=== PATIENT | male | born 1950 | race Caucasian/White ===

== ENCOUNTER 2016-12-17 06:35 | Day surgery (SDC) | payer MEDICARE, BC ==
[2016-12-12 14:17] VITALS: BMI 23.2
[~2016-12-17 06:35] MED LIST: LACTATED RINGERS 1,000 ML IV SCH
[2016-12-17 07:18] VITALS: RESP 16; TEMP 98
[2016-12-17] MEDS ORDERED: LIDOCAINE 1% 20 ML VIAL (10MG/ML) FOR IV START INTRADERMA ONE (07:24)
[2016-12-17] MEDS ORDERED: fentaNYL (PF) 50 MCG/ML 2 ML AMP ONE (07:48)
[2016-12-17] MEDS ORDERED: BUPIVACAINE (PF) 0.5% 30 ML VIAL ONE (07:48)
[2016-12-17] MEDS ORDERED: MIDAZOLAM 2 MG/2 ML VIAL ONE (07:48)
[2016-12-17] MEDS ORDERED: TRIAMCINOLONE ACETONIDE 40 MG/ML 1 ML VIAL ONE (07:48)
[2016-12-17] MEDS ORDERED: IV FLUID CONTINUATION 1,000 ML IV ONE (08:15)
--- NOTE | 2016-12-17 08:21 | P.PCN ---
Date of Procedure: 12/17/16 Anesthesia: MAC Surgeon: Bradly Mcguire Pathology: none sent Condition: stable Disposition: PACU Description of Procedure: PREOPERATIVE DIAGNOSIS: 1) Lumbar spondylosis without myelopathy and facet arthropathy; 2) lumbar postlaminectomy syndrome POSTOPERATIVE DIAGNOSIS: 1) Lumbar spondylosis without myelopathy and facet arthropathy; 2) lumbar postlaminectomy syndrome PROCEDURE DESCRIPTION: Patient presents for left lumbar diagnostic medial branch blocks under fluoroscopic guidance. The procedure is performed using fluoroscopic guidance during needle placement to assure proper position and maximize safety. ANESTHESIA: Local with 1% lidocaine. Conscious sedation with Versed/fentanyl. EBL: Minimal PROCEDURE INDICATION: Patient with lumbar facet arthropathy signs and symptoms and previous excellent relief from RFA > 6 years ago, here for diagnostic medial branch block. Pt does not take any blood thinning medications. PROCEDURE DESCRIPTION: The patient was seen and identified in the preoperative area. Risks, benefits, complications, and alternatives were discussed with the patient (including but not limited to incomplete pain relief, bleeding, infection, nerve damage, and allergies to medications), the patient agreed to proceed with the procedure and signed the consent after all questions were answered. Patient was taken to the OR and time out was completed to verify proper patient, position, laterality of pain, and allergies. Pt was placed in the prone position and a pillow was placed under the abdomen to reduce lumbar lordosis. The lumbosacral area was prepped and draped in the usual sterile fashion. Using oblique fluoroscopy, the eye of the "Raymond dog" was identified at all levels in the lumbar spine. The patient has interpedicular fusion hardware from the L2-L3 levels, obscuring the view of the pedicles at certain levels. For this reason, I decided to perform MBB at left L1-L2, L3-L4, and L4-L5 levels. First, the left L2 vertebral body, which corresponds to the path of the medial branch originating from the level above, which is L1 in this case, was identified. Subsequently, a 22-gauge 3.5-inch spinal needle was inserted under fluoroscopic guidance toward the eye of the "Raymond dog" of the left L2 vertebral body, corresponding to the junction of the superior articular process and the transverse process of the pedicle of the same level. After needle tip confirmation on lateral view and after negative aspiration for CSF and blood and without paresthesias, 1 mL of a 3 ml solution of 0.5% preservative-free bupivacaine 2 ml and 40 mg Kenalog was injected. Subsequently the needle was withdrawn intact and the same procedure was repeated for the left L3 and left L4 medial branches. Needle was withdrawn intact after each injection. At the end of the procedure, the skin was cleansed and bandages were applied. COMPLICATIONS: None. DISPOSITION/PLAN: The patient taken to the recovery area after the procedure in a stable condition for observation. Patient was reexamined prior to discharge and there were no issues. Patient was discharged home, accompanied by an adult, after meeting discharged criteria. Discharge instructions were give to the patient by the staff. Patient was specifically instructed not to drive today and to rest for the rest of the day. Patient noted excellent relief upon rolling from OR table to cart while in procedure room itself. Upon return, can consider repeating same procedure or attempting LMBB at L5-S1 level, although this does appear as though it may be technically challenging due to distortion of the lumbar spine.
--- NOTE | 2016-12-17 08:22 | FL ---
EXAMINATION TYPE: FL guided pain mgmt statistic DATE OF EXAM: 12/17/2016 8:19 AM HISTORY: Flouroscopy time 10 seconds of fluoroscopy provided. IMPRESSION: 1. Fluoroscopy time.
[2016-12-17 08:38] VITALS: BP 121/76; PULSE 56
--- NOTE | 2016-12-19 13:56 | CDI ---
Dr. Mcguire Mr. Somers was seen on 12/17/16 for a medial branch block. Per your procedure note, Conscious sedation with Versed/fentanyl is documented. The Pain Procedure Record, however, has MAC checked off under Anesthesia plan. This is conflicting documentation that needs clarification for proper reporting purposes. Please clarify if the anesthesia provided for Ms Shelton was MAC (Monitored Anesthesia Care) or Conscious/Moderate Sedation? Please document this clarification on an addendum to the procedure note. THERON
== END 2016-12-17 09:01 | disposition home or self-care (01) ==
LOC: ORPAIN 06:35
PROVIDERS: ATTEND Anesthesiology
DX: M46.86 Other specified inflammatory spondylopathies, lumbar region (principal); M96.1 Postlaminectomy syndrome, not elsewhere classified; M47.816 Spondylosis without myelopathy or radiculopathy, lumbar region; K21.9 Gastro-esophageal reflux disease without esophagitis; M06.9 Rheumatoid arthritis, unspecified; I10 Essential (primary) hypertension; Z79.899 Other long term (current) drug therapy; Z79.891 Long term (current) use of opiate analgesic; Z79.52 Long term (current) use of systemic steroids; Z88.8 Allergy status to other drugs, medicaments and biological substances
CPT/HCPCS: 62323; 99152; J2250; J3301; J3010; 27096

== ENCOUNTER 2017-01-28 07:01 | Day surgery (SDC) | payer MEDICARE, BC ==
[2017-01-24 11:52] VITALS: BMI 22.8
[2017-01-28 07:56] VITALS: RESP 16; TEMP 97.5
[2017-01-28] MEDS ORDERED: LIDOCAINE 1% 20 ML VIAL (10MG/ML) FOR IV START INTRADERMA ONE (07:56)
[2017-01-28 08:02] LABS: Glucose,Whole Blood 80 mg/dL (75-99)
[2017-01-28] MEDS ORDERED: MIDAZOLAM 2 MG/2 ML VIAL ONE (08:21)
[2017-01-28] MEDS ORDERED: fentaNYL (PF) 50 MCG/ML 2 ML AMP ONE (08:21)
[2017-01-28] MEDS ORDERED: TRIAMCINOLONE ACETONIDE 40 MG/ML 1 ML VIAL ONE (08:21)
[2017-01-28] MEDS ORDERED: BUPIVACAINE (PF) 0.5% 30 ML VIAL ONE (08:21)
[2017-01-28] MEDS ORDERED: IV FLUID CONTINUATION 1,000 ML IV ONE ×2 (08:49)
[2017-01-28 09:14] VITALS: BP 124/74; PULSE 63
--- NOTE | 2017-01-28 09:37 | P.PCN ---
Date of Procedure: 01/28/17 Surgeon: Bradly Mcguire Pathology: none sent Condition: stable Disposition: PACU Description of Procedure: PREOPERATIVE DIAGNOSIS: 1) Lumbar spondylosis without myelopathy and facet arthropathy; 2) lumbar postlaminectomy syndrome POSTOPERATIVE DIAGNOSIS: 1) Lumbar spondylosis without myelopathy and facet arthropathy; 2) lumbar postlaminectomy syndrome PROCEDURE DESCRIPTION: Patient presents for left lumbar diagnostic medial branch blocks under fluoroscopic guidance. The procedure is performed using fluoroscopic guidance during needle placement to assure proper position and maximize safety. ANESTHESIA: Local with 1% lidocaine. Conscious sedation with Versed/fentanyl. EBL: Minimal PROCEDURE INDICATION: Patient with lumbar facet arthropathy signs and symptoms and previous excellent relief from RFA > 6 years ago, here for diagnostic medial branch block. Pt does not take any blood thinning medications. PROCEDURE DESCRIPTION: The patient was seen and identified in the preoperative area. Risks, benefits, complications, and alternatives were discussed with the patient (including but not limited to incomplete pain relief, bleeding, infection, nerve damage, and allergies to medications), the patient agreed to proceed with the procedure and signed the consent after all questions were answered. Patient was taken to the OR and time out was completed to verify proper patient, position, laterality of pain, and allergies. Pt was placed in the prone position and a pillow was placed under the abdomen to reduce lumbar lordosis. The lumbosacral area was prepped and draped in the usual sterile fashion. Using oblique fluoroscopy, the eye of the "Raymond dog" was identified at all levels in the lumbar spine. The patient has interpedicular fusion hardware at multiple levels in the lumbar spine, obscuring the view of the pedicles at certain levels. For this reason, I decided to perform MBB at left L1-L2, L2-L3 , and L3-L4 levels. First, the left L2 vertebral body, which corresponds to the path of the medial branch originating from the level above, which is L1 in this case, was identified. Subsequently, a 22-gauge 3.5-inch spinal needle was inserted under fluoroscopic guidance toward the eye of the "Raymond dog" of the left L2 vertebral body, corresponding to the junction of the superior articular process and the transverse process of the pedicle of the same level. After needle tip confirmation on lateral view and after negative aspiration for CSF and blood and without paresthesias, 1 mL of a 3 ml solution of 0.5% preservative -free bupivacaine 2 ml and 40 mg Kenalog was injected. Subsequently the needle was withdrawn intact and the same procedure was repeated for the left L2 and left L3 medial branches. Needle was withdrawn intact after each injection. At the end of the procedure, the skin was cleansed and bandages were applied. COMPLICATIONS: None. DISPOSITION/PLAN: The patient taken to the recovery area after the procedure in a stable condition for observation. Patient was reexamined prior to discharge and there were no issues. Patient was discharged home, accompanied by an adult, after meeting discharged criteria. Discharge instructions were give to the patient by the staff. Patient was specifically instructed not to drive today and to rest for the rest of the day. I asked patient to tell us which procedure worked better for him as there was a slight change in levels done for this MBB today ( L1-L3 today and L1, L3, and L4 done last time).
--- NOTE | 2017-01-28 10:37 | FL ---
EXAMINATION TYPE: FL guided pain mgmt statistic DATE OF EXAM: 01/28/2017 8:43 AM CLINICAL HISTORY: Low back pain. TECHNIQUE: Fluoroscopy. COMPARISON: None. FINDINGS: Fluoroscopic guidance was provided during pain relief procedure performed by Dr. Mcguire . A total of 9 seconds of fluoroscopic time was utilized during the procedure and 3 spot images are acq uired. Images acquired shows needle localization at several levels in the lumbar spine. There is 3 l evel surgical posterior fusion hardware noted. IMPRESSION: As Above.
== END 2017-01-28 09:26 | disposition home or self-care (01) ==
LOC: ORPAIN 07:01
PROVIDERS: ATTEND Anesthesiology
DX: G89.29 Other chronic pain (principal); M47.816 Spondylosis without myelopathy or radiculopathy, lumbar region; M46.96 Unspecified inflammatory spondylopathy, lumbar region; M96.1 Postlaminectomy syndrome, not elsewhere classified; I10 Essential (primary) hypertension; M06.9 Rheumatoid arthritis, unspecified; Z91.048 Other nonmedicinal substance allergy status; Z79.52 Long term (current) use of systemic steroids; Z98.1 Arthrodesis status
CPT/HCPCS: 99152; 64493; 64494; 64495; J2250; J3301; J3010

== ENCOUNTER 2017-03-04 07:51 | Day surgery (SDC) | payer MEDICARE, BC ==
[2017-02-28 14:15] VITALS: BMI 22.9
[2017-03-04] MEDS ORDERED: LACTATED RINGERS 1,000 ML IV SCH (08:00)
[2017-03-04] MEDS ORDERED: LIDOCAINE 1% 20 ML VIAL (10MG/ML) FOR IV START INTRADERMA ONE (08:14)
[2017-03-04 08:22] VITALS: TEMP 98.1
[2017-03-04] MEDS ORDERED: BUPIVACAINE (PF) 0.5% 30 ML VIAL ONE (08:56)
[2017-03-04] MEDS ORDERED: fentaNYL (PF) 50 MCG/ML 2 ML AMP ONE (08:56)
[2017-03-04] MEDS ORDERED: MIDAZOLAM 2 MG/2 ML VIAL ONE (08:56)
[2017-03-04] MEDS ORDERED: TRIAMCINOLONE ACETONIDE 40 MG/ML 1 ML VIAL ONE (08:56)
--- NOTE | 2017-03-04 09:37 | FL ---
EXAMINATION TYPE: FL guided pain mgmt statistic DATE OF EXAM: 03/04/2017 9:31 AM HISTORY: Flouroscopy time 38 seconds of fluoroscopy provided. IMPRESSION: 1. Fluoroscopy time.
--- NOTE | 2017-03-04 09:57 | P.PCN ---
Date of Procedure: 03/04/17 Preoperative Diagnosis: Failed back surgery syndrome Lumbar spondylosis without myelopathy Postoperative Diagnosis: Same as above Procedure(s) Performed: Left lumbar medial branch radio frequency ablation under fluoroscopic guidance Anesthesia: MAC Surgeon: Zelda Hernandez Pathology: none sent Condition: stable Disposition: PACU Description of Procedure: The patient was seen in preop holding area consent was obtained then was brought into the procedure 1 placed in prone position. Skin was prepped with ChloraPrep and draped in a sterile manner. Lidocaine 1% was used to numb the skin up at the target points that were chosen as follows: The patient had 5 surgeries on his back including fusion between L1 and L3 and lumbar laminectomy between L4 to S1, I had difficulty identifying the target points with the surgeries. The diffusion level there is no need to do any medial branch block so far as the fusion is stable and it has been stable, I then turned my attention into doing the levels beneath has hardware which were between L4 to S1. For the L5-S1 level which corresponds to the dorsal ramus of L5 the target point was the superior medial aspect of the sacral alar on the left side of the spine on the AP view of fluoroscopy and for the L3 and L4 medial branches the target points were the connection between the transverse process and the superior to go process of L4 and L5 vertebra respectively on the oblique view of fluoroscopy. I used 18-gauge 100 mm in length with 10 mm curved active tip radiofrequency ablation Venom needles. AP oblique and lateral view of fluoroscopy were obtained to verify needle tip position. Because of the bone. I had difficulty reaching that typical site of the medial branches on the lateral view of fluoroscopy. Motor stimulation did not show any twitching in the lower extremities. I then prepared a solution of 2 MLS Marcaine 0.5% +40 mg of Kenalog and 1 mL of the solution was injected in each needle after that I started radiofrequency ablation for 90 seconds at 80C. I think the patient may benefit from a spinal cord stimulator, and it looks like he did have a trial before his last surgery which didn't help with the pain but he ended up having surgery. I think using Motrin the new techniques of stimulation like burst or high-frequency may help control his lower back pain which radiates to the left hip area only.
[2017-03-04 09:59] VITALS: BP 150/84; PULSE 55; RESP 16
[2017-03-04] MEDS ORDERED: IV FLUID CONTINUATION 1,000 ML IV ONE (10:05)
== END 2017-03-04 10:29 | disposition home or self-care (01) ==
LOC: ORPAIN 07:51
PROVIDERS: ATTEND Anesthesiology
DX: M96.1 Postlaminectomy syndrome, not elsewhere classified (principal); M47.816 Spondylosis without myelopathy or radiculopathy, lumbar region
CPT/HCPCS: 64635; 64636; 99152; 99153; J2250; J3301; J3010

== ENCOUNTER → 2017-04-09 | Outpatient (CLI) | payer MEDICARE, BC ==
[2017-04-09 14:41] VITALS: BP 120/76; PULSE 62; RESP 16; TEMP 98.3
--- NOTE | 2017-04-09 15:27 | P.PN ---
Subjective This is follow-up visit for this patient with a history of severe and chronic low back pain secondary to failed back surgery syndrome lumbar area , lumbar spondylosis with facet arthropathy, we have done interventional pain management injection,, diagnostic medial branch block , RFA of the medial branches , he continued to have severe low back pain, numbness and tingling sensation in the lower extremity, he denies any motor or sensory deficit, denies any fever or night sweats, and his currently on 1-Lawtey 10/325 every 6 hours (prescription from primary care ) 2-Neurontin 800 mg twice a day ( prescription from primary care ) Patient denies any side effects of the medication, denies excessive drowsiness or sleepiness, denies suicidal ideation, and reports that the current pain medication is NOT helping To control the pain and improve activity of daily living Patient denies any motor or sensory deficit , patient denies any fever or night sweats, denies any change in the bowel movements or urination Physical Examinations : 1-Constitutiona : Cooperative , not in acute distress . 2-HEENT : nech ; supple , no Lymphadenopathy , no Thyromegaly , normal thyroid size . eyes : no ptosis , no icterus, no photophobia . ENT : normal of hearing , normal oropharynx , no Thrush . 3- Respiratory : Chest clear to auscultations Bilaterally , no wheezing , no Rhonchi . 4- Cardiovascular : regular rate and rhythem , S1 , S2 , no S3 , no S4. 5- Gastrointestinal : abdomen soft no tenderness , bowel sounds positive all four quadrents , no organomegally . 6- Genitourinary : Defferred . 7- neurologic : Cranial nerve II to XII intact , no focal neurological deffecit . 8-psychatric : alert , oriented X 3 , appropriate affect , intact judgment and insight . 9-Lymphatic : no Lymphadenopathy . 10- musculoskeltal : exams of the Lumber spine = motor strength lower extremities ,thigh and legs .5/5 deep tendon reflexes : normal Knee Jerk , normal ankle Jerk . lumber facet Loading Test positive strait leg raising test positive at 30 degree , RT ,LT , Fabere test positive RT and positive LT . Range of motion: Range of motion in flexion of the lumbar spine 30 degrees Range of motion range of motion of extension of the lumbar spine 10 Assessment and plan = - Chronic low back pain secondary to lumbar failed back surgeries syndrome , lumbar spondylosis with facet arthropathy without myelopathy , Patient continued to have severe low back pain after the radiofrequency ablation of the medial branch lumbar area - diagnoses, prognosis, and treatment options including but not limited to physical therapy, surgical interventions, interventional therapies , and medication management including narcotics and adjuvant medication were discussed with the patient . Patient could benefit from caudal epidural steroid injections with lysis of epidural adhesions and this will be done under fluoroscopy guidance at the earliest convenient for the patient, patient should continue his current pain medication Lawtey 10/325, and Neurontin 800 mg twice a day (description from PCP ) Objective - Vital Signs Vital signs: Vital Signs Temp 98.3 F 04/09/17 14:31 Pulse 62 04/09/17 14:31 Resp 16 04/09/17 14:31 BP 120/76 04/09/17 14:31 Pulse Ox 97 04/09/17 14:31 Intake & Output 04/08/17 04/09/17 04/09/17 18:59 06:59 18:59 Weight 68.039 kg
== END | disposition home or self-care (01) ==
LOC: PNWHC3 14:16
PROVIDERS: ATTEND Specialist
DX: M47.816 Spondylosis without myelopathy or radiculopathy, lumbar region (principal); M46.96 Unspecified inflammatory spondylopathy, lumbar region; M96.1 Postlaminectomy syndrome, not elsewhere classified; G89.29 Other chronic pain; Z79.899 Other long term (current) drug therapy
CPT/HCPCS: 99211

== ENCOUNTER → 2017-09-28 | Outpatient (CLI) | payer MEDICARE, BC ==
[2017-09-28 09:11] LABS: Calcium 9.9 mg/dL (8.4-10.2)
[2017-10-01 05:41] LABS: Vitamin E (Alpha Tocopherol) 1012 ug/dL (500-1800)
[2017-10-07 19:36] LABS: Vitamin K 170 pg/mL (80-1160)
[2017-10-08 15:12] LABS: Nicotinamide 20 ng/mL; Nicotinic Acid None Detected; Nicotinuric Acid None Detected
== END | disposition home or self-care (01) ==
LOC: LABWHC1 08:20
PROVIDERS: ATTEND Psychiatry & Neurology Pain Medicine
DX: G89.4 Chronic pain syndrome (principal); Z79.899 Other long term (current) drug therapy
CPT/HCPCS: 36415; 82306; 82310; 82550; 83036; 83519; 83735; 84207; 84425; 84446; 84590; 84591; 84597

== ENCOUNTER → 2018-10-03 | Outpatient (CLI) | payer MEDICARE, BC ==
--- NOTE | 2018-10-03 08:18 | CT ---
EXAMINATION TYPE: CT lumbar spine wo con DATE OF EXAM: 10/03/2018 7:36 AM COMPARISON: Radiograph's of the lumbar spine dated 09/05/2015 HISTORY: Low back pain CT DLP: 593.1 mGycm Automated exposure control for dose reduction was used. TECHNIQUE: Unenhanced CT of the lumbar spine was performed. Bone and soft tissue window settings are submitted as well as coronal and sagittal reconstructions. FINDINGS: There is straightening and somewhat reversal of the usual cervical lordosis throughout the lumbar spine. There is grade 1 anterolisthesis of L2 on L3. Surgical fusion of the L1-L3 vertebral cong dies is seen with pedicular screws and fixation rods with prior surgical change at L4 and L5. Interve rtebral disc cages seen at L4-L5. Heterotopic ossification of the facets is seen throughout the lumba r spine. There is osseous fusion of the L4 and L5 vertebral bodies. Schmorl's node is seen of the T11 superior endplate. Anterior osteophytes are noted throughout the lumbar spine. There is multilevel d isc desiccation. There is moderate calcific atheromatous change of the abdominal aorta. At the level of L3 there is to rtuosity and some ectasia as the aorta measures 2.5 cm in anterior posterior dimension on sagittal im ages. L1-L2: Although there is surgical absence of the posterior elements osseous bridging of the facets an d a transverse dimension has occurred and therefore in combination with a broad-based disc bulges the re remains mild spinal canal stenosis and mild bilateral neural foraminal narrowing. L2-L3: Disc uncovering is seen from the grade 1 anterolisthesis. There is surgical absence of the pos terior elements. No spinal canal stenosis. Mild bilateral neural foraminal narrowing remains. L3-L4: There is bridging of the facets from postsurgical heterotopic ossification with prior surgical removal of the posterior elements. Ligamentum flavum buckling and a broad-based disc bulge contribut e to moderate spinal canal stenosis and mild to moderate bilateral neural foraminal narrowing. L4-L5: Intervertebral disc cages seen. Heterotopic ossification of the facets creates mild to moderat e bilateral neural foraminal narrowing. No spinal canal stenosis. L5-S1: There is right lateral soft tissue density along some remnant lamina images on series 3 image 82 just inferior to this on image 84 there is a left-sided postsurgical defect of the sacrum. Some he terotopic ossification is seen in combination with a broad-based disc bulge resulting in mild spinal canal stenosis and minimal bilateral neural foraminal narrowing. IMPRESSION: 1. Postsurgical changes throughout the lumbar spine with surgically fixated grade 1 anterolisthesis o f L2 on L3 and slight reversal of the usual lumbar lordosis. Heterotopic ossification and multilevel broad-based disc bulges results in variable degrees of neural foraminal narrowing and mild spinal can al stenosis at L1-L2 and L5-S1 with moderate spinal canal stenosis at L3-L4. 2. Right eccentric soft tissue density at L5-S1 could represent ligamentum flavum buckling or epidura l fibrosis. This could be correlated with prior surgical history to evaluate for prior removal of the ligamentum flavum or MRI with contrast could evaluate for abnormal enhancement of epidural fibrosis.
== END | disposition home or self-care (01) ==
LOC: RADCTMAIN 07:21
PROVIDERS: ATTEND Internal Medicine
DX: M99.73 Connective tissue and disc stenosis of intervertebral foramina of lumbar region (principal); M48.061 Spinal stenosis, lumbar region without neurogenic claudication; M43.16 Spondylolisthesis, lumbar region; Z98.890 Other specified postprocedural states
CPT/HCPCS: 72131

== ENCOUNTER → 2018-11-19 | Outpatient (CLI) | payer MEDICARE, BC | END | disposition home or self-care (01) | LOC: LABWHC1 13:46 | PROVIDERS: ATTEND Psychiatry & Neurology Pain Medicine | DX: Z51.81 Encounter for therapeutic drug level monitoring (principal) | CPT/HCPCS: 36415; 82565; 84520 ==

== ENCOUNTER → 2020-07-22 | Outpatient (CLI) | payer MEDICARE, BC ==
--- NOTE | 2020-07-22 15:56 | US ---
EXAMINATION TYPE: US carotid duplex BILAT DATE OF EXAM: 07/22/2020 COMPARISON: NONE CLINICAL HISTORY: R09.89 Caroit Bruit. bruit EXAM MEASUREMENTS: RIGHT: Peak Systolic Velocity (PSV) cm/sec ----- Right CCA: 55.9 ----- Right ICA: 95.2 ----- Right ECA: 90.8 ICA/CCA ratio: 1.7 RIGHT: End Diastole cm/sec ----- Right CCA: 11.8 ----- Right ICA: 29.2 ----- Right ECA: 13.8 LEFT: Peak Systolic Velocity (PSV) cm/sec ----- Left CCA: 72.1 ----- Left ICA: 79.9 ----- Left ECA: 75.6 ICA/CCA ratio: 1.1 LEFT: End Diastole cm/sec ----- Left CCA: 20.4 ----- Left ICA: 25.8 ----- Left ECA: 11.0 VERTEBRALS (direction of flow): Right Vertebral: Antegrade Left Vertebral: Antegrade Rhythm: Normal Grayscale, color Doppler, spectral Doppler imaging performed of the carotid arteries. Waveform analys is does not show significant stenosis of the internal carotid arteries. Moderate plaque right bifurca tion. Mild plaque left bifurcation. No evidence of increased velocities. No evidence of significant s tenosis IMPRESSION: No hemodynamic significant stenosis of the proximal internal carotid arteries, indirect measurement of carotid stenosis Criteria for Assigning % of Stenosis / Diameter reduction (Estimation based on the indirect measurements of the internal carotid artery velocities (ICA PSV). 1. Normal (no stenosis)=ICA PSV < 125 cm/s: ratio < 2.0: ICA EDV<40 cm/s. 2. Less than 50% stenosis=ICA PSV < 125 cm/s: ratio < 2.0: ICA EDV<40 cm/s. 3. 50 to 69% stenosis=ICA PSV of 125 to 230 cm/s: ration 2.0 ? 4.0: ICA EDV 40-100 cm/s. 4. Greater than 70% stenosis to near occlusion= ICA PSV > 230 cm/s: ratio > 4.0: ICA EDV > 100 cm/s. 5. Near occlusion= ICA PSV velocities may be low or undetectable: variable ratio and ICA EDV. 6. Total occlusion=unable to detect flow.
== END | disposition home or self-care (01) ==
LOC: RADUSWWP 15:24
PROVIDERS: ATTEND Internal Medicine
DX: R09.89 Other specified symptoms and signs involving the circulatory and respiratory systems (principal)
CPT/HCPCS: 93880

== ENCOUNTER → 2021-06-30 | Outpatient (CLI) | payer MEDICARE, BC ==
--- NOTE | 2021-06-30 13:23 | XR ---
EXAMINATION TYPE: XR thoracic spine 2V DATE OF EXAM: 06/30/2021 COMPARISON: 09/24/2014 HISTORY: Pain TECHNIQUE: 3 views submitted FINDINGS: Alignment is anatomic. There is no compression deformities. There is multilevel hypertrophic and mod erate to severe degenerative disc disease. Postsurgical change is incidentally noted involving the ce rvical spine and suggested within the lumbar spine. IMPRESSION: 1. Moderate to severe degenerative disc disease
== END | disposition home or self-care (01) ==
LOC: LABWHC1 10:57
PROVIDERS: ATTEND Psychiatry & Neurology Pain Medicine
DX: M51.34 Other intervertebral disc degeneration, thoracic region (principal)
CPT/HCPCS: 72070

== ENCOUNTER → 2021-11-01 | Outpatient (CLI) | payer MEDICARE, BC | END | disposition home or self-care (01) | LOC: LABWHC1 11:28 | PROVIDERS: ATTEND Internal Medicine | DX: Z20.822 Contact with and (suspected) exposure to COVID-19 (principal); R05.9 Cough, unspecified | CPT/HCPCS: U0003; C9803 ==

== ENCOUNTER → 2022-10-17 | Outpatient (CLI) | payer MEDICARE ==
[2022-10-17 12:32] LABS: African American GFR (CKD) >90 (>60 ml/min/1.73 sqM); Blood Urea Nitrogen 17 mg/dL (9-20); Non-African American GFR(CKD) >90 (>60 ml/min/1.73 sqM)
--- NOTE | 2022-10-17 13:26 | CT ---
EXAMINATION TYPE: CT angio abdomen pelvis DATE OF EXAM: 10/17/2022 COMPARISON: Prior CT abdomen and pelvis March 20, 2013 HISTORY: iliac aneurysm CT DLP: 742.4 mGycm, Automated Exposure Control for Dose Reduction was Utilized. CONTRAST: CTA scan of the abdomen and pelvis is performed without oral and without and with IV Contrast, patien t injected with 100 mL of Isovue 370. Three-D reconstructed images are created on an independent work station and reviewed. FINDINGS: VASCULAR: There is a patent celiac artery and SMA without significant stenosis. Moderate mixed plaque along the abdominal aorta is identified. No significant stenosis in the bilateral single renal arter ies appear patent CHARU is seen. No greater than 3.0 cm AAA. Moderate to severe mixed plaque in the common iliac arteries bilaterally without significant stenosis . There is significant stenosis in the left internal iliac artery as site a focal 1.6 cm aneurysm axi al image 142. There is moderate to severe mixed plaque in the external iliac arteries bilaterally. Si gnificant stenosis is thought present on the left near image 151. Prominent calcified plaque right co mmon femoral artery level shows stenosis likely approaching 50%. Less prominent plaque left common fe moral artery level. No significant stenosis into the superficial femoral arteries bilaterally LUNG BASES: Coronary artery calcification in the RCA distribution is present. LIVER/GB: Gallbladder is distended margins without surrounding inflammatory change. No biliary dilata tion is evident. PANCREAS: No significant abnormality is seen. SPLEEN: No significant abnormality is seen. ADRENALS: No significant abnormality is seen. KIDNEYS: No significant abnormality is seen. BOWEL: Moderate fecal prominence in the right and transverse colon along with the left colon. No susp icious small or large bowel dilatation. PROSTATE/SEMINAL VESICLES: Mildly enlarged prostate consistent with BPH. LYMPH NODES: No greater than 1cm abdominal or pelvic lymph nodes are appreciated. OSSEOUS STRUCTURES: Extensive surgical change to the lumbar spine is redemonstrated. Artificial disc L4-L5 level. Grade 1 anterolisthesis L2 on L3. Posterior decompression changes noted. Alignment is st raightened. OTHER: No significant additional abnormality is seen. IMPRESSION: 1. No greater than 3.0 cm AAA. 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 Moderate to severe plaque of the aorta extends into branch vessels with si gnificant focal stenosis in the left external iliac artery noted. Correlate for left lower extremity hypoperfusion type symptoms. 2. Moderate colonic fecal stasis. No bowel obstruction.
== END | disposition home or self-care (01) ==
LOC: RADCTMAIN 11:32
PROVIDERS: ATTEND Surgery
DX: I72.3 Aneurysm of iliac artery (principal); I70.0 Atherosclerosis of aorta; R19.5 Other fecal abnormalities
CPT/HCPCS: 82565; 84520; 36415; 74174; Q9967

== ENCOUNTER → 2023-06-21 | Outpatient (CLI) | payer MEDICARE ==
[2023-06-21 13:06] LABS: Basophils # (A) 0.07 X 10*3/uL (0.00-0.10); Eosinophils # (A) 0.12 X 10*3/uL (0.04-0.35); Eosinophils % (A) 1.6 %; HCT 40.2 % (39.6-50.0); HGB 13.2 d/dL (13.0-17.0); Lymphocytes # (A) 1.61 X 10*3/uL (0.90-5.00); Lymphocytes % (A) 22.1 %; MCH 29.7 pg (27.0-32.0); MCHC 32.8 d/dL (32.0-37.0); MCV 90.3 FL (80.0-97.0); Mean Platelet Volume 9.3 FL (9.5-12.2); Monocytes # (A) 0.86 X 10*3/uL (0.20-1.00); Monocytes % (A) 11.8 %; NRBC Per 100 WBC 0 X 10*3/uL (0.00-0.01); Neutrophils # (A) 4.58 X 10*3/uL (1.80-7.70); Neutrophils % (A) 62.8 %; Platelet Count 230 X 10*3/uL (140-440); RBC 4.45 X 10*6/uL (4.40-5.60); RDW 13.6 % (11.5-14.5); WBC 7.29 X 10*3/uL (4.50-10.00)
[2023-06-21 13:38] LABS: ALT 20 U/L (10-49); AST 19 U/L (14-35); Albumin 4.5 d/dL (3.8-4.9); Albumin/Globulin Ratio 2.05 Ratio (1.60-3.17); Alkaline Phosphatase 104 U/L (41-126); BUN/Creat Ratio 14.78 Ratio (12.00-20.00); Blood Urea Nitrogen 13.3 mg/dL (9.0-27.0); Calcium 9.5 mg/dL (8.7-10.3); Carbon Dioxide 28.2 mmol/L (21.6-31.8); Chloride 102 mmol/L (96-109); Chol/HDL Ratio 3.06 Ratio; Globulin 2.2 d/dL (1.6-3.3); Glucose 90 mg/dL (70-110); LDL Cholesterol,Calculated 87.9 mg/dL (0.0-131.0); Potassium 4.6 mmol/L (3.5-5.5); Sodium 140 mmol/L (135-145); Total Bilirubin 0.3 mg/dL (0.3-1.2); Total Protein 6.7 d/dL (6.2-8.2)
== END | disposition home or self-care (01) ==
LOC: LABWHC1 07:16
PROVIDERS: ATTEND Family Medicine
DX: Z00.00 Encounter for general adult medical examination without abnormal findings (principal); Z12.5 Encounter for screening for malignant neoplasm of prostate
CPT/HCPCS: 80061; 80053; 85025; 36415; G0103

== ENCOUNTER → 2023-06-27 | Outpatient (CLI) | payer MEDICARE ==
--- NOTE | 2023-06-28 10:15 | BD ---
EXAMINATION TYPE: Axial Bone Density DATE OF EXAM: 06/27/2023 CLINICAL HISTORY: 73 years old Male. ICD-10 CODE: Z79.52 HALF-WAY (CURRENT) USE OF SYSTEMIC STEROID Height: 64.75 Weight: 151 FRAX RISK QUESTIONS: Family History (Parent hip fracture): no Glucocorticoids (More than 3mos): yes (Ex: prednisone, prednisolone, methylprednisolone, dexamethasone, and hydrocortisone). History of Fracture in Adulthood: no Secondary Osteoporosis: no Rheumatoid Arthritis: yes RISK FACTORS HISTORY OF: Surgery to Spine: yes When: 1970s has had 5 back surgeries Family History of Osteoporosis: no Active: yes Diet low in dairy products/other sources of calcium: no Lost more than 2 inches in height since high school: yes Frequent falls: no Poor Health: no MEDICATIONS: Prednisone or other steroids: yes How Lon+ years Additional Medications: yes RH meds, calcium with d, cholesterol, hbp, reflux, heart meds EXAM MEASUREMENTS: Bone mineral density about the R hip (g/cm2): 0.769 Bone mineral density about the L hip (g/cm2): 0.744 T Score values are as follows: -----R Neck: -2.0 -----L Neck: -1.9 -----R Total: -1.9 -----L Total: -2.1 Z Score values are as follows: -----R Neck: -0.9 -----L Neck: -0.7 -----R Total: -1.4 -----L Total: -1.5 Bone mineral density has: Decreased -13.6% since study of: 02/23/2010 FRAX%s: The graph provided illustrates a 18% chance for a major osteoporotic fx and a 6.8% chance for the hips probability for fx in 10 years time. IMPRESSION: Osteopenia (T Score between -2.5 and -1). There is slightly increased risk of fracture and the patient may be considered for treatment. Re-Screen 2-5 years. NOTE: T-SCORE=SD OF THE YOUNG ADULT MEAN.
== END | disposition home or self-care (01) ==
LOC: RADBDWWP 15:23
PROVIDERS: ATTEND Family Medicine
DX: M85.88 Other specified disorders of bone density and structure, other site (principal); D84.821 Immunodeficiency due to drugs; M06.9 Rheumatoid arthritis, unspecified; Z79.52 Long term (current) use of systemic steroids
CPT/HCPCS: 77080

== ENCOUNTER 2023-08-14 06:03 | Day surgery (SDC) | payer MEDICARE ==
[2023-08-08 13:55] VITALS: BMI 25.4
[2023-08-14 06:54] VITALS: RESP 16; TEMP 98
[2023-08-14] MEDS ORDERED: fentaNYL (PF) 50 MCG/1 ML VIAL IVP ONE (07:00)
[2023-08-14] MEDS ORDERED: PROPOFOL 10 MG/ML 20 ML VIAL IV ONE (07:15)
--- NOTE | 2023-08-14 07:48 | P.PCN ---
Date of Procedure: 08/14/23 Procedure(s) Performed: BRIEF HISTORY: Patient is a 73-year-old pleasant white male scheduled for an elective colonoscopy as a part of screening for colon cancer. PROCEDURE PERFORMED: Colonoscopy with snare polypectomy. PREOPERATIVE DIAGNOSIS: Screening for colon cancer. IV sedation per Anesthesia. PROCEDURE: After informed consent was obtained, the patient, was brought into the endoscopy unit. IV sedation was administered by Anesthesia under continuous monitoring. Digital rectal examination was normal. Initially the Olympus CF-160 flexible video colonoscope was then inserted in the rectum, gradually advanced into the cecum without any difficulty. Careful examination was performed as the scope was gradually being withdrawn. Ileocecal valve and the appendiceal orifice were visualized and appeared normal. Prep was poor and several areas of the colon. Mucosa of the cecum, adequately centimeter broad based polyp removed by snare polypectomy. In the transverse colon there were 3 polyps measuring between 5 mm and 1 cm in size removed by snare polypectomy. Rest of the ascending colon, transverse colon, descending colon, sigmoid colon, and rectum appeared normal. Sigmoid diverticulosis. Retroflexion was performed in the rectum and no lesions were seen. The patient tolerated the procedure well. IMPRESSION: 2 cm broad-based cecal polyp status post polypectomy 5 mm 2 and 1 cm transverse colon polyp status post polypectomy Scattered sigmoid diverticulosis Poor prep in several areas of the colon RECOMMENDATIONS: Findings of this examination were discussed with the patient as well as his family. He was advised to follow with the biopsy results. If the biopsy results and we will repeat colonoscopy in 3 years.
[2023-08-14 08:12] VITALS: BP 143/80; PULSE 54
== END 2023-08-14 08:21 | disposition home or self-care (01) ==
LOC: ORWHC2ENDO 06:03
PROVIDERS: ATTEND Internal Medicine Gastroenterology
DX: Z12.11 Encounter for screening for malignant neoplasm of colon (principal); D12.0 Benign neoplasm of cecum; D12.3 Benign neoplasm of transverse colon; K57.30 Diverticulosis of large intestine without perforation or abscess without bleeding; I10 Essential (primary) hypertension; E78.5 Hyperlipidemia, unspecified; M06.9 Rheumatoid arthritis, unspecified; M19.90 Unspecified osteoarthritis, unspecified site; F32.A Depression, unspecified; K21.9 Gastro-esophageal reflux disease without esophagitis; Z79.891 Long term (current) use of opiate analgesic; Z79.83 Long term (current) use of bisphosphonates; Z79.82 Long term (current) use of aspirin; Z79.631 Long term (current) use of antimetabolite agent; Z79.899 Other long term (current) drug therapy; Z98.890 Other specified postprocedural states; Z79.811 Long term (current) use of aromatase inhibitors; Z91.048 Other nonmedicinal substance allergy status
CPT/HCPCS: 88305; 45385; J2704; J3010

== ENCOUNTER → 2023-09-04 | Outpatient (CLI) | payer MEDICARE ==
[2023-09-04 19:19] LABS: ALT 15 U/L (10-49); AST 19 U/L (14-35)
[2023-09-04 20:02] LABS: Erythrocyte Sedimentation Rate 37 mm/Hr (0-20)
[2023-09-04 20:43] LABS: Basophils # (A) 0.04 X 10*3/uL (0.00-0.10); Basophils % (A) 0.6 %; Eosinophils # (A) 0.08 X 10*3/uL (0.04-0.35); Eosinophils % (A) 1.2 %; HCT 40.7 % (39.6-50.0); Lymphocytes # (A) 1.58 X 10*3/uL (0.90-5.00); Lymphocytes % (A) 23.4 %; MCH 29.1 pg (27.0-32.0); MCHC 31.9 d/dL (32.0-37.0); MCV 91.1 FL (80.0-97.0); Mean Platelet Volume 9.9 FL (9.5-12.2); Monocytes # (A) 0.91 X 10*3/uL (0.20-1.00); Monocytes % (A) 13.5 %; NRBC Per 100 WBC 0 X 10*3/uL (0.00-0.01); Neutrophils # (A) 4.08 X 10*3/uL (1.80-7.70); Neutrophils % (A) 60.6 %; Platelet Count 274 X 10*3/uL (140-440); RBC 4.47 X 10*6/uL (4.40-5.60); RDW 13.8 % (11.5-14.5); WBC 6.74 X 10*3/uL (4.50-10.00)
== END | disposition home or self-care (01) ==
LOC: LABWHC1 11:59
PROVIDERS: ATTEND Internal Medicine Rheumatology
DX: M06.9 Rheumatoid arthritis, unspecified (principal)
CPT/HCPCS: 36415; 82565; 84450; 84460; 85025; 85652; 86140

== ENCOUNTER 2024-02-18 01:36 | Inpatient (IN) | payer MEDICARE ==
[2024-02-18] MEDS: MORPHINE SULFATE 4 MG/ML SYRINGE IVP STA (02:12)
[2024-02-18 02:23] LABS: Basophils % (A) 1 %; Eosinophils % (A) 1 %; HCT 34.5 % (39.0-53.0); HGB 11.3 gm/dL (13.0-17.5); Lymphocytes # (A) 1.1 k/uL (1.0-4.8); Lymphocytes % (A) 13 %; MCH 28.5 pg (25.0-35.0); MCHC 32.7 g/dL (31.0-37.0); MCV 87.3 fL (80.0-100.0); Monocytes # (A) 0.9 k/uL (0-1.0); Monocytes % (A) 10 %; Neutrophils # (A) 6.4 k/uL (1.3-7.7); Neutrophils % (A) 74 %; Platelet Count 361 k/uL (150-450); RBC 3.95 m/uL (4.30-5.90); WBC 8.6 k/uL (3.8-10.6)
[2024-02-18 02:35] LABS: ALT 25 U/L (4-49); AST 48 U/L (17-59); African American GFR (CKD) >90 (>60 ml/min/1.73 sqM); Albumin 3.6 g/dL (3.5-5.0); Alkaline Phosphatase 220 U/L (38-126); Anion Gap 8 mmol/L; Blood Urea Nitrogen 17 mg/dL (9-20); Calcium 8.8 mg/dL (8.4-10.2); Carbon Dioxide 25 mmol/L (22-30); Chloride 102 mmol/L (98-107); Glucose 125 mg/dL (74-99); Non-African American GFR(CKD) >90 (>60 ml/min/1.73 sqM); Potassium 4.1 mmol/L (3.5-5.1); Sodium 135 mmol/L (137-145); Total Bilirubin 0.4 mg/dL (0.2-1.3); Total Protein 6.2 g/dL (6.3-8.2)
[2024-02-18] MEDS: KETOROLAC 15 MG/ML 1 ML VIAL IVP STA (03:06)
--- NOTE | 2024-02-18 03:08 | ED ---
General Adult HPI - General Source: patient Mode of arrival: wheelchair Limitations: no limitations <Jonathan Ochoa - Last Filed: 02/20/24 19:37> <Lev Garcia - Last Filed: 03/26/24 14:36> - General Chief complaint: Back Pain/Injury Stated complaint: BUBBA, rib pain Time Seen by Provider: 02/18/24 01:51 - History of Present Illness Initial comments: 73-year-old male presenting with chief complaint of right flank pain. This has been ongoing for 2 weeks. Patient states that his pain is on his right side, and radiates to the front. This pain wraps around and he feels like "someone is stabbing me". He denies any injury or trauma. It is worse with deep breaths and coughing. No dysuria or hematuria. No fevers or chills. No cough, congestion, sore throat, fever, chills. At times the pain makes him nauseous, no vomiting. No dizziness. He did recently travel to [place], however his pain started prior to traveling. No recent surgeries. No history of blood clot. No lower extremity edema. (Jonathan Ochoa) - Related Data Home Medications Medication Instructions Recorded Confirmed Ascorbic Acid [Vitamin C] 500 mg PO DAILY@1900 08/30/14 02/18/24 Folic Acid 1 mg PO DAILY@0700 08/30/14 02/18/24 Gabapentin [Neurontin] 800 mg PO TID@0700,1500,2300 08/30/14 02/18/24 Metoprolol Succinate 25 mg PO DAILY@0700 08/30/14 02/18/24 Omeprazole [PriLOSEC] 20 mg PO AC-BID 08/30/14 02/18/24 Pravastatin Sodium [Pravachol] 40 mg PO DAILY@1900 08/30/14 02/18/24 buPROPion HCL [Wellbutrin XL] 150 mg PO BID@0700,1900 08/30/14 02/18/24 calcitrioL 0.25 mcg PO FONTENOT 08/30/14 02/18/24 Wzkwqocidc-OAA-Cupjfes-Codeine 1 cap PO BID PRN 06/18/16 02/18/24 [Fiorinal w/Cod 42-660-97-30MG] Calcium Carbonate/Vitamin D3 2 tab PO DAILY@1900 06/18/16 02/18/24 [Calcium 600-Vit D3 5 Mcg (200 Iu)] Doxazosin [Cardura] 4 mg PO BID@0700,1900 06/18/16 02/18/24 metHOTREXate sodium [Methotrexate] 10 mg PO FONTENOT 06/18/16 02/18/24 predniSONE 4 mg PO DAILY@0700 06/18/16 02/18/24 HYDROcodone/APAP 10-325MG [[place] 1 tab PO Q6H 01/24/17 02/18/24 10-325] Losartan [Cozaar] 50 mg PO DAILY@189908/08/23 02/18/24 Magnesium 500 mg PO DAILY@189908/08/23 02/18/24 Potassium Chloride [Klor-Con 10 ER] 10 meq PO DAILY@189908/08/23 02/18/24 Previous Rx's Medication Instructions Recorded Metoclopramide HCl [Reglan] 10 mg PO AC-TID #30 tablet 02/22/24 Allergies Allergy/AdvReac Type Severity Reaction Status Date / Time adhesive Allergy Rash/Hives Verified 02/18/24 09:06 - paper tape ok Review of Systems ROS Other: All systems not noted in ROS Statement are negative. <Jonathan Ochoa - Last Filed: 02/20/24 19:37> ROS Other: All systems not noted in ROS Statement are negative. <Lev Garcia - Last Filed: 03/26/24 14:36> ROS Statement: Those systems with pertinent positive or pertinent negative responses have been documented in the HPI. Past Medical History Past Medical History: GERD/Reflux, Hyperlipidemia, Hypertension, Musculoskeletal Disorder, Prostate Disorder, Rheumatoid Arthritis (RA) Additional Past Medical History / Comment(s): Degenerative Disc Disease. Enlarged prostate. History of Any Multi-Drug Resistant Organisms: None Reported Past Surgical History: Back Surgery, Orthopedic Surgery Additional Past Surgical History / Comment(s): Spinal fusion X2, laminectomy, BILATERAL TENNIS ELBOW SURGERY, LEFT HAND CARPAL TUNNEL SURGERY, TRIAL PAIN STIMULATORPLACED AND LATER REMOVED, Pain Procedures, bilateral cataracts removed. Past Anesthesia/Blood Transfusion Reactions: No Reported Reaction Past Psychological History: No Psychological Hx Reported Smoking Status: Former smoker Past Alcohol Use History: None Reported Past Drug Use History: Marijuana - Past Family History Sister(s) Family Medical History: Cancer Additional Family Medical History / Comment(s): LUNG CANCER. <Jonathan Ochoa - Last Filed: 02/20/24 19:37> General Exam Limitations: no limitations General appearance: alert, in no apparent distress Head exam: Present: atraumatic, normocephalic Eye exam: Present: normal appearance, EOMI Neck exam: Present: normal inspection. Absent: meningismus Respiratory exam: Present: normal lung sounds bilaterally. Absent: respiratory distress, wheezes, rales, rhonchi, stridor Cardiovascular Exam: Present: regular rate, normal rhythm, normal heart sounds. Absent: systolic murmur, diastolic murmur, rubs, gallop, clicks Extremities exam: Absent: pedal edema Neurological exam: Present: alert, oriented X3 Psychiatric exam: Present: normal affect, normal mood Skin exam: Present: warm, dry <Jonathan Ochoa - Last Filed: 02/20/24 19:37> Course Vital Signs 02/18/24 02/18/24 02/18/24 01:43 03:45 05:21 Temperature 98.8 F 98.3 F 98.5 F Pulse Rate 87 70 72 Respiratory 18 22 22 Rate Blood Pressure 162/71 164/74 137/69 O2 Sat by Pulse 98 96 95 Oximetry 02/18/24 02/18/24 06:57 08:18 Temperature 98.3 F 98.2 F Pulse Rate 72 73 Respiratory 20 18 Rate Blood Pressure 136/63 150/78 O2 Sat by Pulse 97 98 Oximetry EKG Findings - EKG Comments: EKG Findings:: Sinus rhythm ventricular rate 69. OH interval 180. QRS 90. QT 387. QTc 407. <Jonathan Ochoa - Last Filed: 02/20/24 19:37> Medical Decision Making - Lab Data Result diagrams: 02/18/24 02:06 02/18/24 15:42 <Jonathan Ochoa - Last Filed: 02/20/24 19:37> - Lab Data Result diagrams: 02/18/24 02:06 02/18/24 15:42 <Lev Garcia - Last Filed: 03/26/24 14:36> - Medical Decision Making Was pt. sent in by a medical professional or institution (, PA, REHABILITATION SERVICES DIRECTOR, urgent care, hospital, or intermediate...) When possible be specific @ -[No] Did you speak to anyone other than the patient for history (EMS, parent, family, police, friend...)? What history was obtained from this source @ -[No] Did you review nursing and triage notes (agree or disagree)? Why? @ -[I reviewed and agree with nursing and triage notes] Were old charts reviewed (outside hosp., previous admission, EMS record, old EKG, old radiological studies, urgent care reports/EKG's, intermediate records)? Report findings @ -[No old charts were reviewed] Differential Diagnosis (chest pain, altered mental status, abdominal pain women, abdominal pain men, vaginal bleeding, weakness, fever, dyspnea, syncope, head ache, dizziness, GI bleed, back pain, seizure, CVA, palpatations, mental health, musculoskeletal)? @Differential includes GERD, pleurisy, pneumothorax, pneumonia, pulmonary embolism, muscle strain, this is not an all-inclusive list EKG interpreted by me (3pts min.). @ -[As above] X-rays interpreted by me (1pt min.). @ -right Sided rib x-rays with chest x-ray shows normal right ribs CT interpreted by me (1pt min.). @ -[None done] U/S interpreted by me (1pt. min.). @ -[None done] What testing was considered but not performed or refused? (CT, X-rays, U/S, labs)? Why? @ -[None] What meds were considered but not given or refused? Why? @ -[None] Did you discuss the management of the patient with other professionals (professionals i.e. , PA, REHABILITATION SERVICES DIRECTOR, lab, RT, psych nurse, social welfare clerk, treasury management sales consultant, teacher, special technical operations officer, case loader operator)? Give summary @ -[No] Was smoking cessation discussed for >3mins.? @ -[No] Was critical care preformed (if so, how long)? @ -[No] Were there social determinants of health that impacted care today? How? (Homelessness, low income, unemployed, alcoholism, drug addiction, transportation, low edu. Level, literacy, decrease access to med. care, usp, rehab)? @ -[No] Was there de-escalation of care discussed even if they declined (Discuss DNR or withdrawal of care, Hospice)? DNR status @ -[No] What co-morbidities impacted this encounter? (DM, HTN, Smoking, COPD, CAD, Cancer, CVA, ARF, Chemo, Hep., AIDS, mental health diagnosis, sleep apnea, morbid obesity)? @ -[None] Was patient admitted / discharged? Hospital course, mention meds given and route, prescriptions, significant lab abnormalities, going to OR and other pertinent info. @ -73-year-old male presenting with chief complaint of pleuritic right-sided rib pain. Has been ongoing for 2 weeks. History and physical exam are conducted. Strays show no acute process. Urine shows no hematuria suggestive of kidney stone. No leukocytosis. On reassessment after pain meds patient states his pain has not improved. D-dimer was added on which came back at 4.36. CTA is ordered, report is pending. Patient is signed out [facility] [place] The patient had CT scan of the chest which I interpreted as showing right upper lung mass. No pulmonary embolism. Was patient admitted / discharged? Hospital course, mention meds given and route, prescriptions, significant lab abnormalities, going to OR and other pertinent info. @ -[Patient is 73-year-old man with pleuritic right chest pain suspected due to right upper lung mass. The patient is admitted to have further symptom control as well as pulmonology evaluation. Undiagnosed new problem with uncertain prognosis? @ -[No] Drug Therapy requiring intensive monitoring for toxicity (Heparin, Nitro, Insulin, Cardizem)? @ -[No] Were any procedures done? @ -[No] Diagnosis/symptom? @ -[Acute pleuritic chest pain Right upper lung mass. Acute, or Chronic, or Acute on Chronic? @ -[Acute Uncomplicated (without systemic symptoms) or Complicated (systemic symptoms)? @ -[Uncomplicated Side effects of treatment? @ -[No] Exacerbation, Progression, or Severe Exacerbation? @ -[No] Poses a threat to life or bodily function? How? (Chest pain, [place], [place], pneumonia, PE, COPD, DKA, ARF, appy, cholecystitis, CVA, Diverticulitis, Homicidal, Suicidal, threat to staff... and all critical care pts) @ -[Yes, cancer requires further evaluation and treatment (Trachy,Lev) - Lab Data Lab Results 02/18/24 02/18/24 02/18/24 Range/Units 02:06 02:06 03:01 WBC 8.6 (3.8-10.6) k/uL RBC 3.95 L (4.30-5.90) m/uL Hgb 11.3 L (13.0-17.5) gm/dL Hct 34.5 L (39.0-53.0) % MCV 87.3 (80.0-100.0) fL MCH 28.5 (25.0-35.0) pg MCHC 32.7 (31.0-37.0) g/dL RDW 14.0 (11.5-15.5) % Plt Count 361 (150-450) k/uL MPV 7.0 Neutrophils % 74 % Lymphocytes % 13 % Monocytes % 10 % Eosinophils % 1 % Basophils % 1 % Neutrophils # 6.4 (1.3-7.7) k/uL Lymphocytes # 1.1 (1.0-4.8) k/uL Monocytes # 0.9 (0-1.0) k/uL Eosinophils # 0.0 (0-0.7) k/uL Basophils # 0.0 (0-0.2) k/uL D-Dimer (<0.60) mg/L FEU Sodium 135 L (137-145) mmol/L Potassium 4.1 (3.5-5.1) mmol/L Chloride 102 (98-107) mmol/L Carbon Dioxide 25 (22-30) mmol/L Anion Gap 8 mmol/L BUN 17 (9-20) mg/dL Creatinine 0.76 (0.66-1.25) mg/dL Est GFR (CKD-EPI)AfAm >90 (>60 ml/min/1.73 sqM) Est GFR (CKD-EPI)NonAf >90 (>60 ml/min/1.73 sqM) Glucose 125 H (74-99) mg/dL Calcium 8.8 (8.4-10.2) mg/dL Total Bilirubin 0.4 (0.2-1.3) mg/dL AST 48 (17-59) U/L ALT 25 (4-49) U/L Alkaline Phosphatase 220 H (38-126) U/L Total Protein 6.2 L (6.3-8.2) g/dL Albumin 3.6 (3.5-5.0) g/dL Urine Color Yellow Urine Appearance Clear (Clear) Urine pH 6.5 (5.0-8.0) Ur Specific [place] 1.022 (1.001-1.035) Urine Protein Trace H (Negative) Urine Glucose (UA) Negative (Negative) Urine Ketones Negative (Negative) Urine Blood Negative (Negative) Urine Nitrite Negative (Negative) Urine Bilirubin Negative (Negative) Urine Urobilinogen 2.0 (<2.0) mg/dL Ur Leukocyte Esterase Negative (Negative) 02/18/24 Range/Units 03:30 WBC (3.8-10.6) k/uL RBC (4.30-5.90) m/uL Hgb (13.0-17.5) gm/dL Hct (39.0-53.0) % MCV (80.0-100.0) fL MCH (25.0-35.0) pg MCHC (31.0-37.0) g/dL RDW (11.5-15.5) % Plt Count (150-450) k/uL MPV Neutrophils % % Lymphocytes % % Monocytes % % Eosinophils % % Basophils % % Neutrophils # (1.3-7.7) k/uL Lymphocytes # (1.0-4.8) k/uL Monocytes # (0-1.0) k/uL Eosinophils # (0-0.7) k/uL Basophils # (0-0.2) k/uL D-Dimer 4.36 H (<0.60) mg/L FEU Sodium (137-145) mmol/L Potassium (3.5-5.1) mmol/L Chloride (98-107) mmol/L Carbon Dioxide (22-30) mmol/L Anion Gap mmol/L BUN (9-20) mg/dL Creatinine (0.66-1.25) mg/dL Est GFR (CKD-EPI)AfAm (>60 ml/min/1.73 sqM) Est GFR (CKD-EPI)NonAf (>60 ml/min/1.73 sqM) Glucose (74-99) mg/dL Calcium (8.4-10.2) mg/dL Total Bilirubin (0.2-1.3) mg/dL AST (17-59) U/L ALT (4-49) U/L Alkaline Phosphatase (38-126) U/L Total Protein (6.3-8.2) g/dL Albumin (3.5-5.0) g/dL Urine Color Urine Appearance (Clear) Urine pH (5.0-8.0) Ur Specific [place] (1.001-1.035) Urine Protein (Negative) Urine Glucose (UA) (Negative) Urine Ketones (Negative) Urine Blood (Negative) Urine Nitrite (Negative) Urine Bilirubin (Negative) Urine Urobilinogen (<2.0) mg/dL Ur Leukocyte Esterase (Negative) Disposition <Jonathan Ochoa - Last Filed: 02/20/24 19:37> Is patient prescribed a controlled substance at d/c from ED?: No <Lev Garcia - Last Filed: 03/26/24 14:36> Clinical Impression: Lung mass, Intractable pain Disposition: ADMITTED IP TO THIS HOSP Condition: Stable
[2024-02-18 03:20] LABS: Appearance,Urine Clear (Clear); Bilirubin,Urine Negative (Negative); Blood,Urine Negative (Negative); Color,Urine Yellow; Glucose,Urine (UA) Negative (Negative); Ketones,Urine Negative (Negative); Leukocyte Esterase,Urine Negative (Negative); Nitrite,Urine Negative (Negative); PH, Urine 6.5 (5.0-8.0); Protein,Urine Trace (Negative); Specific Gravity,Urine 1.022 (1.001-1.035)
--- NOTE | 2024-02-18 03:26 | XR ---
EXAM: XR Right Ribs, 2 Views CLINICAL HISTORY: ITS.REASON XR Reason: rib pain TECHNIQUE: Frontal and oblique views of the right ribs. COMPARISON: No relevant prior studies available. FINDINGS: Lungs: Unremarkable as visualized. No consolidation. Pleural space: Unremarkable. No pneumothorax. Bones/joints: Unremarkable. No acute fracture. IMPRESSION: Normal right rib x-rays.
[2024-02-18] MEDS: LIDOCAINE 4% PATCH TOPICAL ONE (03:56)
--- NOTE | 2024-02-18 07:28 | CT ---
EXAM: CT Angiography Chest With Intravenous Contrast CLINICAL HISTORY: ITS.REASON CT Reason: pleuritic chest pain TECHNIQUE: Axial computed tomographic angiography images of the chest with intravenous contrast. CTDI is 21.67 mGy and DLP is 464.8 mGy-cm. This CT exam was performed using one or more of the following dose reduction techniques: automated exposure control, adjustment of the mA and/or kV according to patient size, and/or use of iterative reconstruction technique. MIP reconstructed images were created and reviewed. COMPARISON: 10/17/2022 FINDINGS: Pulmonary arteries: Unremarkable. No CT evidence of pulmonary embolism. Aorta: No acute findings. No thoracic aortic aneurysm. Lungs: There is a mass within the medial right upper lobe measuring up to 4.2 cm concerning for a primary pulmonary malignancy. Evidence of metastatic disease to bilateral lungs with pulmonary nodules as follows: Superior segment of the right lower lobe-0.9 cm, left upper lobe-0.9 cm, and right lower lobe-1.3 cm. Collapse of the lateral right middle lobe with soft tissue encasing the proximal bronchus. No consolidation. Pleural space: Unremarkable. No significant effusion. No pneumothorax. Heart: Unremarkable. No cardiomegaly. No significant pericardial effusion. No evidence of RV dysfunction. Mediastinum: Mediastinal lymphadenopathy is present as follows: Subcarinal-1.5 cm, right hilar-1.6 cm, left intralobar-1.2 cm, and left lower lobe-1.2 cm. Bones/joints: No acute fracture. No dislocation. Soft tissues: Unremarkable. Lymph nodes: Bilateral axillary lymphadenopathy measuring up to 1.3 cm. Liver: Numerous masses throughout the liver consistent with metastatic disease measuring up to 3 cm in the left lobe and 6 cm in the inferior right lobe. Spleen: At least 3 low densities in the spleen measuring up to 3 cm new from prior study of 2021 concerning for metastatic disease. IMPRESSION: 1. No CT evidence of pulmonary embolism. 2. 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 3. Mediastinal and bilateral axillary lymphadenopathy. 4. Collapse of the lateral right middle lobe with soft tissue encasing the proximal bronchus.
[2024-02-18] MEDS ORDERED: NALOXONE 0.4 MG/ML 1 ML VIAL IV PRN (07:50)
[2024-02-18] MEDS ORDERED: HYDROmorphone 1 MG/ML 1 ML SYRINGE IVP PRN (07:54)
[2024-02-18] MEDS: HYDROmorphone 1 MG/ML 1 ML SYRINGE IVP STA ×2 (08:32→11:06)
--- NOTE | 2024-02-18 10:57 | P.HPIM ---
History of Present Illness H&P Date: 02/18/24 Hospital Course: Patient is a pleasant 73-year-old male with a past medical history of hypertension, hyperlipidemia, GERD, rheumatoid arthritis, BPH, degenerative disc disease status post laminectomy and spinal fusion x 2 and neuropathy. He presented to the emergency department with a chief complaint of right flank pain. Patient reports persistently worsening right flank pain beginning approximately 2 weeks ago and progressively worsened. Patient states pain is persistent, sharp and intense and is worse with any movement and that he is unable to take a deep breath or cough. He denies having any fevers, chills, dizziness, lightheadedness, changes in vision or hearing, chest pain, palpitations, nausea, vomiting, difficulties with urination or blood in urine, difficulties with or changes in his bowel movements, or experiencing any numbness/tingling/weakness/swelling in his extremities. He underwent evaluation in the emergency department. Vital signs upon arrival show blood pressure 162/71, heart rate 87, respiratory rate 18, temp 98.8 F, and SpO2 of 98% on room air. EKG completed showing normal sinus rhythm at 69 bpm with no noted T wave or ST abnormalities showing no signs of acute ischemia. Labs completed and reviewed. X-ray right ribs negative. CBC showing normocytic anemia with hemoglobin of 11.3. BMP showing sodium 135, potassium 4.1 and renal function unremarkable with BUN of 17, creatinine of 0.76, GFR greater than 90. Liver profile showing elevated alkaline phosphatase of 220. Urinalysis showing trace protein and negative for blood or infection. D-dimer elevated at 4.36. CTA was completed negative for pulmonary emboli showing a lung mass within the medial right upper lobe measuring 4.2 cm concerning for primary pulmonary malignancy with metastatic disease to bilateral lungs, liver, and spleen along with mediastinal and bilateral axillary lymphadenopathy and collapse of the lateral right middle lobe with soft tissue encasing the proximal bronchus. Patient admitted under our services with consultation to oncology and pulmonology. Review of systems: Pertinent positives and negatives as discussed in HPI, a complete review of systems was performed and all other systems are negative. Physical exam: Vital signs reviewed and stable. General: Nontoxic, no distress and appears stated age. Derm: Skin warm and dry, normal coloration for ethnicity. Head: Atraumatic, normocephalic and symmetric. Eyes: EOMs intact, no lid lag, and anicteric sclera Mouth: no lip lesions, mucus membranes moist Cardiovascular: regular rate and rhythm with normal S1S2, no murmur, positive posterior tibial pulses bilaterally, and cap refill < 2 seconds. Lungs: Respirations even, regular, and unlabored on room air. Lungs significantly diminished through right mid and lower lung. Abdominal: soft, nontender to palpation, no guarding, no appreciable organomegaly Ext: ROM intact. No gross muscle atrophy, no edema, no contractures Neuro: Speech clear, face symmetrical and CN II-XII grossly intact with no noted focal neuro deficits Psych: Alert and oriented to person, place, time, and situation. Appropriate and pleasant affect. Assessment and Plan of Care: Intractable right flank pain Newly diagnosed right lung mass with concerns of metastatic lesions to bilateral lungs, liver, and spleen Collapsed right lateral middle lobe of lung with soft tissue encasing the proximal bronchus -CTA was completed negative for pulmonary emboli showing a lung mass within the medial right upper lobe measuring 4.2 cm concerning for primary pulmonary malignancy with metastatic disease to bilateral lungs, liver, and spleen along with mediastinal and bilateral axillary lymphadenopathy and collapse of the late ral right middle lobe with soft tissue encasing the proximal bronchus. -Consult placed to final canoe inspector to evaluate for possible bronchoscopy and biopsy, appreciate recommendations -Consult placed to oncologist -Patient admitted for symptomatic care and pain management. -Patient placed on telemetry monitoring. Hypertension. Continue daily medication regimen with losartan 50 mg daily and metoprolol 25 mg daily. Hyperlipidemia. Continue daily medication regimen with pravastatin 40 mg daily. GERD. Continue daily medication regimen with Protonix 40 mg twice daily. BPH. Continue daily medication regimen with doxazosin 4 mg p.o. twice daily. Rheumatoid arthritis. Hold methotrexate and prednisone at this time pending further workup. Anxiety. Continue daily medication regimen with Wellbutrin 150 mg twice daily. Data and imaging reviewed: As stated above in HPI CODE STATUS: Full code DVT prophylaxis: Heparin Anticipated discharge date: Clinical course to determine Anticipated discharge place: Home Patient was seen independently by Nurse Practitioner. This document was prepared using [employer] dictation software. Please allow for errors in adjunct psychology instructor while rare they do occur. iRgoberto Singh NP rendered care for this patient independently, reviewed the findings and plan as documented in the note above. I did not physically speak with or examine the patient on this date. Past Medical History Past Medical History: GERD/Reflux, Hyperlipidemia, Hypertension, Musculoskeletal Disorder, Prostate Disorder, Rheumatoid Arthritis (RA) Additional Past Medical History / Comment(s): Degenerative Disc Disease. Enlarged prostate. History of Any Multi-Drug Resistant Organisms: None Reported Past Surgical History: Back Surgery, Orthopedic Surgery Additional Past Surgical History / Comment(s): Spinal fusion X2, laminectomy, BILATERAL TENNIS ELBOW SURGERY, LEFT HAND CARPAL TUNNEL SURGERY, TRIAL PAIN STIMULATORPLACED AND LATER REMOVED, Pain Procedures, bilateral cataracts removed. Past Anesthesia/Blood Transfusion Reactions: No Reported Reaction Past Psychological History: No Psychological Hx Reported Smoking Status: Former smoker Past Alcohol Use History: None Reported Past Drug Use History: Marijuana - Past Family History Sister(s) Family Medical History: Cancer Additional Family Medical History / Comment(s): LUNG CANCER. Medications and Allergies Home Medications Medication Instructions Recorded Confirmed Type Ascorbic Acid [Vitamin C] 500 mg PO DAILY@1900 08/30/14 02/18/24 History Folic Acid 1 mg PO DAILY@0700 08/30/14 02/18/24 History Gabapentin [Neurontin] 800 mg PO TID@0700,1500,2300 08/30/14 02/18/24 History Metoprolol Succinate 25 mg PO DAILY@0700 08/30/14 02/18/24 History Omeprazole [PriLOSEC] 20 mg PO AC-BID 08/30/14 02/18/24 History Pravastatin Sodium [Pravachol] 40 mg PO DAILY@1900 08/30/14 02/18/24 History buPROPion HCL [Wellbutrin XL] 150 mg PO BID@0700,1900 08/30/14 02/18/24 History calcitrioL 0.25 mcg PO FONTENOT 08/30/14 02/18/24 History Dkijgtluqz-JZN-Cjoqplc-Codeine 1 cap PO BID PRN 06/18/16 02/18/24 History [Fiorinal w/Cod 05-928-43-30MG] Calcium Carbonate/Vitamin D3 2 tab PO DAILY@0 06/18/16 02/18/24 History [Calcium 600-Vit D3 200 Tablet] Doxazosin [Cardura] 4 mg PO BID@0700,1900 06/18/16 02/18/24 History metHOTREXate sodium [Methotrexate] 10 mg PO FONTENOT 06/18/16 02/18/24 History predniSONE 4 mg PO DAILY@0700 08/08/16 04/09/24 History HYDROcodone/APAP 10-325MG [[place] 1 tab PO Q6H 01/24/17 02/18/24 History 10-325] Losartan [Cozaar] 50 mg PO DAILY@189908/08/23 02/18/24 History Magnesium 500 mg PO DAILY@189908/08/23 02/18/24 History Potassium Chloride [Klor-Con 10 ER] 10 meq PO DAILY@189908/08/23 02/18/24 History Allergies Allergy/AdvReac Type Severity Reaction Status Date / Time adhesive Allergy Rash/Hives Verified 02/18/24 09:06 - paper tape ok Physical Exam Vitals: Vital Signs Temp Pulse Resp BP Pulse Ox 02/18/24 06:57 98.3 F 72 20 136/63 97 02/18/24 05:21 98.5 F 72 22 137/69 95 02/18/24 03:45 98.3 F 70 22 164/74 96 02/18/24 01:43 98.8 F 87 18 162/71 98 Intake and Output 02/17/24 02/18/24 02/18/24 22:59 06:59 14:59 Other: Weight 68.946 kg Results CBC & Chem 7: 02/18/24 02:06 02/18/24 15:42 Labs: Abnormal Lab Results - Last 24 Hours (Table) 02/18/24 02/18/24 02/18/24 Range/Units 02:06 02:06 03:01 RBC 3.95 L (4.30-5.90) m/uL Hgb 11.3 L (13.0-17.5) gm/dL Hct 34.5 L (39.0-53.0) % D-Dimer (<0.60) mg/L FEU Sodium 135 L (137-145) mmol/L Glucose 125 H (74-99) mg/dL Alkaline Phosphatase 220 H (38-126) U/L Total Protein 6.2 L (6.3-8.2) g/dL Urine Protein Trace H (Negative) 02/18/24 Range/Units 03:30 RBC (4.30-5.90) m/uL Hgb (13.0-17.5) gm/dL Hct (39.0-53.0) % D-Dimer 4.36 H (<0.60) mg/L FEU Sodium (137-145) mmol/L Glucose (74-99) mg/dL Alkaline Phosphatase (38-126) U/L Total Protein (6.3-8.2) g/dL Urine Protein (Negative)
[2024-02-18] MEDS ORDERED: IOPAMIDOL CONTRAST (ORAL USE) VIAL PO PRN (11:38)
--- NOTE | 2024-02-18 12:03 | P.CONS ---
History of Present Illness - Reason for Consult Consult date: 02/18/24 RUL lung mass, pulm nodules, liver and spleen lesions, LAD Requesting physician: Lev Garcia - Chief Complaint SOB, pain with inspiration in RUQ - History of Present Illness Mr. Somers is a 73-year-old male who we have been asked to see because of abnormal findings on CTA. Patient presented to the hospital with complaints of shortness of breath, inability to take a deep breath due to upper abdominal pain, R>L, radiating around to back, it was also beginning to radiate inferiorly from the epigastric area. Patient has a longstanding history, 30+ years, of severe rheumatoid arthritis. He has been on multiple treatments. Initially, worsening of pain was attributed to rheumatoid. He had imaging done about a year ago-not sure what type of imaging-in [place], but report that they were not told of any abnormal findings at that time. Patient has been home from [place] for about a week, he could not take the pain anymore. When seen and examined patient continues to be very uncomfortable, hurts worse with deep inspiration. He has a 60 to 90-year pack history of smoking, quitting in 1991. He denies any personal history of malignancy. No significant unintentional weight loss, fevers, sweats. Patient and his just recently recovered from COVID, cammie ent has had multiple vaccinations. Denied any lingering COVID symptoms. Review of Systems 10 point review of systems is negative except as stated in HPI Past Medical History Past Medical History: GERD/Reflux, Hyperlipidemia, Hypertension, Musculoskeletal Disorder, Prostate Disorder, Rheumatoid Arthritis (RA) Additional Past Medical History / Comment(s): Degenerative Disc Disease. Enlarged prostate. History of Any Multi-Drug Resistant Organisms: None Reported Past Surgical History: Back Surgery, Orthopedic Surgery Additional Past Surgical History / Comment(s): Spinal fusion X2, laminectomy, BILATERAL TENNIS ELBOW SURGERY, LEFT HAND CARPAL TUNNEL SURGERY, TRIAL PAIN STIMULATORPLACED AND LATER REMOVED, Pain Procedures, bilateral cataracts removed. Past Anesthesia/Blood Transfusion Reactions: No Reported Reaction Past Psychological History: No Psychological Hx Reported Smoking Status: Former smoker (2 to 3 packs/day x 30 years) Past Alcohol Use History: None Reported Past Drug Use History: Marijuana - Past Family History Sister(s) Family Medical History: Cancer Additional Family Medical History / Comment(s): LUNG CANCER. Medications and Allergies Home Medications Medication Instructions Recorded Confirmed Type Ascorbic Acid [Vitamin C] 500 mg PO DAILY@1900 08/30/14 02/18/24 History Folic Acid 1 mg PO DAILY@0700 08/30/14 02/18/24 History Gabapentin [Neurontin] 800 mg PO TID@0700,1500,2300 08/30/14 02/18/24 History Metoprolol Succinate 25 mg PO DAILY@0700 08/30/14 02/18/24 History Omeprazole [PriLOSEC] 20 mg PO AC-BID 08/30/14 02/18/24 History Pravastatin Sodium [Pravachol] 40 mg PO DAILY@189908/30/14 02/18/24 History buPROPion HCL [Wellbutrin XL] 150 mg PO BID@0700,19008/30/14 02/18/24 History calcitrioL 0.25 mcg PO FONTENOT 08/30/14 02/18/24 History Dertettxgr-VSP-Bljkhlc-Codeine 1 cap PO BID PRN 06/18/16 02/18/24 History [Fiorinal w/Cod 17-943-67-30MG] Calcium Carbonate/Vitamin D3 2 tab PO DAILY@189906/18/16 02/18/24 History [Calcium 600-Vit D3 200 Tablet] Doxazosin [Cardura] 4 mg PO BID@0700,1900 06/18/16 02/18/24 History metHOTREXate sodium [Methotrexate] 10 mg PO FONTENOT 06/18/16 02/18/24 History predniSONE 4 mg PO DAILY@0700 06/18/16 02/18/24 History HYDROcodone/APAP 10-325MG [[place] 1 tab PO Q6H 01/24/17 02/18/24 History 10-325] Losartan [Cozaar] 50 mg PO DAILY@189908/08/23 02/18/24 History Magnesium 500 mg PO DAILY@189908/08/23 02/18/24 History Potassium Chloride [Klor-Con 10 ER] 10 meq PO DAILY@189908/08/23 02/18/24 History Allergies Allergy/AdvReac Type Severity Reaction Status Date / Time adhesive Allergy Rash/Hives Verified 02/18/24 09:06 - paper tape ok Physical Exam Vitals: Vital Signs Temp Pulse Pulse Resp BP BP Pulse Ox 02/18/24 10:07 97.8 F 62 18 164/76 96 02/18/24 08:18 98.2 F 73 18 150/78 98 02/18/24 06:57 98.3 F 72 20 136/63 97 02/18/24 05:21 98.5 F 72 22 137/69 95 02/18/24 03:45 98.3 F 70 22 164/74 96 02/18/24 01:43 98.8 F 87 18 162/71 98 Intake and Output 02/17/24 02/18/24 02/18/24 22:59 06:59 14:59 Other: Weight 68.946 kg 68.946 kg - Constitutional General appearance: average body habitus, cooperative, mild distress - EENT Eyes: anicteric sclerae, EOMI ENT: hearing grossly normal, normal oropharynx - Neck Neck: lymphadenopathy (Subcentimeter hard fixed lymph nodes in the right supraclavicular/base of the neck area. Some shotty bilateral supraclavicular lymphadenopathy) - Respiratory Respiratory: bilateral: diminished, prolonged expiration - Cardiovascular Rhythm: regular Heart sounds: normal: S1, S2 Abnormal Heart Sounds: no systolic murmur, no diastolic murmur, no rub, no S3 Gallop, no S4 Gallop, no click, no other leg Peripheral Edema: bilateral: None - Gastrointestinal General gastrointestinal: no absent bowel sounds, no decreased bowel sounds, distended, no hepatomegaly, no hyperactive bowel sounds, normal bowel sounds, no organomegaly, no rigid, no scaphoid, soft, no splenomegaly, tenderness, no umbilical hernia, no ventral hernia - Integumentary Integumentary: normal - Neurologic Neurologic: CNII-XII intact (Grossly) - Musculoskeletal Musculoskeletal: strength equal bilaterally - Psychiatric Psychiatric: A&O x's 3, appropriate affect, intact judgment & insight Results CBC & Chem 7: 02/18/24 02:06 02/18/24 02:06 Labs: Abnormal Lab Results - Last 24 Hours (Table) 02/18/24 02/18/24 02/18/24 Range/Units 02:06 02:06 03:01 RBC 3.95 L (4.30-5.90) m/uL Hgb 11.3 L (13.0-17.5) gm/dL Hct 34.5 L (39.0-53.0) % D-Dimer (<0.60) mg/L FEU Sodium 135 L (137-145) mmol/L Glucose 125 H (74-99) mg/dL Alkaline Phosphatase 220 H (38-126) U/L Total Protein 6.2 L (6.3-8.2) g/dL Urine Protein Trace H (Negative) 02/18/24 Range/Units 03:30 RBC (4.30-5.90) m/uL Hgb (13.0-17.5) gm/dL Hct (39.0-53.0) % D-Dimer 4.36 H (<0.60) mg/L FEU Sodium (137-145) mmol/L Glucose (74-99) mg/dL Alkaline Phosphatase (38-126) U/L Total Protein (6.3-8.2) g/dL Urine Protein (Negative) CT scan - chest: report reviewed Assessment and Plan (1) Mediastinal lymphadenopathy Current Visit: Yes Status: Acute Priority: High Code(s): R59.0 - LOCALIZED ENLARGED LYMPH NODES SNOMED Code(s): 85990034 (2) Lung mass Current Visit: Yes Status: Acute Priority: High Code(s): R91.8 - OTHER NONSPECIFIC ABNORMAL FINDING OF LUNG FIELD SNOMED Code(s): 223645568 (3) Liver lesion Current Visit: Yes Status: Acute Priority: High Code(s): K76.9 - LIVER DISEASE, UNSPECIFIED SNOMED Code(s): 172761194 Plan: Shortness of breath, pleuritic type chest pain. CTA abnormal findings-pulmonary nodules, liver and spleen lesions, mediastinal lymphadenopathy -CTA of the chest reports no PE, RUL 4.2 cm mass, bilateral lung nodules 0.9 cm RLL, 0.9 cm KALYANI, LLL 1.3 cm. Collapse of the lateral RML with soft tissue encasing the proximal bronchus, pleural space reported as unremarkable, no effusion or pneumothorax. Mediastinal lymphadenopathy subcarinal 1.5 cm, right hilar 1.6 cm, left intralobar 1.2 cm, LLL 1.2 cm, no reported lesions in the b ones, soft tissue. Numerous masses throughout the liver measuring up to 3 cm in the left lobe and 6 cm in the inferior right lobe. 3 low densities are seen in the spleen, up to 3 cm. -Reviewed with patient and family all of the concerning findings on the CTA. -Recommendation is for CT of the abdomen pelvis and MRI of the brain to complete staging. Pulmonary evaluation for biopsy. Patient and family agree with the plan. Pulmonary has already been consulted. Did also recommend consultation with radiation oncology to assess if patient would be a candidate for palliative treatment to the right middle lobe soft tissue mass encasing the bronchus and causing some collapse of the right middle lobe and may be contributing to patient's symptoms. All patient and family concerns were answered to their satisfaction. They are agreeable with the recommendations. -Pending Pulmonary assessment and recommendations regarding biopsy. -There are palpable lymph nodes in the supraclavicular area bilaterally, more prominent on the right. With patient's history of significant RA though, lymph node as a site for biopsy may not be the best choice.
--- NOTE | 2024-02-18 12:12 | P.CNPUL ---
History of Present Illness Consult date: 02/18/24 Reason for consult: dyspnea, lung mass History of present illness: 73-year-old male patient being seen for a lung mass. The patient presented to the hospital because of a right flank pain and the pain is rather diffuse affecting his right lateral rib cage extending posteriorly and anteriorly. He was very uncomfortable and he was unable to take a deep breath. He is an ex- smoker and he smokes marijuana daily basis for staging purposes. He has rheumatoid arthritis and is maintained on a combination of methotrexate and prednisone. Patient presented to the hospital and the chest x-ray was abnormal, rib views were essentially negative and CAT scan of the chest was done and the patient was found to have a right upper lobe mass measuring up to 4.2 cm in size in addition to mediastinal lymphadenopathy and some limited collapse of the rig ht upper lobe with obstruction of the right upper lobe bronchus. There was also metastatic involvement involving the bilateral lungs with pulmonary nodules in the right lower lobe measuring 9 mm in the left upper lobe measuring 9 mm right lower lobe measuring 13 mm in addition to multiple liver and spleen lesions. No hemoptysis. No weight loss. He has becoming progressively more weak according to the family. He has around [id number] smoking history and quit smoking back in 1991. Review of Systems Constitutional: Reports fatigue, Reports weakness Eyes: denies as per HPI, denies blurred vision, denies bulging eye, denies decreased vision, denies diplopia, denies discharge, denies dry eye, denies irritation, denies itching, denies pain, denies photophobia, denies loss of peripheral vision, denies loss of vision, denies tunnel vision/blind spots Ears: deny: decreased hearing, ear discharge, earache, tinnitus Ears, nose, mouth and throat: Reports as per HPI Breasts: absent: as per HPI, gynecomastia Cardiovascular: Reports as per HPI Respiratory: Reports cough Gastrointestinal: Reports abdominal pain (In addition to flank pain on the right) Genitourinary: Reports as per HPI Musculoskeletal: Reports as per HPI Musculoskeletal: absent: ankle pain, ankle stiffness, ankle swelling Integumentary: Reports as per HPI Neurological: Reports as per HPI Psychiatric: Reports as per HPI Endocrine: Reports as per HPI Hematologic/Lymphatic: Reports as per HPI Allergic/Immunologic: Reports as per HPI Past Medical History Past Medical History: GERD/Reflux, Hyperlipidemia, Hypertension, Musculoskeletal Disorder, Prostate Disorder, Rheumatoid Arthritis (RA) Additional Past Medical History / Comment(s): Degenerative Disc Disease. Enlarged prostate. History of Any Multi-Drug Resistant Organisms: None Reported Past Surgical History: Back Surgery, Orthopedic Surgery Additional Past Surgical History / Comment(s): Spinal fusion X2, laminectomy, BILATERAL TENNIS ELBOW SURGERY, LEFT HAND CARPAL TUNNEL SURGERY, TRIAL PAIN STIMULATORPLACED AND LATER REMOVED, Pain Procedures, bilateral cataracts removed. Past Anesthesia/Blood Transfusion Reactions: No Reported Reaction Past Psychological History: No Psychological Hx Reported Smoking Status: Former smoker (2 to 3 packs/day x 30 years) Past Alcohol Use History: None Reported Past Drug Use History: Marijuana - Past Family History Sister(s) Family Medical History: Cancer Additional Family Medical History / Comment(s): LUNG CANCER. Medications and Allergies Home Medications Medication Instructions Recorded Confirmed Type Ascorbic Acid [Vitamin C] 500 mg PO DAILY@1900 08/30/14 02/18/24 History Folic Acid 1 mg PO DAILY@0700 08/30/14 02/18/24 History Gabapentin [Neurontin] 800 mg PO TID@0700,1500,2300 08/30/14 02/18/24 History Metoprolol Succinate 25 mg PO DAILY@0700 08/30/14 02/18/24 History Omeprazole [PriLOSEC] 20 mg PO AC-BID 08/30/14 02/18/24 History Pravastatin Sodium [Pravachol] 40 mg PO DAILY@1900 08/30/14 02/18/24 History buPROPion HCL [Wellbutrin XL] 150 mg PO BID@0700,1900 08/30/14 02/18/24 History calcitrioL 0.25 mcg PO FONTENOT 08/30/14 02/18/24 History Itakzmzqvd-GSJ-Caopczf-Codeine 1 cap PO BID PRN 06/18/16 02/18/24 History [Fiorinal w/Cod 38-805-36-30MG] Calcium Carbonate/Vitamin D3 2 tab PO DAILY@1900 06/18/16 02/18/24 History [Calcium 600-Vit D3 200 Tablet] Doxazosin [Cardura] 4 mg PO BID@0700,1900 06/18/16 02/18/24 History metHOTREXate sodium [Methotrexate] 10 mg PO FONTENOT 06/18/16 02/18/24 History predniSONE 4 mg PO DAILY@0700 06/18/16 02/18/24 History HYDROcodone/APAP 10-325MG [[place] 1 tab PO Q6H 01/24/17 02/18/24 History 10-325] Losartan [Cozaar] 50 mg PO DAILY@189908/08/23 02/18/24 History Magnesium 500 mg PO DAILY@189908/08/23 02/18/24 History Potassium Chloride [Klor-Con 10 ER] 10 meq PO DAILY@189908/08/23 02/18/24 History Allergies Allergy/AdvReac Type Severity Reaction Status Date / Time adhesive Allergy Rash/Hives Verified 02/18/24 09:06 - paper tape ok Physical Exam Vitals: Vital Signs Temp Pulse Pulse Resp BP BP Pulse Ox 02/18/24 10:07 97.8 F 62 18 164/76 96 02/18/24 08:18 98.2 F 73 18 150/78 98 02/18/24 06:57 98.3 F 72 20 136/63 97 02/18/24 05:21 98.5 F 72 22 137/69 95 02/18/24 03:45 98.3 F 70 22 164/74 96 02/18/24 01:43 98.8 F 87 18 162/71 98 Intake and Output 02/17/24 02/18/24 02/18/24 22:59 06:59 14:59 Other: Weight 68.946 kg 68.946 kg - Constitutional General appearance: average body habitus, cooperative, mild distress, the patient is currently on room air oxygen. No signs of noted significant respiratory distress. - EENT Eyes: anicteric sclerae, EOMI ENT: hearing grossly normal, normal oropharynx - Neck Neck: lymphadenopathy (Subcentimeter hard fixed lymph nodes in the right supraclavicular/base of the neck area. Some shotty bilateral supraclavicular lymphadenopathy) - Respiratory Respiratory: bilateral: diminished, prolonged expiration - Cardiovascular Rhythm: regular Heart sounds: normal: S1, S2 Abnormal Heart Sounds: no systolic murmur, no diastolic murmur, no rub, no S3 Gallop, no S4 Gallop, no click, no other leg Peripheral Edema: bilateral: None - Gastrointestinal General gastrointestinal: no absent bowel sounds, no decreased bowel sounds, distended, no hepatomegaly, no hyperactive bowel sounds, normal bowel sounds, no organomegaly, no rigid, no scaphoid, soft, no splenomegaly, tenderness, no umbilical hernia, no ventral hernia. The patient has some tenderness upon palpation of the right flank area. No palpable masses. - Integumentary Integumentary: normal - Neurologic Neurologic: CNII-XII intact (Grossly) - Musculoskeletal Musculoskeletal: strength equal bilaterally - Psychiatric Psychiatric: A&O x's 3, appropriate affect, intact judgment & insight Results - Laboratory Findings CBC and BMP: 02/18/24 02:06 02/18/24 02:06 PT/INR, D-dimer D-Dimer 4.36 mg/L FEU (<0.60) H 02/18/24 03:30 Abnormal lab findings: Abnormal Labs 02/18/24 02/18/24 02/18/24 02:06 02:06 03:01 RBC 3.95 L Hgb 11.3 L Hct 34.5 L D-Dimer Sodium 135 L Glucose 125 H Alkaline Phosphatase 220 H Total Protein 6.2 L Urine Protein Trace H 02/18/24 03:30 RBC Hgb Hct D-Dimer 4.36 H Sodium Glucose Alkaline Phosphatase Total Protein Urine Protein Assessment and Plan Plan: Right upper lobe mass measuring 4.2 cm in size obstructing right upper lobe bronchus in addition to some limited atelectatic changes in the right upper lobe and presence of multiple bilateral pulmonary nodules largest in the right lower lobe measuring 15 mm in size and left upper lobe measuring 9 mm in size. Patient has extensive mediastinal lymphadenopathy and metastatic disease involving the liver and spleen. Consider metastatic lung cancer Flank pain, currently under investigation. Patient has extensive hepatic metastases. LFTs are essentially within normal limits Rheumatoid arthritis maintained on a combination methotrexate and prednisone Hypertension Hyperlipidemia Ex-smoker the patient smokes marijuana on a daily basis BPH Chronic lumbar spine disease and the patient has undergone multiple surgeries on his lumbar spine including laminectomies and fusions History of carpal tunnel History of insertion and removal of a pain stimulator and the patient suffers from chronic back pain Plan Obtain CAT scan of the abdomen and pelvis MRI of the brain Keep n.p.o. after midnight Will perform bronchoscopy and biopsy of the right upper lobe mass and endobronchial ultrasound and mediastinal of note sampling Resume home medications Dilaudid for pain control in combination with [place] Will follow
[2024-02-18] MEDS: HYDROcodone/APAP 10-325MG 1 EACH TAB PO SCH (12:51)
[2024-02-18] MEDS: ONDANSETRON 4 MG/2 ML VIAL IVP PRN (12:51)
[2024-02-18] MEDS: FOLIC ACID 1 MG TAB PO SCH (12:52)
[2024-02-18] MEDS: DOXAZOSIN 4 MG TAB PO SCH (12:52)
[2024-02-18] MEDS: buPROPion XL 150 MG TAB.ER.24H PO SCH (12:52)
[2024-02-18] MEDS: GABAPENTIN 400 MG CAP PO SCH (15:01)
[2024-02-18] MEDS: HYDROmorphone 1 MG/ML 1 ML SYRINGE IVP PRN (15:02)
[2024-02-18] MEDS: HEPARIN SODIUM,PORCINE 5,000 UNIT/ML 1 ML VIAL SQ SCH (16:41)
[2024-02-18 17:01] LABS: African American GFR (CKD) >90 (>60 ml/min/1.73 sqM); Blood Urea Nitrogen 17 mg/dL (9-20); Non-African American GFR(CKD) >90 (>60 ml/min/1.73 sqM)
[2024-02-18] MEDS: BUTA/APAP/CAF/COD 50-325-40-30 CAP PO PRN (18:02)
[2024-02-18] MEDS: PANTOPRAZOLE 40 MG TABLET PO SCH (18:02)
[2024-02-18] MEDS: CALCIUM CARB-VIT D 500 MG-5 MCG TAB PO SCH (19:03)
[2024-02-18] MEDS: PRAVASTATIN SODIUM 40 MG TAB PO SCH (19:03)
[2024-02-18] MEDS: MAGNESIUM OXIDE 400 MG TAB PO SCH (19:04)
[2024-02-18] MEDS: LOSARTAN 50 MG TAB PO SCH (19:04)
[2024-02-18] MEDS: ASCORBIC ACID 500 MG TAB PO SCH (19:04)
[2024-02-18] MEDS: METOCLOPRAMIDE 5 MG/ML 2 ML VIAL IVP PRN (22:12)
--- NOTE | 2024-02-19 08:17 | MR ---
EXAMINATION TYPE: MR brain wo/w con DATE OF EXAM: 02/19/2024 COMPARISON: HISTORY: Metastatic lung cancer. CONTRAST: Performed utilizing 6.5 mL intravenous Gadavist gadolinium contrast. TECHNIQUE: Multiplanar, multiecho imaging on a 3.0 Anitha magnet is performed through the brain. Stud y is performed within 24 hours of arrival to the hospital. The craniovertebral junction is normal. The pituitary is normal. Diffusion-weighted imaging is performed. No abnormal hyperintensity is present to suggest an acute i ntracranial infarct or acute ischemic change. There are multiple scattered punctate areas of hyperintensity on T2 and Inversion Recovery weighted s equences which are non-specific but can be related to microvascular ischemic changes. Largest of thes e is in the left centrum semiovale measuring 0.9 cm. A 0.8 x 1.5 cm areas in the left basal ganglion. Ventricles and sulci are appropriate for the patient age. IMPRESSION: 1. No suspicious changes suggest metastatic disease. 2. Multiple small hyperintensities within the deep white matter can be compatible with chronic white matter ischemic type changes.
[2024-02-19] MEDS: METOPROLOL SUCCINATE (ER) 25 MG TAB.ER.24H PO SCH (08:56)
--- NOTE | 2024-02-19 12:12 | P.PN ---
Subjective Progress Note Date: 02/19/24 73-year-old male patient being seen for a lung mass. The patient presented to the hospital because of a right flank pain and the pain is rather diffuse affecting his right lateral rib cage extending posteriorly and anteriorly. He was very uncomfortable and he was unable to take a deep breath. He is an ex- smoker and he smokes marijuana daily basis for staging purposes. He has rheumatoid arthritis and is maintained on a combination of methotrexate and prednisone. Patient presented to the hospital and the chest x-ray was abnormal, rib views were essentially negative and CAT scan of the chest was done and the patient was found to have a right upper lobe mass measuring up to 4.2 cm in size in addition to mediastinal lymphadenopathy and some limited collapse of the right upper lobe with obstruction of the right upper lobe bronchus. There was also metastatic involvement involving the bilateral lungs with pulmonary nodules in the right lower lobe measuring 9 mm in the left upper lobe measuring 9 mm right lower lobe measuring 13 mm in addition to multiple liver and spleen lesions. No hemoptysis. No weight loss. He has becoming progressively more weak according to the family. He has around [id number] smoking history and quit smoking back in 1991. On today's evaluation of 02/19/2024, the patient is being seen for a follow-up. The patient is doing well and the plan is to proceed with a bronchoscopy for tissue diagnosis as the patient suspected to have metastatic lung cancer. MRI of the brain was done and showed multiple small hyperintensities within the deep white matter compatible with chronic white matter ischemic changes. No suspicious lesions. CAT scan of the abdomen and pelvis still pending. The patient is currently n.p.o. awaiting his bronchoscopy. Objective - Vital Signs Vital signs: Vital Signs Temp 98.6 F 02/19/24 08:28 Pulse 81 02/19/24 08:28 Resp 18 02/19/24 08:28 BP 144/70 02/19/24 08:28 Pulse Ox 95 02/19/24 08:28 FiO2 Intake & Output 02/18/24 02/19/24 02/19/24 18:59 06:59 18:59 Weight 68.946 kg - Exam - Constitutional General appearance: average body habitus, cooperative, mild distress, the patient is currently on room air oxygen. No signs of noted significant respiratory distress. - EENT Eyes: anicteric sclerae, EOMI ENT: hearing grossly normal, normal oropharynx - Neck Neck: lymphadenopathy (Subcentimeter hard fixed lymph nodes in the right supraclavicular/base of the neck area. Some shotty bilateral supraclavicular lymphadenopathy) - Respiratory Respiratory: bilateral: diminished, prolonged expiration - Cardiovascular Rhythm: regular Heart sounds: normal: S1, S2 Abnormal Heart Sounds: no systolic murmur, no diastolic murmur, no rub, no S3 Gallop, no S4 Gallop, no click, no other leg Peripheral Edema: bilateral: None - Gastrointestinal General gastrointestinal: no absent bowel sounds, no decreased bowel sounds, distended, no hepatomegaly, no hyperactive bowel sounds, normal bowel sounds, no organomegaly, no rigid, no scaphoid, soft, no splenomegaly, tenderness, no umbilical hernia, no ventral hernia. The patient has some tenderness upon pa lpation of the right flank area. No palpable masses. - Integumentary Integumentary: normal - Neurologic Neurologic: CNII-XII intact (Grossly) - Musculoskeletal Musculoskeletal: strength equal bilaterally - Psychiatric Psychiatric: A&O x's 3, appropriate affect, intact judgment & insight - Labs CBC & Chem 7: 02/18/24 02:06 02/18/24 15:42 Assessment and Plan Plan: Right upper lobe mass measuring 4.2 cm in size obstructing right upper lobe bronchus in addition to some limited atelectatic changes in the right upper lobe and presence of multiple bilateral pulmonary nodules largest in the right lower lobe measuring 15 mm in size and left upper lobe measuring 9 mm in size. Patient has extensive mediastinal lymphadenopathy and metastatic disease involving the liver and spleen. Consider metastatic lung cancer Flank pain, currently under investigation. Patient has extensive hepatic metastases. LFTs are essentially within normal limits Rheumatoid arthritis maintained on a combination methotrexate and prednisone Hypertension Hyperlipidemia Ex-smoker the patient smokes marijuana on a daily basis BPH Chronic lumbar spine disease and the patient has undergone multiple surgeries on his lumbar spine including laminectomies and fusions History of carpal tunnel History of insertion and removal of a pain stimulator and the patient suffers from chronic back pain Plan Obtain CAT scan of the abdomen and pelvis and this is pending for now MRI of the brain was negative Keep n.p.o. after midnight Will perform bronchoscopy and biopsy of the right upper lobe mass and endobronchial ultrasound and mediastinal lymph node sampling and the patient will be having his procedure today Resume home medications Dilaudid for pain control in combination with [place] Will follow
--- NOTE | 2024-02-19 13:18 | P.PN ---
Subjective Progress Note Date: 02/19/24 73-year-old male with a past medical history of hypertension, hyperlipidemia, GERD, rheumatoid arthritis, BPH, degenerative disc disease status post laminectomy and spinal fusion x 2 and neuropathy. He presented to the emergency department with a chief complaint of right flank pain. Patient reports pers istently worsening right flank pain beginning approximately 2 weeks ago and progressively worsened. Patient states pain is persistent, sharp and intense and is worse with any movement and that he is unable to take a deep breath or cough. He denies having any fevers, chills, dizziness, lightheadedness, changes in vision or hearing, chest pain, palpitations, nausea, vomiting, difficulties with urination or blood in urine, difficulties with or changes in his bowel movements, or experiencing any numbness/tingling/weakness/swelling in his extremities. He underwent evaluation in the emergency department. Vital signs upon arrival show blood pressure 162/71, heart rate 87, respiratory rate 18, te mp 98.8 F, and SpO2 of 98% on room air. EKG completed showing normal sinus rhythm at 69 bpm with no noted T wave or ST abnormalities showing no signs of acute ischemia. Labs completed and reviewed. X-ray right ribs negative. CBC showing normocytic anemia with hemoglobin of 11.3. BMP showing sodium 135, potassium 4.1 and renal function unremarkable with BUN of 17, creatinine of 0.76, GFR greater than 90. Liver profile showing elevated alkaline phosphatase of 220. Urinalysis showing trace protein and negative for blood or infection. D-dimer elevated at 4.36. CTA was completed negative for pulmonary emboli showing a lung mass within the medial right upper lobe measuring 4.2 cm concern ing for primary pulmonary malignancy with metastatic disease to bilateral lungs, liver, and spleen along with mediastinal and bilateral axillary lymphadenopathy and collapse of the lateral right middle lobe with soft tissue encasing the proximal bronchus. Patient admitted under our services with consultation to oncology and pulmonology. Pulmonary consulted, CT AP and MRI brain ordered. Plans for bronchoscopy today. 02/18 Patient was seen and examined. He continues to report right flank pain well controlled with current pain regimen. Plans for bronchoscopy today. MRI brain shows chronic white matter ischemic changes. General: non toxic, no distress, appears at stated age Derm: warm, dry Head: atraumatic, normocephalic, symmetric Eyes: EOMI, no lid lag, anicteric sclera Mouth: no lip lesion, mucus membranes moist Cardiovascular: good distal perfusion in all 4 extremities. Lungs: breathing comfortably , no accessory muscle use Ext: no gross muscle atrophy, no edema, no contractures Neuro: no focal neuro deficits Psych: Alert, oriented, appropriate affect Based on my assessment of this patient, this patient meets a high complexity level of care. Patient has an acute diagnosis of right pulmonary mass with sigs of metastatic disease that poses a threat to life or bodily function. Intractable right flank pain: Pain management with Dilaudid 1 mg IV Q2H PRN. Newly diagnosed right lung mass with concerns of metastatic lesions to bilateral lungs, liver, and spleen: Plans for bronchoscopy today. Oncology and Pulmonary on board. Collapsed right lateral middle lobe of lung with soft tissue encasing the proximal bronchus Hypertension: Continue daily medication regimen with losartan 50 mg daily and metoprolol 25 mg daily. Hyperlipidemia: Continue daily medication regimen with pravastatin 40 mg daily. GERD: Continue daily medication regimen with Protonix 40 mg twice daily. BPH: Continue daily medication regimen with doxazosin 4 mg p.o. twice daily. Rheumatoid arthritis: Hold methotrexate and prednisone at this time pending further workup. Anxiety: Continue daily medication regimen with Wellbutrin 150 mg twice daily. CODE STATUS: FULL CODE DVT Prophylaxis: Heparin SQ GI Prophylaxis: Protonix Designated medical POA if patient is not able to make medical decisions for emselves: I have reviewed the following consultant teacher notes: Pulmonary I have reviewed the results of the following tests: MRI brain I have ordered the following tests: CTAP is pending I have discussed the care of this patient with the following independent historian: I have independently interpreted the following test below: I have discussed the management of this patient with the following physician: This patient has a high risk of morbidity due to the following reasons: Patient requires IV narcotics which requires intensive monitoring for respiratory depression. Objective - Vital Signs Vital signs: Vital Signs Temp 98.6 F 02/19/24 08:28 Pulse 81 02/19/24 08:28 Resp 18 02/19/24 08:28 BP 144/70 02/19/24 08:28 Pulse Ox 95 02/19/24 08:28 FiO2 Intake & Output 02/18/24 02/19/24 02/19/24 18:59 06:59 18:59 Weight 68.946 kg - Labs CBC & Chem 7: 02/18/24 02:06 02/18/24 15:42
[2024-02-19] MEDS ORDERED: PROPOFOL 10 MG/ML 20 ML VIAL IV ONE (14:29)
[2024-02-19] MEDS ORDERED: ePHEDrine 50 MG/ML 1 ML VIAL ONE (14:29)
[2024-02-19] MEDS ORDERED: fentaNYL (PF) 50 MCG/ML 2 ML AMP ONE (14:29)
[2024-02-19] MEDS ORDERED: PHENYLEPHRINE-0.9% NACL SYG 1,000 MCG/10 ML SYRINGE ONE (14:29)
[2024-02-19] MEDS ORDERED: LIDOCAINE 1% INJ 10MG/ML (20 ML MDV) ONE (14:29)
[2024-02-19] MEDS ORDERED: SUCCINYLCHOLINE CHLORIDE 200 MG/10 ML VIAL IV ONE (14:29)
[2024-02-19] MEDS ORDERED: WATER FOR INJECTION, STERILE 10 ML VIAL IV ONE (14:29)
[2024-02-19] MEDS ORDERED: ROCURONIUM 10 MG/ML (5 ML VIAL) IV ONE (14:29)
[2024-02-19] MEDS ORDERED: GLYCOPYRROLATE 0.2 MG/ML 2 ML VIAL ONE (14:29)
[2024-02-19] MEDS ORDERED: NEOSTIGMINE 1 MG/ML 10 ML VIAL ONE (14:29)
[2024-02-19] MEDS: LACTATED RINGERS 1,000 ML IV ONE (14:30)
--- NOTE | 2024-02-19 16:22 | P.PCN ---
Date of Procedure: 02/19/24 Preoperative Diagnosis: Right upper lobe mass/mediastinal endocrinopathy Postoperative Diagnosis: Same Procedure(s) Performed: Endobronchial ultrasound and biopsy of the right upper lobe mass and biopsy of the subcarinal lymph node. Anesthesia: STEVEA Surgeon: Alee Farnsworth Estimated Blood Loss (ml): 0 Pathology: other Condition: stable Disposition: floor Operative Findings: Flexible bronchoscopy and endobronchial ultrasound was performed in the endoscopy suite. The patient was intubated and placed on the mechanical ventilator in the usual fashion. The patient was intubated by the anesthesia group. Subsequently, the ET tube was positioned in the mid trachea. Using a flexible bronchoscope, a complete airway examination was done. Distal trachea was within normal limits. Bilateral mainstem bronchi was within normal limits. The lateral wall of the bronchus intermedius was slightly compressed. The right upper lobe bronchus was bifurcated. Unable to identify the apical segment of the right upper lobe. Anterior and the posterior segments of the right upper lobe were quite narrowed and there was no endobronchial lesions or abnormalities identified. Examination of the right middle lobe and right lower lobe segments and subsegments were all within normal limits. Examination of the left side was within normal and the visualized airways included the left mainstem bronchus, left upper lobe bronchus and left lower lobe bronchus and the various 8 segments on the left Following that, the flexor bronchoscope was removed and endobronchial ultrasound was inserted. Careful examination of the mediastinal stations revealed a 17 x 18 mm subcarinal lymph node. Examination of the paratracheal area was done and along the right paratracheal wall, the right upper lobe mass was clearly visualized and based on the measurements, this was at least around 3 x 2.5 cm in size. Rest of the mediastinal stations revealed a smaller side type hilar lymph node, station 10 R. At this point, using a 22-gauge vizishot needle, transbronchial needle aspirate of subcarinal lymph node was done and a total of 6 passes were taken. Subsequently, biopsy of the right upper lobe mass was done through the right paratracheal wall. A total of 6 passes were taken. The procedure was essentially uncomplicated. No bleeding was encountered. The endobronchial ultrasound was removed and the flexor bronchoscope was inserted and the patient underwent therapeutic airway suctioning. Subsequently, the flexible bronchoscope was removed and the patient was extubated and transferred to recovery in stable condition. Further recommendations are to follow based on the findings.
[2024-02-19] MEDS: IOPAMIDOL CONTRAST (ORAL USE) VIAL PO PRN (17:21)
--- NOTE | 2024-02-19 19:12 | CT ---
EXAMINATION TYPE: CT abdomen pelvis w con CT DLP: 1079 mGycm, Automated exposure control for dose reduction was used. DATE OF EXAM: 02/19/2024 7:01 PM COMPARISON: CT abdomen pelvis most recent from 10/17/2022 CLINICAL INDICATION:Male, 73 years old with history of Lung mass, liver, spleen lesions, mediastinal LAD; LUNG MASS TECHNIQUE: Axial CT of the abdomen and pelvis. Sagittal and coronal reformats were created on a [employer] workstation. Contrast used:100 mL of Isovue 300 with IV Contrast, (none if empty) Oral contrast used: without Oral Contrast (none if empty) FINDINGS: LOWER CHEST: Please see dedicated CT chest from one day prior. ABDOMEN LIVER: Multiple round low density lesions are seen scattered throughout the left and right hepatic lo bes, the largest is noted in the inferior right hepatic lobe (segment 7) and measures 5.3 cm. These l esions are new from the prior exam of 2021. GALLBLADDER AND BILE DUCTS: Unremarkable. PANCREAS: Unremarkable. SPLEEN: At least 4 hypoattenuating splenic lesions are identified the largest measures 2.7 cm. ADRENAL GLANDS: Unremarkable. KIDNEYS AND URETERS: No evidence of hydronephrosis or renal calculus. The ureters are unremarkable. PELVIS BLADDER: Mildly hyperattenuating material within the bladder, likely contrast from prior exam. REPRODUCTIVE: Prostate is enlarged in size measuring 5.2 cm in transverse dimension. ABDOMEN & PELVIS STOMACH AND BOWEL: Stomach and duodenum are unremarkable. Few scattered colonic diverticula are ident ified in the sigmoid colon No evidence of bowel obstruction. PERITONEUM/RETROPERITONEUM: No evidence of pneumoperitoneum or free fluid. VASCULATURE: Moderate atherosclerotic calcifications are present throughout the abdominal aorta and i ts branches. No evidence of aortic aneurysm. MUSCULOSKELETAL: Posterior fusion changes are identified of the lumbar spine. LYMPH NODES: Enlarged periaortic lymph nodes are identified, the largest measures 2.1 cm in short axi s. SOFT TISSUE/ABDOMINAL WALL: Unremarkable IMPRESSION: 1. Multiple hepatic and splenic lesions, most concerning for metastatic disease. 2. Enlarged para-aortic lymphadenopathy, also likely related to underlying metastatic disease. 3. Colonic diverticulosis.
[2024-02-20] MEDS ORDERED: BENZONATATE 100 MG CAP PO PRN (10:44)
[2024-02-20] MEDS ORDERED: MORPHINE SULFATE 4 MG/ML SYRINGE IVP PRN (10:46)
--- NOTE | 2024-02-20 10:48 | P.PN ---
Subjective Progress Note Date: 02/20/24 73-year-old male with a past medical history of hypertension, hyperlipidemia, GERD, rheumatoid arthritis, BPH, degenerative disc disease status post laminectomy and spinal fusion x 2 and neuropathy. He presented to the emergency department with a chief complaint of right flank pain. Patient reports pers istently worsening right flank pain beginning approximately 2 weeks ago and progressively worsened. Patient states pain is persistent, sharp and intense and is worse with any movement and that he is unable to take a deep breath or cough. He denies having any fevers, chills, dizziness, lightheadedness, changes in vision or hearing, chest pain, palpitations, nausea, vomiting, difficulties with urination or blood in urine, difficulties with or changes in his bowel movements, or experiencing any numbness/tingling/weakness/swelling in his extremities. He underwent evaluation in the emergency department. Vital signs upon arrival show blood pressure 162/71, heart rate 87, respiratory rate 18, te mp 98.8 F, and SpO2 of 98% on room air. EKG completed showing normal sinus rhythm at 69 bpm with no noted T wave or ST abnormalities showing no signs of acute ischemia. Labs completed and reviewed. X-ray right ribs negative. CBC showing normocytic anemia with hemoglobin of 11.3. BMP showing sodium 135, potassium 4.1 and renal function unremarkable with BUN of 17, creatinine of 0.76, GFR greater than 90. Liver profile showing elevated alkaline phosphatase of 220. Urinalysis showing trace protein and negative for blood or infection. D-dimer elevated at 4.36. CTA was completed negative for pulmonary emboli showing a lung mass within the medial right upper lobe measuring 4.2 cm concern ing for primary pulmonary malignancy with metastatic disease to bilateral lungs, liver, and spleen along with mediastinal and bilateral axillary lymphadenopathy and collapse of the lateral right middle lobe with soft tissue encasing the proximal bronchus. Patient admitted under our services with consultation to oncology and pulmonology. Pulmonary consulted, CT AP and MRI brain ordered. Plans for bronchoscopy today. 02/18 Patient was seen and examined. He continues to report right flank pain well controlled with current pain regimen. Plans for bronchoscopy today. MRI brain shows chronic white matter ischemic changes. 02/19 Patient was seen and examined. Underwent bronchoscopy yesterday, biopsy taken. Today, he reports uncontrolled cough and right sided rib pain. Pain is 10/10 severity. CTAP shows lesions in the liver and spleen. General: non toxic, no distress, appears at stated age Derm: warm, dry Head: atraumatic, normocephalic, symmetric Eyes: EOMI, no lid lag, anicteric sclera Mouth: no lip lesion, mucus membranes moist Cardiovascular: good distal perfusion in all 4 extremities. Normal S1 S2. Lungs: breathing comfortably , no accessory muscle use, expiratory wheezing bilaterally Ext: no gross muscle atrophy, no edema, no contractures Neuro: no focal neuro deficits Psych: Alert, oriented, appropriate affect Based on my assessment of this patient, this patient meets a high complexity level of care. Patient has an acute diagnosis of right pulmonary mass with signs of metastatic disease that poses a threat to life or bodily function. Intractable right flank pain: Pain management with Dilaudid 1 mg IV Q2H PRN. Add Toradol 15 mg IV Q6H. [place] 10 Q6H. Pain management consult. Newly diagnosed right lung mass with concerns of metastatic lesions to bilateral lungs, liver, and spleen: Await pathology results. Oncology and Pulmonary on board. Collapsed right lateral middle lobe of lung with soft tissue encasing the proximal bronchus Hypertension: Continue daily medication regimen with losartan 50 mg daily and metoprolol 25 mg daily. Hyperlipidemia: Continue daily medication regimen with pravastatin 40 mg daily. GERD: Continue daily medication regimen with Protonix 40 mg twice daily. BPH: Continue daily medication regimen with doxazosin 4 mg p.o. twice daily. Rheumatoid arthritis: Hold methotrexate and prednisone at this time pending further workup. Anxiety: Continue daily medication regimen with Wellbutrin 150 mg twice daily. CODE STATUS: FULL CODE DVT Prophylaxis: Heparin SQ GI Prophylaxis: Protonix Designated medical POA if patient is not able to make medical decisions for themselves: I have reviewed the following sap payroll consultant notes: Pulmonary procedure note I have reviewed the results of the following tests: CT AP I have ordered the following tests: I have discussed the care of this patient with the following independent historian: I have independently interpreted the following test below: I have discussed the management of this patient with the following physician: This patient has a high risk of morbidity due to the following reasons: Patient requires IV narcotics which requires intensive monitoring for respiratory depression. Objective - Vital Signs Vital signs: Vital Signs Temp 98.1 F 02/20/24 07:34 Pulse 79 02/20/24 07:34 Resp 17 02/20/24 07:34 BP 126/55 02/20/24 07:34 Pulse Ox 94 L 02/20/24 07:34 FiO2 Intake & Output 02/19/24 02/20/24 02/20/24 18:59 06:59 18:59 Intake Total 400 120 Balance 400 120 Intake: IV 400 Oral 120 Other: # Voids 1 - Labs CBC & Chem 7: 02/18/24 02:06 02/18/24 15:42
[2024-02-20] MEDS: MORPHINE SULFATE ER 15 MG TABLET PO SCH (11:25)
[2024-02-20] MEDS: KETOROLAC 15 MG/ML 1 ML VIAL IVP SCH (12:42)
--- NOTE | 2024-02-20 14:20 | NM ---
EXAMINATION TYPE: NM bone scan whole body DATE OF EXAM: 02/20/2024 COMPARISON: NONE CLINICAL INDICATION: Male, 73 years old with history of initial staging, lung mass, liver/spleen lesi o; Delayed whole-body scanning was performed following the injection of 23.3 mCi Tc 99m MDP. Images acq uired 4 hours post injection. FINDINGS: There is a moderate intensity uptake involving the cervical, thoracic and lumbar spine. Abnormal upta ke involving the sternoclavicular joints, shoulders, knees, left ankle and feet likely post arthritic . Reduced uptake involving the lumbar spine appears compatible with postsurgical changes. There is a 2 focal areas of abnormal intense uptake involving the lateral margin of the sternum. No C T abnormality is seen in the region. However, early metastasis would still be within the differential diagnosis. IMPRESSION: 1. Abnormal uptake along the left lateral margin of the sternum is nonspecific. Recent CT scan demons trated no destructive or sclerotic changes. Would recommend continued monitoring of this area. Early metastases not excluded. 2. Abnormal uptake involving the cervical and thoracic spine is nonspecific but most likely degenerat valentin.
--- NOTE | 2024-02-20 15:15 | P.PN ---
Subjective Progress Note Date: 02/20/24 Principal diagnosis: Lung, liver and spleen lesions In f/u today pt is pending NM bone scan, he has had bronch and biopsy, no fevers or hemoptysis. He is having increased RUQ pain, radiating to epigastric area, he feels it is 2/2 coughing. No other acute c/o, family at bedside. Objective - Vital Signs Vital signs: Vital Signs Temp 98.1 F 02/20/24 07:34 Pulse 79 02/20/24 07:34 Resp 17 02/20/24 07:34 BP 126/55 02/20/24 07:34 Pulse Ox 94 L 02/20/24 07:34 FiO2 Intake & Output 02/19/24 02/20/24 02/20/24 18:59 06:59 18:59 Intake Total 400 120 Balance 400 120 Intake: IV 400 Oral 120 Other: # Voids 1 - Constitutional General appearance: Present: average body habitus, cooperative, mild distress - EENT Eyes: Present: anicteric sclerae, EOMI ENT: Present: hearing grossly normal - Respiratory Details: resp even and unlabored at rest, dry cough - Cardiovascular Details: Skin warm and dry to the touch well-perfused - Peripheral edema leg Peripheral Edema: bilateral: None - Gastrointestinal Localized gastrointestinal: tender: RUQ - Integumentary Integumentary: Present: normal - Neurologic Neurologic: Present: CNII-XII intact (grossly) - Musculoskeletal Musculoskeletal: Present: generalized weakness - Psychiatric Psychiatric: Present: A&O x's 3, appropriate affect, intact judgment & insight - Labs CBC & Chem 7: 02/18/24 02:06 02/18/24 15:42 - Imaging and Cardiology CT scan - abdomen: report reviewed CT scan - pelvis: report reviewed Assessment and Plan (1) Mediastinal lymphadenopathy Current Visit: Yes Status: Acute Priority: High Code(s): R59.0 - LOCALIZED ENLARGED LYMPH NODES SNOMED Code(s): 92021749 (2) Lung mass Current Visit: Yes Status: Acute Priority: High Code(s): R91.8 - OTHER N ONSPECIFIC ABNORMAL FINDING OF LUNG FIELD SNOMED Code(s): 375873880 (3) Liver lesion Current Visit: Yes Status: Acute Priority: High Code(s): K76.9 - LIVER DISEASE, UNSPECIFIED SNOMED Code(s): 271697086 Plan: Shortness of breath, pleuritic type chest pain. CTA abnormal findings-pulmonary nodules, liver and spleen lesions, mediastinal lymphadenopathy -CTA of the chest reports no PE, RUL 4.2 cm mass, bilateral lung nodules 0.9 cm RLL, 0.9 cm KALYANI, LLL 1.3 cm. Collapse of the lateral RML with soft tissue encasing the proximal bronchus, pleural space reported as unremarkable, no effusion or pneumothorax. Mediastinal lymphadenopathy subcarinal 1.5 cm, right hilar 1.6 cm, left intralobar 1.2 cm, LLL 1.2 cm, no reported lesions in the bones, soft tissue. Numerous masses throughout the liver measuring up to 3 cm in the left lobe and 6 cm in the inferior right lobe. 3 low densities are seen in the spleen, up to 3 cm. -Pulmonary has performed bronchoscopy and biopsy, pending pathology -MRI of the brain was negative for metastatic disease. -Nuclear medicine bone scan to complete staging has been performed, pending results when patient and family seen -Summarized the case for the patient and the family today. Pain-chronic from rheumatoid arthritis also, possibly secondary to malignancy -Pain medications have been adjusted. Discussed with Pharm.D. Patient is not narcotic gladis. Long-acting morphine ordered, patient's previously prescribed [place] will be used for breakthrough at this time. Will reassess patient tomorrow to see if pain management adequate -Medications for prevention of narcotic induced constipation ordered -Tessalon Perles ordered for cough which patient thinks is contributing to some of his rib pain
--- NOTE | 2024-02-20 15:47 | P.PN ---
Subjective Progress Note Date: 02/20/24 73-year-old male patient being seen for a lung mass. The patient presented to the hospital because of a right flank pain and the pain is rather diffuse affecting his right lateral rib cage extending posteriorly and anteriorly. He was very uncomfortable and he was unable to take a deep breath. He is an ex- smoker and he smokes marijuana daily basis for staging purposes. He has rheumatoid arthritis and is maintained on a combination of methotrexate and prednisone. Patient presented to the hospital and the chest x-ray was abnormal, rib views were essentially negative and CAT scan of the chest was done and the patient was found to have a right upper lobe mass measuring up to 4.2 cm in size in addition to mediastinal lymphadenopathy and some limited collapse of the right upper lobe with obstruction of the right upper lobe bronchus. There was also metastatic involvement involving the bilateral lungs with pulmonary nodules in the right lower lobe measuring 9 mm in the left upper lobe measuring 9 mm right lower lobe measuring 13 mm in addition to multiple liver and spleen lesions. No hemoptysis. No weight loss. He has becoming progressively more weak according to the family. He has around [id number] smoking history and quit smoking back in 1991. On today's evaluation of 02/19/2024, the patient is being seen for a follow-up. The patient is doing well and the plan is to proceed with a bronchoscopy for tissue diagnosis as the patient suspected to have metastatic lung cancer. MRI of the brain was done and showed multiple small hyperintensities within the deep white matter compatible with chronic white matter ischemic changes. No suspicious lesions. CAT scan of the abdomen and pelvis still pending. The patient is currently n.p.o. awaiting his bronchoscopy. On today's evaluation of 02/20/2024, the patient is being seen for a follow-up. The patient is post bronchoscopy and endobronchial ultrasound. Final pathology still pending. Meanwhile, MRI of the brain was negative for any metastases. CAT scan of the abdomen and pelvis was also completed and the patient did not have any significant intra-abdominal abnormalities other than the multiple hepatic lesions described earlier. There was also some enlarged Aortic lymphadenopathy consistent with metastatic disease and colonic diverticulosis. Bone scan was also completed and the patient has abnormal uptake in the left lateral margin of the sternum which is nonspecific. Early metastasis cannot be completely excluded. Also there was some abnormal uptake within the cervical and thoracic spine that was again thought to be nonspecific. The patient is requiring pain control and currently is on morphine 50 mg twice a day. Rest of the medication remain unchanged. Oncology is on the case. Patient is currently hemodynamically stable on room air oxygen with a pulse ox of 94%. No other significant events over the past 24 hours. Objective - Vital Signs Vital signs: Vital Signs Temp 98.1 F 02/20/24 07:34 Pulse 79 02/20/24 07:34 Resp 17 02/20/24 07:34 BP 126/55 02/20/24 07:34 Pulse Ox 94 L 02/20/24 07:34 FiO2 Intake & Output 02/19/24 02/20/24 02/20/24 18:59 06:59 18:59 Intake Total 400 240 Balance 400 240 Intake: IV 400 Oral 240 Other: # Voids 1 - Exam - Constitutional General appearance: average body habitus, cooperative, mild distress, the patient is currently on room air oxygen. No signs of noted significant respiratory distress. - EENT Eyes: anicteric sclerae, EOMI ENT: hearing grossly normal, normal oropharynx - Neck Neck: lymphadenopathy (Subcentimeter hard fixed lymph nodes in the right supraclavicular/base of the neck area. Some shotty bilateral supraclavicular lymphadenopathy) - Respiratory Respiratory: bilateral: diminished, prolonged expiration - Cardiovascular Rhythm: regular Heart sounds: normal: S1, S2 Abnormal Heart Sounds: no systolic murmur, no diastolic murmur, no rub, no S3 Gallop, no S4 Gallop, no click, no other leg Peripheral Edema: bilateral: None - Gastrointestinal General gastrointestinal: no absent bowel sounds, no decreased bowel sounds, dis tended, no hepatomegaly, no hyperactive bowel sounds, normal bowel sounds, no organomegaly, no rigid, no scaphoid, soft, no splenomegaly, tenderness, no umbilical hernia, no ventral hernia. The patient has some tenderness upon palpation of the right flank area. No palpable masses. - Integumentary Integumentary: normal - Neurologic Neurologic: CNII-XII intact (Grossly) - Musculoskeletal Musculoskeletal: strength equal bilaterally - Psychiatric Psychiatric: A&O x's 3, appropriate affect, intact judgment & insight - Labs CBC & Chem 7: 02/18/24 02:06 02/18/24 15:42 Assessment and Plan Plan: Right upper lobe mass measuring 4.2 cm in size obstructing right upper lobe bronchus in addition to some limited atelectatic changes in the right upper lobe and presence of multiple bilateral pulmonary nodules largest in the right lower lobe measuring 15 mm in size and left upper lobe measuring 9 mm in size. Patient has extensive mediastinal lymphadenopathy and metastatic disease involving the liver and spleen. Consider metastatic lung cancer. Bronchoscopy endobronchial ultrasound and biopsy of the right upper lobe mass in the subcarinal lymph node was completed. Pending histology pathology. Flank pain, currently under investigation. Patient has extensive hepatic metastases. LFTs are essentially within normal limits Rheumatoid arthritis maintained on a combination methotrexate and prednisone Hypertension Hyperlipidemia Ex-smoker the patient smokes marijuana on a daily basis BPH Chronic lumbar spine disease and the patient has undergone multiple surgeries on his lumbar spine including laminectomies and fusions History of carpal tunnel History of insertion and removal of a pain stimulator and the patient suffers from chronic back pain Plan CAT scan of the abdomen and pelvis was consistent with hepatic metastases and diverticulosis MRI of the brain was negative Morphine for pain control Oncology is on the case Will follow
--- NOTE | 2024-02-21 15:05 | P.PN ---
Subjective Progress Note Date: 02/21/24 Patient up in chair shaving, appears well. Patient states this morning he was experiencing nausea vomiting. He was given a dose of Zofran with improvement in symptoms. Patient has not ate breakfast or lunch today. Reporting improvement in pain control, stating pain is at a 5 or 6 but exacerbated with coughing and vomiting. Patient has antiemetics and cough suppressants ordered as needed. Spoke with nursing and to be proactive with medications to improve symptoms of cough and nausea and help keep pain controlled. Objective - Vital Signs Vital signs: Vital Signs Temp 98.1 F 02/21/24 13:19 Pulse 65 02/21/24 13:19 Resp 17 02/21/24 13:19 BP 148/65 02/21/24 13:19 Pulse Ox 95 02/21/24 13:19 FiO2 Intake & Output 02/20/24 02/21/24 02/21/24 18:59 06:59 18:59 Intake Total 720 560 Balance 720 560 Intake: Oral 720 560 Other: Voiding Method Toilet Toilet # Voids 3 - Constitutional General appearance: Present: average body habitus, no acute distress - EENT Eyes: Present: anicteric sclerae, EOMI ENT: Present: hearing grossly normal - Respiratory Details: breathing is even and unlabored - Cardiovascular Details: well perfused - Integumentary Integumentary: Absent: cyanotic - Neurologic Neurologic: Present: CNII-XII intact - Musculoskeletal Musculoskeletal: Present: strength equal bilaterally - Psychiatric Psychiatric: Present: A&O x's 3 - Labs CBC & Chem 7: 02/18/24 02:06 02/18/24 15:42 Assessment and Plan (1) Intractable pain Current Visit: Yes Status: Acute Priority: High Code(s): R52 - PAIN, UNSPECIFIED SNOMED Code(s): 77007593 (2) Liver lesion Current Visit: Yes Status: Acute Priority: High Code(s): K76.9 - LIVER DISEASE, UNSPECIFIED SNOMED Code(s): 188427947 (3) Lung mass Current Visit: Yes Status: Acute Priority: High Code(s): R91.8 - OTHER NONSPECIFIC ABNORMAL FINDING OF LUNG FIELD SNOMED Code(s): 096744831 (4) Mediastinal lymphadenopathy Current Visit: Yes Status: Acute Priority: High Code(s): R59.0 - LOCALIZED ENLARGED LYMPH NODES SNOMED Code(s): 74067210 Plan: Lung mass, pulmonary nodules: -CTA of the chest reports no PE, RUL 4.2 cm mass, bilateral lung nodules 0.9 cm RLL, 0.9 cm KALYANI, LLL 1.3 cm. Collapse of the lateral RML with soft tissue encasing the proximal bronchus, pleural space reported as unremarkable, no effusion or pneumothorax. Mediastinal lymphadenopathy subcarinal 1.5 cm, right hilar 1.6 cm, left intralobar 1.2 cm, LLL 1.2 cm, no reported lesions in the bones, soft tissue. Numerous masses throughout the liver measuring up to 3 cm in the left lobe and 6 cm in the inferior right lobe. 3 low densities are seen in the spleen, up to 3 cm. -Pulmonary has performed bronchoscopy and biopsy, pending pathology -MRI of the brain was negative for metastatic disease. CT abdomen and pelvis reports reviewed. Liver and spleen lesions again demonstrated, some periaortic lymphadenopathy, otherwise no other metastatic disease seen. -Nuclear medicine bone scan to complete staging has been performed, showing Showing nonspecific ab normal uptake along the left lateral margin of the sternum and nonspecific uptake involving the cervical and thoracic spine, most likely degenerative -Summarized the case for the patient and the family today. Pain-chronic from rheumatoid arthritis also, possibly secondary to malignancy -Pain medications have been adjusted. Discussed with Pharm.D. Patient is not narcotic naive. Long-acting morphine ordered, patient's previously prescribed [place] will be used for breakthrough at this time. Reporting improved pain control today, rating pain 5-6. But is exacerbated by cough and vomiting, will use supportive medications proactively to better control symptoms to alleviate exacerbating symptoms. Spoke with primary RN about encouraging supportive medications as needed -MS Contin has already been sent from clinic, to pharmacy on file -Medications for prevention of narcotic induced constipation ordered
[2024-02-21] MEDS ORDERED: CALCIUM CARBONATE 500 MG CHEWABLE PO PRN (15:08)
--- NOTE | 2024-02-21 15:14 | P.PN ---
Subjective Progress Note Date: 02/21/24 73-year-old male with a past medical history of hypertension, hyperlipidemia, GERD, rheumatoid arthritis, BPH, degenerative disc disease status post laminectomy and spinal fusion x 2 and neuropathy. He presented to the emergency department with a chief complaint of right flank pain. Patient reports pers istently worsening right flank pain beginning approximately 2 weeks ago and progressively worsened. Patient states pain is persistent, sharp and intense and is worse with any movement and that he is unable to take a deep breath or cough. He denies having any fevers, chills, dizziness, lightheadedness, changes in vision or hearing, chest pain, palpitations, nausea, vomiting, difficulties with urination or blood in urine, difficulties with or changes in his bowel movements, or experiencing any numbness/tingling/weakness/swelling in his extremities. He underwent evaluation in the emergency department. Vital signs upon arrival show blood pressure 162/71, heart rate 87, respiratory rate 18, te mp 98.8 F, and SpO2 of 98% on room air. EKG completed showing normal sinus rhythm at 69 bpm with no noted T wave or ST abnormalities showing no signs of acute ischemia. Labs completed and reviewed. X-ray right ribs negative. CBC showing normocytic anemia with hemoglobin of 11.3. BMP showing sodium 135, potassium 4.1 and renal function unremarkable with BUN of 17, creatinine of 0.76, GFR greater than 90. Liver profile showing elevated alkaline phosphatase of 220. Urinalysis showing trace protein and negative for blood or infection. D-dimer elevated at 4.36. CTA was completed negative for pulmonary emboli showing a lung mass within the medial right upper lobe measuring 4.2 cm concern ing for primary pulmonary malignancy with metastatic disease to bilateral lungs, liver, and spleen along with mediastinal and bilateral axillary lymphadenopathy and collapse of the lateral right middle lobe with soft tissue encasing the proximal bronchus. Patient admitted under our services with consultation to oncology and pulmonology. Pulmonary consulted, CT AP and MRI brain ordered. Plans for bronchoscopy today. 02/18 Patient was seen and examined. He continues to report right flank pain well controlled with current pain regimen. Plans for bronchoscopy today. MRI brain shows chronic white matter ischemic changes. 02/19 Patient was seen and examined. Underwent bronchoscopy yesterday, biopsy taken. Today, he reports uncontrolled cough and right sided rib pain. Pain is 10/10 severity. CTAP shows lesions in the liver and spleen. 02/20 Patient was seen and examined. Pain better controlled after starting MS Contin yesterday. Pain is 5-6/10 in severity. He has been feeling nauseated this morning and vomiting after a few bites of his lunch. Currently on Zofran and Reglan PRN. I will change his protonix to 40 mg IV BID and add Tums while discontinuing Toradol. Discussed with Sadia Gates, Oncology will prescribe the MS Contin and take over his pain management in the outpatient setting. Hopeful plans for discharge home tomorrow if N/V and pain better controlled. General: non toxic, no distress, appears at stated age Derm: warm, dry Head: atraumatic, normocephalic, symmetric Eyes: EOMI, no lid lag, anicteric sclera Mouth: no lip lesion, mucus membranes moist Cardiovascular: good distal perfusion in all 4 extremities. Normal S1 S2. Lungs: breathing comfortably , no accessory muscle use, clear to auscultation bilaterally Ext: no gross muscle atrophy, no edema, no contractures Neuro: no focal neuro deficits Psych: Alert, oriented, appropriate affect Based on my assessment of this patient, this patient meets a high complexity level of care. Patient has an acute diagnosis of right pulmonary mass with signs of metastatic disease that poses a threat to life or bodily function. Intractable N/V: Worsened with stress and anxiety from hospital admission. Zofran 4 mg IV and Reglan 10 mg IV PRN for N/V. Add Tums 1000 mg and Protonix 40 mg IV BID. Stop Toradol. Intractable right flank pain: MS Contin 15 mg PO BID. Jackson 10 Q6H. Pain management consult. Newly diagnosed right lung mass with concerns of metastatic lesions to bilateral lungs, liver, and spleen: Await pathology results. Oncology and Pulmonary on board. Collapsed right lateral middle lobe of lung with soft tissue encasing the proximal bronchus Hypertension: Continue daily medication regimen with losartan 50 mg daily and metoprolol 25 mg daily. Hyperlipidemia: Continue daily medication regimen with pravastatin 40 mg daily. BPH: Continue daily medication regimen with doxazosin 4 mg p.o. twice daily. Rheumatoid arthritis: Hold methotrexate and prednisone at this time pending further workup. Anxiety: Continue daily medication regimen with Wellbutrin 150 mg twice daily. CODE STATUS: FULL CODE DVT Prophylaxis: Heparin SQ GI Prophylaxis: Protonix Designated medical POA if patient is not able to make medical decisions for themselves: I have reviewed the following business sales consultant notes: Pulmonary Oncology note I have reviewed the results of the following tests: I have ordered the following tests: I have discussed the care of this patient with the following independent historian: COSTA I have independently interpreted the following test below: I have discussed the management of this patient with the following physician: Yajaira Miles EDGERMAN Objective - Vital Signs Vital signs: Vital Signs Temp 98.1 F 02/21/24 13:19 Pulse 65 02/21/24 13:19 Resp 17 02/21/24 13:19 BP 148/65 02/21/24 13:19 Pulse Ox 95 02/21/24 13:19 FiO2 Intake & Output 02/20/24 02/21/24 02/21/24 18:59 06:59 18:59 Intake Total 720 560 Balance 720 560 Intake: Oral 720 560 Other: Voiding Method Toilet Toilet # Voids 3 - Labs CBC & Chem 7: 02/18/24 02:06 02/18/24 15:42
--- NOTE | 2024-02-21 15:49 | P.PN ---
Subjective Progress Note Date: 02/21/24 73-year-old male patient being seen for a lung mass. The patient presented to the hospital because of a right flank pain and the pain is rather diffuse affecting his right lateral rib cage extending posteriorly and anteriorly. He was very uncomfortable and he was unable to take a deep breath. He is an ex- smoker and he smokes marijuana daily basis for staging purposes. He has rheumatoid arthritis and is maintained on a combination of methotrexate and prednisone. Patient presented to the hospital and the chest x-ray was abnormal, rib views were essentially negative and CAT scan of the chest was done and the patient was found to have a right upper lobe mass measuring up to 4.2 cm in size in addition to mediastinal lymphadenopathy and some limited collapse of the right upper lobe with obstruction of the right upper lobe bronchus. There was also metastatic involvement involving the bilateral lungs with pulmonary nodules in the right lower lobe measuring 9 mm in the left upper lobe measuring 9 mm right lower lobe measuring 13 mm in addition to multiple liver and spleen lesions. No hemoptysis. No weight loss. He has becoming progressively more weak according to the family. He has around [id number] smoking history and quit smoking back in 1991. On today's evaluation of 02/19/2024, the patient is being seen for a follow-up. The patient is doing well and the plan is to proceed with a bronchoscopy for tissue diagnosis as the patient suspected to have metastatic lung cancer. MRI of the brain was done and showed multiple small hyperintensities within the deep white matter compatible with chronic white matter ischemic changes. No suspicious lesions. CAT scan of the abdomen and pelvis still pending. The patient is currently n.p.o. awaiting his bronchoscopy. On today's evaluation of 02/20/2024, the patient is being seen for a follow-up. The patient is post bronchoscopy and endobronchial ultrasound. Final pathology still pending. Meanwhile, MRI of the brain was negative for any metastases. CAT scan of the abdomen and pelvis was also completed and the patient did not have any significant intra-abdominal abnormalities other than the multiple hepatic lesions described earlier. There was also some enlarged Aortic lymphadenopathy consistent with metastatic disease and colonic diverticulosis. Bone scan was also completed and the patient has abnormal uptake in the left lateral margin of the sternum which is nonspecific. Early metastasis cannot be completely excluded. Also there was some abnormal uptake within the cervical and thoracic spine that was again thought to be nonspecific. The patient is requiring pain control and currently is on morphine 50 mg twice a day. Rest of the medication remain unchanged. Oncology is on the case. Patient is currently hemodynamically stable on room air oxygen with a pulse ox of 94%. No other significant events over the past 24 hours. On today's evaluation of 02/21/2024, the patient is experiencing nausea and emesis and the patient was provided Zofran. Has diminished oral intake and the patient has not had breakfast or lunch. Pain is still active and the patient is having pain in the order of 5-6 out of 10 in severity. Still awaiting the bronchoscopy results. The patient remains on room air oxygen with a pulse ox of 95%. No altered mentation. He is currently on MS Contin. He is also on IV Protonix. Zofran was also added in combination with Reglan. Objective - Vital Signs Vital signs: Vital Signs Temp 98.7 F 02/21/24 07:43 Pulse 75 02/21/24 07:43 Resp 16 02/21/24 07:43 BP 155/79 02/21/24 07:43 Pulse Ox 96 02/21/24 07:43 FiO2 Intake & Output 02/20/24 02/21/24 02/21/24 18:59 06:59 18:59 Intake Total 720 560 Balance 720 560 Intake: Oral 720 560 Other: Voiding Method Toilet Toilet # Voids 3 - Exam - Constitutional General appearance: average body habitus, cooperative, mild distress, the patient is currently on room air oxygen. No signs of noted significant respiratory distress. - EENT Eyes: anicteric sclerae, EOMI ENT: hearing grossly normal, normal oropharynx - Neck Neck: lymphadenopathy (Subcentimeter hard fixed lymph nodes in the right supraclavicular/base of the neck area. Some shotty bilateral supraclavicular lymphadenopathy) - Respiratory Respiratory: bilateral: diminished, prolonged expiration - Cardiovascular Rhythm: regular Heart sounds: normal: S1, S2 Abnormal Heart Sounds: no systolic murmur, no diastolic murmur, no rub, no S3 Gallop, no S4 Gallop, no click, no other leg Peripheral Edema: bilateral: None - Gastrointestinal General gastrointestinal: no absent bowel sounds, no decreased bowel sounds, distended, no hepatomegaly, no hyperactive bowel sounds, normal bowel sounds, no organomegaly, no rigid, no scaphoid, soft, no splenomegaly, tenderness, no umbilical hernia, no ventral hernia. The patient has some tenderness upon palpation of the right flank area. No palpable masses. - Integumentary Integumentary: normal - Neurologic Neurologic: CNII-XII intact (Grossly) - Musculoskeletal Musculoskeletal: strength equal bilaterally - Psychiatric Psychiatric: A&O x's 3, appropriate affect, intact judgment & insight - Labs CBC & Chem 7: 02/18/24 02:06 02/18/24 15:42 Assessment and Plan Plan: Right upper lobe mass measuring 4.2 cm in size obstructing right upper lobe bronchus in addition to some limited atelectatic changes in the right upper lobe and presence of multiple bilateral pulmonary nodules largest in the right lower lobe measuring 15 mm in size and left upper lobe measuring 9 mm in size. Patient has extensive mediastinal lymphadenopathy and metastatic disease involving the liver and spleen. Consider metastatic lung cancer. Bronchoscopy endobronchial ultrasound and biopsy of the right upper lobe mass in the subcarinal lymph node was completed. Pending histology pathology. Flank pain, currently under investigation. Patient has extensive hepatic metastases. LFTs are essentially within normal limits, pain is still active and the patient is experiencing pain in the order of 6 out of 10 in severity. Rheumatoid arthritis maintained on a combination methotrexate and prednisone Hypertension Hyperlipidemia Ex-smoker the patient smokes marijuana on a daily basis BPH Chronic lumbar spine disease and the patient has undergone multiple surgeries on his lumbar spine including laminectomies and fusions History of carpal tunnel History of insertion and removal of a pain stimulator and the patient suffers from chronic back pain Nausea and emesis Plan MS Contin was added for pain Continue Zofran Continue Protonix CAT scan of the abdomen and pelvis was consistent with hepatic metastases and diverticulosis MRI of the brain was negative Morphine for pain control Oncology is on the case Awaiting pathology results from the recent biopsies Will follow
[2024-02-21] MEDS: CALCIUM CARBONATE 500 MG CHEWABLE PO STA (16:20)
[2024-02-21] MEDS: ONDANSETRON 4 MG/2 ML VIAL IVP PRN (16:24)
[2024-02-21] MEDS: PANTOPRAZOLE 40 MG/10 ML VIAL IVP SCH (21:37)
[2024-02-22 08:05] VITALS: BP 108/60; PULSE 81; RESP 18; TEMP 98.2
--- NOTE | 2024-02-22 09:38 | P.DS ---
Providers Date of admission: 02/18/24 07:54 Expected date of discharge: 02/22/24 Attending physician: Frederic Reid MD Consults: 02/18/24 07:50 Consult Physician Routine Consulting Provider: King Stephenson Consult Reason/Comments: New lung mass with probable liver metastasis Do you want consulting provider notified?: Yes 02/18/24 08:34 Consult Physician Routine Consulting Provider: Alee Farnsworth Consult Reason/Comments: newly found lung mass with collapse of right lateral middle lobe Do you want consulting provider notified?: Yes Primary care physician: Reji Nina MD Hospital Course: 73-year-old male with a past medical history of hypertension, hyperlipidemia, GERD, rheumatoid arthritis, BPH, degenerative disc disease status post laminectomy and spinal fusion x 2 and neuropathy. He presented to the emergency department with a chief complaint of right flank pain. Patient reports persistently worsening right flank pain beginning approximately 2 weeks ago and progressively worsened. Patient states pain is persistent, sharp and intense and is worse with any movement and that he is unable to take a deep breath or cough. He denies having any fevers, chills, dizziness, lightheadedness, changes in vision or hearing, chest pain, palpitations, nausea, vomiting, difficulties with urination or blood in urine, difficulties with or changes in his bowel movements, or experiencing any numbness/tingling/weakness/swelling in his extremities. He underwent evaluation in the emergency department. Vital signs upon arrival show blood pressure 162/71, heart rate 87, respiratory rate 18, temp 98.8 F, and SpO2 of 98% on room air. EKG completed showing normal sinus rhythm at 69 bpm with no noted T wave or ST abnormalities showing no signs of acute ischemia. Labs completed and reviewed. X-ray right ribs negative. CBC showing normocytic anemia with hemoglobin of 11.3. BMP showing sodium 135, potassium 4.1 and renal function unremarkable with BUN of 17, creatinine of 0.76, GFR greater than 90. Liver profile showing elevated alkaline phosphatase of 220. Urinalysis showing trace protein and negative for blood or infection. D-dimer elevated at 4.36. CTA was completed negative for pulmonary emboli showing a lung mass within the medial right upper lobe measuring 4.2 cm concerning for primary pulmonary malignancy with metastatic disease to bilateral lungs, liver, and spleen along with mediastinal and bilateral axillary lymphadenopathy and collapse of the lateral right middle lobe with soft tissue encasing the proximal bronchus. Underwent bronchoscopy where biopsies were taken. He had a difficult time with pain management, started on MS Contin by Oncology. MRI brain showed chronic white matter ischemic changes. CTAP shows lesions in the liver and spleen. Bone scan showed abnormal update along the left lateral margin of the sternum, cervical and thoracic spine. 02/21 Patient was seen and examined. at bedside. Pain better controlled aft er starting MS Contin. N/V also improved, able to tolerate breakfast this morning. Plans for discharge home after Oncology evaluation. Oncology has prescribed MS Contin to his pharmacy and they will take over his pain management. Follow up with Dr. Stephenson within 1 week for results of biopsy and to initiate oncological care. General: non toxic, no distress, appears at stated age Derm: warm, dry Head: atraumatic, normocephalic, symmetric Eyes: EOMI, no lid lag, anicteric sclera Mouth: no lip lesion, mucus membranes moist Cardiovascular: good distal perfusion in all 4 extremities. Normal S1 S2. Lungs: breathing comfortably , no accessory muscle use, clear to auscultation bilaterally Ext: no gross muscle atrophy, no edema, no contractures Neuro: no focal neuro deficits Psych: Alert, oriented, appropriate affect Discharge Diagnosis: Intractable N/V Intractable right flank pain Newly diagnosed right lung mass with concerns of metastatic lesions to bilateral lungs, liver, and spleen Collapsed right lateral middle lobe of lung with soft tissue encasing the proximal bronchus Hypertension Hyperlipidemia BPH Rheumatoid arthritis Anxiety This complex discharge took 35 minutes to complete. Patient Condition at Discharge: Stable Plan - Discharge Summary Discharge Rx Participant: No New Discharge Prescriptions: Continue buPROPion HCL [Wellbutrin XL] 150 mg PO BID@0700,1900 Ascorbic Acid [Vitamin C] 500 mg PO DAILY@1900 Pravastatin Sodium [Pravachol] 40 mg PO DAILY@1900 Omeprazole [PriLOSEC] 20 mg PO AC-BID Metoprolol Succinate 25 mg PO DAILY@0700 Folic Acid 1 mg PO DAILY@0700 calcitrioL 0.25 mcg PO FONTENOT Gabapentin [Neurontin] 800 mg PO TID@0700,1500,2300 Doxazosin [Cardura] 4 mg PO BID@0700,1900 predniSONE 4 mg PO DAILY@0700 Calcium Carbonate/Vitamin D3 [Calcium 600-Vit D3 5 Mcg (200 Iu)] 2 tab PO DAILY@190 [address]-Codeine [Fiorinal w/Cod 50-436-88-30MG] 1 cap PO BID PRN PRN Reason: Migraine Headache metHOTREXate sodium 10 mg PO FONTENOT HYDROcodone/APAP 10-325MG [[place] 10-325] 1 tab PO Q6H Magnesium 500 mg PO DAILY@1899 Losartan [Cozaar] 50 mg PO DAILY@1899 Potassium Chloride [Klor-Con 10 ER] 10 meq PO DAILY@190 Discharge Medication List Ascorbic Acid [Vitamin C] 500 mg PO DAILY@189908/30/14 [History] Folic Acid 1 mg PO DAILY@0708/30/14 [History] Gabapentin [Neurontin] 800 mg PO TID@0700,1500,2300 08/30/14 [History] Metoprolol Succinate 25 mg PO DAILY@0708/30/14 [History] Omeprazole [PriLOSEC] 20 mg PO AC-BID 08/30/14 [History] Pravastatin Sodium [Pravachol] 40 mg PO DAILY@189908/30/14 [History] buPROPion HCL [Wellbutrin XL] 150 mg PO BID@0700,189908/30/14 [History] calcitrioL 0.25 mcg PO FONTENOT 08/30/14 [History] Cukeyggxtf-UMR-Dzrsoda-Codeine [Fiorinal w/Cod 97-251-87-30MG] 1 cap PO BID PRN 06/18/16 [History] Calcium Carbonate/Vitamin D3 [Calcium 600-Vit D3 5 Mcg (200 Iu)] 2 tab PO DAILY@189906/18/16 [History] Doxazosin [Cardura] 4 mg PO BID@0700,1900 06/18/16 [History] metHOTREXate sodium 10 mg PO FONTENOT 06/18/16 [History] predniSONE 4 mg PO DAILY@0700 06/18/16 [History] HYDROcodone/APAP 10-325MG [[place] 10-325] 1 tab PO Q6H 01/24/17 [History] Losartan [Cozaar] 50 mg PO DAILY@189908/08/23 [History] Magnesium 500 mg PO DAILY@189908/08/23 [History] Potassium Chloride [Klor-Con 10 ER] 10 meq PO DAILY@189923 [History] Follow up Appointment(s)/Referral(s): King Stephenson [STAFF PHYSICIAN] - 1 Week Reji Nina MD [Primary Care Provider] - 1-2 days Discharge Disposition: HOME SELF-CARE
--- NOTE | 2024-02-22 16:31 | P.PN ---
Subjective Progress Note Date: 02/22/24 73-year-old male patient being seen for a lung mass. The patient presented to the hospital because of a right flank pain and the pain is rather diffuse affecting his right lateral rib cage extending posteriorly and anteriorly. He was very uncomfortable and he was unable to take a deep breath. He is an ex- smoker and he smokes marijuana daily basis for staging purposes. He has rheumatoid arthritis and is maintained on a combination of methotrexate and prednisone. Patient presented to the hospital and the chest x-ray was abnormal, rib views were essentially negative and CAT scan of the chest was done and the patient was found to have a right upper lobe mass measuring up to 4.2 cm in size in addition to mediastinal lymphadenopathy and some limited collapse of the right upper lobe with obstruction of the right upper lobe bronchus. There was also metastatic involvement involving the bilateral lungs with pulmonary nodules in the right lower lobe measuring 9 mm in the left upper lobe measuring 9 mm right lower lobe measuring 13 mm in addition to multiple liver and spleen lesions. No hemoptysis. No weight loss. He has becoming progressively more weak according to the family. He has around [id number] smoking history and quit smoking back in 1991. On today's evaluation of 02/19/2024, the patient is being seen for a follow-up. The patient is doing well and the plan is to proceed with a bronchoscopy for tissue diagnosis as the patient suspected to have metastatic lung cancer. MRI of the brain was done and showed multiple small hyperintensities within the deep white matter compatible with chronic white matter ischemic changes. No suspicious lesions. CAT scan of the abdomen and pelvis still pending. The patient is currently n.p.o. awaiting his bronchoscopy. On today's evaluation of 02/20/2024, the patient is being seen for a follow-up. The patient is post bronchoscopy and endobronchial ultrasound. Final pathology still pending. Meanwhile, MRI of the brain was negative for any metastases. CAT scan of the abdomen and pelvis was also completed and the patient did not have any significant intra-abdominal abnormalities other than the multiple hepatic lesions described earlier. There was also some enlarged Aortic lymphadenopathy consistent with metastatic disease and colonic diverticulosis. Bone scan was also completed and the patient has abnormal uptake in the left lateral margin of the sternum which is nonspecific. Early metastasis cannot be completely excluded. Also there was some abnormal uptake within the cervical and thoracic spine that was again thought to be nonspecific. The patient is requiring pain control and currently is on morphine 50 mg twice a day. Rest of the medication remain unchanged. Oncology is on the case. Patient is currently hemodynamically stable on room air oxygen with a pulse ox of 94%. No other significant events over the past 24 hours. On today's evaluation of 02/21/2024, the patient is experiencing nausea and emesis and the patient was provided Zofran. Has diminished oral intake and the patient has not had breakfast or lunch. Pain is still active and the patient is having pain in the order of 5-6 out of 10 in severity. Still awaiting the bronchoscopy results. The patient remains on room air oxygen with a pulse ox of 95%. No altered mentation. He is currently on MS Contin. He is also on IV Protonix. Zofran was also added in combination with Reglan. On today's evaluation of 02/22/2024, patient has no new complaints. His overall pain is under better control and the patient is to be discharged to be followed up on outpatient basis. Note that the biopsy results from his lung are not resulted yet. The patient is going home on Bantam 10 for pain control. Objective - Vital Signs Vital signs: Vital Signs Temp 98.2 F 02/22/24 07:01 Pulse 81 02/22/24 07:01 Resp 18 02/22/24 07:01 BP 108/60 02/22/24 07:01 Pulse Ox 95 02/22/24 07:01 FiO2 Intake & Output 02/21/24 02/22/24 02/22/24 18:59 06:59 18:59 Intake Total 540 Balance 540 Intake: Oral 540 Other: Voiding Method Toilet Toilet Toilet # Voids 2 3 - Exam - Constitutional General appearance: average body habitus, cooperative, mild distress, the patient is currently on room air oxygen. No signs of noted significant respiratory distress. - EENT Eyes: anicteric sclerae, EOMI ENT: hearing grossly normal, normal oropharynx - Neck Neck: lymphadenopathy (Subcentimeter hard fixed lymph nodes in the right supraclavicular/base of the neck area. Some shotty bilateral supraclavicular lymphadenopathy) - Respiratory Respiratory: bilateral: diminished, prolonged expiration - Cardiovascular Rhythm: regular Heart sounds: normal: S1, S2 Abnormal Heart Sounds: no systolic murmur, no diastolic murmur, no rub, no S3 Gallop, no S4 Gallop, no click, no other leg Peripheral Edema: bilateral: None - Gastrointestinal General gastrointestinal: no absent bowel sounds, no decreased bowel sounds, distended, no hepatomegaly, no hyperactive bowel sounds, normal bowel sounds, no organomegaly, no rigid, no scaphoid, soft, no splenomegaly, tenderness, no umbilical hernia, no ventral hernia. The patient has some tenderness upon palpation of the right flank area. No palpable masses. - Integumentary Integumentary: normal - Neurologic Neurologic: CNII-XII intact (Grossly) - Musculoskeletal Musculoskeletal: strength equal bilaterally - Psychiatric Psychiatric: A&O x's 3, appropriate affect, intact judgment & insight - Labs CBC & Chem 7: 02/18/24 02:06 02/18/24 15:42 Assessment and Plan Plan: Right upper lobe mass measuring 4.2 cm in size obstructing right upper lobe bronchus in addition to some limited atelectatic changes in the right upper lobe and presence of multiple bilateral pulmonary nodules largest in the right lower lobe measuring 15 mm in size and left upper lobe measuring 9 mm in size. Patient has extensive mediastinal lymphadenopathy and metastatic disease involving the liver and spleen. Consider metastatic lung cancer. Bronchoscopy endobronchial ultrasound and biopsy of the right upper lobe mass in the subcarinal lymph node was completed. Pending histology pathology. Flank pain, currently under investigation. Patient has extensive hepatic metastases. LFTs are essentially within normal limits, pain is still active and the patient is experiencing pain although it is under better control for now with the narcotic medications. Rheumatoid arthritis maintained on a combination methotrexate and prednisone Hypertension Hyperlipidemia Ex-smoker the patient smokes marijuana on a daily basis BPH Chronic lumbar spine disease and the patient has undergone multiple surgeries on his lumbar spine including laminectomies and fusions History of carpal tunnel History of insertion and removal of a pain stimulator and the patient suffers from chronic back pain Nausea and emesis Plan MS Contin was added for pain, the patient is going to be discharged on Bantam 10 for pain control Continue Zofran Continue Protonix CAT scan of the abdomen and pelvis was consistent with hepatic metastases and diverticulosis MRI of the brain was negative Morphine for pain control Oncology is on the case Awaiting pathology results from the recent biopsies Outpatient follow-up regarding the biopsy results and discuss further treatment options.
== END 2024-02-22 12:08 | disposition home or self-care (01) | DRG 181 ==
LOC: EC 01:36 → 5NMEDONC 07:54
PROVIDERS: ADMIT Internal Medicine; ATTEND Internal Medicine
PROC: 0BDC8ZX Extraction of Right Upper Lung Lobe, Via Natural or Artificial Opening Endoscopic, Diagnostic (ICD-10-PCS; principal; 2024-02-19 07:30)
PROC: 07D78ZX Extraction of Thorax Lymphatic, Via Natural or Artificial Opening Endoscopic, Diagnostic (ICD-10-PCS; 2024-02-19 07:30)
DX: C34.11 Malignant neoplasm of upper lobe, right bronchus or lung (principal); C78.02 Secondary malignant neoplasm of left lung; C78.89 Secondary malignant neoplasm of other digestive organs; C78.7 Secondary malignant neoplasm of liver and intrahepatic bile duct; J98.19 Other pulmonary collapse; M06.9 Rheumatoid arthritis, unspecified; I10 Essential (primary) hypertension; D63.0 Anemia in neoplastic disease; E78.5 Hyperlipidemia, unspecified; N40.0 Benign prostatic hyperplasia without lower urinary tract symptoms; G62.9 Polyneuropathy, unspecified; K57.30 Diverticulosis of large intestine without perforation or abscess without bleeding; M51.27 Other intervertebral disc displacement, lumbosacral region; G89.29 Other chronic pain; F06.4 Anxiety disorder due to known physiological condition; R11.2 Nausea with vomiting, unspecified; K21.9 Gastro-esophageal reflux disease without esophagitis; Z86.16 Personal history of COVID-19; Z79.891 Long term (current) use of opiate analgesic; Z79.52 Long term (current) use of systemic steroids; Z98.1 Arthrodesis status; Z87.891 Personal history of nicotine dependence; Z80.1 Family history of malignant neoplasm of trachea, bronchus and lung; Z79.899 Other long term (current) drug therapy; Z91.048 Other nonmedicinal substance allergy status
CPT/HCPCS: 31629; 31652; 36415; 70553; 71275; 74177; 78306; 80053; 81003; 82565; 84520; 85025; 85379; 88305; 88341; 88342; 93005; 96374; 96375; 99285

== ENCOUNTER 2024-04-23 16:41 | Emergency (ER) | payer MEDICARE ==
--- NOTE | 2024-04-23 16:57 | ED ---
Chest Pain HPI - General Source: patient Mode of arrival: wheelchair Limitations: no limitations <Jonathan Ochoa - Last Filed: 04/23/24 20:44> - General Source: RN notes reviewed, old records reviewed Mode of arrival: wheelchair Limitations: no limitations - History of Present Illness MD Complaint: chest pain -: days(s) Onset: during rest, during exertion Pain Location: left chest Severity: moderate Severity scale (1-10): 6 Quality: sharp Consistency: constant Improves With: nothing <Cristi Archibald - Last Filed: 05/05/24 00:14> - General Chief Complaint: Chest Pain Stated Complaint: poss clot in chest Time Seen by Provider: 04/23/24 16:57 - History of Present Illness Initial Comments: 73-year-old male currently being treated for lung cancer presenting with chief complaint of chest pain. Pain has been ongoing for about 3 days. Admits to shortness of breath. He was at his routine appointment today for recheck after his chemo and was told to come to the ER to rule out pulmonary embolism (Jonathan Ochoa) This is a 73-year-old male for chest pain concern for PE (Cristi Archibald) - Related Data Home Medications Medication Instructions Recorded Confirmed Ascorbic Acid [Vitamin C] 500 mg PO DAILY@1900 08/30/14 02/18/24 Folic Acid 1 mg PO DAILY@0700 08/30/14 02/18/24 Gabapentin [Neurontin] 800 mg PO TID@0700,1500,2300 08/30/14 02/18/24 Metoprolol Succinate 25 mg PO DAILY@0700 08/30/14 02/18/24 Omeprazole [PriLOSEC] 20 mg PO AC-BID 08/30/14 02/18/24 Pravastatin Sodium [Pravachol] 40 mg PO DAILY@1900 08/30/14 02/18/24 buPROPion HCL [Wellbutrin XL] 150 mg PO BID@0700,1900 08/30/14 02/18/24 calcitrioL 0.25 mcg PO FONTENOT 08/30/14 02/18/24 Qrbbwvmawx-PPY-Fescjbq-Codeine 1 cap PO BID PRN 06/18/16 02/18/24 [Fiorinal w/Cod 41-227-66-30MG] Calcium Carbonate/Vitamin D3 2 tab PO DAILY@1900 06/18/16 02/18/24 [Calcium 600-Vit D3 5 Mcg (200 Iu)] Doxazosin [Cardura] 4 mg PO BID@0700,1900 06/18/16 02/18/24 metHOTREXate sodium [Methotrexate] 10 mg PO FONTENOT 06/18/16 02/18/24 predniSONE 4 mg PO DAILY@0700 06/18/16 02/18/24 HYDROcodone/APAP 10-325MG [[place] 1 tab PO Q6H 01/24/17 02/18/24 10-325] Losartan [Cozaar] 50 mg PO DAILY@189908/08/23 02/18/24 Magnesium 500 mg PO DAILY@189908/08/23 02/18/24 Potassium Chloride [Klor-Con 10 ER] 10 meq PO DAILY@189908/08/23 02/18/24 Previous Rx's Medication Instructions Recorded Metoclopramide HCl [Reglan] 10 mg PO AC-TID #30 tablet 02/22/24 Allergies Allergy/AdvReac Type Severity Reaction Status Date / Time adhesive Allergy Rash/Hives Verified 04/23/24 16:49 - paper tape ok Review of Systems ROS Other: All systems not noted in ROS Statement are negative. <Jonathan Ochoa - Last Filed: 04/23/24 20:44> ROS Other: All systems not noted in ROS Statement are negative. <Cristi Archibald - Last Filed: 05/05/24 00:14> ROS Statement: Those systems with pertinent positive or pertinent negative responses have been documented in the HPI. Past Medical History Past Medical History: GERD/Reflux, Hyperlipidemia, Hypertension, Musculoskeletal Disorder, Prostate Disorder, Rheumatoid Arthritis (RA) Additional Past Medical History / Comment(s): Degenerative Disc Disease. Enlarged prostate. History of Any Multi-Drug Resistant Organisms: None Reported Past Surgical History: Back Surgery, Orthopedic Surgery Additional Past Surgical History / Comment(s): Spinal fusion X2, laminectomy, BILATERAL TENNIS ELBOW SURGERY, LEFT HAND CARPAL TUNNEL SURGERY, TRIAL PAIN STIMULATORPLACED AND LATER REMOVED, Pain Procedures, bilateral cataracts removed. Past Anesthesia/Blood Transfusion Reactions: No Reported Reaction Past Psychological History: No Psychological Hx Reported Smoking Status: Former smoker Past Alcohol Use History: None Reported Past Drug Use History: Marijuana - Past Family History Sister(s) Family Medical History: Cancer Additional Family Medical History / Comment(s): LUNG CANCER. <Jonathan Ochoa - Last Filed: 04/23/24 20:44> General Exam Limitations: no limitations <Jonathan Ochoa - Last Filed: 04/23/24 20:44> Limitations: no limitations General appearance: alert, in no apparent distress, anxious Head exam: Present: atraumatic, normocephalic, normal inspection Eye exam: Present: normal appearance, PERRL, EOMI. Absent: scleral icterus, conjunctival injection, periorbital swelling ENT exam: Present: normal exam, mucous membranes moist Neck exam: Present: normal inspection. Absent: tenderness, meningismus, lymphadenopathy Respiratory exam: Present: normal lung sounds bilaterally. Absent: respiratory distress, wheezes, rales, rhonchi, stridor Cardiovascular Exam: Present: regular rate, normal rhythm, normal heart sounds. Absent: systolic murmur, diastolic murmur, rubs, gallop, clicks GI/Abdominal exam: Present: soft, normal bowel sounds. Absent: distended, tenderness, guarding, rebound, rigid Extremities exam: Present: normal inspection, full ROM, normal capillary refill. Absent: tenderness, pedal edema, joint swelling, calf tenderness Back exam: Present: normal inspection Neurological exam: Present: alert, oriented X3, CN II-XII intact Psychiatric exam: Present: normal affect, normal mood Skin exam: Present: warm, dry, intact, normal color. Absent: rash <Cristi Archibald - Last Filed: 05/05/24 00:14> - General Exam Comments Initial Comments: Visual Physical Exam Vital signs reviewed General: Well-appearing, nontoxic, no acute distress. Head: Normocephalic, atraumatic Eyes: PERRLA, EOMI ENT: Airway patent Chest: Nonlabored breathing Skin: No visual rash, normal skin tone Neuro: Alert and oriented 3 Musculoskeletal: No gross abnormalities (Jonathan Ochoa) Course <Cristi Archibald - Last Filed: 05/05/24 00:14> Vital Signs 04/23/24 04/23/24 04/23/24 16:45 19:32 20:55 Temperature 98.7 F 98.6 F 98.8 F Pulse Rate 88 67 65 Respiratory 16 17 17 Rate Blood Pressure 115/62 144/67 143/78 O2 Sat by Pulse 98 98 98 Oximetry 04/23/24 22:13 Temperature Pulse Rate 64 Respiratory 18 Rate Blood Pressure 144/69 O2 Sat by Pulse 98 Oximetry - Reevaluation(s) Reevaluation #1: 04/23/24 21:59 Medical records reviewed (Cristi Archibald) Reevaluation #2: 04/23/24 21:59 Patient symptoms remain (Cristi Archibald) Reevaluation #3: 04/23/24 21:59 Informed of results and questions answered Studies CTA chest negative for PE (Cristi Archibald) Reevaluation #4: Was pt. sent in by a medical professional or institution (JIMBO Kahn, UTILITY CLERK, urgent care, hospital, or assisted...) When possible be specific @ -no Did you speak to anyone other than the patient for history (EMS, parent, family, police, friend...)? What history was obtained from this source @ -no Did you review nursing and triage notes (agree or disagree)? Why? @ -agree Are old charts reviewed (outside hosp., previous admission, EMS record, old EKG, old radiological studies, urgent care reports/EKG's, assisted records)? Report findings @ -yes Differential Diagnosis (chest pain, altered mental status, abdominal pain women, abdominal pain men, vaginal bleeding, weakness, fever, dyspnea, syncope, headache, dizziness, GI bleed, back pain, seizure, CVA, palpatations, mental health, musculoskeletal)? @ -prior EKG interpreted by me (3pts min.). @ -yes X-rays interpreted by me (1pt min.). @ -no CT interpreted by me (1pt min.). @ -yes negative for acute disease U/S interpreted by me (1pt. min.). @ -no What testing was considered but not performed or refused? (CT, X-rays, U/S, labs)? Why? @ -none What meds were considered but not given or refused? Why? @ -none Did you discuss the management of the patient with other professionals (professionals i.e. JIMBO Kahn, UTILITY CLERK, lab, RT, psych nurse, social media marketing analyst, dispute coordinator, teacher, chief investment officer, caser in)? Give summary @ -no Was smoking cessation discussed for >3mins.? @ -no Was critical care preformed (if so, how long)? @ -no Were there social determinants of health that impacted care today? How? (Homelessness, low income, unemployed, alcoholism, drug addiction, transportation, low edu. Level, literacy, decrease access to med. care, shelter, rehab)? @ -none Was there de-escalation of care discussed even if they declined (Discuss DNR or withdrawal of care, Hospice)? DNR status @ -no What co-morbidities impacted this encounter? (DM, HTN, Smoking, COPD, CAD, Cancer, CVA, ARF, Chemo, Hep., AIDS, mental health diagnosis, sleep apnea, mo rbid obesity)? @ -none Was patient admitted / discharged? Hospital course, mention meds given and route, prescriptions, significant lab abnormalities, going to OR and other pertinent info. @ - 73 Male for chest pain. No acute PE found on CT scan. Patient has persistent chest pain here in the ER but will take pain medication at home and can be discharged home Discharge Undiagnosed new problem with uncertain prognosis? @ -no Drug Therapy requiring intensive monitoring for toxicity (Heparin, Nitro, Insulin, Cardizem)? @ -no Were any procedures done? @ -no Diagnosis/symptom? @ -Chest pain Acute, or Chronic, or Acute on Chronic? @ -Acute Uncomplicated (without systemic symptoms) or Complicated (systemic symptoms)? @ -Complicated Side effects of treatment? @ -no Exacerbation, Progression, or Severe Exacerbation? @ -exacerbation Poses a threat to life or bodily function? How? (Chest pain, [place], [place], pneumonia, PE, COPD, DKA, ARF, appy, cholecystitis, CVA, Diverticulitis, Homicidal, Suicidal, threat to staff... and all critical care pts) @ -yes chest pain (Cristi Archibald) Reevaluation #5: Differential Chest Pain: Stable Angina, Unstable Angina, STEMI, NSTEMI Aortic Dissection, Pneumothorax, Musculoskeletal, Esophageal Spasm GERD, Cholecystitis, Pancreatitis, Zoster, this is not meant to be an all-inclusive list. (Cristi Archibald) - Consultations Consultation #1: Speak with Dr. Barahona prior to patient arrival (Cristi Archibald) Chest Pain MDM <Jonathan Ochoa - Last Filed: 04/23/24 20:44> <Cristi Archibald - Last Filed: 05/05/24 00:14> - MDM I performed the quick note portion of this visit, electronically signed Jonathan Ochoa PA-C (Jonathan Ochoa) 73 Male for chest pain. No acute PE found on CT scan. Patient has persistent chest pain here in the ER but will take pain medication at home and can be discharged home (Cristi Archibald) Disposition <Jonathan Ochoa - Last Filed: 04/23/24 20:44> Is patient prescribed a controlled substance at d/c from ED?: No Time of Disposition: 22:00 <Cristi Archibald - Last Filed: 05/05/24 00:14> Clinical Impression: Atypical chest pain, Chest pain, Lung mass Disposition: HOME SELF-CARE Condition: Fair Instructions (If sedation given, give patient instructions): Chest Pain (ED) Referrals: Reji Nina MD [Primary Care Provider] - 1-2 days
[2024-04-23 18:17] LABS: ALT 26 U/L (4-49); African American GFR (CKD) >90 (>60 ml/min/1.73 sqM); Albumin 3.4 g/dL (3.5-5.0); Anion Gap 5 mmol/L; Blood Urea Nitrogen 24 mg/dL (9-20); Calcium 8.4 mg/dL (8.4-10.2); Carbon Dioxide 24 mmol/L (22-30); Chloride 101 mmol/L (98-107); Glucose 127 mg/dL (74-99); Non-African American GFR(CKD) >90 (>60 ml/min/1.73 sqM); Sodium 130 mmol/L (137-145); Total Bilirubin 0.7 mg/dL (0.2-1.3); Total Protein 6.2 g/dL (6.3-8.2)
[2024-04-23 18:22] LABS: Potassium 5.4 mmol/L (3.5-5.1)
[2024-04-23 18:23] LABS: AST 48 U/L (17-59); Alkaline Phosphatase 216 U/L (38-126)
[2024-04-23 18:31] LABS: Basophils % (A) 0 %; Eosinophils % (A) 0 %; HCT 29.4 % (39.0-53.0); Lymphocytes # (A) 0.8 k/uL (1.0-4.8); Lymphocytes % (A) 17 %; MCH 28.1 pg (25.0-35.0); MCHC 32.6 g/dL (31.0-37.0); MCV 86.3 fL (80.0-100.0); Mean Platelet Volume 7.7; Monocytes # (A) 0.3 k/uL (0-1.0); Monocytes % (A) 6 %; Neutrophils # (A) 3.5 k/uL (1.3-7.7); Neutrophils % (A) 74 %; Platelet Count 262 k/uL (150-450); RDW 15.2 % (11.5-15.5); WBC 4.8 k/uL (3.8-10.6)
[2024-04-23 18:33] LABS: HGB 9.6 gm/dL (13.0-17.5)
[2024-04-23 18:41] LABS: INR 0.9 (<1.2); Partial Thromboplastin Time 25.4 sec (22.0-30.0); Prothrombin Time 10.1 sec (10.0-12.5)
[2024-04-23 20:58] VITALS: TEMP 98.8
--- NOTE | 2024-04-23 21:30 | CT ---
EXAMINATION TYPE: CT chest angio for PE DATE OF EXAM: 04/23/2024 HISTORY: sob, cp, lung cx CT DLP: 365.8 mGycm. Automated Exposure Control for Dose Reduction was Utilized. CONTRAST: CTA scan of the thorax is performed with IV Contrast, patient injected with 75ml mL of Isov ue 370. MIP Images are created on CT scanner and reviewed. 3D reconstructed images are created on an independent workstation and reviewed. COMPARISON: CT PE 02/18/2024 FINDINGS: LUNGS / PLEURAL SPACES: There is no new acute pulmonary process. There is redemonstration of the know n right hilar mass with volume loss, the right upper lobe mass anteromedially, and the nodes scattere d pulmonary nodules compatible with metastatic disease. The pleural spaces are negative. MEDIASTINUM: There is satisfactory enhancement of the pulmonary artery and its branches with no CT ev idence for pulmonary embolism. There is unchanged occlusion of the distal truncus anterior and unchan ged short segment narrowing of the proximal right lower lobe pulmonary artery; these pulmonary arteri al findings are secondary to the known bronchogenic mass. The superior vena cava is widely patent. There is no acute aortic process. Aortic valve calcifications are seen but the aorta is not dilated. Prominent coronary calcifications are noted. No cardiomegaly or pericardial effusion. Redemonstrated subcarinal adenopathy. OTHER: Innumerable liver metastases redemonstrated. No biliary, bowel, or urinary tract obstruction. IMPRESSION: 1. Negative for pulmonary embolism. 2. No new acute process when compared with the CT PE 02/18/2024.
[2024-04-23 22:14] VITALS: BP 144/69; PULSE 64; RESP 18
== END 2024-04-23 22:14 | disposition home or self-care (01) ==
LOC: EC 16:41
DX: R07.89 Other chest pain (principal); R91.8 Other nonspecific abnormal finding of lung field; Z87.891 Personal history of nicotine dependence; Z91.048 Other nonmedicinal substance allergy status
CPT/HCPCS: 36415; 93005; 80053; 83735; 84484; 85025; 85610; 85730; 71275; 99285; Q9967

== ENCOUNTER → 2024-06-02 | Outpatient (CLI) | payer MEDICARE ==
[2024-06-02 14:46] LABS: African American GFR (CKD) >90 (>60 ml/min/1.73 sqM); Blood Urea Nitrogen 18 mg/dL (9-20); Non-African American GFR(CKD) >90 (>60 ml/min/1.73 sqM)
--- NOTE | 2024-06-02 16:43 | CT ---
EXAMINATION TYPE: CT ChestAbdPelvis w con CT DLP: 1208 mGycm, Automated exposure control for dose reduction was used. DATE OF EXAM: 06/02/2024 3:50 PM COMPARISON: 02/19/2024 CLINICAL INDICATION:Male, 74 years old with history of C34.11 MALIGNANT NEOPLASM OF UPPER LOBE, RIGHT BRONCHUS LUNG; Technique: CT ChestAbdPelvis w con; Multiple axial images were obtained. Two-dimensional coronal and sagittal reconstructions were obtained. Contrast used:100ml mL of Isovue 300 with IV Contrast, Oral contrast used: with Oral Contrast Findings: CHEST: LUNGS/ PLEURA: Soft tissue extends along the right upper medial heart border down around the pulmonar y hilum. This is somewhat decreased from 04/23/2024. There are scattered pulmonary nodules which have a decrease in size. Examples include left lower lobe 9 mm, previously 12 left upper lobe medial measu ring 4 mm, previously 5 mm. Right lower lobe superior segment nodule measuring 8 mm, previously 9 mm, right lower lobe more inferior pulmonary nodule measuring 6 mm, previously 9 mm. AIRWAY: Patent and unremarkable. HEART: Size within normal limits. MEDIASTINUM: Subcarinal lymph node measuring 9 mm short axis previously 13 mm. VASCULATURE: No aortic aneurysm. SOFT TISSUES/LYMPH NODES: Prominent lymph nodes in the axilla bilaterally have decreased from prior e xam on 04/23/2024. There remains left 12 mm in short axis, previously 13 mm and right axilla 6 mm in s hort axis previously 9 mm. LOWER NECK: No significant findings. ABDOMEN: ABDOMEN LIVER: Diffuse hepatic lesions there are greater than 30 lesions throughout the liver the largest in the right hepatic lobe inferiorly measuring 48 mm x 49, previously 51 x 57 mm. Lesion in the left hep atic lobe is also smaller measuring 34 mm, previously 37 mm. GALLBLADDER AND BILE DUCTS: Unremarkable. PANCREAS: Unremarkable. SPLEEN: Lesions within the spleen are present the largest anteriorly appears smaller now measuring up to 20 mm, previously 21 mm again evaluation difficult given phase of contrast on exams. ADRENAL GLANDS: Unremarkable. KIDNEYS AND URETERS: No evidence of hydronephrosis or renal calculus. The ureters are unremarkable. PELVIS BLADDER: Unremarkable REPRODUCTIVE: Prostate is enlarged in size measuring 4.5 cm in transverse dimension. ABDOMEN & PELVIS STOMACH AND BOWEL: No evidence of bowel obstruction. There is a large stool burden throughout the col on. PERITONEUM: No evidence of pneumoperitoneum or free fluid. VASCULATURE: Moderate atherosclerotic calcifications are present throughout the abdominal aorta and i ts branches. MUSCULOSKELETAL scattered osseous lesions are more sclerotic on today's exam compared to prior thromb osis. Postsurgical changes of the spine. LYMPH NODES: Retroperitoneal lymph node near the level of left kidney now measuring 13 mm, previously 17 mm in short axis. SOFT TISSUE/ABDOMINAL WALL: Bilateral fat-containing inguinal hernias. IMPRESSION: 1. Positive response to therapy with decrease in size of soft tissue in the lung, decreasing bilater al axillary lymph node size, decreasing pulmonary nodule size. There is also evidence of decrease in size of splenic and liver lesions which are suboptimally compare due to phase of contrast. 2. Scattered osseous lesions which were more lucent on the prior exam are now sclerotic suggesting h ealing posttreatment change. Continued attention on follow-up imaging.
== END | disposition home or self-care (01) ==
LOC: RADCTMAIN 13:46
PROVIDERS: ATTEND Internal Medicine Hematology & Oncology
DX: C34.11 Malignant neoplasm of upper lobe, right bronchus or lung (principal); G89.3 Neoplasm related pain (acute) (chronic); K76.9 Liver disease, unspecified; R51.9 Headache, unspecified; M12.9 Arthropathy, unspecified; R91.8 Other nonspecific abnormal finding of lung field
CPT/HCPCS: 82565; 84520; 71260; 74177; 36415; Q9967

== ENCOUNTER 2024-06-05 11:31 | Observation (INO) | payer MEDICARE ==
[2024-06-05 12:16] LABS: Glucose,Whole Blood 82 mg/dL (70-110)
[2024-06-05] MEDS: SODIUM CHLORIDE 0.9% 1,000 ML IV STA (13:07)
[2024-06-05] MEDS: PANTOPRAZOLE 40 MG/10 ML VIAL IVP STA (13:08)
--- NOTE | 2024-06-05 13:08 | ED ---
General Adult HPI - General Chief complaint: Nausea/Vomiting/Diarrhea Stated complaint: Vomiting Time Seen by Provider: 06/05/24 12:42 Source: patient, RN notes reviewed, old records reviewed Mode of arrival: wheelchair Limitations: no limitations - History of Present Illness Initial comments: Is a 74-year-old male who presents emergency department for nausea, vomiting, decreased appetite. Patient has a history of lung cancer, last round of chemo was last Saturday, 7 days ago. Since that time has had less appetite with nausea and vomiting bloody emesis. No diarrhea. No change in bowel movements. No urinary complaints. Patient does have a history of history of high blood pressure, hyperlipidemia. Patient's became concerned because he has not been eating or drinking much throughout the week and wanted him to be reevaluated. Follows up with Dr. Fisher of oncology. Recently had CT imaging of the chest abdomen pelvis on Saturday which did show a positive response to therapy in the lung as well as sclerotic lesions in the bones. Currently has no acute acute complaints other than having no appetite. Presents for further juan manuel luation at this time.Only signs of illness have been a mild cough. Nonproductive in addition to the nausea and vomiting. - Related Data Home Medications Medication Instructions Recorded Confirmed Ascorbic Acid [Vitamin C] 500 mg PO DAILY@1900 08/30/14 06/05/24 Folic Acid 1 mg PO DAILY@0700 08/30/14 06/05/24 Gabapentin [Neurontin] 800 mg PO TID@0700,1500,2300 08/30/14 06/05/24 Metoprolol Succinate 25 mg PO DAILY@0700 08/30/14 06/05/24 Omeprazole [PriLOSEC] 20 mg PO AC-BID 08/30/14 06/05/24 Pravastatin Sodium [Pravachol] 40 mg PO DAILY@1900 08/30/14 06/05/24 calcitrioL 0.25 mcg PO FONTENOT 08/30/14 06/05/24 Ucwfzfhxfe-MVJ-Lmfqieu-Codeine 1 cap PO BID PRN 06/18/16 06/05/24 [Fiorinal w/Cod 84-344-20-30MG] Calcium Carbonate/Vitamin D3 2 tab PO DAILY@1900 06/18/16 06/05/24 [Calcium 600-Vit D3 5 Mcg (200 Iu)] Doxazosin [Cardura] 4 mg PO BID@0700,1900 06/18/16 06/05/24 predniSONE 4 mg PO DAILY@0700 06/18/16 06/05/24 HYDROcodone/APAP 10-325MG [[place] 1 tab PO QID PRN 01/24/17 06/05/24 10-325] Losartan [Cozaar] 50 mg PO DAILY@189908/08/23 06/05/24 Magnesium 500 mg PO DAILY@189908/08/23 06/05/24 Latanoprost [Latanoprost 0.005%] 1 drop BOTH EYES HS 06/05/24 06/05/24 Morphine Sulfate [Ms Contin] 30 mg PO Q12HR 06/05/24 06/05/24 Ondansetron [Zofran] 4 - 8 mg PO Q4H PRN MDD 32mg 06/05/24 06/05/24 buPROPion SR [Wellbutrin SR] 150 mg PO BID@0700,19006/05/24 06/05/24 Previous Rx's Medication Instructions Recorded Metoclopramide HCl [Reglan] 10 mg PO AC-TID #30 tablet 02/22/24 Allergies Allergy/AdvReac Type Severity Reaction Status Date / Time adhesive Allergy Rash/Hives Verified 06/05/24 13:58 - paper tape ok Review of Systems ROS Statement: Those systems with pertinent positive or pertinent negative responses have been documented in the HPI. Review of Systems: CONST: Denies fever EYES: Denies blurry vision ENT: Denies nasal congestion C/V: Denies Chest pain RESP: Denies shortness of breath GI: Denies abdominal pain : Denies dysuria SKIN: Denies rash. MSK: Denies joint pain. NEURO: Denies headache ROS Other: All systems not noted in ROS Statement are negative. Past Medical History Past Medical History: GERD/Reflux, Hyperlipidemia, Hypertension, Musculoskeletal Disorder, Prostate Disorder, Rheumatoid Arthritis (RA) Additional Past Medical History / Comment(s): Degenerative Disc Disease. Enlarged prostate. History of Any Multi-Drug Resistant Organisms: None Reported Past Surgical History: Back Surgery, Orthopedic Surgery Additional Past Surgical History / Comment(s): Spinal fusion X2, laminectomy, BILATERAL TENNIS ELBOW SURGERY, LEFT HAND CARPAL TUNNEL SURGERY, TRIAL PAIN STIMULATORPLACED AND LATER REMOVED, Pain Procedures, bilateral cataracts removed. Past Anesthesia/Blood Transfusion Reactions: No Reported Reaction Past Psychological History: No Psychological Hx Reported Smoking Status: Former smoker Past Alcohol Use History: None Reported Past Drug Use History: Marijuana - Past Family History Sister(s) Family Medical History: Cancer Additional Family Medical History / Comment(s): LUNG CANCER. General Exam - General Exam Comments Initial Comments: General: Appears in no acute distress. Afebrile HEAD: Normal with no signs of head trauma. EYES: PERRLA, EOMI, conjunctiva normal, no discharge. ENT: Hearing grossly intact, normal oropharynx. Dry mucous membranes. RESPIRATORY: Clear breath sounds bilaterally. No wheezes, rales, or rhonchi. C/V: Regular rate and rhythm. S1 and S2 auscultated, no edema, peripheral pulses 2+ and intact throughout ABD: Abd is soft, nontender, nondistended EXT: Normal range of motion, no obvious deformity SKIN: No rashes or lesions observed on exposed skin. NEURO: Alert and oriented x 4. No focal deficits. Limitations: no limitations Course Vital Signs 06/05/24 06/05/24 06/05/24 11:41 14:58 16:53 Temperature 97.4 F L 97.9 F Pulse Rate 74 78 68 Respiratory 18 16 16 Rate Blood Pressure 135/76 136/79 171/86 O2 Sat by Pulse 99 98 98 Oximetry Medical Decision Making - Medical Decision Making Was pt. sent in by a medical professional or institution (JIMBO Kahn, AIRPORT DRIVER, urgent care, hospital, or senior living...) When possible be specific @ -No Did you speak to anyone other than the patient for history (EMS, parent, family, police, friend...)? What history was obtained from this source @ -Spoke with patient's who assist with patient's past medical history as well as chemo dates. Did you review nursing and triage notes (agree or disagree)? Why? @ -I reviewed and agree with nursing and triage notes Were old charts reviewed (outside hosp., previous admission, EMS record, old EKG, old radiological studies, urgent care reports/EKG's, senior living records)? Report findings @ -No old charts were reviewed Differential Diagnosis (chest pain, altered mental status, abdominal pain women, abdominal pain men, vaginal bleeding, weakness, fever, dyspnea, syncope, headache, dizziness, GI bleed, back pain, seizure, CVA, palpatations, mental health, musculoskeletal)? @ -Differential Weakness: Hypoglycemia, shock, sepsis, hyponatremia, anemia, infection, MS, ETOH, adverse medicine reaction, overdose, stroke, this is not meant to be an all-inclusive list. EKG interpreted by me (3pts min.). @ -As above X-rays interpreted by me (1pt min.). @ -Chest x-ray shows findings consistent with a lung cancer but no other obvious acute process. CT interpreted by me (1pt min.). @ -None done U/S interpreted by me (1pt. min.). @ -None done What testing was considered but not performed or refused? (CT, X-rays, U/S, labs)? Why? @ -None What meds were considered but not given or refused? Why? @ -None Did you discuss the management of the patient with other professionals (professionals i.e. , PA, AIRPORT DRIVER, lab, RT, psych nurse, social security assessor, ward assistant, te acher, special officer, cyanide case hardener)? Give summary @ -I spoke with the admitting team, PEPE Fairchild who accepted the admission. Was smoking cessation discussed for >3mins.? @ -No Was critical care preformed (if so, how long)? @ -No Were there social determinants of health that impacted care today? How? (Homelessness, low income, unemployed, alcoholism, drug addiction, transportation, low edu. Level, literacy, decrease access to med. care, intermediate, rehab)? @ -No Was there de-escalation of care discussed even if they declined (Discuss DNR or withdrawal of care, Hospice)? DNR status @ -No What co-morbidities impacted this encounter? (DM, HTN, Smoking, COPD, CAD, Cancer, CVA, ARF, Chemo, Hep., AIDS, mental health diagnosis, sleep apnea, morbid obesity)? @ -Lung cancer on chemo Was patient admitted / discharged? Hospital course, mention meds given and route, prescriptions, significant lab abnormalities, going to OR and other pertinent info. @ -Based on the patient's presentation and physical exam, patient presents emergency department complaining of irregular to more right-sided decreased appetite, nausea, vomiting in the setting of chemotherapy for lung cancer. Vital signs within acceptable limits. Afebrile. We will obtain basic labs. He will be symptomatically treated with IV fluids, Zofran. Patient was in agreement this plan. EKG shows no signs of acute ischemia.X-ray shows no obvious acute process but findings consistent with his lung cancer. Labs returned remarkable for chronic anemia, hyperglycemia which improved after fluid, and otherwise no obvious acute process. On reevaluation, I discussed results with the patient as well as family. Will be admitted for IV fluids and hydration. I will consult oncology as well. Patient in agreement this plan. I spoke with the admitting team, PEPE Fairchild who accepted the admission. Undiagnosed new problem with uncertain prognosis? @ -No Drug Therapy requiring intensive monitoring for toxicity (Heparin, Nitro, Insulin, Cardizem)? @ -No Were any procedures done? @ -No Diagnosis/symptom? @ -Nausea and vomiting, dehydration Acute, or Chronic, or Acute on Chronic? @ -Acute Uncomplicated (without systemic symptoms) or Complicated (systemic symptoms)? @ -Complicated Side effects of treatment? @ -None Exacerbation, Progression, or Severe Exacerbation] @ -No Poses a threat to life or bodily function? @ -Possibly, yes Diagnosis/symptom? @ -Lung cancer Acute, or Chronic, or Acute on Chronic? @ -Acute on chronic Uncomplicated (without systemic symptoms) or Complicated (systemic symptoms)? @ -Complicated Side effects of treatment? @ -None Exacerbation, Progression, or Severe Exacerbation] @ -No Poses a threat to life or bodily function? @ -Yes - Lab Data Result diagrams: 06/05/24 12:51 06/05/24 12:51 Lab Results 06/05/24 06/05/24 06/05/24 Range/Units 12:15 12:51 12:51 WBC 3.3 L (3.8-10.6) k/uL RBC 3.35 L (4.30-5.90) m/uL Hgb 9.9 L (13.0-17.5) gm/dL Hct 28.6 L (39.0-53.0) % MCV 85.4 (80.0-100.0) fL MCH 29.7 (25.0-35.0) pg MCHC 34.8 (31.0-37.0) g/dL RDW 18.0 H (11.5-15.5) % Plt Count 168 (150-450) k/uL MPV 7.6 Neutrophils % 57 % Lymphocytes % 28 % Monocytes % 9 % Eosinophils % 1 % Basophils % 1 % Neutrophils # 1.9 (1.3-7.7) k/uL Lymphocytes # 0.9 L (1.0-4.8) k/uL Monocytes # 0.3 (0-1.0) k/uL Eosinophils # 0.0 (0-0.7) k/uL Basophils # 0.0 (0-0.2) k/uL Anisocytosis Slight PT (10.0-12.5) sec INR (<1.2) APTT (22.0-30.0) sec Sodium 132 L (137-145) mmol/L Potassium 4.3 (3.5-5.1) mmol/L Chloride 102 (98-107) mmol/L Carbon Dioxide 19 L (22-30) mmol/L Anion Gap 11 mmol/L BUN 19 (9-20) mg/dL Creatinine 0.62 L (0.66-1.25) mg/dL Est GFR (CKD-EPI)AfAm >90 (>60 ml/min/1.73 sqM) Est GFR (CKD-EPI)NonAf >90 (>60 ml/min/1.73 sqM) Glucose 65 L (74-99) mg/dL POC Glucose (mg/dL) 82 (70-110) mg/dL POC Glu Carpet Weaver ID Ana Ribera Plasma Lactic Acid Deepak (0.7-2.0) mmol/L Calcium 9.1 (8.4-10.2) mg/dL Total Bilirubin 1.1 (0.2-1.3) mg/dL AST 64 H (17-59) U/L ALT 26 (4-49) U/L Alkaline Phosphatase 134 H (38-126) U/L Total Protein 7.0 (6.3-8.2) g/dL Albumin 4.2 (3.5-5.0) g/dL Amylase 97 (30-110) U/L Lipase 117 (23-300) U/L Influenza Type A (PCR) (Not Detectd) Influenza Type B (PCR) (Not Detectd) RSV (PCR) (Not Detectd) SARS-CoV-2 (PCR) (Not Detectd) 0706/05/24 06/05/24 Range/Units 12:51 12:51 12:51 WBC (3.8-10.6) k/uL RBC (4.30-5.90) m/uL Hgb (13.0-17.5) gm/dL Hct (39.0-53.0) % MCV (80.0-100.0) fL MCH (25.0-35.0) pg MCHC (31.0-37.0) g/dL RDW (11.5-15.5) % Plt Count (150-450) k/uL MPV Neutrophils % % Lymphocytes % % Monocytes % % Eosinophils % % Basophils % % Neutrophils # (1.3-7.7) k/uL Lymphocytes # (1.0-4.8) k/uL Monocytes # (0-1.0) k/uL Eosinophils # (0-0.7) k/uL Basophils # (0-0.2) k/uL Anisocytosis PT 10.8 (10.0-12.5) sec INR 1.0 (<1.2) APTT 24.8 (22.0-30.0) sec Sodium (137-145) mmol/L Potassium (3.5-5.1) mmol/L Chloride (98-107) mmol/L Carbon Dioxide (22-30) mmol/L Anion Gap mmol/L BUN (9-20) mg/dL Creatinine (0.66-1.25) mg/dL Est GFR (CKD-EPI)AfAm (>60 ml/min/1.73 sqM) Est GFR (CKD-EPI)NonAf (>60 ml/min/1.73 sqM) Glucose (74-99) mg/dL POC Glucose (mg/dL) (70-110) mg/dL POC Glu Carpet Weaver ID Plasma Lactic Acid Deepak 1.2 (0.7-2.0) mmol/L Calcium (8.4-10.2) mg/dL Total Bilirubin (0.2-1.3) mg/dL AST (17-59) U/L ALT (4-49) U/L Alkaline Phosphatase (38-126) U/L Total Protein (6.3-8.2) g/dL Albumin (3.5-5.0) g/dL Amylase (30-110) U/L Lipase (23-300) U/L Influenza Type A (PCR) Not Detected (Not Detectd) Influenza Type B (PCR) Not Detected (Not Detectd) RSV (PCR) Not Detected (Not Detectd) SARS-CoV-2 (PCR) Not Detected (Not Detectd) 06/05/24 Range/Units 14:51 WBC (3.8-10.6) k/uL RBC (4.30-5.90) m/uL Hgb (13.0-17.5) gm/dL Hct (39.0-53.0) % MCV (80.0-100.0) fL MCH (25.0-35.0) pg MCHC (31.0-37.0) g/dL RDW (11.5-15.5) % Plt Count (150-450) k/uL MPV Neutrophils % % Lymphocytes % % Monocytes % % Eosinophils % % Basophils % % Neutrophils # (1.3-7.7) k/uL Lymphocytes # (1.0-4.8) k/uL Monocytes # (0-1.0) k/uL Eosinophils # (0-0.7) k/uL Basophils # (0-0.2) k/uL Anisocytosis PT (10.0-12.5) sec INR (<1.2) APTT (22.0-30.0) sec Sodium (137-145) mmol/L Potassium (3.5-5.1) mmol/L Chloride (98-107) mmol/L Carbon Dioxide (22-30) mmol/L Anion Gap mmol/L BUN (9-20) mg/dL Creatinine (0.66-1.25) mg/dL Est GFR (CKD-EPI)AfAm (>60 ml/min/1.73 sqM) Est GFR (CKD-EPI)NonAf (>60 ml/min/1.73 sqM) Glucose (74-99) mg/dL POC Glucose (mg/dL) 62 L (70-110) mg/dL POC Glu Carpet Weaver ID Zohra Corey Plasma Lactic Acid Deepak (0.7-2.0) mmol/L Calcium (8.4-10.2) mg/dL Total Bilirubin (0.2-1.3) mg/dL AST (17-59) U/L ALT (4-49) U/L Alkaline Phosphatase (38-126) U/L Total Protein (6.3-8.2) g/dL Albumin (3.5-5.0) g/dL Amylase (30-110) U/L Lipase (23-300) U/L Influenza Type A (PCR) (Not Detectd) Influenza Type B (PCR) (Not Detectd) RSV (PCR) (Not Detectd) SARS-CoV-2 (PCR) (Not Detectd) - EKG Data -: EKG Interpreted by Me EKG Comments: 12-lead Electrocardiogram Interpretation Note EKG was reviewed and interpreted by myself. 12-lead ECG performed at 1245 is interpreted by me as revealing normal sinus rhythm at a rate of 66 beats per minute. [place] is normal. [place] interval is 181 ms, QRS duration is 80 ms, QTc is 428 ms.. There were no ST or T wave abnormalities to suggest myocardial ischemia or injury. R wave progression across the precordium was satisfactory. By my interpretation this EKG is non-diagnostic for acute ischemia. Disposition Clinical Impression: Nausea and vomiting, Lung cancer, Dehydration Disposition: ADMITTED IP TO THIS HOSP Condition: Stable Time of Disposition: 15:05
[2024-06-05 13:10] LABS: Partial Thromboplastin Time 24.8 sec (22.0-30.0); Prothrombin Time 10.8 sec (10.0-12.5)
[2024-06-05] MEDS: ONDANSETRON 4 MG/2 ML VIAL IVP STA (13:10)
--- NOTE | 2024-06-05 13:11 | XR ---
EXAMINATION TYPE: XR chest 2V DATE OF EXAM: 06/05/2024 COMPARISON: 11/29/2023 TECHNIQUE: PA and lateral views submitted. HISTORY: 02/28/2024 FINDINGS: The lungs are clear and there is no pneumothorax, pleural effusion, or focal pneumonia. Heart size normal and no overt failure. Osseous structures demonstrate hypertrophic and degenerative changes of the spine. Postsurgical change overlying the cervical spine. Diffuse thickening. There is prominence of the right paratracheal stripe. IMPRESSION: 1. No acute process. Soft tissue prominence along the right paratracheal stripe concordant with CT fi ndings of mass\adenopathy.
[2024-06-05 13:15] LABS: Anisocytosis Slight; Basophils % (A) 1 %; Eosinophils % (A) 1 %; HCT 28.6 % (39.0-53.0); HGB 9.9 gm/dL (13.0-17.5); Lymphocytes # (A) 0.9 k/uL (1.0-4.8); Lymphocytes % (A) 28 %; MCH 29.7 pg (25.0-35.0); MCHC 34.8 g/dL (31.0-37.0); MCV 85.4 fL (80.0-100.0); Mean Platelet Volume 7.6; Monocytes # (A) 0.3 k/uL (0-1.0); Monocytes % (A) 9 %; Neutrophils # (A) 1.9 k/uL (1.3-7.7); Neutrophils % (A) 57 %; Platelet Count 168 k/uL (150-450); RBC 3.35 m/uL (4.30-5.90); WBC 3.3 k/uL (3.8-10.6)
[2024-06-05] MEDS: MORPHINE SULFATE 4 MG/ML SYRINGE IVP STA (13:25)
[2024-06-05 13:31] LABS: ALT 26 U/L (4-49); African American GFR (CKD) >90 (>60 ml/min/1.73 sqM); Albumin 4.2 g/dL (3.5-5.0); Amylase 97 U/L (30-110); Anion Gap 11 mmol/L; Blood Urea Nitrogen 19 mg/dL (9-20); Calcium 9.1 mg/dL (8.4-10.2); Carbon Dioxide 19 mmol/L (22-30); Chloride 102 mmol/L (98-107); Glucose 65 mg/dL (74-99); Lipase 117 U/L (23-300); Non-African American GFR(CKD) >90 (>60 ml/min/1.73 sqM); Sodium 132 mmol/L (137-145); Total Bilirubin 1.1 mg/dL (0.2-1.3)
[2024-06-05 13:46] LABS: AST 64 U/L (17-59); Alkaline Phosphatase 134 U/L (38-126); Potassium 4.3 mmol/L (3.5-5.1)
[2024-06-05 14:53] LABS: Glucose,Whole Blood 62 mg/dL (70-110)
[2024-06-05] MEDS ORDERED: MORPHINE SULFATE 4 MG/ML SYRINGE IV PRN (15:11)
[2024-06-05] MEDS ORDERED: ONDANSETRON 4 MG/2 ML VIAL IVP PRN (15:11)
[2024-06-05] MEDS ORDERED: NALOXONE 0.4 MG/ML 1 ML VIAL IV PRN ×2 (15:11→16:14)
[2024-06-05] MEDS ORDERED: ACETAMINOPHEN TAB 325 MG TAB PO PRN (15:11)
[2024-06-05 15:46] LABS: Glucose,Whole Blood 120 mg/dL (70-110)
[2024-06-05] MEDS: SODIUM CHLORIDE 0.9% 1,000 ML IV SCH (16:16)
[2024-06-05] MEDS ORDERED: BUTA/APAP/CAF/COD 50-325-40-30 CAP PO PRN (16:23)
[2024-06-05] MEDS ORDERED: HYDROcodone/APAP 10-325MG 1 EACH TAB PO PRN (16:23)
--- NOTE | 2024-06-05 16:28 | P.HPIM ---
History of Present Illness H&P Date: 06/05/24 Chief Complaint: vomiting 74-year-old male with hx of rheumatoid arthritis, HTN and hyperlipidemia, small cell lung cancer, BPH, degenerative disc disease status post laminectomy and spinal fusion x 2 and neuropathy who presents emergency department for intractable nausea, vomiting, decreased appetite. Was on chemo since February, last round of chemo was last Saturday, 7 days ago. Got 4 chemos so far. Since the time of last chemo he has had less appetite with nausea and vomiting. Can't keep anything down even his meds. No diarrhea. Last Saturday had CT imaging of the chest abdomen pelvis which did show a positive response to therapy in the lung as well as sclerotic lesions in the bones. No fevers or chills. Has mild abdominal pain and sob. Review of Systems Complete review of system performed, pertinent positives per HPI, otherwise negative Past Medical History Past Medical History: GERD/Reflux, Hyperlipidemia, Hypertension, Musculoskeletal Disorder, Prostate Disorder, Rheumatoid Arthritis (RA) Additional Past Medical History / Comment(s): Degenerative Disc Disease. Enlarged prostate. History of Any Multi-Drug Resistant Organisms: None Reported Past Surgical History: Back Surgery, Orthopedic Surgery Additional Past Surgical History / Comment(s): Spinal fusion X2, laminectomy, BILATERAL TENNIS ELBOW SURGERY, LEFT HAND CARPAL TUNNEL SURGERY, TRIAL PAIN STIMULATORPLACED AND LATER REMOVED, Pain Procedures, bilateral cataracts removed. Past Anesthesia/Blood Transfusion Reactions: No Reported Reaction Past Psychological History: No Psychological Hx Reported Smoking Status: Former smoker Past Alcohol Use History: None Reported Past Drug Use History: Marijuana - Past Family History Sister(s) Family Medical History: Cancer Additional Family Medical History / Comment(s): LUNG CANCER. Medications and Allergies Home Medications Medication Instructions Recorded Confirmed Type Ascorbic Acid [Vitamin C] 500 mg PO DAILY@1900 08/30/14 06/05/24 History Folic Acid 1 mg PO DAILY@0700 08/30/14 06/05/24 History Gabapentin [Neurontin] 800 mg PO TID@0700,1500,2300 08/30/14 06/05/24 History Metoprolol Succinate 25 mg PO DAILY@0700 08/30/14 06/05/24 History Omeprazole [PriLOSEC] 20 mg PO AC-BID 08/30/14 06/05/24 History Pravastatin Sodium [Pravachol] 40 mg PO DAILY@1900 14 07/26/24 History buPROPion HCL [Wellbutrin XL] 150 mg PO BID@07,189908/30/14 06/05/24 History calcitrioL 0.25 mcg PO FONTENOT 08/30/14 06/05/24 History Whjsvxjrlj-QTL-Ywfqudd-Codeine 1 cap PO BID PRN 06/18/16 06/05/24 History [Fiorinal w/Cod 44-680-11-30MG] Calcium Carbonate/Vitamin D3 2 tab PO DAILY@189906/18/16 06/05/24 History [Calcium 600-Vit D3 5 Mcg (200 Iu)] Doxazosin [Cardura] 4 mg PO BID@699,189906/18/16 06/05/24 History predniSONE 4 mg PO DAILY@69906/18/16 06/05/24 History HYDROcodone/APAP 10-325MG [[place] 1 tab PO QID PRN 01/24/17 06/05/24 History 10-325] Losartan [Cozaar] 50 mg PO DAILY@189908/08/23 06/05/24 History Magnesium 500 mg PO DAILY@189908/08/23 06/05/24 History Metoclopramide HCl [Reglan] 10 mg PO AC-TID #30 tablet 02/22/24 06/05/24 Rx Latanoprost [Latanoprost 0.005%] 1 drop BOTH EYES HS 06/05/24 06/05/24 History Morphine Sulfate [Ms Contin] 30 mg PO Q12HR 06/05/24 06/05/24 History Ondansetron [Zofran] 4 - 8 mg PO Q4H PRN MDD 32mg 06/05/24 06/05/24 History Allergies Allergy/AdvReac Type Severity Reaction Status Date / Time adhesive Allergy Rash/Hives Verified 06/05/24 13:58 - paper tape ok Physical Exam Vitals: Vital Signs Temp Pulse Resp BP Pulse Ox 06/05/24 14:58 78 16 136/79 98 06/05/24 11:41 97.4 F L 74 18 135/76 99 Intake and Output 06/05/24 06/05/24 06/05/24 06:59 14:59 22:59 Other: Weight 63.503 kg General: Appears in no acute distress. Afebrile HEAD: Normal with no signs of head trauma. EYES: PERRLA, EOMI, conjunctiva normal, no discharge. ENT: Hearing grossly intact, normal oropharynx. Dry mucous membranes. RESPIRATORY: Clear breath sounds bilaterally. No wheezes, rales, or rhonchi. C/V: Regular rate and rhythm. S1 and S2 auscultated, no edema, peripheral pulses 2+ and intact throughout ABD: Abd is soft, nontender, nondistended EXT: Normal range of motion, no obvious deformity SKIN: No rashes or lesions observed on exposed skin. NEURO: Alert and oriented x 4. No focal deficits. Results CBC & Chem 7: 06/05/24 12:51 06/05/24 12:51 Labs: Abnormal Lab Results - Last 24 Hours (Table) 06/05/24 06/05/24 06/05/24 Range/Units 12:51 12:51 14:51 WBC 3.3 L (3.8-10.6) k/uL RBC 3.35 L (4.30-5.90) m/uL Hgb 9.9 L (13.0-17.5) gm/dL Hct 28.6 L (39.0-53.0) % RDW 18.0 H (11.5-15.5) % Lymphocytes # 0.9 L (1.0-4.8) k/uL Sodium 132 L (137-145) mmol/L Carbon Dioxide 19 L (22-30) mmol/L Creatinine 0.62 L (0.66-1.25) mg/dL Glucose 65 L (74-99) mg/dL POC Glucose (mg/dL) 62 L (70-110) mg/dL AST 64 H (17-59) U/L Alkaline Phosphatase 134 H (38-126) U/L 06/05/24 Range/Units 15:43 WBC (3.8-10.6) k/uL RBC (4.30-5.90) m/uL Hgb (13.0-17.5) gm/dL Hct (39.0-53.0) % RDW (11.5-15.5) % Lymphocytes # (1.0-4.8) k/uL Sodium (137-145) mmol/L Carbon Dioxide (22-30) mmol/L Creatinine (0.66-1.25) mg/dL Glucose (74-99) mg/dL POC Glucose (mg/dL) 120 H (70-110) mg/dL AST (17-59) U/L Alkaline Phosphatase (38-126) U/L Assessment and Plan Plan: Intractable N/V likely secondary to chemotherapy trial liquid diet, IV fluids Zofran and reglan pain control with morphine IV Recently diagnosed right lung mass with concerns of metastatic lesions to bilat eral lungs, liver, and spleen, found to be small cell lung Ca Collapsed right lateral middle lobe of lung with soft tissue encasing the proximal bronchus On chemo, not on radiation due to hx of Rheumatoid arthritis according to CT done 2 days ago showed improvement after the chemo Oncology consulted Chronic Hypertension Hyperlipidemia BPH Rheumatoid arthritis Anxiety All stable resume meds
[2024-06-05 17:07] LABS: Glucose,Whole Blood 120 mg/dL (70-110)
[2024-06-05] MEDS: METOCLOPRAMIDE 10 MG TAB PO SCH (17:37)
[2024-06-05] MEDS: LOSARTAN 50 MG TAB PO SCH (18:50)
[2024-06-05] MEDS: CALCIUM CARB-VIT D 500 MG-5 MCG TAB PO SCH (18:50)
[2024-06-05] MEDS: MAGNESIUM OXIDE 400 MG TAB PO SCH (18:50)
[2024-06-05] MEDS: buPROPion SR 150 MG TABLET.ER PO SCH (18:51)
[2024-06-05] MEDS: PRAVASTATIN SODIUM 40 MG TAB PO SCH (18:51)
[2024-06-05] MEDS: DOXAZOSIN 4 MG TAB PO SCH (18:51)
[2024-06-05 20:01] LABS: Glucose,Whole Blood 133 mg/dL (70-110)
[2024-06-05] MEDS: LATANOPROST 0.005% OPHTH DROPS 2.5 ML BTL BOTH EYES SCH (20:48)
[2024-06-05] MEDS: MORPHINE SULFATE ER 30 MG TABLET PO SCH (20:49)
[2024-06-05] MEDS: GABAPENTIN 400 MG CAP PO SCH (22:51)
[2024-06-05 23:07] LABS: Appearance,Urine Clear (Clear); Bilirubin,Urine Negative (Negative); Blood,Urine Negative (Negative); Color,Urine Yellow; Glucose,Urine (UA) Negative (Negative); Ketones,Urine 2+ (Negative); Leukocyte Esterase,Urine Negative (Negative); Nitrite,Urine Negative (Negative); Protein,Urine Trace (Negative); Specific Gravity,Urine 1.019 (1.001-1.035); Urobilinogen,Urine <2.0 mg/dL (<2.0)
[2024-06-05 23:53] LABS: Glucose,Whole Blood 70 mg/dL (70-110)
[2024-06-06 00:34] LABS: Glucose,Whole Blood 80 mg/dL (70-110)
[2024-06-06 01:50] LABS: Glucose,Whole Blood 171 mg/dL (70-110)
[2024-06-06 06:34] LABS: Glucose,Whole Blood 104 mg/dL (70-110)
[2024-06-06 06:57] LABS: Glucose,Whole Blood 100 mg/dL (70-110)
[2024-06-06 07:49] VITALS: RESP 16
[2024-06-06] MEDS: FOLIC ACID 1 MG TAB PO SCH (08:12)
[2024-06-06] MEDS: METOPROLOL SUCCINATE (ER) 25 MG TAB.ER.24H PO SCH (08:12)
[2024-06-06] MEDS: PANTOPRAZOLE 40 MG/10 ML VIAL IV SCH (08:13)
[2024-06-06 10:25] LABS: Basophils # (A) 0.02 X 10*3/uL (0.00-0.10); Basophils % (A) 0.7 %; Eosinophils # (A) 0.02 X 10*3/uL (0.04-0.35); Eosinophils % (A) 0.7 %; HCT 23.9 % (39.6-50.0); HGB 8.1 g/dL (13.0-17.0); Lymphocytes # (A) 1.23 X 10*3/uL (0.90-5.00); Lymphocytes % (A) 45.4 %; MCH 29.5 pg (27.0-32.0); MCHC 33.9 g/dL (32.0-37.0); MCV 86.9 FL (80.0-97.0); Mean Platelet Volume 9.7 FL (9.5-12.2); Monocytes # (A) 0.37 X 10*3/uL (0.20-1.00); Monocytes % (A) 13.7 %; NRBC Per 100 WBC 0 X 10*3/uL (0.00-0.01); Neutrophils # (A) 1.06 X 10*3/uL (1.80-7.70); Neutrophils % (A) 39.1 %; Platelet Count 105 X 10*3/uL (140-440); RBC 2.75 X 10*6/uL (4.40-5.60); WBC 2.71 X 10*3/uL (4.50-10.00)
[2024-06-06 12:21] LABS: BUN/Creat Ratio 19.29 Ratio (12.00-20.00); Blood Urea Nitrogen 13.5 mg/dL (9.0-27.0); Calcium 8.2 mg/dL (8.7-10.3); Carbon Dioxide 22.8 mmol/L (21.6-31.8); Chloride 102 mmol/L (96-109); Glucose 88 mg/dL (70-110); Potassium 3.9 mmol/L (3.5-5.5); Sodium 135 mmol/L (135-145)
--- NOTE | 2024-06-06 12:28 | P.DS ---
Providers Date of admission: 06/05/24 15:11 Attending physician: Dona Morrell MD Consults: 06/05/24 15:11 Consult Physician Routine Consulting Provider: King Stephenson Consult Reason/Comments: lung cancer Do you want consulting provider notified?: Yes Primary care physician: Reji Nina MD Hospital Course: Hospital course 74-year-old male with hx of rheumatoid arthritis, HTN and hyperlipidemia, small cell lung cancer, BPH, degenerative disc disease status post laminectomy and spinal fusion x 2 and neuropathy who presents emergency department for intractable nausea, vomiting, decreased appetite. Was on chemo since February, last round of chemo was last Saturday, 7 days ago. Got 4 chemos so far. Since the time of last chemo he has had less appetite with nausea and vomiting. Can't keep anything down even his meds. No diarrhea. Last Saturday had CT imaging of the chest abdomen pelvis which did show a positive response to therapy in the lung as well as sclerotic lesions in the bones. No fevers or chills. Patient was treated with supportive care with IV fluids and IV antibiotics. The following day patient states that he is feeling much better and is able to keep his food down. 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 Psych - Calm and cooperative Discharge diagnoses Intractable nausea vomiting secondary to chemotherapy Small cell lung cancer with metastasis Hypertension Hyperlipidemia BPH Rheumatoid arthritis Anxiety Patient Condition at Discharge: Stable Plan - Discharge Summary Discharge Rx Participant: No New Discharge Prescriptions: No Action Ascorbic Acid [Vitamin C] 500 mg PO DAILY@1900 Pravastatin Sodium [Pravachol] 40 mg PO DAILY@1900 Omeprazole [PriLOSEC] 20 mg PO AC-BID Metoprolol Succinate 25 mg PO DAILY@0700 Folic Acid 1 mg PO DAILY@0700 calcitrioL 0.25 mcg PO FONTENOT Gabapentin [Neurontin] 800 mg PO TID@0700,1500,2300 Doxazosin [Cardura] 4 mg PO BID@0700,1900 predniSONE 4 mg PO DAILY@0700 Calcium Carbonate/Vitamin D3 [Calcium 600-Vit D3 5 Mcg (200 Iu)] 2 tab PO DAILY@1900 Cbahdllgmw-AHA-Zdhnuat-Codeine [Fiorinal w/Cod 74-096-01-30MG] 1 cap PO BID PRN PRN Reason: Migraine Headache HYDROcodone/APAP 10-325MG [[place] 10-325] 1 tab PO QID PRN PRN Reason: Pain Metoclopramide HCl [Reglan] 10 mg PO AC-TID #30 tablet Morphine Sulfate [Ms Contin] 30 mg PO Q12HR Ondansetron [Zofran] 4 - 8 mg PO Q4H PRN MDD 32mg PRN Reason: Nausea Magnesium 500 mg PO DAILY@1899 Losartan [Cozaar] 50 mg PO DAILY@1899 Latanoprost [Latanoprost 0.005%] 1 drop BOTH EYES HS buPROPion SR [Wellbutrin SR] 150 mg PO BID@0700,190 Discharge Medication List Ascorbic Acid [Vitamin C] 500 mg PO DAILY@189908/30/14 [History] Folic Acid 1 mg PO DAILY@69908/30/14 [History] Gabapentin [Neurontin] 800 mg PO TID@0700,1500,2300 08/30/14 [History] Metoprolol Succinate 25 mg PO DAILY@69908/30/14 [History] Omeprazole [PriLOSEC] 20 mg PO AC-BID 08/30/14 [History] Pravastatin Sodium [Pravachol] 40 mg PO DAILY@189908/30/14 [History] calcitrioL 0.25 mcg PO FONTENOT 08/30/14 [History] Cgnlbucczj-YZY-Mfguzzz-Codeine [Fiorinal w/Cod 64-191-05-30MG] 1 cap PO BID PRN 06/18/16 [History] Calcium Carbonate/Vitamin D3 [Calcium 600-Vit D3 5 Mcg (200 Iu)] 2 tab PO DAILY@189906/18/16 [History] Doxazosin [Cardura] 4 mg PO BID@0700,0 06/18/16 [History] predniSONE 4 mg PO DAILY@69906/18/16 [History] HYDROcodone/APAP 10-325MG [[place] 10-325] 1 tab PO QID PRN 01/24/17 [History] Losartan [Cozaar] 50 mg PO DAILY@189908/08/23 [History] Magnesium 500 mg PO DAILY@189908/08/23 [History] Metoclopramide HCl [Reglan] 10 mg PO AC-TID #30 tablet 02/22/24 [Rx] Latanoprost [Latanoprost 0.005%] 1 drop BOTH EYES HS 06/05/24 [History] Morphine Sulfate [Ms Contin] 30 mg PO Q12HR 06/05/24 [History] Ondansetron [Zofran] 4 - 8 mg PO Q4H PRN MDD 32mg 06/05/24 [History] buPROPion SR [Wellbutrin SR] 150 mg PO BID@0700,1900 06/05/24 [History] Follow up Appointment(s)/Referral(s): Reji Nina MD [Primary Care Provider] - 1-2 days
[2024-06-06 12:30] LABS: Glucose,Whole Blood 153 mg/dL (70-110)
[2024-06-06 13:19] VITALS: BP 103/51; PULSE 59; TEMP 98
--- NOTE | 2024-06-06 15:20 | P.EN ---
Mr. Somers is a 74-year-old gentleman with a past medical history significant for metastatic pulmonary adenocarcinoma along with rheumatoid arthritis with metastases to mediastinal lymph nodes, liver, and spleen currently status post 4 cycles of carboplatin/Alimta (cycle 4 on 05/29/2024) who presented with nausea and vomiting. Patient was discharged prior to being seen on consultation. We will arrange for follow-up in our clinic to review results of recent staging CT scan showing partial radiographic response as well as discuss plan going forward for management of his lung cancer.
== END 2024-06-06 13:03 | disposition home or self-care (01) ==
LOC: EC 11:31 → 5NMEDONC 15:11
PROVIDERS: ADMIT Family Medicine; ATTEND Family Medicine
DX: R11.2 Nausea with vomiting, unspecified (principal); T45.1X5A Adverse effect of antineoplastic and immunosuppressive drugs, initial encounter; E86.0 Dehydration; C34.90 Malignant neoplasm of unspecified part of unspecified bronchus or lung; C77.1 Secondary and unspecified malignant neoplasm of intrathoracic lymph nodes; C78.7 Secondary malignant neoplasm of liver and intrahepatic bile duct; C78.89 Secondary malignant neoplasm of other digestive organs; E78.5 Hyperlipidemia, unspecified; K21.9 Gastro-esophageal reflux disease without esophagitis; I10 Essential (primary) hypertension; N40.0 Benign prostatic hyperplasia without lower urinary tract symptoms; M06.9 Rheumatoid arthritis, unspecified; F41.9 Anxiety disorder, unspecified; Z11.52 Encounter for screening for COVID-19; Z87.891 Personal history of nicotine dependence; Z79.899 Other long term (current) drug therapy
CPT/HCPCS: 96376; 96361 ×2; 96374; 96375; 99285; 36415; 93005; 80053; 80048; 82150; 83605; 83690; 85025 ×2; 85610; 85730; 81003; 87636; 71046; G0378 ×2; J2270; S0106 ×2; J2405; J2470 ×2

== ENCOUNTER 2024-08-20 09:01 | Emergency (ER) | payer MEDICARE ==
[2024-08-20 09:09] VITALS: RESP 18
--- NOTE | 2024-08-20 10:03 | XR ---
EXAMINATION TYPE: XR tibia fibula 2 views RT, XR ankle complete 3 views RT DATE OF EXAM: 08/20/2024 COMPARISON: NONE HISTORY: 74-year-old male with pain after fall FINDINGS: Tibia/fibula: Some scattered vascular calcifications are present. Minimal degenerative spurring powell lofemoral compartment. No acute fracture of the more proximal to mid tibia or fibula. Mild soft tissu e swelling along the distal third leg. Ankle: Fracture distal fibula above the ankle joint line with slight offset of 2 mm. Additional mata sverse fracture through the base of the medial malleolus with separation of 7 mm. There is some irreg ularity along the posterior malleolus that could represent a subtle nondisplaced posterior malleolus fracture. Talar dome remains intact. IMPRESSION: 1. Tibia/fibula: No acute fracture of the more proximal to mid tibia or fibula. 2. Ankle: Unstable trimalleolar ankle fractures. Oblique fracture lateral malleolus minimally offset by 2 mm. Transverse fracture base of the medial malleolus by 7 mm. [facility], , 08/20/2024 10:01 AM
[2024-08-20] MEDS: ORPHENADRINE 30 MG/ML 2 ML VIAL IM STA (11:00)
[2024-08-20] MEDS: HYDROmorphone 1 MG/ML 1 ML SYRINGE IM STA (11:01)
[2024-08-20] MEDS: BACITRACIN OINT 1 EACH PACKET TOPICAL ONE (11:14)
--- NOTE | 2024-08-20 11:35 | ED ---
Lower Extremity Injury HPI - General Chief Complaint: Extremity Injury, Lower Stated Complaint: R ankle pain Time Seen by Provider: 08/20/24 09:02 Source: patient, EMS, RN notes reviewed Mode of arrival: EMS Limitations: physical limitation - History of Present Illness Initial Comments: 74-year-old male presents emergency department chief complaint of right ankle injury. Patient states this happened last night but states that he slipped off a stool. Patient complains of diffuse pain and swelling to his right ankle no head injury no loss conscious no other complaints. - Related Data Home Medications Medication Instructions Recorded Confirmed Ascorbic Acid [Vitamin C] 500 mg PO DAILY@1900 08/30/14 06/05/24 Folic Acid 1 mg PO DAILY@0708/30/14 06/05/24 Gabapentin [Neurontin] 800 mg PO TID@0700,1500,2300 08/30/14 06/05/24 Metoprolol Succinate 25 mg PO DAILY@0708/30/14 06/05/24 Omeprazole [PriLOSEC] 20 mg PO AC-BID 08/30/14 06/05/24 Pravastatin Sodium [Pravachol] 40 mg PO DAILY@19008/30/14 06/05/24 calcitrioL 0.25 mcg PO FONTENOT 08/30/14 06/05/24 Babzghccgy-KQV-Laiownw-Codeine 1 cap PO BID PRN 06/18/16 06/05/24 [Fiorinal w/Cod 62-003-76-30MG] Calcium Carbonate/Vitamin D3 2 tab PO DAILY@189906/18/16 06/05/24 [Calcium 600-Vit D3 5 Mcg (200 Iu)] Doxazosin [Cardura] 4 mg PO BID@0700,1900 06/18/16 06/05/24 predniSONE 4 mg PO DAILY@0706/18/16 06/05/24 HYDROcodone/APAP 10-325MG [[place] 1 tab PO QID PRN 01/24/17 06/05/24 10-325] Losartan [Cozaar] 50 mg PO DAILY@189908/08/23 06/05/24 Magnesium 500 mg PO DAILY@189908/08/23 06/05/24 Latanoprost [Latanoprost 0.005%] 1 drop BOTH EYES HS 06/05/24 06/05/24 Morphine Sulfate [Ms Contin] 30 mg PO Q12HR 06/05/24 06/05/24 Ondansetron [Zofran] 4 - 8 mg PO Q4H PRN MDD 32mg 06/05/24 06/05/24 buPROPion SR [Wellbutrin SR] 150 mg PO BID@0700,1900 06/05/24 06/05/24 Previous Rx's Medication Instructions Recorded Metoclopramide HCl [Reglan] 10 mg PO AC-TID #30 tablet 02/22/24 Allergies Allergy/AdvReac Type Severity Reaction Status Date / Time adhesive Allergy Rash/Hives Verified 06/05/24 13:58 - paper tape ok Review of Systems ROS Statement: Those systems with pertinent positive or pertinent negative responses have been documented in the HPI. ROS Other: All systems not noted in ROS Statement are negative. Past Medical History Past Medical History: Cancer, GERD/Reflux, Hyperlipidemia, Hypertension, Musculoskeletal Disorder, Prostate Disorder, Rheumatoid Arthritis (RA) Additional Past Medical History / Comment(s): Degenerative Disc Disease. Enlarged prostate. History of Any Multi-Drug Resistant Organisms: None Reported Past Surgical History: Back Surgery, Orthopedic Surgery Additional Past Surgical History / Comment(s): Spinal fusion X2, laminectomy, BILATERAL TENNIS ELBOW SURGERY, LEFT HAND CARPAL TUNNEL SURGERY, TRIAL PAIN STIMULATORPLACED AND LATER REMOVED, Pain Procedures, bilateral cataracts removed. Past Anesthesia/Blood Transfusion Reactions: No Reported Reaction Past Psychological History: No Psychological Hx Reported Smoking Status: Former smoker Past Alcohol Use History: None Reported Past Drug Use History: Marijuana - Past Family History Sister(s) Family Medical History: Cancer Additional Family Medical History / Comment(s): LUNG CANCER. General Exam Limitations: no limitations, physical limitation General appearance: alert, in no apparent distress Head exam: Present: atraumatic, normocephalic, normal inspection Respiratory exam: Present: normal lung sounds bilaterally. Absent: respiratory distress, wheezes, rales, rhonchi, stridor Cardiovascular Exam: Present: regular rate, normal rhythm, normal heart sounds. Absent: systolic murmur, diastolic murmur, rubs, gallop, clicks Extremities exam: Present: other (Right ankle there is diffuse ecchymosis, swelling there is a small abrasion on the medial aspect with no active bleeding no deep laceration. There is mild tenderness at the proximal tib-fib region) Course Vital Signs 08/20/24 08/20/24 08/20/24 09:05 09:16 10:52 Temperature 100 F H 99 F Pulse Rate 72 72 Respiratory 18 18 Rate Blood Pressure 155/71 155/72 O2 Sat by Pulse 95 98 Oximetry 08/20/24 12:00 Temperature 98.7 F Pulse Rate 71 Respiratory 18 Rate Blood Pressure 149/76 O2 Sat by Pulse 98 Oximetry Procedures - Orthopedic Splinting/Casting Injury #1 Side: right Lower Extremity Injury Location: short leg, ankle Lower Extremity Immobilizer: posterior splint, stirrup splint, synthetic pre- padded splint Other Orthopedic Equipment: walker Medical Decision Making - Medical Decision Making Was pt. sent in by a medical professional or institution (JIMBO Kahn, [employer], urgent care, hospital, or detention...) When possible be specific @ -No Did you speak to anyone other than the patient for history (EMS, parent, family, police, friend...)? What history was obtained from this source @ -No Did you review nursing and triage notes (agree or disagree)? Why? @ -I reviewed and agree with nursing and triage notes Were old charts reviewed (outside hosp., previous admission, EMS record, old EKG, old radiological studies, urgent care reports/EKG's, detention records)? Report findings @ -No old charts were reviewed Differential Diagnosis (chest pain, altered mental status, abdominal pain women, abdominal pain men, vaginal bleeding, weakness, fever, dyspnea, syncope, headache, dizziness, GI bleed, back pain, seizure, CVA, palpatations, mental health, musculoskeletal)? @ -Ankle sprain, ankle fracture EKG interpreted by me (3pts min.). @ -None X-rays interpreted by me (1pt min.). @ -None done CT interpreted by me (1pt min.). @ -None done U/S interpreted by me (1pt. min.). @ -None done What testing was considered but not performed or refused? (CT, X-rays, U/S, labs)? Why? @ -None What meds were considered but not given or refused? Why? @ -None Did you discuss the management of the patient with other professionals (professionals i.e. JIMBO Kahn, [employer]ET[employer], lab, RT, psych nurse, dialysis social worker, criminal justice lawyer, teacher, aviation ordnance officer, rehabilitation caseworker)? Give summary @ -Discussed case with Tereza Lubin on-call for orthopedics recommends well- padded splint, nonweightbearing and follow-up in office tomorrow with Dr. Prince Was smoking cessation discussed for >3mins.? @ -No Was critical care preformed (if so, how long)? @ -No Were there social determinants of health that impacted care today? How? (Homelessness, low income, unemployed, alcoholism, drug addiction, transportation, low edu. Level, literacy, decrease access to med. care, intermediate, rehab)? @ -No Was there de-escalation of care discussed even if they declined (Discuss DNR or withdrawal of care, Hospice)? DNR status @ -No What co-morbidities impacted this encounter? (DM, HTN, Smoking, COPD, CAD, Cancer, CVA, ARF, Chemo, Hep., AIDS, mental health diagnosis, sleep apnea, morbid obesity)? @ -None Was patient admitted / discharged? Hospital course, mention meds given and route, prescriptions, significant lab abnormalities, going to OR and other pertinent info. @ -Charge patient was splinted posterior OCL along with stirrup OCL patient will require to use wheelchair, walker she remain simply nonweightbearing and follow-up with orthopedics. Patient does take chronic pain meds. Undiagnosed new problem with uncertain prognosis? @ -No Drug Therapy requiring intensive monitoring for toxicity (Heparin, Nitro, Insulin, Cardizem)? @ -No Were any procedures done? @ -Splinting Diagnosis/symptom? @ -Right trimalleolar fracture Acute, or Chronic, or Acute on Chronic? @ -Acute Uncomplicated (without systemic symptoms) or Complicated (systemic symptoms)? @ -Uncomplicated Side effects of treatment? @ -No Exacerbation, Progression, or Severe Exacerbation? @ -No Poses a threat to life or bodily function? How? (Chest pain, [place], OR, pneumonia, PE, COPD, DKA, ARF, appy, cholecystitis, CVA, Diverticulitis, Homicidal, Suicidal, threat to staff... and all critical care pts) @ -Yes low risk surgical Disposition Clinical Impression: Closed right trimalleolar fracture Disposition: HOME SELF-CARE Condition: Stable Instructions (If sedation given, give patient instructions): Ankle Fracture (ED) Additional Instructions: Please return to the Emergency Department if symptoms worsen or any other concerns. Is patient prescribed a controlled substance at d/c from ED?: No Referrals: Reji Nina MD [Primary Care Provider] - 1-2 days Wiley Prince DPM [Doctor of Osteopathic Medicine] - 1-2 days Time of Disposition: 11:35
[2024-08-20 12:01] VITALS: BP 149/76; PULSE 71; TEMP 98.7
--- NOTE | 2024-08-20 12:04 | CT ---
CT right ankle HISTORY: Pain following fall. COMPARISON: None TECHNIQUE: Multiple axial images were obtained through the right ankle without contrast. Coronal and sagittal reconstructions were generated and reviewed. FINDINGS: There is a trimalleolar fracture of the right ankle with the oblique displaced fracture of the distal right fibula above the level of the tibial plafond and. There is a transverse avulsion fracture of t he medial malleolus below level of the tibial plafond and there is a posterior malleoli are fractured involving less than 25% of the articular surface. There is disruption of the ankle mortise. There is diffuse arteriovascular calcification. The midfoot is intact. IMPRESSION: Trimalleolar fracture of the right ankle with disruption of the ankle mortise. [facility], , 08/20/2024 12:01 PM
== END 2024-08-20 12:01 | disposition home or self-care (01) ==
LOC: EC 09:01
CPT/HCPCS: 29515; 96372; 99283

== ENCOUNTER 2024-09-04 11:18 | Inpatient (IN) | payer MEDICARE ==
[~2024-09-04 11:18] MED LIST changes: +HYDROmorphone 0.5 MG/0.5 ML SYRINGE IVP PRN; -LACTATED RINGERS 1,000 ML IV SCH; +LIDOCAINE 1% (10MG/ML) FOR IV START INTRADERMA PRN; +fentaNYL (PF) 50 MCG/ML 2 ML AMP IVP PRN
[2024-09-04] MEDS: IV FLUID CONTINUATION 1,000 ML IV ONE (11:42)
[2024-09-04 12:07] LABS: Glucose,Whole Blood 98 mg/dL (70-110)
[2024-09-04] MEDS: MIDAZOLAM 2 MG/2 ML VIAL IV PRN (12:19)
[2024-09-04] MEDS: DEXAMETHASONE SOD PHOSPHATE 4 MG/ML 1 ML VIAL IV ONE (12:25)
[2024-09-04] MEDS: ONDANSETRON 4 MG/2 ML VIAL IVP ONE (12:25)
[2024-09-04 12:26] LABS: Basophils # (A) 0.1 k/uL (0-0.2); Basophils % (A) 1 %; Eosinophils # (A) 0.1 k/uL (0-0.7); Eosinophils % (A) 1 %; HCT 34.3 % (39.0-53.0); HGB 11.2 gm/dL (13.0-17.5); Lymphocytes # (A) 0.7 k/uL (1.0-4.8); Lymphocytes % (A) 10 %; MCH 31.1 pg (25.0-35.0); MCHC 32.8 g/dL (31.0-37.0); MCV 94.8 fL (80.0-100.0); Mean Platelet Volume 7.2; Monocytes # (A) 0.5 k/uL (0-1.0); Monocytes % (A) 6 %; Neutrophils # (A) 5.8 k/uL (1.3-7.7); Neutrophils % (A) 80 %; Platelet Count 227 k/uL (150-450); RBC 3.62 m/uL (4.30-5.90); RDW 15.6 % (11.5-15.5); WBC 7.2 k/uL (3.8-10.6)
[2024-09-04] MEDS: LACTATED RINGERS 1,000 ML IV SCH (12:26)
[2024-09-04] MEDS: HYDROCORTISONE SUCCINATE 100 MG/2 ML VIAL IV STA (12:38)
[2024-09-04] MEDS ORDERED: WATER FOR INJECTION, STERILE 10 ML VIAL IV ONE (12:40)
[2024-09-04] MEDS ORDERED: LIDOCAINE 1% INJ 10MG/ML (20 ML MDV) ONE (12:40)
[2024-09-04] MEDS ORDERED: ROPIVACAINE 5 MG/ML 30 ML VIAL ONE (12:40)
[2024-09-04] MEDS ORDERED: PROPOFOL 10 MG/ML 20 ML VIAL IV ONE (12:40)
[2024-09-04] MEDS ORDERED: ePHEDrine 50 MG/ML 1 ML VIAL ONE (12:40)
[2024-09-04] MEDS ORDERED: SUCCINYLCHOLINE CHLORIDE 200 MG/10 ML VIAL IV ONE (12:40)
[2024-09-04] MEDS ORDERED: fentaNYL (PF) 50 MCG/ML 2 ML AMP ONE (12:40)
[2024-09-04] MEDS ORDERED: MIDAZOLAM 2 MG/2 ML VIAL ONE (12:40)
[2024-09-04] MEDS ORDERED: DEXAMETHASONE SOD PHOSPHATE 4 MG/ML 1 ML VIAL ONE (12:40)
[2024-09-04] MEDS: ceFAZolin 1,000 MG in SODIUM CHLORIDE 0.9% 1,000 ML IRRIGATION ONE (12:45)
[2024-09-04] MEDS ORDERED: HYDROcodone/APAP 7.5-325MG 1 EACH TAB PO PRN (14:39)
--- NOTE | 2024-09-04 14:48 | FL ---
EXAMINATION TYPE: FL guidance operating room, XR ankle limited RT DATE OF EXAM: 09/04/2024 Comparison: 08/20/2024 Clinical History: 74-year-old male trimalleolar ankle fractures with ORIF Rt Ankle Findings: ORIF Rt Ankle 1.35min fluoro time 1.[address] Prince 3 intraoperative fluoroscopic images are provided and show lateral plate and screw fixation of the di stal fibula as well as 2 cortical screw fixation medial malleolus. Additional AP direct in screw fixa tion for the posterior malleolar fracture fragment. Alignment grossly anatomic. Impression: Intraoperative fluoroscopy during ORIF for trimalleolar ankle fractures. Gross anatomic alignment aft er surgery. [facility], , 09/04/2024 2:46 PM
--- NOTE | 2024-09-04 15:05 | P.OP ---
Date of Procedure: 09/04/24 Preoperative Diagnosis: Displaced trimalleolar fracture right ankle Postoperative Diagnosis: same Procedure(s) Performed: open reduction with internal fixation right trimalleolar fracture Implants: Evelyn lateral malleolar plate with 3.5 locking and nonlocking screws Evelyn 4.0 partially threaded cannulated screws 3 Anesthesia: STEVEA Surgeon: Wiley Prince Estimated Blood Loss (ml): 20 Pathology: none sent Condition: stable Disposition: PACU Description of Procedure: Prior to the patient being brought to the operating room, anesthesia administered a nerve block on the right lower extremity. The patient was brought into the operative room and placed on table in supine position. Timeout was taken to confirm correct patient identifiers, correct laterality of surgery, and correct procedure. Once all staff in the room were in agreement with the timeout, the patient was induced and placed under general anesthesia. A well- padded tourniquet was placed on the right thigh and a wedge underneath the right hip to internally rotate the right leg. The right leg was then prepped and draped in usual manner. The leg was exsanguinated with an Esmarch bandage and then the tourniquet was inflated to 250 mmHg. Attention was directed over the lateral malleolus where a straight linear incision was made along the midline. The incision was deepened under the subcutaneous tissue careful to identify, avoid, and retract any neurovascular structures and cauterize any bleeding vessels. Dissection was carried down to level of the periosteum. A linear periosteal incision was madetissues were reflected anteriorly and posteriorly to expose the fracture. The soft tissue and hematoma were evacuated from between the fracture fragments. Bone reduction forceps were utilized to rotate and bring the fracture back into alignment. Once the fracture was aligned was clamped in place. Fluoroscopy confirmed the proper position of the fracture on AP and lateral views. A wire was placed across the fracture for temporary fixation. A [place] precontoured lateral malleolar plate was then positioned and adjusted under fluoroscopy until it was aligned appropriately. The plate was then temporarily fixated. Locking screws were placed in the most proximal 2 holes of the plate. Distal locking screws were then placed into the lateral malleolus. Drilling for the lateral malleolar screws was done under direct fluoroscopic visualization so that the drill bit did not enter the lateral gutter of the ankle joint. The distal screw was a compression screw to contour the plate and the other 2 screws were locking screws. Fluoroscopic imaging showed that the plate was properly aligned and the fracture well reduced. Guidewires for 4.0 mm screws were placed at the distal aspect of the medial malleolus and advanced across the fracture and into the tibia. Fluoroscopic imaging confirmed the proper placement of the wires on the AP and lateral views. 4.0 cannulated screws were inserted over the wires and advanced until the heads engaged the bone of the medial malleolus and compressed the fracture. Fluoroscopic imaging showed proper alignment of the fracture fragment as well as proper placement of the screws. Another guidewire for 4.0 cannulated screw was placed at the anterior aspect of the tibia and advanced to the posterior lateral aspect of the tibia. AP and lateral fluoroscopic view showed proper placement of the guidewire. Small incision was made around the wire bluntly dissected down to the tibia. A drill guide was inserted to protect the soft tissue structures. The screw was inserted over the wire and advanced until the head engaged anterior cortex of the tibia. Fluoroscopic imaging showed proper placement screw in AP and lateral views. Live stress testing was done and showed no abnormal movement of the syndesmosis or any gapping of the medial or lateral gutters. The wounds were then thoroughly irrigated with antibiotic saline. Deep closure was done with 2-0 Vicryl. Subcu closure was done with 3-0 Monocryl. Skin closure was done with david. An Arthrex jumpstart dressing was placed over the incisions and then a bulky dry dressings applied to the right ankle. The tourniquet was released and capillary refill return to all digits on the right foot. Then the patient was placed in a well-padded, well molded posterior mold/sugar tong splint. The ankle was held in neutral dorsiflexion and slight inversion as it dried. Once the splint was dried, anesthesia was reversed and the patient was taken recovery with vital signs stable.
[2024-09-04] MEDS: ASCORBIC ACID 500 MG TAB PO SCH (21:16)
[2024-09-04] MEDS: buPROPion SR 150 MG TABLET.ER PO SCH (21:16)
[2024-09-04] MEDS: LOSARTAN 50 MG TAB PO SCH (21:20)
[2024-09-04] MEDS: PRAVASTATIN SODIUM 40 MG TAB PO SCH (21:22)
[2024-09-04] MEDS: LATANOPROST 0.005% OPHTH DROPS 2.5 ML BTL BOTH EYES SCH (21:22)
[2024-09-04] MEDS: DOXAZOSIN 4 MG TAB PO SCH (21:22)
--- NOTE | 2024-09-04 21:46 | P.CONS ---
History of Present Illness - Reason for Consult Consult date: 09/04/24 - History of Present Illness History of present illness; Doni Somers 74-year-old male with small cell lung cancer (follows w/ Dr Stephenson, getting chemo, dx 02/2024), hypertension, GERD, hyperlipidemia, depression who presents for elective open reduction with internal fixation right trimalleolar fracture. Patient states that 2 weeks ago he fell while sitting at a stool subsequently came to the ER and was found to have displaced trimalleolar fracture right ankle. He then followed up with orthopedic surgery outpatient and had planned surgery today 09/04/2024. Patient is now postop with no known surgical complications. Patient is sitting up in bed resting with no complaints of pain. Patient reports absence of fever, chills, weight loss, chest pain, palpitations, diaphoresis, dyspnea, cough, nausea, vomiting, constipation, diarrhea, abdominal pain, weakness, myalgia, dizziness, headache, and dysuria. Internal medicine is consulted for medical management. Initial lab work done revealed WBC 7.2, hemoglobin 11.2, platelets 227, glucose 98. Right ankle x-ray right trimalleolar ankle fracture. REVIEW OF SYSTEMS: All Systems reviewed, pertinent positives and negatives noted in HPI. All other symptoms are negative. PHYSICAL EXAMINATION: Vitals reviewed GENERAL: No acute distress. Well developed, well nourished. HEENT: Pupils are round and equally reacting to light. EOMI. No scleral icterus. Normocephalic, atraumatic. No pharyngeal erythema. No thyromegaly. CARDIOVASCULAR: S1 and S2 present. No murmurs, rubs, or gallops. PULMONARY: Chest is clear to auscultation, no wheezing, rhonchi, or crackles. ABDOMEN: Soft, nontender, nondistended, normoactive bowel sounds. No palpable organomegaly. MUSCULOSKELETAL: No apparent joint swelling and deformities. EXTREMITIES: Right ankle in cast. No apparent cyanosis, clubbing, or pedal edema. NEUROLOGICAL: The patient is alert and oriented x3, Gross neurological examination did not reveal any focal deficits. 5/5 Strength bilateral UE and LE SKIN: No apparent rashes. Labs reviewed Imaging reviewed Assessment and plan Doni Somers 74-year-old male with lung cancer, hypertension, GERD, hyperlipidemia, depression who presents for elective open reduction with internal fixation right trimalleolar fracture. Chronic Medical Conditions # Metastatic small cell lung ca Resume home prednisone # Essential hypertension - Resume home Metoprolol, losartan #Hyperlidemia - Resume home pravastatin #GERD - Resume home pantoprazole #Anxiety/Depression - Resume home bupropion #BPH Resume home Cardura # S/p open reduction with internal fixation right trimalleolar fracture No known complications Pain management and DVT prophylaxis as per primary surgical team F: IV Normal saline 20 cc/hr E: Replete as needed N: Regular E: None DVT ppx: Per primary team Code status: Full code Dictation was produced using [employer] dictation software. Please excuse any grammatical, word or spelling errors. Past Medical History Past Medical History: Cancer, GERD/Reflux, Hyperlipidemia, Hypertension, Musculoskeletal Disorder, Prostate Disorder, Rheumatoid Arthritis (RA) Additional Past Medical History / Comment(s): Degenerative Disc Disease. Enlarged prostate. lung cancer History of Any Multi-Drug Resistant Organisms: None Reported Past Surgical History: Back Surgery, Orthopedic Surgery Additional Past Surgical History / Comment(s): Spinal fusion X2, laminectomy, BILATERAL TENNIS ELBOW SURGERY, LEFT HAND CARPAL TUNNEL SURGERY, TRIAL PAIN STIMULATORPLACED AND LATER REMOVED, Pain Procedures, bilateral cataracts removed. Past Anesthesia/Blood Transfusion Reactions: No Reported Reaction Past Psychological History: No Psychological Hx Reported Smoking Status: Former smoker Past Alcohol Use History: None Reported Additional Past Alcohol Use History / Comment(s): QUIT SMOKING IN 1991, SMOKED FOR APPROX 25 YRS, 1 - 2 PPD. Past Drug Use History: None Reported Additional Drug Use History / Comment(s): MARIJUANA USE AT HS FOR SLEEP NEEDED. Aware no use 24 hrs prior to procedure. - Past Family History Sister(s) Family Medical History: Cancer Additional Family Medical History / Comment(s): LUNG CANCER. Medications and Allergies Home Medications Medication Instructions Recorded Confirmed Type Ascorbic Acid [Vitamin C] 500 mg PO DAILY@1900 08/30/14 09/04/24 History Folic Acid 1 mg PO DAILY@0700 08/30/14 09/04/24 History Gabapentin [Neurontin] 800 mg PO TID@0700,1500,2300 08/30/14 09/04/24 History Metoprolol Succinate 25 mg PO DAILY@0700 08/30/14 09/04/24 History Omeprazole [PriLOSEC] 20 mg PO AC-BID 08/30/14 09/04/24 History Pravastatin Sodium [Pravachol] 40 mg PO HS 08/30/14 09/04/24 History calcitrioL 0.25 mcg PO FONTENOT 08/30/14 09/04/24 History Smsvwidohz-PQV-Uxfieui-Codeine 1 cap PO BID PRN 06/18/16 09/04/24 History [Fiorinal w/Cod 11-151-66-30MG] Calcium Carbonate/Vitamin D3 2 tab PO DAILY@189906/18/16 09/04/24 History [Calcium 600-Vit D3 5 Mcg (200 Iu)] Doxazosin [Cardura] 4 mg PO BID@0700,189906/18/16 09/04/24 History predniSONE 5 mg PO DAILY@69906/18/16 09/04/24 History HYDROcodone/APAP 10-325MG [[place] 1 tab PO QID PRN 01/24/17 09/04/24 History 10-325] Losartan [Cozaar] 50 mg PO DAILY@189908/08/23 09/04/24 History Magnesium 500 mg PO DAILY@189908/08/23 09/04/24 History Metoclopramide HCl [Reglan] 10 mg PO AC-TID #30 tablet 02/22/24 09/04/24 Rx Latanoprost [Latanoprost 0.005%] 1 drop BOTH EYES HS 06/05/24 09/04/24 History Morphine Sulfate [Ms Contin] 30 mg PO Q12HR 06/05/24 09/04/24 History Ondansetron [Zofran] 4 - 8 mg PO Q4H PRN MDD 32mg 06/05/24 09/04/24 History buPROPion SR [Wellbutrin SR] 150 mg PO BID@0700,0 06/05/24 09/04/24 History Allergies Allergy/AdvReac Type Severity Reaction Status Date / Time adhesive Allergy Rash/Hives Verified 09/01/24 15:54 - paper tape ok Physical Exam Vitals: Vital Signs Temp Pulse Pulse Resp BP Pulse Ox 09/04/24 18:01 97.6 F 69 20 156/78 96 09/04/24 17:48 97.3 F L 76 18 116/75 98 09/04/24 16:45 63 16 126/63 99 09/04/24 16:12 61 18 128/66 99 09/04/24 15:57 60 18 127/65 100 09/04/24 15:42 60 18 132/68 100 09/04/24 15:27 66 18 133/63 100 09/04/24 15:12 67 18 135/65 100 09/04/24 14:57 64 18 135/63 100 09/04/24 14:42 97.7 F 73 16 155/70 97 09/04/24 12:35 59 L 16 126/60 100 09/04/24 11:51 97.9 F 62 16 137/65 98 09/04/24 05:33 97.9 F 65 18 130/72 96 Intake and Output 09/04/24 09/04/24 09/04/24 06:59 14:59 22:59 Intake Total 851 100 Output Total 20 Balance 831 100 Intake: IV 851 100 Output: Estimated Blood Loss 20 Other: # Voids 0 Weight 65.9 kg 65.9 kg Results CBC & Chem 7: 09/04/24 12:11 Labs: Abnormal Lab Results - Last 24 Hours (Table) 09/04/24 Range/Units 12:11 RBC 3.62 L (4.30-5.90) m/uL Hgb 11.2 L (13.0-17.5) gm/dL Hct 34.3 L (39.0-53.0) % RDW 15.6 H (11.5-15.5) % Lymphocytes # 0.7 L (1.0-4.8) k/uL
[2024-09-05] MEDS: METOPROLOL SUCCINATE (ER) 25 MG TAB.ER.24H PO SCH (07:57)
[2024-09-05] MEDS: FOLIC ACID 1 MG TAB PO SCH (07:57)
[2024-09-05] MEDS: predniSONE 1 MG TAB PO SCH (07:57)
[2024-09-05] MEDS ORDERED: predniSONE 5 MG TAB ONE (07:57)
[2024-09-05 09:26] LABS: HCT 29.6 % (39.6-50.0); HGB 9.6 g/dL (13.0-17.0); MCH 31.9 pg (27.0-32.0); MCHC 32.4 g/dL (32.0-37.0); MCV 98.3 FL (80.0-97.0); Mean Platelet Volume 9.7 FL (9.5-12.2); NRBC Per 100 WBC 0 X 10*3/uL (0.00-0.01); Platelet Count 202 X 10*3/uL (140-440); RBC 3.01 X 10*6/uL (4.40-5.60); RDW 15.4 % (11.5-14.5); WBC 8.89 X 10*3/uL (4.50-10.00)
[2024-09-05 09:35] LABS: ALT 17 U/L (10-49); AST 18 U/L (14-35); Albumin 3.4 g/dL (3.8-4.9); Albumin/Globulin Ratio 1.55 Ratio (1.60-3.17); Alkaline Phosphatase 126 U/L (41-126); BUN/Creat Ratio 27.22 Ratio (12.00-20.00); Blood Urea Nitrogen 24.5 mg/dL (9.0-27.0); Calcium 9.1 mg/dL (8.7-10.3); Carbon Dioxide 25.8 mmol/L (21.6-31.8); Chloride 103 mmol/L (96-109); Globulin 2.2 g/dL (1.6-3.3); Glucose 126 mg/dL (70-110); Magnesium 1.8 mg/dL (1.5-2.4); Potassium 4.3 mmol/L (3.5-5.5); Sodium 140 mmol/L (135-145); Total Bilirubin 0.2 mg/dL (0.3-1.2); Total Protein 5.6 g/dL (6.2-8.2)
[2024-09-05] MEDS: MORPHINE SULFATE 4 MG/ML SYRINGE IVP PRN (10:37)
[2024-09-05] MEDS ORDERED: NALOXONE 0.4 MG/ML 1 ML VIAL IVP PRN (11:36)
[2024-09-05] MEDS: HYDROmorphone 2 MG/ML 1 ML SYRINGE IVP STA (11:38)
--- NOTE | 2024-09-05 13:12 | P.PN ---
Subjective Progress Note Date: 09/05/24 74-year-old male with small cell lung cancer (follows w/ Dr Stephenson, getting chemo, dx 02/2024), hypertension, GERD, hyperlipidemia, depression who presents for elective surgery. He underwent open reduction with internal fixation right trimalleolar fracture with Dr. Prince on 09/04. [facility] consulted for medical management of this patient. 09/05 Patient was seen and examined. He reports uncontrolled pain in his right ankle. States he takes MS Contin 30 mg PO BID at home and [place] 10 QID PRN. CBC and CMP significant for RBC 3.01, Hg 9.6, Hct 39.6, BUN/Cr 27.22, glu 126, T. Bili 0.2, alb 3.4. Mag 1.8. General: non toxic, no distress, appears at stated age Derm: warm, dry Head: atraumatic, normocephalic, symmetric Eyes: EOMI, no lid lag, anicteric sclera Mouth: no lip lesion, mucus membranes moist Cardiovascular: S1S2 reg, no murmur Lungs: Decreased BS bilateral, no rhonchi, no rales, no accessory muscle use Ext: no gross muscle atrophy, no edema, no contractures Neuro: no focal neuro deficits Psych: Alert, oriented, appropriate affect Based on my assessment of this patient, this patient meets a high complexity level of care. Metastatic small cell lung CA: Restart MS contin 30 mg PO BID and [place] 10 Q6H PRN. Hypertension: Losartan 50 mg PO QD. Metoprolol 25 mg PO QD. Hyperlidemia: Pravastatin 40 mg PO QHS. GERD: Protonix 40 mg PO QHS. Anxiety/Depression: Bupropion 150 mg PO BID. BPH: Cardura 4 mg PO BID. Status post open reduction with internal fixation right trimalleolar fracture POD 1 CODE STATUS: FULL CODE DVT Prophylaxis: SCD GI Prophylaxis: Protonix Designated medical POA if patient is not able to make medical decisions for themselves: I have reviewed the following sap solution manager consultant notes: Operative note I have reviewed the results of the following tests: CBC, CMP I have ordered the following tests: I have discussed the care of this patient with the following independent historian: Family, RN I have independently interpreted the following test below: Objective - Vital Signs Vital signs: Vital Signs Temp 97.9 F 09/05/24 06:59 Pulse 78 10/26/24 06:59 Resp 18 09/05/24 06:59 BP 152/63 09/05/24 06:59 Pulse Ox 98 09/05/24 06:59 FiO2 Intake & Output 09/04/24 09/05/24 09/05/24 18:59 06:59 18:59 Intake Total 951 Output Total 20 500 Balance 931 -500 Weight 65.9 kg Intake: IV 951 Output: Urine 500 Estimated Blood Loss 20 Other: # Voids 0 - Labs CBC & Chem 7: 09/05/24 03:10 09/05/24 03:10 Labs: Abnormal Lab Results - Last 24 Hours (Table) 09/04/24 Range/Units 12:11 RBC 3.62 L (4.30-5.90) m/uL Hgb 11.2 L (13.0-17.5) gm/dL Hct 34.3 L (39.0-53.0) % RDW 15.6 H (11.5-15.5) % Lymphocytes # 0.7 L (1.0-4.8) k/uL
[2024-09-05] MEDS: MORPHINE SULFATE ER 30 MG TABLET PO SCH (13:24)
[2024-09-05] MEDS: HYDROcodone/APAP 10-325MG 1 EACH TAB PO PRN (15:46)
[2024-09-06] MEDS: KETOROLAC 15 MG/ML 1 ML VIAL IVP SCH (00:27)
[2024-09-06] MEDS: predniSONE 5 MG TAB PO SCH (07:38)
[2024-09-06] MEDS: HYDROmorphone 2 MG/ML 1 ML SYRINGE IVP STA (10:44)
--- NOTE | 2024-09-06 12:45 | P.PN ---
Subjective Progress Note Date: 09/06/24 74-year-old male with small cell lung cancer (follows w/ Dr Stephenson, getting chemo, dx 02/2024), hypertension, GERD, hyperlipidemia, depression who presents for elective surgery. He underwent open reduction with internal fixation right trimalleolar fracture with Dr. Prince on 09/04. [facility] consulted for medical management of this patient. 09/06 Patient was seen and examined. He reports uncontrolled pain in his right ankle. He has no other complaints. No bowel movement yet but feels like he has t o go. No new labs done today. General: non toxic, no distress, appears at stated age Derm: warm, dry Head: atraumatic, normocephalic, symmetric Eyes: EOMI, no lid lag, anicteric sclera Mouth: no lip lesion, mucus membranes moist Cardiovascular: S1S2 reg, no murmur Lungs: Decreased BS bilateral, no rhonchi, no rales, no accessory muscle use Ext: no gross muscle atrophy, no edema, no contractures Neuro: no focal neuro deficits Psych: Alert, oriented, appropriate affect Based on my assessment of this patient, this patient meets a high complexity level of care. Metastatic small cell lung CA: Restart MS contin 30 mg PO BID and [place] 10 Q6H PRN. Dilaudid 1 mg IV Q3H PRN for pain. Dilaudid 2 mg IV x 1 now. Hypertension: Losartan 50 mg PO QD. Metoprolol 25 mg PO QD. Hyperlidemia: Pravastatin 40 mg PO QHS. GERD: Protonix 40 mg PO QHS. Anxiety/Depression: Bupropion 150 mg PO BID. BPH: Cardura 4 mg PO BID. Status post open reduction with internal fixation right trimalleolar fracture POD 2 CODE STATUS: FULL CODE DVT Prophylaxis: SCD GI Prophylaxis: Protonix Designated medical POA if patient is not able to make medical decisions for themselves: I have reviewed the following compensation consultant notes: I have reviewed the results of the following tests: I have ordered the following tests: CBC tomorrow AM I have discussed the care of this patient with the following independent historian: RN. Family member at bedside. I have independently interpreted the following test below: Objective - Vital Signs Vital signs: Vital Signs Temp 98.2 F 09/06/24 01:39 Pulse 72 09/06/24 01:39 Resp 16 09/06/24 01:39 BP 162/80 09/06/24 01:39 Pulse Ox 97 09/06/24 01:39 FiO2 Intake & Output 09/05/24 09/06/24 09/06/24 18:59 06:59 18:59 Output Total 750 Balance -750 Output: Urine 750 Other: Voiding Method Urinal Urinal # Voids 3 - Labs CBC & Chem 7: 09/05/24 03:10 09/05/24 03:10 Labs: Abnormal Lab Results - Last 24 Hours (Table) 09/05/24 09/05/24 Range/Units 03:10 03:10 RBC 3.01 L (4.40-5.60) X 10*6/uL Hgb 9.6 L (13.0-17.0) g/dL Hct 29.6 L (39.6-50.0) % MCV 98.3 H (80.0-97.0) FL RDW 15.4 H (11.5-14.5) % BUN/Creatinine Ratio 27.22 H (12.00-20.00) Ratio Glucose 126 H (70-110) mg/dL Total Bilirubin 0.2 L (0.3-1.2) mg/dL Total Protein 5.6 L (6.2-8.2) g/dL Albumin 3.4 L (3.8-4.9) g/dL Albumin/Globulin Ratio 1.55 L (1.60-3.17) Ratio
[2024-09-06] MEDS: HYDROmorphone 2 MG/ML 1 ML SYRINGE IVP PRN (13:33)
--- NOTE | 2024-09-06 17:25 | P.PN ---
Subjective Progress Note Date: 09/06/24 Principal diagnosis: displaced trimalleolar fracture right ankle Patient is POD#2 s/p ORIF right trimalleolar ankle fracture on 09-04-24 Patient issues with pain control during the night of September 05. Orders were written for the usage of IV Toradol to aid in pain control. Patient states that the combination of the Toradol and his current IV pain medication have gotten under control. Denies nausea, vomiting, fever, chills, calf pain or shortness of breath Objective - Vital Signs Vital signs: Vital Signs Temp 98.1 F 09/06/24 13:45 Pulse 62 09/06/24 13:45 Resp 18 09/06/24 13:45 BP 113/68 09/06/24 13:45 Pulse Ox 98 09/06/24 13:45 FiO2 Intake & Output 09/05/24 09/06/24 09/06/24 18:59 06:59 18:59 Output Total 750 Balance -750 Output: Urine 750 Other: Voiding Method Urinal Urinal Urinal # Voids 3 - Exam patient is sitting up in bed, he is awake, alert, oriented 3. No distress. Currently eating dinner. Splint is clean, dry, and intact. Patient has intact light touch sensation to all digits on the right foot. Brisk capillary refill in all digits right foot. - Labs CBC & Chem 7: 09/05/24 03:10 09/05/24 03:10 Assessment and Plan (1) Closed right trimalleolar fracture Current Visit: No Status: Acute Code(s): S82.851A - DISPLACED TRIMALLEOLAR FRACTURE OF RIGHT LOWER LEG, INIT SNOMED Code(s): 4327532 Plan: it appears that the patient has his pain under control given the current regimen. Patient is awaiting placement into a rehab facility. Patient to follow up with Dr. Prince next week Time with Patient: Less than 30
[2024-09-06] MEDS ORDERED: KETOROLAC 15 MG/ML 1 ML VIAL IVP PRN (18:00)
--- NOTE | 2024-09-06 19:22 | P.ANPRN ---
Procedure Note - Anesthesia - Nerve Block Performed Right Adductor Canal Single Time Out Performed: Yes Date of Procedure: 09/04/24 Procedure Start Time: 12: Procedure Stop Time: : Location of Patient: PreOp Indication: Acute Post-Operative Pain, Requested by Surgeon Sedation Type: Sedate with meaningful contact maintained Preparation: Sterile Prep Position: Supine Needle Types: Pajunk Needle Gauge: 21 Ultrasound used to visualize needle placement: Yes Ultrasound used to observe medication spread: Yes Blood Aspirated: No Pain Paresthesia on Injection Noted: No Resistance on Injection: Normal Image Stored and Saved: Yes Events: Uneventful and Well Tolerated (Ropivacaine 0.5% 20 cc plus dexamethasone 4 mg)
--- NOTE | 2024-09-06 19:23 | P.ANPRN ---
Procedure Note - Anesthesia - Nerve Block Performed Right Popliteal Single Date of Procedure: 09/04/24 Procedure Start Time: Procedure Stop Time: Location of Patient: PreOp Indication: Acute Post-Operative Pain, Requested by Surgeon Sedation Type: Sedate with meaningful contact maintained Preparation: Sterile Prep Position: Left Lateral Needle Types: Pajunk Needle Gauge: 21 Ultrasound used to visualize needle placement: Yes Ultrasound used to observe medication spread: Yes Blood Aspirated: No Pain Paresthesia on Injection Noted: No Resistance on Injection: Normal Image Stored and Saved: Yes Events: Uneventful and Well Tolerated (Ropivacaine 0.5% 20 cc plus dexamethasone 4 mg)
[2024-09-07 04:11] LABS: HCT 29.6 % (39.0-53.0); MCHC 32.2 g/dL (31.0-37.0); MCV 96.4 fL (80.0-100.0); Mean Platelet Volume 6.9; Platelet Count 165 k/uL (150-450); RBC 3.07 m/uL (4.30-5.90); RDW 15.3 % (11.5-15.5); WBC 6.1 k/uL (3.8-10.6)
[2024-09-07 04:28] LABS: HGB 9.5 gm/dL (13.0-17.5)
--- NOTE | 2024-09-07 13:00 | P.PN ---
Subjective Progress Note Date: 09/07/24 74-year-old male with small cell lung cancer (follows w/ Dr Stephenson, getting chemo, dx 02/2024), hypertension, GERD, hyperlipidemia, depression who presents for elective surgery. He underwent open reduction with internal fixation right trimalleolar fracture with Dr. Prince on 09/04. [facility] consulted for medical management of this patient. 09/07 Patient was seen and examined. He reports 7/10 pain in his right ankle. He has no other complaints. Had a bowel movement. CBC RBC 3.07, Hg 9.5 Hct 29.6. General: non toxic, no distress, appears at stated age Derm: warm, dry Head: atraumatic, normocephalic, symmetric Eyes: EOMI, no lid lag, anicteric sclera Mouth: no lip lesion, mucus membranes moist Cardiovascular: S1S2 reg, no murmur Lungs: Decreased BS bilateral, no rhonchi, no rales, no accessory muscle use Ext: no gross muscle atrophy, no edema, no contractures Neuro: no focal neuro deficits Psych: Alert, oriented, appropriate affect Based on my assessment of this patient, this patient meets a high complexity level of care. Acute blood loss anemia which is an expected result of surgery Metastatic small cell lung CA: MS contin 30 mg PO BID and [place] 10 Q6H PRN. Dilaudid 1 mg IV Q3H PRN for pain. Hypertension: Losartan 50 mg PO QD. Metoprolol 25 mg PO QD. Hyperlidemia: Pravastatin 40 mg PO QHS. GERD: Protonix 40 mg PO QHS. Anxiety/Depression: Bupropion 150 mg PO BID. BPH: Cardura 4 mg PO BID. Status post open reduction with internal fixation right trimalleolar fracture POD 3 CODE STATUS: FULL CODE DVT Prophylaxis: SCD GI Prophylaxis: Protonix Designated medical POA if patient is not able to make medical decisions for themselves: Dispo: Discussed with Case management, plans for [facility]. I have reviewed the following residential solar sales consultant notes: Ortho I have reviewed the results of the following tests: CBC I have ordered the following tests: I have discussed the care of this patient with the following independent historian: RN. Case management. I have independently interpreted the following test below: Objective - Vital Signs Vital signs: Vital Signs Temp 97.8 F 09/07/24 07:00 Pulse 57 L 09/07/24 07:00 Resp 18 09/07/24 07:00 BP 162/79 09/07/24 07:00 Pulse Ox 98 09/07/24 07:00 FiO2 Intake & Output 09/06/24 09/07/24 09/07/24 18:59 06:59 18:59 Output Total 210 Balance -210 Output: Urine 210 Other: Voiding Method Urinal # Voids 2 # Bowel Movements 1 - Labs CBC & Chem 7: 09/07/24 03:47 09/05/24 03:10 Labs: Abnormal Lab Results - Last 24 Hours (Table) 09/07/24 Range/Units 03:47 RBC 3.07 L (4.30-5.90) m/uL Hgb 9.5 L D (13.0-17.5) gm/dL Hct 29.6 L (39.0-53.0) %
[2024-09-08 07:48] VITALS: RESP 16
--- NOTE | 2024-09-08 11:26 | P.DS ---
Providers Date of admission: 09/04/24 14:40 Expected date of discharge: 09/08/24 Attending physician: Dejuan Haynes Consults: 09/04/24 14:39 Consult Physician Routine Consulting Provider: Dejuan Haynes Consult Reason/Comments: Patient requires admission for rehab placement Do you want consulting provider notified?: Yes Primary care physician: Reji Nina MD Hospital Course: 74-year-old male with small cell lung cancer (follows w/ Dr Stephenson, getting chemo, dx 02/2024), hypertension, GERD, hyperlipidemia, depression who presents for elective surgery. He underwent open reduction with internal fixation right trimalleolar fracture with Dr. Prince on 09/04. [facility] consulted for medical management of this patient. He was able to urinate freely and have a bowel movement. Accepted to SNF on 09/08. 09/08 Patient was seen and examined. He reports some nausea. Takes Prilosec and Zofran PRN at home. He has no other complaints. Hg stable at 9.5 09/08. Plans for discharge to SNF today. Orthopedic Sx instructions: Keep splint clean, dry and intact. Do not remove Non-weightbearing on operative leg Keep operative leg elevated Apply ice behind knee of operative leg General: non toxic, no distress, appears at stated age Derm: warm, dry Head: atraumatic, normocephalic, symmetric Eyes: EOMI, no lid lag, anicteric sclera Mouth: no lip lesion, mucus membranes moist Cardiovascular: S1S2 reg, no murmur Lungs: Decreased BS bilateral, no rhonchi, no rales, no accessory muscle use Ext: no gross muscle atrophy, no edema, no contractures Neuro: no focal neuro deficits Psych: Alert, oriented, appropriate affect Discharge Diagnosis: Acute blood loss anemia which is an expected result of surgery Metastatic small cell lung CA Hypertension Hyperlidemia GERD Anxiety/Depression BPH Status post open reduction with internal fixation right trimalleolar fracture POD 4 This complex discharge took 35 minutes to complete. Patient Condition at Discharge: Stable Plan - Discharge Summary Discharge Rx Participant: No New Discharge Prescriptions: New Gabapentin 800 mg PO TID 3 Days #9 tab polyethylene glycoL 3350 [Miralax] 17 gm PO DAILY packet Continue Ascorbic Acid [Vitamin C] 500 mg PO DAILY@1900 Pravastatin Sodium [Pravachol] 40 mg PO HS Omeprazole [PriLOSEC] 20 mg PO AC-BID Metoprolol Succinate 25 mg PO DAILY@0700 Folic Acid 1 mg PO DAILY@0700 calcitrioL 0.25 mcg PO FONTENOT Gabapentin [Neurontin] 800 mg PO TID@0700,1500,2300 Doxazosin [Cardura] 4 mg PO BID@0700,1900 predniSONE 5 mg PO DAILY@0700 Calcium Carbonate/Vitamin D3 [Calcium 600-Vit D3 5 Mcg (200 Iu)] 2 tab PO DAILY@1900 Metoclopramide HCl [Reglan] 10 mg PO AC-TID #30 tablet Ondansetron [Zofran] 4 - 8 mg PO Q4H PRN MDD 32mg PRN Reason: Nausea Xrwxaxkrtj-SQY-Faggmqw-Codeine [Fiorinal w/Cod 44-399-71-30MG] 1 cap PO BID PRN #6 cap PRN Reason: Migraine Headache Morphine Sulfate [Ms Contin] 30 mg PO Q12HR #6 tab Magnesium 500 mg PO DAILY@1900 Losartan [Cozaar] 50 mg PO DAILY@1900 Latanoprost [Latanoprost 0.005%] 1 drop BOTH EYES HS buPROPion SR [Wellbutrin SR] 150 mg PO BID@0700,1900 HYDROcodone/APAP 10-325MG [[place] 10-325] 1 tab PO QID PRN #12 tab PRN Reason: Pain Discharge Medication List Ascorbic Acid [Vitamin C] 500 mg PO DAILY@1900 08/30/14 [History] Folic Acid 1 mg PO DAILY@0700 08/30/14 [History] Gabapentin [Neurontin] 800 mg PO TID@0700,1500,2300 08/30/14 [History] Metoprolol Succinate 25 mg PO DAILY@0700 08/30/14 [History] Omeprazole [PriLOSEC] 20 mg PO AC-BID 08/30/14 [History] Pravastatin Sodium [Pravachol] 40 mg PO HS 08/30/14 [History] calcitrioL 0.25 mcg PO FONTENOT 08/30/14 [History] Calcium Carbonate/Vitamin D3 [Calcium 600-Vit D3 5 Mcg (200 Iu)] 2 tab PO DAILY@1900 06/18/16 [History] Doxazosin [Cardura] 4 mg PO BID@0700,1900 16 [History] predniSONE 5 mg PO DAILY@69906/18/16 [History] Losartan [Cozaar] 50 mg PO DAILY@189908/08/23 [History] Magnesium 500 mg PO DAILY@189908/08/23 [History] Metoclopramide HCl [Reglan] 10 mg PO AC-TID #30 tablet 02/22/24 [Rx] Latanoprost [Latanoprost 0.005%] 1 drop BOTH EYES HS 06/05/24 [History] Ondansetron [Zofran] 4 - 8 mg PO Q4H PRN MDD 32mg 06/05/24 [History] buPROPion SR [Wellbutrin SR] 150 mg PO BID@699,189906/05/24 [History] Vzovcdsnma-PKV-Djiwthr-Codeine [Fiorinal w/Cod 35-897-51-30MG] 1 cap PO BID PRN #6 cap 09/08/24 [Rx] Gabapentin 800 mg PO TID 3 Days #9 tab 09/08/24 [Rx] HYDROcodone/APAP 10-325MG [[place] 10-325] 1 tab PO QID PRN #12 tab 09/08/24 [Rx] Morphine Sulfate [Ms Contin] 30 mg PO Q12HR #6 tab 09/08/24 [Rx] polyethylene glycoL 3350 [Miralax] 17 gm PO DAILY packet 09/08/24 [Rx] Follow up Appointment(s)/Referral(s): Wiley Prince DPM [Doctor of Osteopathic Medicine] - 1 Week Patient Instructions/Handouts: *Surgery [facility] - ([place]) Discharge Instructins Foot Surgery Activity/Diet/Wound Care/Special Instructions: Keep splint clean, dry and intact. Do not remove Non-weightbearing on operative leg Keep operative leg elevated Apply ice behind knee of operative leg Discharge Disposition: TRANSFER TO SNF/ECF
[2024-09-08] MEDS: ONDANSETRON 4 MG/2 ML VIAL IVP PRN (13:13)
[2024-09-08 13:42] VITALS: BP 124/63; PULSE 70; TEMP 98.3
[2024-09-09] MEDS ORDERED: PANTOPRAZOLE 40 MG TABLET PO SCH (07:30)
[2024-09-09] MEDS ORDERED: polyethylene glycoL 3350 17 GM POWD.PACK PO SCH (09:00)
== END 2024-09-08 14:42 | DRG 493 ==
LOC: OR 11:18 → 4SSUR 14:40
PROVIDERS: ADMIT Student in an Organized Health Care Education/Training Program; ATTEND Student in an Organized Health Care Education/Training Program
PROC: 0QSG04Z Reposition Right Tibia with Internal Fixation Device, Open Approach (ICD-10-PCS; 2024-09-04)
PROC: 0SSF04Z Reposition Right Ankle Joint with Internal Fixation Device, Open Approach (ICD-10-PCS; 2024-09-04)
PROC: 3E0T3BZ Introduction of Anesthetic Agent into Peripheral Nerves and Plexi, Percutaneous Approach (ICD-10-PCS; 2024-09-04)
PROC: 8E0YXBF Computer Assisted Procedure of Lower Extremity, With Fluoroscopy (ICD-10-PCS; 2024-09-04)
PROC: 0QSJ04Z Reposition Right Fibula with Internal Fixation Device, Open Approach (ICD-10-PCS; principal; 2024-09-04 11:15)
DX: S82.851A Displaced trimalleolar fracture of right lower leg, initial encounter for closed fracture (principal); C34.90 Malignant neoplasm of unspecified part of unspecified bronchus or lung; C79.9 Secondary malignant neoplasm of unspecified site; D62 Acute posthemorrhagic anemia; N40.0 Benign prostatic hyperplasia without lower urinary tract symptoms; W19.XXXA Unspecified fall, initial encounter; Z79.899 Other long term (current) drug therapy; Z80.1 Family history of malignant neoplasm of trachea, bronchus and lung; M06.9 Rheumatoid arthritis, unspecified; K21.9 Gastro-esophageal reflux disease without esophagitis; I10 Essential (primary) hypertension; F41.9 Anxiety disorder, unspecified; F32.A Depression, unspecified; E78.5 Hyperlipidemia, unspecified; Z85.118 Personal history of other malignant neoplasm of bronchus and lung; Z87.891 Personal history of nicotine dependence; Z91.81 History of falling; Z98.1 Arthrodesis status
CPT/HCPCS: 64445; 64447; 80053; 83735; 85025; 85027

== ENCOUNTER → 2024-10-12 | Outpatient (CLI) | payer MEDICARE ==
[2024-10-12 15:39] LABS: African American GFR (CKD) >90 (>60 ml/min/1.73 sqM); Blood Urea Nitrogen 19 mg/dL (9-20); Non-African American GFR(CKD) 79 (>60 ml/min/1.73 sqM)
--- NOTE | 2024-10-12 18:35 | CT ---
EXAMINATION TYPE: CT ChestAbdPelvis w con DATE OF EXAM: 10/12/2024 4:55 PM COMPARISON: 06/02/2024 and 04/23/2024. CLINICAL INDICATION: Male, 74 years old with history of C34.11 LUNG CANCER; [facility], f/u lung cancer Technique: CT ChestAbdPelvis w con; Multiple axial images were obtained. Two-dimensional coronal and sagittal reconstructions were obtained. Contrast used:100 mL of Isovue 300 with IV Contrast, (None if empty) Oral contrast used: with Oral Contrast CT DLP: 803.20 mGycm, Automated exposure control for dose reduction was used. Findings: CHEST: LUNGS/ PLEURA: Soft tissue extends along the right upper medial heart border down around the pulmonar y hilum. This is somewhat decreased from 06/02/2024 and 04/23/2024 now area measuring up to 20 mm in th ickness. C 26 cm in thickness series 4 image 21 There are scattered pulmonary nodules which have a decrease in size of scattered pulmonary nodules ex amples include right lower lobe superior segment 7 mm, previously 8 mm. Other scattered subcentimeter nodular/parenchymal changes at significantly changed. Anterior right up per lung scarring noted. No new or enlarging pulmonary nodules. AIRWAY: Patent and unremarkable. HEART: Size within normal limits. MEDIASTINUM: Subcarinal lymph node measuring 9 mm short axis previously 13 mm. VASCULATURE: No aortic aneurysm. SOFT TISSUES/LYMPH NODES: Mildly enlarged left axillary lymph node measuring 11 mm similar to prior g iven differences in measuring technique. Right axilla lymph nodes decreased in size now with thin cor adin series 3 image 23 previously thickened cortex up to 6 mm. LOWER NECK: No significant findings. ABDOMEN: ABDOMEN LIVER: Diffuse hepatic lesions there are greater have decreased in size compared to prior now measuri ng 21 mm in the left hepatic lobe previously 34 mm in the right hepatic lobe measuring up to 32 x 21 mm previously 49 x 40 mm. GALLBLADDER AND BILE DUCTS: Unremarkable. PANCREAS: Unremarkable. SPLEEN: Lesions within the spleen are present. These lesions have decreased in in size now measuring 11 mm previously 19 mm others are more conspicuous ADRENAL GLANDS: Unremarkable. KIDNEYS AND URETERS: No evidence of hydronephrosis or renal calculus. The ureters are unremarkable. PELVIS BLADDER: Unremarkable REPRODUCTIVE: Prostate is enlarged in size measuring 4.5 cm in transverse dimension. ABDOMEN & PELVIS STOMACH AND BOWEL: No evidence of bowel obstruction. There is a large stool burden throughout the col on. PERITONEUM: No evidence of pneumoperitoneum or free fluid. VASCULATURE: Moderate atherosclerotic calcifications are present throughout the abdominal aorta and i ts branches. 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 Postsurgical changes of the spine. LYMPH NODES: Retroperitoneal lymph node near the level of left kidney now measuring 5 mm, previously 13 mm, and 17 mm in short axis. SOFT TISSUE/ABDOMINAL WALL: Bilateral fat-containing inguinal hernias. IMPRESSION: 1. Continued Positive response to therapy with decrease in size of soft tissue in the lung, decreasi ng right axillary lymph node size, decreasing liver and spleen lesions. 2. Scattered osseous lesions which were more lucent on the prior exam are stable in size. [facility], , 10/12/2024 6:33 PM
== END | disposition home or self-care (01) ==
LOC: RADCTMAIN 14:35
PROVIDERS: ATTEND Internal Medicine Hematology & Oncology
DX: C34.11 Malignant neoplasm of upper lobe, right bronchus or lung (principal); G89.3 Neoplasm related pain (acute) (chronic); M12.9 Arthropathy, unspecified; K40.20 Bilateral inguinal hernia, without obstruction or gangrene, not specified as recurrent; I70.0 Atherosclerosis of aorta; R59.0 Localized enlarged lymph nodes; R51.9 Headache, unspecified
CPT/HCPCS: 82565; 84520; 71260; 74177; 36415; Q9967

== ENCOUNTER 2024-10-29 20:06 | Emergency (ER) | payer MEDICARE ==
--- NOTE | 2024-10-29 20:15 | ED ---
General Adult HPI - General Stated complaint: Syncope Time Seen by Provider: 10/29/24 20:08 - History of Present Illness Initial comments: Kurtis Somers is a pleasant 74yo M with PMH of metastatic lung cancer, he is brought to the emergency department today by ambulance for evaluation after a fall at home. Patient had an unwitnessed fall family members heard him fall in the garage and found him on the ground he was awake but somewhat confused. EMS was called. Patient was noted to have a laceration lateral to his left eye and seemed confused he thought it was May and did not recall the events that led to the fall. Patient has a history of metastatic lung cancer but has not had chemotherapy recently due to medical complications. - Related Data Home Medications Medication Instructions Recorded Confirmed Ascorbic Acid [Vitamin C] 500 mg PO DAILY@19008/30/14 09/04/24 Folic Acid 1 mg PO DAILY@0708/30/14 09/04/24 Gabapentin [Neurontin] 800 mg PO TID@0700,1500,2300 08/30/14 09/04/24 Metoprolol Succinate 25 mg PO DAILY@0700 08/30/14 09/04/24 Omeprazole [PriLOSEC] 20 mg PO AC-BID 08/30/14 09/04/24 Pravastatin Sodium [Pravachol] 40 mg PO HS 08/30/14 09/04/24 calcitrioL 0.25 mcg PO FONTENOT 08/30/14 09/04/24 Calcium Carbonate/Vitamin D3 2 tab PO DAILY@1900 06/18/16 09/04/24 [Calcium 600-Vit D3 5 Mcg (200 Iu)] Doxazosin [Cardura] 4 mg PO BID@0700,189906/18/16 09/04/24 predniSONE 5 mg PO DAILY@0700 06/18/16 09/04/24 Losartan [Cozaar] 50 mg PO DAILY@189908/08/23 09/04/24 Magnesium 500 mg PO DAILY@189908/08/23 09/04/24 Latanoprost [Latanoprost 0.005%] 1 drop BOTH EYES HS 06/05/24 09/04/24 Ondansetron [Zofran] 4 - 8 mg PO Q4H PRN MDD 32mg 06/05/24 09/04/24 buPROPion SR [Wellbutrin SR] 150 mg PO BID@0700,1900 06/05/24 09/04/24 Previous Rx's Medication Instructions Recorded Metoclopramide HCl [Reglan] 10 mg PO AC-TID #30 tablet 02/22/24 Quoghnfrej-ZMY-Ykeroof-Codeine 1 cap PO BID PRN #6 cap 09/08/24 [Fiorinal w/Cod 41-665-99-30MG] Gabapentin 800 mg PO TID 3 Days #9 tab 09/08/24 HYDROcodone/APAP 10-325MG [[place] 1 tab PO QID PRN #12 tab 09/08/24 10-325] Morphine Sulfate [Ms Contin] 30 mg PO Q12HR #6 tab 09/08/24 polyethylene glycoL 3350 [Miralax] 17 gm PO DAILY packet 09/08/24 Amoxicillin 500 mg PO BID 10 Days #20 capsule 10/30/24 Allergies Allergy/AdvReac Type Severity Reaction Status Date / Time adhesive Allergy Rash/Hives Verified 09/01/24 15:54 - paper tape ok Review of Systems ROS Statement: Those systems with pertinent positive or pertinent negative responses have been documented in the HPI. ROS Other: All systems not noted in ROS Statement are negative. Past Medical History Past Medical History: Cancer, GERD/Reflux, Hyperlipidemia, Hypertension, Musculoskeletal Disorder, Prostate Disorder, Rheumatoid Arthritis (RA) Additional Past Medical History / Comment(s): Degenerative Disc Disease. Enlarged prostate. lung cancer History of Any Multi-Drug Resistant Organisms: None Reported Past Surgical History: Back Surgery, Orthopedic Surgery Additional Past Surgical History / Comment(s): Spinal fusion X2, laminectomy, BILATERAL TENNIS ELBOW SURGERY, LEFT HAND CARPAL TUNNEL SURGERY, TRIAL PAIN STIMULATORPLACED AND LATER REMOVED, Pain Procedures, bilateral cataracts removed. Past Anesthesia/Blood Transfusion Reactions: No Reported Reaction Past Psychological History: No Psychological Hx Reported Smoking Status: Former smoker Past Alcohol Use History: None Reported Additional Past Alcohol Use History / Comment(s): QUIT SMOKING IN 1991, SMOKED FOR APPROX 25 YRS, 1 - 2 PPD. Past Drug Use History: None Reported Additional Drug Use History / Comment(s): MARIJUANA USE AT HS FOR SLEEP NEEDED. Aware no use 24 hrs prior to procedure. - Past Family History Sister(s) Family Medical History: Cancer Additional Family Medical History / Comment(s): LUNG CANCER. General Exam - General Exam Comments Initial Comments: Physical Exam GENERAL: Chronically ill-appearing, pale HENT: Normocephalic Abrasion lateral to the left eye EYES: PERRL, EOMI Subconjunctival hemorrhage on the medial side of the left eye from the 12:00 to the 6 o'clock position no hyphema PULMONARY: Unlabored respirations. CARDIOVASCULAR: Bradycardic, regular ABDOMEN: Soft and nontender with normal bowel sounds. SKIN: Abrasion lateral to the left eye : Deferred NEUROLOGIC: Patient is alert and oriented to person, able to identify that he is at the hospital, questionable about dates uncertain about events leading up to coming to the hospital MUSCULOSKELETAL: Normal extremities with adequate strength and full range of motion. No lower extremity swelling or edema. No calf tenderness. PSYCHIATRIC: Normal psychiatric evaluation. Course Vital Signs 10/29/24 20:15 Temperature 97.9 F Pulse Rate 57 L Respiratory 14 Rate Blood Pressure 91/52 O2 Sat by Pulse 95 Oximetry EKG Findings - EKG Comments: EKG Findings:: EKG was obtained due to possible syncope or fall, EKG was obtained at 2017 rate is 58 rhythm is sinus bradycardia normal axis normal intervals NC 189 QRS 90 QTc [address] elevations impression no evidence of acute ischemia infarction or pathologic arrhythmia. Procedures - Laceration Laceration #1 Consent Obtained: verbal consent Indication: laceration Site: face Description: linear Depth: simple, single layer Type of Sutures: other (skin glue) Patient Tolerated Procedure: well Medical Decision Making - Medical Decision Making Was pt. sent in by a medical professional or institution (, PA, JUNIOR MANUFACTURING ENGINEER, urgent care, hospital, or [place] health care facility...) When possible be specific @ -No Did you speak to anyone other than the patient for history (EMS, parent, family, police, friend...)? What history was obtained from this source @ -EMS, Did you review nursing and triage notes (agree or disagree)? Why? @ -I reviewed and agree with nursing and triage notes Were old charts reviewed (outside hosp., previous admission, EMS record, old EKG, old radiological studies, urgent care reports/EKG's, [place] health care facility records)? Report findings @ -No old charts were reviewed Differential Diagnosis (chest pain, altered mental status, abdominal pain women, abdominal pain men, vaginal bleeding, weakness, fever, dyspnea, syncope, headache, dizziness, GI bleed, back pain, seizure, CVA, palpatations, mental health)? @ -Parenteral includes mechanical fall, syncope EKG interpreted by me (3pts min.). @ -As above X-rays interpreted by me (1pt min.). @ -None done CT interpreted by me (1pt min.). @ -Brain CT with no acute findings, cervical spine with chronic changes, chest x-ray no acute findings U/S interpreted by me (1pt. min.). @ -None done What testing was considered but not performed or refused? (CT, X-rays, U/S, labs)? Why? @ -None What meds were considered but not given or refused? Why? @ -None Did you discuss the management of the patient with other professionals (bertha camacho i.e. , PA, JUNIOR MANUFACTURING ENGINEER, lab, RT, psych nurse, administrator social welfare, psychiatric mental health nurse, teacher, airline pilot/first officer, complex case manager)? Give summary @ -No Was smoking cessation discussed for >3mins.? @ -No Was critical care preformed (if so, how long)? @ -No Were there social determinants of health that impacted care today? How? (Homelessness, low income, unemployed, alcoholism, drug addiction, transportation, low edu. Level, literacy, decrease access to med. care, fdc, rehab)? @ -No Was there de-escalation of care discussed even if they declined (Discuss DNR or withdrawal of care, Hospice)? DNR status @ -No What co-morbidities impacted this encounter? (DM, HTN, Smoking, COPD, CAD, Cancer, CVA, ARF, Chemo, Hep., AIDS, mental health diagnosis, sleep apnea, morbid obesity)? @ -Cancer Was patient admitted / discharged? Hospital course, mention meds given and route, prescriptions, significant lab abnormalities, going to OR and other pertinent info. @ -Discharged The patient was seen and evaluated, history is obtained from patient and at bedside. 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 Patient did not recall the fall and offered no meaningful history though he had no complaints on arrival. Head CT facial CT were performed patient has a fracture of the maxillary sinus discussed with patient the treatment for this is supportive, preventative antibiotics and avoiding anything that would increase the pressure in the sinuses including blowing the nose or sneezing or holding and sneezes. I did offer observation due to the patient's multiple comorbidities hypotension on arrival however patient is back to baseline mental status patient and both eager for discharge home did like to get a good night sleep so he can go to chemo tomorrow he has been unable to obtain chemo for the past 2 months due to a recent fall with ankle fracture. At this time patient stable and will be discharged home with prescription for amoxicillin. Undiagnosed new problem with uncertain prognosis? @ -No Drug Therapy requiring intensive monitoring for toxicity (Heparin, Nitro, Insulin, Cardizem)? @ -No Were any procedures done? @ -, Yes laceration lateral to the left eye with glue hold Diagnosis/symptom? @ -All at home, facial laceration, maxillary sinus fracture Acute, or Chronic, or Acute on Chronic? @ -Acute Uncomplicated (without systemic symptoms) or Complicated (systemic symptoms)? @ -Default Side effects of treatment? @ -No Exacerbation, Progression, or Severe Exacerbation? @ -No Poses a threat to life or bodily function? How? (Chest pain, [place], [place], pneumonia, PE, COPD, DKA, ARF, appy, cholecystitis, CVA, Diverticulitis, Homicidal, Suicidal, threat to staff... and all critical care pts) @ -No - Lab Data Result diagrams: 10/29/24 20:12 10/29/24 20:12 Lab Results 10/29/24 10/29/24 10/29/24 Range/Units 20:12 20:12 20:12 WBC 5.2 (3.8-10.6) k/uL RBC 3.39 L (4.30-5.90) m/uL Hgb 10.0 L (13.0-17.5) gm/dL Hct 31.6 L (39.0-53.0) % MCV 93.3 (80.0-100.0) fL MCH 29.7 (25.0-35.0) pg MCHC 31.8 (31.0-37.0) g/dL RDW 14.3 (11.5-15.5) % Plt Count 176 (150-450) k/uL MPV 7.3 Neutrophils % 80 % Lymphocytes % 10 % Monocytes % 7 % Eosinophils % 1 % Basophils % 1 % Neutrophils # 4.1 (1.3-7.7) k/uL Lymphocytes # 0.5 L (1.0-4.8) k/uL Monocytes # 0.3 (0-1.0) k/uL Eosinophils # 0.1 (0-0.7) k/uL Basophils # 0.0 (0-0.2) k/uL Hypochromasia Slight PT 10.4 (10.0-12.5) sec INR 0.9 (<1.2) APTT 21.4 L (22.0-30.0) sec Sodium 135 L (137-145) mmol/L Potassium 4.6 (3.5-5.1) mmol/L Chloride 109 H (98-107) mmol/L Carbon Dioxide 23 (22-30) mmol/L Anion Gap 3 mmol/L BUN 34 H (9-20) mg/dL Creatinine 1.13 (0.66-1.25) mg/dL Est GFR (CKD-EPI)AfAm 75 (>60 ml/min/1.73 sqM) Est GFR (CKD-EPI)NonAf 65 (>60 ml/min/1.73 sqM) Glucose 149 H (74-99) mg/dL POC Glucose (mg/dL) (70-110) mg/dL POC Glu Circus Supervisor ID Plasma Lactic Acid Deepak (0.7-2.0) mmol/L Calcium 8.0 L (8.4-10.2) mg/dL Total Bilirubin 0.3 (0.2-1.3) mg/dL AST 24 (17-59) U/L ALT 20 (4-49) U/L Alkaline Phosphatase 192 H (38-126) U/L Troponin I (0.000-0.034) ng/mL Total Protein 5.6 L (6.3-8.2) g/dL Albumin 3.1 L (3.5-5.0) g/dL Blood Type Blood Type Recheck Bld Type Recheck Status Antibody Screen Spec Expiration Date 10/29/24 10/29/24 10/29/24 Range/Units 20:12 20:12 20:18 WBC (3.8-10.6) k/uL RBC (4.30-5.90) m/uL Hgb (13.0-17.5) gm/dL Hct (39.0-53.0) % MCV (80.0-100.0) fL MCH (25.0-35.0) pg MCHC (31.0-37.0) g/dL RDW (11.5-15.5) % Plt Count (150-450) k/uL MPV Neutrophils % % Lymphocytes % % Monocytes % % Eosinophils % % Basophils % % Neutrophils # (1.3-7.7) k/uL Lymphocytes # (1.0-4.8) k/uL Monocytes # (0-1.0) k/uL Eosinophils # (0-0.7) k/uL Basophils # (0-0.2) k/uL Hypochromasia PT (10.0-12.5) sec INR (<1.2) APTT (22.0-30.0) sec Sodium (137-145) mmol/L Potassium (3.5-5.1) mmol/L Chloride (98-107) mmol/L Carbon Dioxide (22-30) mmol/L Anion Gap mmol/L BUN (9-20) mg/dL Creatinine (0.66-1.25) mg/dL Est GFR (CKD-EPI)AfAm (>60 ml/min/1.73 sqM) Est GFR (CKD-EPI)NonAf (>60 ml/min/1.73 sqM) Glucose (74-99) mg/dL POC Glucose (mg/dL) 156 H (70-110) mg/dL POC Glu Circus Supervisor DARION Castaneda Plasma Lactic Acid Deepak 1.9 (0.7-2.0) mmol/L Calcium (8.4-10.2) mg/dL Total Bilirubin (0.2-1.3) mg/dL AST (17-59) U/L ALT (4-49) U/L Alkaline Phosphatase (38-126) U/L Troponin I <0.012 (0.000-0.034) ng/mL Total Protein (6.3-8.2) g/dL Albumin (3.5-5.0) g/dL Blood Type Blood Type Recheck Bld Type Recheck Status Antibody Screen Spec Expiration Date 10/29/24 Range/Units 23:30 WBC (3.8-10.6) k/uL RBC (4.30-5.90) m/uL Hgb (13.0-17.5) gm/dL Hct (39.0-53.0) % MCV (80.0-100.0) fL MCH (25.0-35.0) pg MCHC (31.0-37.0) g/dL RDW (11.5-15.5) % Plt Count (150-450) k/uL MPV Neutrophils % % Lymphocytes % % Monocytes % % Eosinophils % % Basophils % % Neutrophils # (1.3-7.7) k/uL Lymphocytes # (1.0-4.8) k/uL Monocytes # (0-1.0) k/uL Eosinophils # (0-0.7) k/uL Basophils # (0-0.2) k/uL Hypochromasia PT (10.0-12.5) sec INR (<1.2) APTT (22.0-30.0) sec Sodium (137-145) mmol/L Potassium (3.5-5.1) mmol/L Chloride (98-107) mmol/L Carbon Dioxide (22-30) mmol/L Anion Gap mmol/L BUN (9-20) mg/dL Creatinine (0.66-1.25) mg/dL Est GFR (CKD-EPI)AfAm (>60 ml/min/1.73 sqM) Est GFR (CKD-EPI)NonAf (>60 ml/min/1.73 sqM) Glucose (74-99) mg/dL POC Glucose (mg/dL) (70-110) mg/dL POC Glu Circus Supervisor ID Plasma Lactic Acid Deepak (0.7-2.0) mmol/L Calcium (8.4-10.2) mg/dL Total Bilirubin (0.2-1.3) mg/dL AST (17-59) U/L ALT (4-49) U/L Alkaline Phosphatase (38-126) U/L Troponin I (0.000-0.034) ng/mL Total Protein (6.3-8.2) g/dL Albumin (3.5-5.0) g/dL Blood Type O Positive Blood Type Recheck O Pos Bld Type Recheck Status No Antibody Screen NEGATIVE Spec Expiration Date 11/01/20242329 Disposition Clinical Impression: Fall, Fracture of maxillary sinus Disposition: HOME SELF-CARE Condition: Stable Additional Instructions: With the maxillary sinus fracture DO NOT blow your nose, DO not attempt to hold in sneeze Follow up with ENT Prescriptions: Amoxicillin 500 mg PO BID 10 Days #20 capsule Is patient prescribed a controlled substance at d/c from ED?: No Referrals: Reji Nina MD [Primary Care Provider] - 1-2 days Lazaro Hernandez MD [STAFF PHYSICIAN] - 1-2 days
[2024-10-29 20:19] LABS: Glucose,Whole Blood 156 mg/dL (70-110)
[2024-10-29 20:27] LABS: Basophils % (A) 1 %; Eosinophils # (A) 0.1 k/uL (0-0.7); Eosinophils % (A) 1 %; HCT 31.6 % (39.0-53.0); Hypochromasia Slight; Lymphocytes # (A) 0.5 k/uL (1.0-4.8); Lymphocytes % (A) 10 %; MCH 29.7 pg (25.0-35.0); MCHC 31.8 g/dL (31.0-37.0); MCV 93.3 fL (80.0-100.0); Mean Platelet Volume 7.3; Monocytes # (A) 0.3 k/uL (0-1.0); Monocytes % (A) 7 %; Neutrophils # (A) 4.1 k/uL (1.3-7.7); Neutrophils % (A) 80 %; Platelet Count 176 k/uL (150-450); RBC 3.39 m/uL (4.30-5.90); RDW 14.3 % (11.5-15.5); WBC 5.2 k/uL (3.8-10.6)
[2024-10-29 20:40] LABS: ALT 20 U/L (4-49); AST 24 U/L (17-59); African American GFR (CKD) 75 (>60 ml/min/1.73 sqM); Albumin 3.1 g/dL (3.5-5.0); Alkaline Phosphatase 192 U/L (38-126); Anion Gap 3 mmol/L; Blood Urea Nitrogen 34 mg/dL (9-20); Carbon Dioxide 23 mmol/L (22-30); Chloride 109 mmol/L (98-107); Glucose 149 mg/dL (74-99); Non-African American GFR(CKD) 65 (>60 ml/min/1.73 sqM); Potassium 4.6 mmol/L (3.5-5.1); Sodium 135 mmol/L (137-145); Total Bilirubin 0.3 mg/dL (0.2-1.3); Total Protein 5.6 g/dL (6.3-8.2)
[2024-10-29] MEDS: SODIUM CHLORIDE 0.9% 1,000 ML IV STA (20:41)
[2024-10-29] MEDS: DIPH,PERTUS(ACELL)TETVAC-LF 0.5 ML VIAL IM ONE (20:42)
[2024-10-29 20:44] LABS: INR 0.9 (<1.2); Prothrombin Time 10.4 sec (10.0-12.5)
--- NOTE | 2024-10-29 20:46 | XR ---
EXAMINATION TYPE: XR chest 1V portable DATE OF EXAM: 10/29/2024 8:34 PM COMPARISON: Chest radiographs from 06/05/2024 CLINICAL INDICATION: Male, 74 years old with history of trauma; pain TECHNIQUE: XR chest 1V portable Frontal view of the chest. FINDINGS: Lungs/Pleura: There is no evidence of pleural effusion, focal consolidation, or pneumothorax. Pulmonary vascularity: Unremarkable. Heart/mediastinum: Cardiomediastinal silhouette is unremarkable. Musculoskeletal: No acute osseous pathology. There is fixation hardware in the lower cervical spine. IMPRESSION: 1. No acute cardiopulmonary disease/process. 2. 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 Consider at tention on follow-up CT imaging. [facility], , 10/29/2024 8:43 PM
[2024-10-29 20:57] LABS: Partial Thromboplastin Time 21.4 sec (22.0-30.0)
--- NOTE | 2024-10-29 21:35 | CT ---
EXAMINATION TYPE: CT brain cspine wo con CT DLP: Combined 1015.3 mGycm, Automated exposure control for dose reduction was used. DATE OF EXAM: 10/29/2024 8:59 PM COMPARISON: CT face from the same day. CT chest abdomen and pelvis 10/12/2024. CLINICAL INDICATION:Male, 74 years old with history of trauma; Pt [facility]. Family stated that pt was "out of it" for 1 minute after the fall. Pt has 1/2inch laceration to l eft eye. TECHNIQUE: Brain: Multiple axial CT images of the brain were obtained without IV contrast. Cspine: Axial CT images from the skull base to the inferior aspect of T2 we obtained without intraven ous contrast. Coronal and sagittal reformatted images were also reviewed. . FINDINGS: Brain: Extra-axial spaces: No abnormal extra-axial fluid collections. Ventricular system: Dilatation in proportion to cerebral atrophy. Cerebral parenchyma: Cerebral atrophy. No acute intraparenchymal hemorrhage or mass effect. The hameed -white junction is well differentiated. Scattered hypoattenuating areas are seen within the white mat ter. Cerebellum: Unremarkable. Mass effect: No evidence of midline shift. Intracranial vasculature: Atherosclerotic calcifications of the intracranial vessels. Soft tissues: Small area of attenuation in the left periorbital soft tissues Calvarium/osseous structures: No acute depressed skull fracture. Paranasal sinuses and mastoid air cells: Clear. Visualized orbits: Bilateral aphakia Cervical spine: Fracture: None. Osseous structures: Anterior fusion hardware changes seen spanning C3-C7. Multilevel degenerative che nges. Diffuse osteopenia partially visualized sclerotic changes involving T2 vertebral body which is better visualized on the chest abdomen pelvis CT in reference. Vertebral alignment: Within normal limits. Spinal canal/Neural Foramina: Postsurgical and degenerative changes of the cervical spine is present resulting in moderate spinal canal stenosis at multi levels most pronounced at C5-C6. No evidence for significant neural foraminal stenosis. Neck soft tissues: Prevertebral soft tissues are within normal limits. Other: The airway is patent. The lung apices are clear. IMPRESSION: 1. No acute intracranial process. 2. Nonspecific white matter changes, likely secondary to chronic small vessel ischemic disease. 3. Attenuation in the left periorbital soft tissues may relate to laceration. Correlate with exam. 4. No evidence of acute cervical spine fracture. 5. Postsurgical changes of the spine resulting in moderate spinal canal stenosis at multilevels most pronounced at C5-C6. This may also relate to anatomic/congenital narrow spinal canal. 6. Partially visualized T2 sclerotic lesion better seen on the CT chest abdomen pelvis study in refer ence. [facility], , 10/29/2024 9:33 PM
--- NOTE | 2024-10-29 21:41 | CT ---
EXAMINATION TYPE: CT facial bones wo con CT DLP: Combined 1015.3 mGycm, Automated exposure control for dose reduction was used. DATE OF EXAM: 10/29/2024 8:59 PM COMPARISON: CT head from the same day. CLINICAL INDICATION:Male, 74 years old with history of trauma; [facility], [place] [facility] [place] Family stated that pt was "out of it" for 1 minute after the fall. Pt has 1/2inch laceration to left eye. TECHNIQUE: Multiple unenhanced axial CT images were obtained of the facial bones soft tissue and bone windows. Coronal, axial and sagittal reformatted images were also provided in soft tissue and bone windows and submitted for interpretation. Additional 3-D reformatted images were obtained on a [employer] workstation. . Contrast used: mL of , (none if empty) Oral contrast used: (none if empty) FINDINGS: There is a mildly displaced noncomminuted fracture seen along the posterior aspect of the left maxill sapna sinus. There is associated small attenuated fusion in the left maxillary sinus. Left periorbital small area of attenuation is seen within the soft tissues. There is no evidence of other fracture, subluxation, dislocation, or significant soft tissue swelling . The orbital contents are unremarkable.The temporal-mandibular joints appear symmetric. The remainin g visualized portion of the paranasal sinuses appear clear. IMPRESSION: 1. Mildly displaced on comminuted fracture of the posterior left maxillary sinus with associated smal l hemorrhagic effusion. 2. Left periorbital small laceration suspected. Correlate with exam. [facility], , 10/29/2024 9:39 PM
--- NOTE | 2024-10-29 23:32 | XR ---
EXAMINATION TYPE: XR pelvis AP view DATE OF EXAM: 10/29/2024 8:34 PM CLINICAL INDICATION:Male, 74 years old with history of Trauma; [facility] COMPARISON: CT chest abdomen and pelvis 10/12/2024 TECHNIQUE: XR pelvis AP view, examined in a single projection. FINDINGS: No acute fractures or dislocations are appreciated. Degenerative changes of the bony pelvis and bilateral hips. Round sclerotic focus involving the right ischial bone measuring 1.6 cm is redem onstrated with associated cortical irregularity better visualized on the CT in reference. Partially v isualized nonspecific bowel gas pattern. Partially visualized surgical hardware of the lumbar spine. IMPRESSION: No acute fracture. Redemonstrated sclerotic lesion involving the right ischium better seen on CT in r eference. [facility], , 10/29/2024 11:29 PM
[2024-10-30] MEDS ORDERED: TOPICAL SKIN ADHESIVE 1 EACH AMP TOPICAL ONE (00:15)
[2024-10-30 00:55] VITALS: BP 136/77; PULSE 67; RESP 16; TEMP 97.8
== END 2024-10-30 00:55 | disposition home or self-care (01) ==
LOC: EC 20:06
DX: S02.401A Maxillary fracture, unspecified side, initial encounter for closed fracture (principal); Z87.891 Personal history of nicotine dependence; Z91.048 Other nonmedicinal substance allergy status; Z23 Encounter for immunization; W01.0XXA Fall on same level from slipping, tripping and stumbling without subsequent striking against object, initial encounter; Y92.019 Unspecified place in single-family (private) house as the place of occurrence of the external cause
CPT/HCPCS: 12011; 36415; 70450; 70486; 71045; 72125; 72170; 80053; 83605; 84484; 85025; 85610; 85730; 86850; 86900; 86901; 90471; 90715; 93005; 96360; 99285

== ENCOUNTER 2024-11-27 18:51 | Inpatient (IN) | payer MEDICARE ==
--- NOTE | 2024-11-27 19:44 | ED ---
General Adult HPI - General Chief complaint: Altered Mental Status Stated complaint: syncope Time Seen by Provider: 11/27/24 19:04 Source: EMS Mode of arrival: EMS Limitations: altered mental status - History of Present Illness Initial comments: Patient is a 74-year-old male with a past medical history of stage IV lung cancer presenting today for an episode of altered mental status. Patient was at his baseline throughout the day today and then this evening patient's went to the bedroom and then bathroom, his asked him what he was doing and he states that he was getting ready for bed, when his checked on him he seemed confused, she had the patient sit down and he became less responsive. He did not lose consciousness completely however he became pale and his became concerned so called their daughter 911. Upon patient's daughter's arrival she states that he was "tracking" noted his eye movements to be going back and forth and was less alert than normal. Patient's states that EMS had told her to lift his arms and various movements to assess for a stroke, pt's states at that time, he was unable to lift his arms, appear weaker on one side than the other however she cannot remember which side it was. Since this occurred patient symptoms have resolved. Of note after the onset of the symptoms started patient but did take a Viagra like medication but 's states this did not seem to impact his symptoms. Endorses intermittent mild lightheadedness and states that he has been dealing with ear issues for the last 2 weeks. He denies any headache, changes in vision, slurred speech, numbness, chest pain, shortness of breath, fevers, chills, diarrhea, black or bloody stools, abdominal pain. - Related Data Home Medications Medication Instructions Recorded Confirmed Folic Acid 1 mg PO DAILY@0700 08/30/14 11/28/24 Gabapentin [Neurontin] 800 mg PO TID@0700,1500,2300 08/30/14 11/28/24 Metoprolol Succinate 25 mg PO DAILY@0700 08/30/14 11/28/24 Omeprazole [PriLOSEC] 20 mg PO AC-BID 08/30/14 11/28/24 Pravastatin Sodium [Pravachol] 40 mg PO HS 08/30/14 11/28/24 calcitrioL 0.25 mcg PO FONTENOT 08/30/14 11/28/24 Calcium Carbonate/Vitamin D3 2 tab PO DAILY@1900 06/18/16 11/28/24 [Calcium 600-Vit D3 5 Mcg (200 Iu)] Doxazosin [Cardura] 4 mg PO BID@0700,19006/18/16 11/28/24 Losartan [Cozaar] 50 mg PO DAILY@19008/08/23 11/28/24 Magnesium 500 mg PO DAILY@189908/08/23 11/28/24 Latanoprost [Latanoprost 0.005%] 1 drop BOTH EYES HS 06/05/24 11/28/24 buPROPion SR [Wellbutrin SR] 150 mg PO BID@0700,189906/05/24 11/28/24 Potassium Chloride ER [K-Dur 10] 10 meq PO DAILY 11/28/24 11/28/24 predniSONE 5 mg PO BID@0700,189911/28/24 11/28/24 Previous Rx's Medication Instructions Recorded Metoclopramide HCl [Reglan] 10 mg PO AC-TID #30 tablet 02/22/24 Klsmkxxtzz-UUP-Hlhxshe-Codeine 1 cap PO BID PRN #6 cap 09/08/24 [Fiorinal w/Cod 48-300-00-30MG] HYDROcodone/APAP 10-325MG [[place] 1 tab PO QID PRN #12 tab 09/08/24 10-325] Morphine Sulfate [Ms Contin] 30 mg PO Q12HR #6 tab 09/08/24 Allergies Allergy/AdvReac Type Severity Reaction Status Date / Time adhesive Allergy Rash/Hives Verified 11/28/24 09:47 - paper tape ok Review of Systems ROS Statement: Those systems with pertinent positive or pertinent negative responses have been documented in the HPI. ROS Other: All systems not noted in ROS Statement are negative. Past Medical History Past Medical History: Cancer, GERD/Reflux, Hyperlipidemia, Hypertension, Musculoskeletal Disorder, Prostate Disorder, Rheumatoid Arthritis (RA) Additional Past Medical History / Comment(s): Degenerative Disc Disease. Enlarged prostate. lung cancer stage 4 History of Any Multi-Drug Resistant Organisms: None Reported Past Surgical History: Back Surgery, Orthopedic Surgery Additional Past Surgical History / Comment(s): Spinal fusion X2, laminectomy, BILATERAL TENNIS ELBOW SURGERY, LEFT HAND CARPAL TUNNEL SURGERY, TRIAL PAIN STIMULATORPLACED AND LATER REMOVED, Pain Procedures, bilateral cataracts removed. Past Anesthesia/Blood Transfusion Reactions: No Reported Reaction Past Psychological History: No Psychological Hx Reported Smoking Status: Former smoker Past Alcohol Use History: None Reported Past Drug Use History: None Reported - Past Family History Sister(s) Family Medical History: Cancer Additional Family Medical History / Comment(s): LUNG CANCER. General Exam - General Exam Comments Initial Comments: PE: CONSTITUTIONAL: No apparent distress, chronically ill-appearing, nontoxic SKIN: Warm, dry, no jaundice, hives or petechiae EYES: Pupils are equally round, extraocular movements intact without nystagmus, clear conjunctiva, non-icteric sclera HENT: Normocephalic, atraumatic, dry mucus membranes, oropharynx clear without exudates NECK: , Full range of motion, normal appearance PULMONARY: Clear to auscultation without wheezes, rhonchi, or rales, normal excursion, no accessory muscle use and no stridor CARDIOVASCULAR: Regular rate, rhythm, normal S1 and S2. No appreciated murmurs, rubs or gallops. Strong radial pulses with intact distal perfusion. No lower extremity edema GASTROINTESTINAL: Soft, active bowel sounds throughout, non-tender, non- distended, no palpable masses, no rebound or guarding. No hepatosplenomegaly GENITOURINARY: MUSCULOSKELETAL: Extremities have no gross deformity, no edema, redness, or swelling. No calf swelling NEUROLOGIC:_a/o x 3, GCS 15, normal mentation and speech; vertical nystagmus when examining EOM cranial nerves: II (visual [place] without defects), III, IV a nd (extraocular movements are intact, pupils are equal with normal reaction to light), V (intact facial sensation and jaw opening), VII (no facial droop), IX and X (normal palate movement, midline uvula, normal voice), XI (symmetrical shoulder shrug and lateral head rotation against resistance), XII (midline tongue protrusion). Motor strength is 5/in upper extremities, 4 out of 5 strength in bilateral lower extremities, patient states is chronic for him. No abnormal movements. Normal muscle tone. Sensation to light touch is intact bilaterally. No cerebellar signs (f [id number], normal) PSYCHIATRIC:_normal mood and affect, thought process is clear and linear Limitations: altered mental status Course Vital Signs 11/27/24 11/27/24 11/27/24 18:53 20:45 21:43 Temperature 98.1 F Pulse Rate 56 L 64 65 Pulse Rate [ [employer] Aide ] Respiratory 18 18 18 Rate Blood Pressure 133/119 79/48 98/51 Blood Pressure [Left Arm] Blood Pressure [Right Arm Sitting] Blood Pressure [Right Arm Standing] Blood Pressure [Right Arm Supine] O2 Sat by Pulse 98 97 97 Oximetry 11/27/24 11/28/24 11/28/24 21:54 00:58 03:02 Temperature Pulse Rate 64 71 64 Pulse Rate [ [employer] Aide ] Respiratory 18 16 16 Rate Blood Pressure 107/57 112/57 125/55 Blood Pressure [Left Arm] Blood Pressure [Right Arm Sitting] Blood Pressure [Right Arm Standing] Blood Pressure [Right Arm Supine] O2 Sat by Pulse 97 98 97 Oximetry 11/28/24 11/28/24 11/28/24 04:00 06:23 07:00 Temperature Pulse Rate 71 72 Pulse Rate [ 62 [employer] Shop Aide ] Respiratory 18 16 16 Rate Blood Pressure 121/61 109/65 Blood Pressure 126/82 [Left Arm] Blood Pressure [Right Arm Sitting] Blood Pressure [Right Arm Standing] Blood Pressure [Right Arm Supine] O2 Sat by Pulse 99 98 96 Oximetry 11/28/24 11/28/24 11/28/24 13:03 13:05 13:07 Temperature Pulse Rate Pulse Rate [ 65 63 66 [employer] Shop Aide ] Respiratory 16 Rate Blood Pressure Blood Pressure [Left Arm] Blood Pressure 124/66 [Right Arm Sitting] Blood Pressure 123/61 [Right Arm Standing] Blood Pressure 116/60 [Right Arm Supine] O2 Sat by Pulse 96 97 99 Oximetry Medical Decision Making - Medical Decision Making Was pt. sent in by a medical professional or institution (, PA, DRIER FEEDER, urgent care, hospital, or [facility]...) When possible be specific @ -No Did you speak to anyone other than the patient for history (EMS, parent, family, police, friend...)? What history was obtained from this source @ -With patient's daughter and at bedside, started as a neuro nurse and noticed that patient's he had abnormal extraocular movements while at home that has since resolved, of note patient's daughter is concerned that patient may have been having focal seizures when this occurred no history of seizures Did you review nursing and triage notes (agree or disagree)? Why? @ -I reviewed nursing and triage notes Were old charts reviewed (outside hosp., previous admission, EMS record, old EKG, old radiological studies, urgent care reports/EKG's, [facility] records)? Report findings @ -Medical records reviewed Differential Diagnosis (chest pain, altered mental status, abdominal pain women, abdominal pain men, vaginal bleeding, weakness, fever, dyspnea, syncope, headache, dizziness, GI bleed, back pain, seizure, CVA, palpatations, mental health, musculoskeletal)? Differential Altered Mental Status: Hypoglycemia, DKA, hypercapnia, medication reaction, infection, encephalitis, intracranial mass, psychosis, intercranial hemorrhage, hepatic encephalopathy, seizure, CVA, this is not meant to be an all-inclusive list EKG interpreted by me (3pts min.). @ -As above X-rays interpreted by me (1pt min.). No cardiomegaly, consolidations or pleural effusions CT interpreted by me (1pt min.). No evidence of hemorrhage or mass effect on CT brain , no evidence of large vessel occlusion or dissection on CTA U/S interpreted by me (1pt. min.). @ -None done What testing was considered but not performed or refused? (CT, X-rays, U/S, labs)? Why? @ -None What meds were considered but not given or refused? Why? @ -None Did you discuss the management of the patient with other professionals (dasia frye i.e. , PA, DRIER FEEDER, lab, RT, psych nurse, social media specialist, delivery lead, teacher, chief business officer, family caseworker)? Give summary @ -No Was smoking cessation discussed for >3mins.? @ -No Was critical care preformed (if so, how long)? @ -No Were there social determinants of health that impacted care today? How? (Homelessness, low income, unemployed, alcoholism, drug addiction, transportation, low edu. Level, literacy, decrease access to med. care, long term, rehab)? @ -No Was there de-escalation of care discussed even if they declined (Discuss DNR or withdrawal of care, Hospice)? @ -No What co-morbidities impacted this encounter? (DM, HTN, Smoking, COPD, CAD, Cancer, CVA, ARF, Chemo, Hep., AIDS, mental health diagnosis, sleep apnea, morbid obesity)? @ -Stage IV lung cancer, GERD, hypertension, hyperlipidemia Was patient admitted / discharged? Hospital course, mention meds given and route, prescriptions, significant lab abnormalities, going to OR and other pertinent info. @Admission -patient is a 74-year-old gentleman presenting today for an episode of altered mental status that has since resolved. Complete history and exam performed. Vital signs within acceptable limits on arrival. Patient has no focal deficits on my assessment though does have vertical nystagmus when testing extraocular movements. Differential diagnoses above, however with patient's history of stage IV lung cancer, I wonder if there are metastases to the brain that may have caused patient's earlier witnessed episode. Plan for CT brain, CTA, chest x-ray, comprehensive labs, anticipate admission. Patient and agreeable with plan of care. Labs and imaging reviewed. Grossly within normal limits. Updated patient and to findings. Discussed plan for admission for questionable TIA versus seizure workup. They are agreeable plan of care. Case was discussed with Dr. Chauhan, [facility] physicians, kindly accept patient for admission. Undiagnosed new problem with uncertain prognosis? @ -No Drug Therapy requiring intensive monitoring for toxicity (Heparin, Nitro, Insulin, Cardizem)? @ -No Were any procedures done? @ -No Diagnosis/symptom? @Altered mental status Acute, or Chronic, or Acute on Chronic? @acute Uncomplicated (without systemic symptoms) or Complicated (systemic symptoms)? @complicated Side effects of treatment? @ -No Exacerbation, Progression, or Severe Exacerbation? @ -No Poses a threat to life or bodily function? How? (Chest pain, USA, SD, pneumonia, PE, COPD, DKA, ARF, appy, cholecystitis, CVA, Diverticulitis, Homicidal, Suicidal, threat to staff... and all critical care pts) Yes , potentially - Lab Data Result diagrams: 11/29/24 04:17 11/29/24 04:17 Lab Results 11/27/24 11/27/24 11/27/24 Range/Units 20:11 20:11 20:11 WBC 3.9 (3.8-10.6) k/uL RBC 3.74 L (4.30-5.90) m/uL Hgb 11.0 L (13.0-17.5) gm/dL Hct 33.2 L (39.0-53.0) % MCV 88.9 (80.0-100.0) fL MCH 29.4 (25.0-35.0) pg MCHC 33.0 (31.0-37.0) g/dL RDW 15.0 (11.5-15.5) % Plt Count 133 L (150-450) k/uL MPV 6.9 Neutrophils % 66 % Lymphocytes % 23 % Monocytes % 7 % Eosinophils % 1 % Basophils % 1 % Neutrophils # 2.6 (1.3-7.7) k/uL Lymphocytes # 0.9 L (1.0-4.8) k/uL Monocytes # 0.3 (0-1.0) k/uL Eosinophils # 0.0 (0-0.7) k/uL Basophils # 0.0 (0-0.2) k/uL PT 10.0 (10.0-12.5) sec INR 0.9 (<1.2) APTT 21.5 L (22.0-30.0) sec Sodium 136 L (137-145) mmol/L Potassium 4.6 (3.5-5.1) mmol/L Chloride 102 (98-107) mmol/L Carbon Dioxide 29 (22-30) mmol/L Anion Gap 5 mmol/L BUN 28 H (9-20) mg/dL Creatinine 1.30 H (0.66-1.25) mg/dL Est GFR (CKD-EPI)AfAm 63 (>60 ml/min/1.73 sqM) Est GFR (CKD-EPI)NonAf 55 (>60 ml/min/1.73 sqM) Glucose 151 H (74-99) mg/dL POC Glucose (mg/dL) (70-110) mg/dL POC Glu Railroad Mechanic ID Calcium 8.6 (8.4-10.2) mg/dL Magnesium 2.4 H (1.6-2.3) mg/dL Total Bilirubin 0.1 L (0.2-1.3) mg/dL AST 34 (17-59) U/L ALT 44 (4-49) U/L Alkaline Phosphatase 196 H (38-126) U/L Ammonia (<30) umol/L Troponin I (0.000-0.034) ng/mL Total Protein 5.8 L (6.3-8.2) g/dL Albumin 3.3 L (3.5-5.0) g/dL 11/27/24 11/27/24 11/27/24 Range/Units 20:11 20:11 21:48 WBC (3.8-10.6) k/uL RBC (4.30-5.90) m/uL Hgb (13.0-17.5) gm/dL Hct (39.0-53.0) % MCV (80.0-100.0) fL MCH (25.0-35.0) pg MCHC (31.0-37.0) g/dL RDW (11.5-15.5) % Plt Count (150-450) k/uL MPV Neutrophils % % Lymphocytes % % Monocytes % % Eosinophils % % Basophils % % Neutrophils # (1.3-7.7) k/uL Lymphocytes # (1.0-4.8) k/uL Monocytes # (0-1.0) k/uL Eosinophils # (0-0.7) k/uL Basophils # (0-0.2) k/uL PT (10.0-12.5) sec INR (<1.2) APTT (22.0-30.0) sec Sodium (137-145) mmol/L Potassium (3.5-5.1) mmol/L Chloride (98-107) mmol/L Carbon Dioxide (22-30) mmol/L Anion Gap mmol/L BUN (9-20) mg/dL Creatinine (0.66-1.25) mg/dL Est GFR (CKD-EPI)AfAm (>60 ml/min/1.73 sqM) Est GFR (CKD-EPI)NonAf (>60 ml/min/1.73 sqM) Glucose (74-99) mg/dL POC Glucose (mg/dL) 101 (70-110) mg/dL POC Glu Railroad Mechanic ID ALEK JONES Calcium (8.4-10.2) mg/dL Magnesium (1.6-2.3) mg/dL Total Bilirubin (0.2-1.3) mg/dL AST (17-59) U/L ALT (4-49) U/L Alkaline Phosphatase (38-126) U/L Ammonia <9 (<30) umol/L Troponin I <0.012 (0.000-0.034) ng/mL Total Protein (6.3-8.2) g/dL Albumin (3.5-5.0) g/dL Disposition Clinical Impression: Altered mental status Disposition: ADMITTED IP TO THIS HOSP Condition: Stable
[2024-11-27] MEDS: SODIUM CHLORIDE 0.9% 1,000 ML IV ONE (20:25)
[2024-11-27 20:34] LABS: ALT 44 U/L (4-49); AST 34 U/L (17-59); African American GFR (CKD) 63 (>60 ml/min/1.73 sqM); Albumin 3.3 g/dL (3.5-5.0); Alkaline Phosphatase 196 U/L (38-126); Anion Gap 5 mmol/L; Blood Urea Nitrogen 28 mg/dL (9-20); Calcium 8.6 mg/dL (8.4-10.2); Carbon Dioxide 29 mmol/L (22-30); Chloride 102 mmol/L (98-107); Glucose 151 mg/dL (74-99); Magnesium 2.4 mg/dL (1.6-2.3); Non-African American GFR(CKD) 55 (>60 ml/min/1.73 sqM); Potassium 4.6 mmol/L (3.5-5.1); Sodium 136 mmol/L (137-145); Total Bilirubin 0.1 mg/dL (0.2-1.3); Total Protein 5.8 g/dL (6.3-8.2)
[2024-11-27 20:39] LABS: Basophils % (A) 1 %; Eosinophils % (A) 1 %; HCT 33.2 % (39.0-53.0); Lymphocytes # (A) 0.9 k/uL (1.0-4.8); Lymphocytes % (A) 23 %; MCH 29.4 pg (25.0-35.0); MCV 88.9 fL (80.0-100.0); Mean Platelet Volume 6.9; Monocytes # (A) 0.3 k/uL (0-1.0); Monocytes % (A) 7 %; Neutrophils # (A) 2.6 k/uL (1.3-7.7); Neutrophils % (A) 66 %; Platelet Count 133 k/uL (150-450); RBC 3.74 m/uL (4.30-5.90); WBC 3.9 k/uL (3.8-10.6)
[2024-11-27 20:41] LABS: INR 0.9 (<1.2); Partial Thromboplastin Time 21.5 sec (22.0-30.0)
--- NOTE | 2024-11-27 21:17 | XR ---
EXAMINATION TYPE: XR chest 2V DATE OF EXAM: 11/27/2024 8:54 PM COMPARISON: Chest radiographs from 10/29/2024 CLINICAL INDICATION: Male, 74 years old with history of altered mental status; [facility] TECHNIQUE: XR chest 2V Frontal and lateral views of the chest. FINDINGS: Lungs/Pleura: There is flattening of the diaphragm with increased lucency of the lungs. No evidence o f pneumothorax, pleural effusion or focal consolidation. Pulmonary vascularity: Unremarkable. Heart/mediastinum: Cardiomediastinal silhouette is unremarkable. Musculoskeletal: No acute osseous pathology. There is fixation hardware in the lower cervical spine. IMPRESSION: 1. No acute cardiopulmonary disease process. 2. COPD changes. [facility], , 11/27/2024 9:14 PM
--- NOTE | 2024-11-27 21:38 | CT ---
EXAMINATION TYPE: CT brain wo con DATE OF EXAM: 11/27/2024 9:31 PM COMPARISON: 10/29/2024. CLINICAL INDICATION: Male, 74 years old with history of hx CA, episode decreased responsiveness, Hx C A, episode decreased responsiveness. TECHNIQUE: Brain: Axial CT images of the brain were obtained with coronal and sagittal reformats created and rev iewed. Contrast used: None. Oral contrast used: None. CT DLP: 1127 mGycm, Automated exposure control for dose reduction was used. FINDINGS: Brain: Extra-axial spaces: No abnormal extra-axial fluid collections. Ventricular system: Within normal limits Cerebral parenchyma: No acute intraparenchymal hemorrhage or mass effect. The hameed-white junction is well differentiated. Cerebellum: Unremarkable. Mass effect: No evidence of midline shift. Intracranial vasculature: unremarkable Soft tissues: Normal. Calvarium/osseous structures: No depressed skull fracture. Paranasal sinuses and mastoid air cells: Mild scattered paranasal sinus disease. Right mastoid air ce ll effusion. Visualized orbits: Bilateral aphakia IMPRESSION: 1. No acute intracranial process. 2. Nonspecific white matter changes, likely secondary to chronic small vessel ischemic disease. 3..Right mastoid air cell effusion. [facility], , 11/27/2024 9:36 PM
[2024-11-27 21:49] LABS: Glucose,Whole Blood 101 mg/dL (70-110)
[2024-11-27] MEDS: MORPHINE SULFATE 4 MG/ML SYRINGE IVP STA (21:58)
--- NOTE | 2024-11-27 22:03 | CT ---
EXAMINATION TYPE: CT angio head neck DATE OF EXAM: 11/27/2024 9:32 PM COMPARISON: Same day CT head . CLINICAL INDICATION: Male, 74 years old with history of hx CA, AMS, vertical nystagmus; PHH, Hx CA, e pisode decreased responsiveness. TECHNIQUE: Axially acquired helical CT angiogram of the head and neck was obtained with contrast. Axi al images are supplemented with 3D reconstructions and MIP images which were post-processed at an in dependent workstation. NASCET criteria used. Contrast used:65 ml mL of Isovue 370 with IV Contrast, Oral contrast used: None. CT DLP: 440.8 mGycm, Automated exposure control for dose reduction was used. FINDINGS: CTA HEAD: No evidence of acute intracranial hemorrhage, mass effect, or midline shift. The ventricles, sulci, a nd cisterns are unremarkable. Vertebral arteries: The vertebral arteries are patent. Vertebral artery dominance: Codominant Basilar artery: The basilar artery is intact. The basilar artery bifurcation is normal. Internal Carotid arteries: The cervical, petrous, cavernous and supraclinoid segments are normal. YANELI: Patent with no evidence of aneurysm. ACOM: Present without evidence of aneurysm. MCA: Patent with no evidence of aneurysm. DELIVERY TECH: Patent with no evidence of aneurysm. PCOM: Hypoplastic bilaterally. Dural sinuses: Patent. CTA NECK: Right Carotid System: The common carotid and external carotid arteries are patent. There is less than 25% stenosis at the c arotid bifurcation secondary to calcified/noncalcified plaque. The rest of the internal carotid arter y is patent. Left Carotid System: The common carotid and external carotid arteries are patent. There is less than 25% stenosis at the c arotid bifurcation secondary to calcified/noncalcified plaque. The rest of the internal carotid arter y is patent. Vertebral arteries are patent without evidence hemodynamically significant stenosis. There is a three-vessel aortic arch. The origins of the great vessels are patent. No evidence of hemo dynamically significant stenosis. Upper thorax: Right upper lung mass measuring up to 18 mm in transverse dimension. More anterior opac ity in the inferior [id number] is also similar to 10/12/2024. Some atelectasis extending off the me dial right side of the upper mediastinum is present likely secondary to right upper lung mass. IMPRESSION: 1. No evidence of dissection of the cervical internal carotid arteries or vertebral arteries. 2. No any evidence of significant stenosis at the carotid bifurcations. 3. No evidence of intracranial high-grade stenosis or intracranial aneurysm. 4. Right upper lung mass not significantly changed possibly fractionally smaller from 10/12/2024 [facility], , 11/27/2024 10:01 PM
[2024-11-27] MEDS ORDERED: ONDANSETRON 4 MG/2 ML VIAL IVP PRN (22:23)
[2024-11-27] MEDS ORDERED: CALCIUM CARBONATE 500 MG CHEWABLE PO PRN (22:23)
[2024-11-27] MEDS ORDERED: MAG HYDROX/AL HYDROX/SIMETH 30 ML CUP PO PRN (22:23)
[2024-11-27] MEDS ORDERED: NALOXONE 0.4 MG/ML 1 ML VIAL IV PRN (22:23)
[2024-11-27] MEDS: MORPHINE SULFATE ER 30 MG TABLET PO STA (22:25)
--- NOTE | 2024-11-28 00:24 | P.HPIM ---
History of Present Illness H&P Date: 11/27/24 Chief Complaint: Altered Mental Status Patient is a 74-year-old male with past medical history of stage IV lung cancer (follows w/ Dr Stephenson just started back up on chemo last saturday was second treatment), hypertension, GERD, hyperlipidemia, and depression who presents to the ED with a chief complaint of altered mental status. Patient's is at the bedside and stated that they were at home when she noticed that the patient was not acting quite like himself. Shortly thereafter, the patient proceeded to take a pill similar to Viagra as was previously planned. She states he was in the bathroom for an extended period of time. His became concerned and had him sit down in his chair and at this point she states he was unresponsive and seemed like his eyes were glazed over. She also states he had slurred speech and was disoriented and she called 911. reports that she follow dispatcher's instructions and noted that he couldn't lift his arms, but denies any facial drooping when she asked him to smile. She also states he was dropped by EMS on bottom 2 steps, but denies any head trauma or LOC. Patient does report some lightheadedness when changing positions lying to sitting to standing. Denies history of strokes, seizures or use of blood thinners. Patient denies any chest pain, shortness of breath, nausea, vomiting, diarrhea, fevers, chills, or fecal or urinary incontinence. Vitals on admission temperature 98.1, heart rate 56 bpm, respiratory rate 18, blood pressure 133/119, O2 saturation 98% on room air EKG independently interpreted as sinus bradycardia, rate of 58 bpm and QTc of 419 ms, no acute ST wave changes suggestive of ischemia CXR shows no acute cardiopulmonary process, COPD changes CT of brain showed no acute intracranial process, nonspecific white matter changes, right mastoid air cell effusion CTA shows no evidence of dissection of the left cervical internal carotid arteries or vertebral arteries, no significant at the carotid bifurcations, no evidence of intracranial high-grade stenosis or intracranial aneurysm, right upper lung mass possibly smaller from prior scan Labs on admission show WBCs 3.9, hemoglobin 11, platelet 133. PT 10, INR 0.9, PTT 21.5. Sodium 136, potassium 4.6, chloride 102, BUN 28, creatinine 1.3, glucose 151. Calcium 8.6. Magnesium 2.4. AST 34, ALT 44, ALP 196. Review of systems: Pertinent positives and negatives as discussed in HPI, a complete review of systems was performed and all other systems are negative. Allergies:none PCP: Dr. Reji Nina Social history: Tobacco: former Alcohol: none Recreational drugs: marijuana for pain Travel: none Sick contacts: Physical examination: Vital signs reviewed General: nontoxic, no distress, appears at stated age Derm: warm, dry, intact Head: atraumatic, normocephalic, symmetric Eyes: anicteric sclera Mouth: no lip lesion, mucus membranes moist Cardiovascular: S1 S2 reg, no murmur Lungs: CTA bilateral, no rhonchi, no rales, no accessory muscle use Abdominal: soft, non-tender to palpation, nondistended Extremities: No cyanosis, clubbing, or pedal edema. Neuro: Alert, Oriented to person, time and place, Gross neurological examination did not reveal any focal deficits. Cranial nerves II to XII grossly intact. Bilateral upper and lower extremity muscle strength intact and sensation intact, no pronator drift noted Psych: well appearing, appropriate affect Assessment/Plan: Patient is a 74-year-old male with past medical history of stage IV lung cancer, hypertension, GERD, hyperlipidemia, and depression who presented to the ED with chief complaint of altered mental status. Case was discussed with ED physician and patient will be admitted to internal medicine service for further evaluation. Active: CVA/TIA(ABCD2 score 2 points) Continue aspirin 81 mg daily Initiate Lipitor 80 mg po once and qhs Neurochecks per protocol Consult neurology Consult PT/OT Consult speech therapy Echocardiogram with bubble study Cardiac monitoring Fall precautions Thrombocytopenia Suspect secondary to chemotherapy Monitor CBC for now Stage IV Lung cancer (on chemotherapy, following with Dr Stephenson) Consult Oncology Symptomatic sinus bradycardia versus orthostatic hypotension EKG independently interpreted as sinus bradycardia, rate of 58 bpm and QTc of 419 ms, no acute ST wave changes suggestive of ischemia Cardiac monitoring Obtain orthostatic vitals Follow-up echo Consult cardiology Acute kidney injury, possibly secondary to dehydration BUN 28, creatinine 1.3 Continue to monitor Continue 0.9% NS 75 mL/h Monitor BMP Follow up UA Consider Renal US if doesn't improve by am Hyponatremia, hypermagnesemia likely secondary to dehydration Sodium 136, magnesium 2.4 Continue to monitor Chronic: Hypertension, currently hypotensive Continue losartan 50 mg daily Hold metoprolol 25 mg due to bradycardia Hyperlipidemia Will hold Pravachol 40 mg p.o. at bedtime Continue high intensity statin GERD Continue Protonix 40 mg twice daily F: 0.9% NS at 75 mL/h E: Replete as needed N: Regular diet A: As tolerated DVT prophylaxis: Lovenox 40 mg subcu daily The patient is admitted with an anticipated more than 2 midnight stay for evaluation of altered mental status CODE STATUS: Full code Discussed with: Patient Anticipated discharge place: Pending clinical course Past Medical History Past Medical History: Cancer, GERD/Reflux, Hyperlipidemia, Hypertension, Musculoskeletal Disorder, Prostate Disorder, Rheumatoid Arthritis (RA) Additional Past Medical History / Comment(s): Degenerative Disc Disease. Enlarged prostate. lung cancer stage 4 History of Any Multi-Drug Resistant Organisms: None Reported Past Surgical History: Back Surgery, Orthopedic Surgery Additional Past Surgical History / Comment(s): Spinal fusion X2, laminectomy, BILATERAL TENNIS ELBOW SURGERY, LEFT HAND CARPAL TUNNEL SURGERY, TRIAL PAIN STIMULATORPLACED AND LATER REMOVED, Pain Procedures, bilateral cataracts removed. Past Anesthesia/Blood Transfusion Reactions: No Reported Reaction Past Psychological History: No Psychological Hx Reported Smoking Status: Former smoker Past Alcohol Use History: None Reported Past Drug Use History: None Reported - Past Family History Sister(s) Family Medical History: Cancer Additional Family Medical History / Comment(s): LUNG CANCER. Medications and Allergies Home Medications Medication Instructions Recorded Confirmed Type Ascorbic Acid [Vitamin C] 500 mg PO DAILY@1900 08/30/14 09/04/24 History Folic Acid 1 mg PO DAILY@0700 08/30/14 09/04/24 History Gabapentin [Neurontin] 800 mg PO TID@0700,1500,2300 08/30/14 09/04/24 History Metoprolol Succinate 25 mg PO DAILY@0700 08/30/14 09/04/24 History Omeprazole [PriLOSEC] 20 mg PO AC-BID 08/30/14 09/04/24 History Pravastatin Sodium [Pravachol] 40 mg PO HS 08/30/14 09/04/24 History calcitrioL 0.25 mcg PO FONTENOT 08/30/14 09/04/24 History Calcium Carbonate/Vitamin D3 2 tab PO DAILY@1900 06/18/16 09/04/24 History [Calcium 600-Vit D3 5 Mcg (200 Iu)] Doxazosin [Cardura] 4 mg PO BID@0700,1900 06/18/16 09/04/24 History predniSONE 5 mg PO DAILY@0700 06/18/16 09/04/24 History Losartan [Cozaar] 50 mg PO DAILY@1900 08/08/23 09/04/24 History Magnesium 500 mg PO DAILY@1900 08/08/23 09/04/24 History Metoclopramide HCl [Reglan] 10 mg PO AC-TID #30 tablet 02/22/24 09/04/24 Rx Latanoprost [Latanoprost 0.005%] 1 drop BOTH EYES HS 06/05/24 09/04/24 History Ondansetron [Zofran] 4 - 8 mg PO Q4H PRN MDD 32mg 06/05/24 09/04/24 History buPROPion SR [Wellbutrin SR] 150 mg PO BID@0700,1900 06/05/24 09/04/24 History Udebsshnux-FEV-Gbpzsdl-Codeine 1 cap PO BID PRN #6 cap 09/08/24 Rx [Fiorinal w/Cod 53-238-72-30MG] Gabapentin 800 mg PO TID 3 Days #9 tab 09/08/24 Rx HYDROcodone/APAP 10-325MG [[place] 1 tab PO QID PRN #12 tab 09/08/24 Rx 10-325] Morphine Sulfate [Ms Contin] 30 mg PO Q12HR #6 tab 09/08/24 Rx polyethylene glycoL 3350 [Miralax] 17 gm PO DAILY packet 09/08/24 Rx Amoxicillin 500 mg PO BID 10 Days #20 capsule 10/30/24 Rx Allergies Allergy/AdvReac Type Severity Reaction Status Date / Time adhesive Allergy Rash/Hives Verified 09/01/24 15:54 - paper tape ok Physical Exam Vitals: Vital Signs Temp Pulse Resp BP Pulse Ox 11/27/24 21:54 64 18 107/57 97 11/27/24 21:43 65 18 98/51 97 11/27/24 20:45 64 18 79/48 97 11/27/24 18:53 98.1 F 56 L 18 133/119 98 Intake and Output 11/27/24 11/27/24 11/27/24 06:59 14:59 22:59 Other: Weight 74.843 kg Results CBC & Chem 7: 11/27/24 20:11 11/27/24 20:11 Labs: Abnormal Lab Results - Last 24 Hours (Table) 11/27/24 11/27/24 11/27/24 Range/Units 20:11 20:11 20:11 RBC 3.74 L (4.30-5.90) m/uL Hgb 11.0 L (13.0-17.5) gm/dL Hct 33.2 L (39.0-53.0) % Plt Count 133 L (150-450) k/uL Lymphocytes # 0.9 L (1.0-4.8) k/uL APTT 21.5 L (22.0-30.0) sec Sodium 136 L (137-145) mmol/L BUN 28 H (9-20) mg/dL Creatinine 1.30 H (0.66-1.25) mg/dL Glucose 151 H (74-99) mg/dL Magnesium 2.4 H (1.6-2.3) mg/dL Total Bilirubin 0.1 L (0.2-1.3) mg/dL Alkaline Phosphatase 196 H (38-126) U/L Total Protein 5.8 L (6.3-8.2) g/dL Albumin 3.3 L (3.5-5.0) g/dL
[2024-11-28] MEDS: HYDROcodone/APAP 10-325MG 1 EACH TAB PO PRN (01:06)
[2024-11-28] MEDS: GABAPENTIN 400 MG CAP PO SCH ×2 (01:06→06:15)
[2024-11-28] MEDS: ATORVASTATIN 80 MG TAB PO STA (05:17)
[2024-11-28] MEDS: ASPIRIN 325 MG TAB PO STA (05:17)
[2024-11-28] MEDS: SODIUM CHLORIDE 0.9% 1,000 ML IV SCH (05:35)
[2024-11-28] MEDS: DOXAZOSIN 4 MG TAB PO SCH (06:15)
[2024-11-28] MEDS: buPROPion SR 150 MG TABLET.ER PO SCH (06:16)
[2024-11-28] MEDS: FOLIC ACID 1 MG TAB PO SCH (06:16)
[2024-11-28] MEDS: PANTOPRAZOLE 40 MG TABLET PO SCH (06:16)
[2024-11-28] MEDS: METOCLOPRAMIDE 10 MG TAB PO SCH (06:17)
[2024-11-28] MEDS ORDERED: METOPROLOL SUCCINATE (ER) 25 MG TAB.ER.24H PO SCH (07:00)
[2024-11-28] MEDS ORDERED: BUTA/APAP/CAF/COD 50-325-40-30 CAP PO PRN (09:00)
[2024-11-28 09:45] LABS: Calcium 8.2 mg/dL (8.7-10.3); Carbon Dioxide 24.7 mmol/L (21.6-31.8); Chloride 107 mmol/L (96-109); Glucose 80 mg/dL (70-110); Magnesium 2.1 mg/dL (1.5-2.4); Potassium 4.4 mmol/L (3.5-5.5); Sodium 140 mmol/L (135-145)
[2024-11-28] MEDS: ASPIRIN 81 MG PO SCH (09:55)
[2024-11-28] MEDS: MORPHINE SULFATE ER 30 MG TABLET PO SCH (09:55)
[2024-11-28 09:56] LABS: HCT 31.2 % (39.6-50.0); HGB 9.6 g/dL (13.0-17.0); MCH 28.2 pg (27.0-32.0); MCHC 30.8 g/dL (32.0-37.0); MCV 91.8 FL (80.0-97.0); Mean Platelet Volume 9.7 FL (9.5-12.2); NRBC Per 100 WBC 0 X 10*3/uL (0.00-0.01); Platelet Count 139 X 10*3/uL (140-440); RDW 15.4 % (11.5-14.5); WBC 4.81 X 10*3/uL (4.50-10.00)
[2024-11-28] MEDS: polyethylene glycoL 3350 17 GM POWD.PACK PO SCH (09:56)
[2024-11-28] MEDS: ENOXAPARIN 40 MG/0.4 ML SYRINGE SQ SCH (09:56)
--- NOTE | 2024-11-28 10:10 | P.CRDCN ---
History of Present Illness Consult date: 11/28/24 History of present illness: HISTORY OF PRESENTING ILLNESS: 74-year-old male with past medical history of stage IV lung cancer currently getting chemotherapy with Dr. Barahona, history of hypertension, GERD dyslipidemia. He presented to the emergency department because of concerns of altered mental status. Patient's reported that there was some question about slurred speech. Apparently patient took a similar pill to Viagra and thereafter noticed that patient was unresponsive and his eyes were glazed over. He was not able to lift his arm but there was no facial droop reported. There was also some concerns of slurred speech. This is as per the . As per the patient he feels that he was at his normal self. He denies any symptoms of chest pain chest pressure or shortness of breath. He has not had any recent cardiac workup Admission Cardiac Labs: Troponins were negative, Hb 11, BUN 28, creatinine 1.3, repeat BUN 25, creatinine 1, Admission testing: EKG shows normal sinus pericardia heart rate 58, no significant ST or T wave changes concerning for ischemia Chest x-ray does not show any acute congestion or consolidation CT head did not show any new acute intracranial process. CTA neck did not show any significant dissection or stenosis. REVIEW OF SYSTEMS: 14 point review of system is negative except what is mentioned above in HPI. PHYSICAL EXAMINATION: Neck: Brisk carotid upstroke, no jugular venous distention. Lungs: Clear to auscultation. Heart: Regular rate and rhythm, S1-S2, , no murmur or rub. Abdomen: Soft nontender, positive bowel sounds. Extremities: No edema, intact distal pulses. Neuro: Alert, oritented, no focal deficits. Detailed neuro exam was not performed. ASSESSMENT: # Slurred speech and mild confusion, likely TIA # Stage IV lung cancer currently on chemotherapy # Essential hypertension # Dyslipidemia PLAN: Obtain echocardiogram with bubble study Obtain a 30-day event monitor to rule out any underlying atrial fibrillation or any other arrhythmias Start aspirin, statin Obtain orthostatic vital signs prior to discharge Obtain neurological consult if primary team agrees Lb Sanchez MD, FACC, RPVI Thank you for allowing [facility] to participate in this patient's care. Feel free to reach out in case of any followup questions. Past Medical History Past Medical History: Cancer, GERD/Reflux, Hyperlipidemia, Hypertension, Musculoskeletal Disorder, Prostate Disorder, Rheumatoid Arthritis (RA) Additional Past Medical History / Comment(s): Degenerative Disc Disease. Enlarged prostate. lung cancer stage 4 History of Any Multi-Drug Resistant Organisms: None Reported Past Surgical History: Back Surgery, Orthopedic Surgery Additional Past Surgical History / Comment(s): Spinal fusion X2, laminectomy, BILATERAL TENNIS ELBOW SURGERY, LEFT HAND CARPAL TUNNEL SURGERY, TRIAL PAIN STIMULATORPLACED AND LATER REMOVED, Pain Procedures, bilateral cataracts removed. Past Anesthesia/Blood Transfusion Reactions: No Reported Reaction Past Psychological History: No Psychological Hx Reported Smoking Status: Former smoker Past Alcohol Use History: None Reported Past Drug Use History: None Reported - Past Family History Sister(s) Family Medical History: Cancer Additional Family Medical History / Comment(s): LUNG CANCER. Medications and Allergies Home Medications Medication Instructions Recorded Confirmed Type Folic Acid 1 mg PO DAILY@0700 08/30/14 11/28/24 History Gabapentin [Neurontin] 800 mg PO TID@0700,1500,2300 08/30/14 11/28/24 History Metoprolol Succinate 25 mg PO DAILY@0700 08/30/14 11/28/24 History Omeprazole [PriLOSEC] 20 mg PO AC-BID 08/30/14 11/28/24 History Pravastatin Sodium [Pravachol] 40 mg PO HS 08/30/14 11/28/24 History calcitrioL 0.25 mcg PO FONTENOT 08/30/14 11/28/24 History Calcium Carbonate/Vitamin D3 2 tab PO DAILY@189906/18/16 11/28/24 History [Calcium 600-Vit D3 5 Mcg (200 Iu)] Doxazosin [Cardura] 4 mg PO BID@0700,189906/18/16 11/28/24 History Losartan [Cozaar] 50 mg PO DAILY@189908/08/23 11/28/24 History Magnesium 500 mg PO DAILY@189908/08/23 11/28/24 History Metoclopramide HCl [Reglan] 10 mg PO AC-TID #30 tablet 02/22/24 11/28/24 Rx Latanoprost [Latanoprost 0.005%] 1 drop BOTH EYES HS 06/05/24 11/28/24 History buPROPion SR [Wellbutrin SR] 150 mg PO BID@0700,0 06/05/24 11/28/24 History Yvnsyksboo-GML-Hrizeew-Codeine 1 cap PO BID PRN #6 cap 09/08/24 11/28/24 Rx [Fiorinal w/Cod 46-691-80-30MG] HYDROcodone/APAP 10-325MG [[place] 1 tab PO QID PRN #12 tab 09/08/24 11/28/24 Rx 10-325] Morphine Sulfate [Ms Contin] 30 mg PO Q12HR #6 tab 09/08/24 11/28/24 Rx Potassium Chloride ER [K-Dur 10] 10 meq PO DAILY 11/28/24 11/28/24 History predniSONE 5 mg PO BID@0700,1900 11/28/24 11/28/24 History Allergies Allergy/AdvReac Type Severity Reaction Status Date / Time adhesive Allergy Rash/Hives Verified 11/28/24 09:47 - paper tape ok Physical Exam Vitals: Vital Signs Temp Pulse Resp BP Pulse Ox 11/28/24 06:23 72 16 109/65 98 11/28/24 04:00 71 18 121/61 99 11/28/24 03:02 64 16 125/55 97 11/28/24 00:58 71 16 112/57 98 11/27/24 21:54 64 18 107/57 97 11/27/24 21:43 65 18 98/51 97 11/27/24 20:45 64 18 79/48 97 11/27/24 18:53 98.1 F 56 L 18 133/119 98 Intake and Output 11/27/24 11/28/24 11/28/24 22:59 06:59 14:59 Other: Weight 74.843 kg Results 11/28/24 06:01 11/28/24 06:01 Cardiac Enzymes 11/27/24 11/27/24 11/28/24 Range/Units 20:11 20:11 00:12 AST 34 (17-59) U/L Troponin I <0.012 <0.012 (0.000-0.034) ng/mL Coagulation 11/27/24 Range/Units 20:11 PT 10.0 (10.0-12.5) sec APTT 21.5 L (22.0-30.0) sec CBC 11/27/24 11/28/24 Range/Units 20:11 06:01 WBC 3.9 4.81 (3.8-10.6) k/uL RBC 3.74 L 3.40 L (4.30-5.90) m/uL Hgb 11.0 L 9.6 L (13.0-17.5) gm/dL Hct 33.2 L 31.2 L (39.0-53.0) % Plt Count 133 L 139 L (150-450) k/uL Comprehensive Metabolic Panel 11/27/24 11/28/24 Range/Units 20:11 06:01 Sodium 136 L 140 (137-145) mmol/L Potassium 4.6 4.4 (3.5-5.1) mmol/L Chloride 102 107 (98-107) mmol/L Carbon Dioxide 29 24.7 (22-30) mmol/L BUN 28 H 25.0 (9-20) mg/dL Creatinine 1.30 H 1.0 (0.66-1.25) mg/dL Glucose 151 H 80 (74-99) mg/dL Calcium 8.6 8.2 L (8.4-10.2) mg/dL AST 34 (17-59) U/L ALT 44 (4-49) U/L Alkaline Phosphatase 196 H (38-126) U/L Total Protein 5.8 L (6.3-8.2) g/dL Albumin 3.3 L (3.5-5.0) g/dL Current Medications Generic Name Dose Route Start Last Admin Trade Name Freq PRN Reason Stop Dose Admin Acetam/Butalbital/Caffeine/Codeine 1 each 11/28/24 09:00 [place]/Apap/Caf/Cod 78-987-03-30 Cap PO BID PRN Migraine Headache Hydrocodone Bitart/Acetaminophen 1 each 11/27/24 22:21 11/28/24 06:20 Hydrocodone/Apap 10-325mg 1 Each Tab PO 1 each QID PRN Administration Pain Al Hydroxide/Mg Hydroxide 15 ml 11/27/24 22:23 Mag Hydrox/Al Hydrox/Simeth 30 Ml Cup PO Q6HR PRN Indigestion Aspirin 81 mg 11/28/24 09:00 11/28/24 09:55 Aspirin 81 Mg PO 81 mg DAILY CATHERINE Administration Atorvastatin Calcium 80 mg 11/28/24 21:00 Atorvastatin 80 Mg Tab PO HS CATHERINE Bupropion HCl 150 mg 11/28/24 07:00 11/28/24 06:16 Bupropion Sr 150 Mg Tablet.Er PO 150 mg BID@0700,1900 [facility] Administration Calcium Carbonate/Glycine 1,000 mg 11/27/24 22:23 Calcium Carbonate 500 Mg Chewable PO Q4HR PRN Dyspepsia Doxazosin Mesylate 4 mg 11/28/24 07:00 11/28/24 06:15 Doxazosin 4 Mg Tab PO 4 mg BID@0700,1900 [facility] Administration Enoxaparin Sodium 40 mg 11/28/24 09:00 11/28/24 09:56 Enoxaparin 40 Mg/0.4 Ml Syringe SQ 40 mg DAILY CATHERINE Administration Folic Acid 1 mg 11/28/24 07:00 11/28/24 06:16 Folic Acid 1 Mg Tab PO 1 mg DAILY@0700 [facility] Administration Gabapentin 800 mg 11/28/24 09:00 11/28/24 06:15 Gabapentin 400 Mg Cap PO 800 mg TID CATHERINE Administration Gabapentin 800 mg 11/27/24 23:00 11/28/24 06:22 Gabapentin 400 Mg Cap PO Not Given TID@0700,1500,2300 [facility] Sodium Chloride 1,000 mls @ 75 mls/hr 11/28/24 02:45 11/28/24 05:35 Saline 0.9% IV 75 mls/hr .[id number] [facility] Administration Losartan Potassium 50 mg 11/28/24 19:00 Losartan 50 Mg Tab PO DAILY@1900 [facility] Metoclopramide HCl 10 mg 11/28/24 07:30 11/28/24 06:17 Metoclopramide 10 Mg Tab PO 10 mg AC-TID CATHERINE Administration Morphine Sulfate 30 mg 11/28/24 09:00 11/28/24 09:55 Morphine Sulfate Er 30 Mg Tablet PO 30 mg Q12HR [facility] Administration Protocol Naloxone HCl 0.2 mg 11/27/24 22:23 Naloxone 0.4 Mg/Ml 1 Ml Vial IV Q2M PRN Opioid Reversal Ondansetron HCl 4 mg 11/27/24 22:23 Ondansetron 4 Mg/2 Ml Vial IVP Q8HR PRN Nausea And Vomiting Pantoprazole Sodium 40 mg 11/28/24 07:30 11/28/24 06:16 Pantoprazole 40 Mg Tablet PO 40 mg AC-BID CATHERINE Administration Polyethylene Glycol 17 gm 11/28/24 09:00 11/28/24 09:56 Polyethylene Glycol 3350 17 Gm Powd.Pack PO 17 gm DAILY CATHERINE Administration Intake and Output 11/27/24 11/28/24 11/28/24 22:59 06:59 14:59 Other: Weight 74.843 kg 11/28/24 06:01 11/28/24 06:01
[2024-11-28 10:46] LABS: Magnesium 2.2 mg/dL (1.6-2.3)
[2024-11-28 10:54] LABS: Basophils # (M) 0.05 X 10*3/uL (0.00-0.10); Eosinophils # (M) 0.05 X 10*3/uL (0.04-0.35); Lymphocytes # (M) 0.91 X 10*3/uL (0.90-5.00); Monocytes # (M) 0.67 X 10*3/uL (0.20-1.00); Myelocytes % 1 % (0-0); Neutrophils # (M) 3.03 X 10*3/uL (1.80-7.70); Neutrophils % (M) 63 %; Promyelocytes # (M) 0.05 k/uL (0); Promyelocytes % 1 %
[2024-11-28 10:57] LABS: NT-Pro-B-Type Natriuretic Pept 34 pg/mL
--- NOTE | 2024-11-28 11:24 | P.CNNES ---
History of Present Illness Consult date: 11/28/24 Reason for Consult: Seizure versus TIA Chief complaint: Altered mental status History of Present Illness: The patient is a 74-year-old male who was seen in neurologic consultation on November 28, 2024, in collaboration with Caitlyn Alarcon, via teleneurology. History is obtained from review of the chart as well as from the patient. Patient is unable to provide a good history. I did attempt to call the patient's . Was unable to contact her. According to review of the chart, the patient was at home, getting ready for bed. He was reportedly in the bathroom. His found him confused and poorly responsive. She apparently called her granddaughter, as well as EMS. The granddaughter reported that the patient's eyes were not tracking. They were also reportedly moving [id number]. There was concern for seizure. In addition, the patient reportedly had slurred speech. There is no reported lateralizing weakness or facial droop. The patient reports that that he was sitting in the living room, on his walker, just having a conversation with his . This was reportedly around 6 PM. Unfortunately, this is not the history that is reported in either the history and physical or emergency department note. The patient reports that he recalls the ride in the ambulance to the hospital. He reports remembering being in the emergency department. He does not recall his calling EMS or his grandd ginnahter. Patient denies fall and loss of consciousness. There is no tongue biting or loss of bowel or bladder control. The patient denies a history of seizure. The patient reports having two "episodes, related to dehydration". He also reports that his right knee "gave out". According to the patient's nurse, she received reports that the patient was found "in bed, unresponsive". The patient reportedly has a history of lung cancer as well as rheumatoid arthritis. In the emergency department, CT scan of the brain was performed. There is no reported evidence of acute hemorrhage or infarct. CT angiogram of the head and neck was also performed. There is no reported significant stenosis or large vessel occlusion. Past Medical History Past Medical History: Cancer, GERD/Reflux, Hyperlipidemia, Hypertension, Musculoskeletal Disorder, Prostate Disorder, Rheumatoid Arthritis (RA) Additional Past Medical History / Comment(s): Degenerative Disc Disease. Enlarged prostate. lung cancer stage 4 History of Any Multi-Drug Resistant Organisms: None Reported Past Surgical History: Back Surgery, Orthopedic Surgery Additional Past Surgical History / Comment(s): Spinal fusion X2, laminectomy, BILATERAL TENNIS ELBOW SURGERY, LEFT HAND CARPAL TUNNEL SURGERY, TRIAL PAIN STIMULATORPLACED AND LATER REMOVED, Pain Procedures, bilateral cataracts removed. Past Anesthesia/Blood Transfusion Reactions: No Reported Reaction Past Psychological History: No Psychological Hx Reported Smoking Status: Former smoker Past Alcohol Use History: None Reported Past Drug Use History: None Reported - Past Family History Sister(s) Family Medical History: Cancer Additional Family Medical History / Comment(s): LUNG CANCER. Medications and Allergies Home Medications Medication Instructions Recorded Confirmed Type Folic Acid 1 mg PO DAILY@0700 08/30/14 11/28/24 History Gabapentin [Neurontin] 800 mg PO TID@0700,1500,2300 08/30/14 11/28/24 History Metoprolol Succinate 25 mg PO DAILY@0700 08/30/14 11/28/24 History Omeprazole [PriLOSEC] 20 mg PO AC-BID 08/30/14 11/28/24 History Pravastatin Sodium [Pravachol] 40 mg PO HS 08/30/14 11/28/24 History calcitrioL 0.25 mcg PO FONTENOT 08/30/14 11/28/24 History Calcium Carbonate/Vitamin D3 2 tab PO DAILY@189906/18/16 11/28/24 History [Calcium 600-Vit D3 5 Mcg (200 Iu)] Doxazosin [Cardura] 4 mg PO BID@0700,1900 06/18/16 11/28/24 History Losartan [Cozaar] 50 mg PO DAILY@189908/08/23 11/28/24 History Magnesium 500 mg PO DAILY@189908/08/23 11/28/24 History Metoclopramide HCl [Reglan] 10 mg PO AC-TID #30 tablet 02/22/24 11/28/24 Rx Latanoprost [Latanoprost 0.005%] 1 drop BOTH EYES HS 06/05/24 11/28/24 History buPROPion SR [Wellbutrin SR] 150 mg PO BID@0700,1900 06/05/24 11/28/24 History Tnmbvlxbja-RSJ-Vecfcwu-Codeine 1 cap PO BID PRN #6 cap 09/08/24 11/28/24 Rx [Fiorinal w/Cod 51-054-27-30MG] HYDROcodone/APAP 10-325MG [Carson 1 tab PO QID PRN #12 tab 09/08/24 11/28/24 Rx 10-325] Morphine Sulfate [Ms Contin] 30 mg PO Q12HR #6 tab 09/08/24 11/28/24 Rx Potassium Chloride ER [K-Dur 10] 10 meq PO DAILY 11/28/24 11/28/24 History predniSONE 5 mg PO BID@0700,1900 11/28/24 11/28/24 History Allergies Allergy/AdvReac Type Severity Reaction Status Date / Time adhesive Allergy Rash/Hives Verified 11/28/24 09:47 - paper tape ok Physical Examination - Vital Signs Vital Signs: Vital Signs Temp Pulse Resp BP Pulse Ox 11/28/24 06:23 72 16 109/65 98 11/28/24 04:00 71 18 121/61 99 11/28/24 03:02 64 16 125/55 97 11/28/24 00:58 71 16 112/57 98 11/27/24 21:54 64 18 107/57 97 11/27/24 21:43 65 18 98/51 97 11/27/24 20:45 64 18 79/48 97 11/27/24 18:53 98.1 F 56 L 18 133/119 98 Intake and Output 11/27/24 11/28/24 11/28/24 22:59 06:59 14:59 Other: Weight 74.843 kg General: The patient is well-nourished, well-developed and in no acute distress HEENT: Head is atraumatic, normocephalic. Fundus not visualized. There is no scleral icterus. Mucous members are moist. Neck: Supple without carotid bruits Heart: Regular rate and rhythm Lungs: Essentially clear to auscultation Extremities: With edema involving the right lower extremity but Neurological examination Mental status: The patient awake, alert and oriented x 3. His speech is clear. There is no dysarthria or aphasia. Cranial nerves: Pupils are equal, round and reactive to light. Visual [place]by are full to confrontation. Extraocular movements are intact. Facial sensation is intact. There is no facial asymmetry. Hearing is grossly intact. Uvula and palate are midline. Shoulder shrug is symmetric. Tongue protrudes midline. Motor: Strength is 5/5 throughout, with the exception of the right hip flexor at 3/5 and left hip flexor at 4/5. Sensation: Intact to light touch throughout. There is no extinction with double simultaneous stimulation. Coordination: Ygewwk-sy-euyt, rapid alternating movements and ocks-cb-vpau test ing are intact. There is no pronator drift. Deep tendon reflexes: 2+/4+ throughout. Plantar responses are flexor bilaterally. Gait: Not assessed Results - Laboratory Findings CBC and BMP: 11/28/24 06:01 11/28/24 06:01 Abnormal Lab Findings: Abnormal Labs 11/27/24 11/27/24 11/27/24 20:11 20:11 20:11 RBC 3.74 L Hgb 11.0 L Hct 33.2 L Plt Count 133 L Lymphocytes # 0.9 L APTT 21.5 L Sodium 136 L BUN 28 H Creatinine 1.30 H Glucose 151 H Magnesium 2.4 H Total Bilirubin 0.1 L Alkaline Phosphatase 196 H Total Protein 5.8 L Albumin 3.3 L Assessment and Plan Assessment: 1. Episode of altered mental status with reported associated abnormal eye movements, as well as loss of time/amnesia regarding the event: Possible partial complex seizure versus TIA-less likely 2. Stage IV lung cancer 3. Hyperlipidemia 4. Hypertension 5. Rheumatoid arthritis 6. Acute kidney injury Plan: 1. MRI of the brain with and without gadolinium has been ordered to assess for possible brain metastasis related to lung cancer, as etiology for seizure 2. EEG has been ordered 3. Continue current, home medications 4. Avoid sedating medications 5. Agree with checking orthostatic vitals 6. Agree with stroke workup Time with Patient: Greater than 30 (60 minutes were spent caring for this patient today including, obtaining a history, examining the patient, reviewing imaging, chart documentation, labs, placing orders and creating this note)
--- NOTE | 2024-11-28 12:40 | P.PN ---
Subjective Progress Note Date: 11/28/24 Principal diagnosis: Altered mental status Patient is a 74-year-old male with past medical history of stage IV lung cancer (follows w/ Dr Stephenson just started back up on chemo last saturday was second treatment), hypertension, GERD, hyperlipidemia, and depression who presents to the ED with a chief complaint of altered mental status. Patient's is at the bedside and stated that they were at home when she noticed that the patient was not acting quite like himself. Shortly thereafter, the patient proceeded to take a pill similar to Viagra as was previously planned. She states he was in the bathroom for an extended period of time. His became concerned and had him sit down in his chair and at this point she states he was unresponsive and seemed like his eyes were glazed over. She also states he had slurred speech and was disoriented and she called 911. reports that she follow dispatcher's instructions and noted that he couldn't lift his arms, but denies any facial drooping when she asked him to smile. She also states he was dropped by EMS on bottom 2 steps, but denies any head trauma or LOC. Patient does report some lightheadedness when changing positions lying to sitting to standing. Denies history of strokes, seizures or use of blood thinners. Patient denies any chest pain, shortness of breath, nausea, vomiting, diarrhea, fevers, chills, or fecal or urinary incontinence. Vitals on admission temperature 98.1, heart rate 56 bpm, respiratory rate 18, blood pressure 133/119, O2 saturation 98% on room air EKG independently interpreted as sinus bradycardia, rate of 58 bpm and QTc of 419 ms, no acute ST wave changes suggestive of ischemia CXR shows no acute cardiopulmonary process, COPD changes CT of brain showed no acute intracranial process, nonspecific white matter changes, right mastoid air cell effusion CTA shows no evidence of dissection of the left cervical internal carotid arteries or vertebral arteries, no significant at the carotid bifurcations, no evidence of intracranial high-grade stenosis or intracranial aneurysm, right upper lung mass possibly smaller from prior scan Labs on admission show WBCs 3.9, hemoglobin 11, platelet 133. PT 10, INR 0.9, PTT 21.5. Sodium 136, potassium 4.6, chloride 102, BUN 28, creatinine 1.3, glucose 151. Calcium 8.6. Magnesium 2.4. AST 34, ALT 44, ALP 196. 11/28/2024 Patient seen and examined at bedside. No events overnight. He has no complaints of symptoms at this time. He is awaiting echocardiogram, MRI of brain and EEG. He is being monitored closely by cardiology, oncology and neurology Review of systems: Pertinent positives and negatives as discussed in HPI, a complete review of systems was performed and all other systems are negative. Allergies:none PCP: Dr. Reji Nina Social history: Tobacco: former Alcohol: none Recreational drugs: marijuana for pain Travel: none Sick contacts: Physical examination: Vital signs reviewed General: nontoxic, no distress, appears at stated age Derm: warm, dry, intact Head: atraumatic, normocephalic, symmetric Eyes: anicteric sclera Mouth: no lip lesion, mucus membranes moist Cardiovascular: S1 S2 reg, no murmur Lungs: CTA bilateral, no rhonchi, no rales, no accessory muscle use Abdominal: soft, non-tender to palpation, nondistended Extremities: No cyanosis, clubbing, or pedal edema. Neuro: Alert, Oriented to person, time and place, Gross neurological examination did not reveal any focal deficits. Cranial nerves II to XII grossly intact. Bilateral upper and lower extremity muscle strength intact and sensation intact, no pronator drift noted Psych: well appearing, appropriate affect Labs today significant for hemoglobin 9.6, sodium 140, calcium 8.2, troponin negative, lipid panel pending Assessment/Plan: Patient is a 74-year-old male with past medical history of stage IV lung cancer, hypertension, GERD, hyperlipidemia, and depression who presented to the ED with chief complaint of altered mental status. Case was discussed with ED physician and patient will be admitted to internal medicine service for further evaluation. Active: CVA/TIA(ABCD2 score 2 points) Continue aspirin 81 mg daily Initiate Lipitor 80 mg po once and qhs Neurochecks per protocol Consult neurology Consult PT/OT Consult speech therapy Echocardiogram with bubble study MRI brain pending Cardiac monitoring Fall precautions Symptomatic sinus bradycardia versus orthostatic hypotension EKG independently interpreted as sinus bradycardia, rate of 58 bpm and QTc of 419 ms, no acute ST wave changes suggestive of ischemia Cardiac monitoring Begin daily aspirin and statin Obtain orthostatic vitals Follow-up echo Discussed with cardiology, plan for 30-day event monitor Thrombocytopenia Normocytic anemia Suspect secondary to chemotherapy Monitor CBC for now Stage IV Lung cancer (on chemotherapy, following with Dr Stephenson) Consult Oncology Acute kidney injury, possibly secondary to dehydration, resolved Continue 0.9% NS 75 mL/h Hyponatremia, hypermagnesemia likely secondary to dehydration, improved Sodium 136, magnesium 2.4 Continue to monitor Chronic: Hypertension, currently hypotensive Continue losartan 50 mg daily Hold metoprolol 25 mg due to bradycardia Hyperlipidemia Will hold Pravachol 40 mg p.o. at bedtime Continue high intensity statin GERD Continue Protonix 40 mg twice daily F: PO E: Replete as needed N: Regular diet A: As tolerated DVT prophylaxis: Lovenox 40 mg subcu daily CODE STATUS: Full code Discussed with: Patient Anticipated discharge place: Pending clinical course I have seen and evaluated the patient today. Discussed with the resident and agree with the residents finding and plan as documented in the resident's note. Changes highlighted in blue font. Objective - Vital Signs Vital signs: Vital Signs Temp 98.1 F 11/27/24 18:53 Pulse 72 11/28/24 06:23 Resp 16 11/28/24 06:23 BP 109/65 11/28/24 06:23 Pulse Ox 98 11/28/24 06:23 FiO2 Intake & Output 11/27/24 11/28/24 11/28/24 18:59 06:59 18:59 Weight 74.843 kg - Labs CBC & Chem 7: 11/28/24 06:01 11/28/24 06:01 Labs: Abnormal Lab Results - Last 24 Hours (Table) 11/27/24 11/27/24 11/27/24 Range/Units 20:11 20:11 20:11 RBC 3.74 L (4.30-5.90) m/uL Hgb 11.0 L (13.0-17.5) gm/dL Hct 33.2 L (39.0-53.0) % Plt Count 133 L (150-450) k/uL Lymphocytes # 0.9 L (1.0-4.8) k/uL APTT 21.5 L (22.0-30.0) sec Sodium 136 L (137-145) mmol/L BUN 28 H (9-20) mg/dL Creatinine 1.30 H (0.66-1.25) mg/dL Glucose 151 H (74-99) mg/dL Magnesium 2.4 H (1.6-2.3) mg/dL Total Bilirubin 0.1 L (0.2-1.3) mg/dL Alkaline Phosphatase 196 H (38-126) U/L Total Protein 5.8 L (6.3-8.2) g/dL Albumin 3.3 L (3.5-5.0) g/dL
[2024-11-28 17:28] LABS: Appearance,Urine Clear (Clear); Bilirubin,Urine Negative (Negative); Blood,Urine Negative (Negative); Color,Urine Yellow; Glucose,Urine (UA) Negative (Negative); Ketones,Urine Negative (Negative); Leukocyte Esterase,Urine Negative (Negative); Nitrite,Urine Negative (Negative); Protein,Urine Negative (Negative); Specific Gravity,Urine 1.023 (1.001-1.035); Urobilinogen,Urine <2.0 mg/dL (<2.0)
[2024-11-28] MEDS: LOSARTAN 50 MG TAB PO SCH (20:44)
[2024-11-28] MEDS: ATORVASTATIN 80 MG TAB PO SCH (20:44)
[2024-11-28] MEDS ORDERED: PRAVASTATIN SODIUM 40 MG TAB PO SCH (21:00)
--- NOTE | 2024-11-29 09:04 | P.PN ---
Subjective Progress Note Date: 11/29/24 HISTORY OF PRESENTING ILLNESS: 74-year-old male with past medical history of stage IV lung cancer currently getting chemotherapy with Dr. Barahona, history of hypertension, GERD dyslipidemia. He presented to the emergency department because of concerns of altered mental status. Patient's reported that there was some question about slurred speech. Apparently patient took a similar pill to Viagra and thereafter noticed that patient was unresponsive and his eyes were glazed over. He was not able to lift his arm but there was no facial droop reported. There was also some concerns of slurred speech. This is as per the . As per the patient he feels that he was at his normal self. He denies any symptoms of chest pain chest pressure or shortness of breath. He has not had any recent cardiac workup Admission Cardiac Labs: Troponins were negative, Hb 11, BUN 28, creatinine 1.3, repeat BUN 25, creatinine 1, Admission testing: EKG shows normal sinus pericardia heart rate 58, no significant ST or T wave changes concerning for ischemia Chest x-ray does not show any acute congestion or consolidation CT head did not show any new acute intracranial process. CTA neck did not show any significant dissection or stenosis. Progress note 11/29/2024 BP 157/77, heart rate 85 bpm Patient reports that he is feeling back to his baseline. Patient denies having any slurred speech or any weakness in bilateral upper or lower extremity at this time. He denies any lightheadedness or dizziness. PHYSICAL EXAMINATION: Neck: Brisk carotid upstroke, no jugular venous distention. Lungs: Clear to auscultation. Heart: Regular rate and rhythm, S1-S2, , no murmur or rub. Abdomen: Soft nontender, positive bowel sounds. Extremities: No edema, intact distal pulses. Neuro: Alert, oritented, no focal deficits. Detailed neuro exam was not performed. ASSESSMENT: # Slurred speech and mild confusion, likely TIA # Stage IV lung cancer currently on chemotherapy # Essential hypertension # Dyslipidemia Pertinent testing Orthostatic vital signs were negative PLAN: Obtain echocardiogram with bubble study Obtain a 30-day event monitor to rule out any underlying atrial fibrillation or any other arrhythmias Start aspirin, statin, losartan 50 mg daily For elevated blood pressure, I will add amlodipine 2.5 mg daily Obtain neurological consult if primary team agrees Objective - Vital Signs Vital signs: Vital Signs Temp 98.3 F 11/29/24 07:00 Pulse 85 11/29/24 07:00 Resp 16 11/29/24 08:00 BP 157/77 11/29/24 07:00 Pulse Ox 93 L 11/29/24 07:00 FiO2 Intake & Output 11/28/24 11/29/24 11/29/24 18:59 06:59 18:59 Intake Total 118 Output Total 940 2 Balance -822 -2 Weight 74.843 kg Intake: Oral 118 Output: Urine 940 2 Other: Voiding Method Toilet Toilet Toilet # Voids 1 - Labs CBC & Chem 7: 11/28/24 06:01 11/28/24 06:01 Labs: Abnormal Lab Results - Last 24 Hours (Table) 11/28/24 11/28/24 11/28/24 Range/Units 06:01 06:01 10:22 RBC 3.40 L (4.40-5.60) X 10*6/uL Hgb 9.6 L (13.0-17.0) g/dL Hct 31.2 L (39.6-50.0) % MCHC 30.8 L (32.0-37.0) g/dL RDW 15.4 H (11.5-14.5) % Plt Count 139 L (140-440) X 10*3/uL BUN/Creatinine Ratio 25.00 H (12.00-20.00) Ratio Calcium 8.2 L (8.7-10.3) mg/dL TSH 4.960 H (0.465-4.680) mIU/L
[2024-11-29] MEDS: amLODIPine 2.5 MG TAB PO SCH (09:54)
[2024-11-29 10:08] LABS: LDL Cholesterol,Calculated 51.7 mg/dL (0.0-131.0); VLDL Calculation 18.54 mg/dL (5.00-40.00)
[2024-11-29 11:37] LABS: HCT 29.5 % (39.6-50.0); HGB 9.6 g/dL (13.0-17.0); MCH 29.1 pg (27.0-32.0); MCHC 32.5 g/dL (32.0-37.0); MCV 89.4 FL (80.0-97.0); NRBC Per 100 WBC 0 X 10*3/uL (0.00-0.01); Platelet Count 123 X 10*3/uL (140-440); RDW 15.3 % (11.5-14.5); WBC 4.69 X 10*3/uL (4.50-10.00)
[2024-11-29 12:37] LABS: BUN/Creat Ratio 18.67 Ratio (12.00-20.00); Blood Urea Nitrogen 16.8 mg/dL (9.0-27.0); Calcium 8.1 mg/dL (8.7-10.3); Carbon Dioxide 25.3 mmol/L (21.6-31.8); Chloride 105 mmol/L (96-109); Glucose 74 mg/dL (70-110); Potassium 4.1 mmol/L (3.5-5.5); Sodium 138 mmol/L (135-145)
[2024-11-29 13:05] LABS: Basophils # (M) 0.05 X 10*3/uL (0.00-0.10); Eosinophils # (M) 0.09 X 10*3/uL (0.04-0.35); Lymphocytes # (M) 1.31 X 10*3/uL (0.90-5.00); Metamyelocytes % 1 % (0-0); Monocytes # (M) 0.38 X 10*3/uL (0.20-1.00); Myelocytes % 4 % (0-0); Neutrophils # (M) 2.49 X 10*3/uL (1.80-7.70); Neutrophils % (M) 53 %; Promyelocytes # (M) 0.14 k/uL (0); Promyelocytes % 3 %
--- NOTE | 2024-11-29 14:26 | P.PN ---
Subjective Progress Note Date: 11/29/24 Subjective: Patient seen and examined at bedside. No acute events overnight. No new weakness or speech difficulty Pertinent positives and negatives as discussed above, a complete review of sy stems was performed and all other systems are negative. Vitals Signs Reviewed. General: Nontoxic, no distress, appears at stated age Derm: Warm, dry Head: Atraumatic, normocephalic, symmetric Eyes: EOMI, no lid lag, anicteric sclera Mouth: No lip lesion, mucus membranes moist Cardiovascular: S1S2 reg, no murmur Lungs: CTA bilateral, no rhonchi, no rales, no accessory muscle use Abdominal: Soft, nontender to palpation, no guarding, no appreciable organomegaly Ext: No gross muscle atrophy, no edema, no contractures Neuro: CN II-XI grossly intact, no focal neuro deficits Psych: Alert, oriented, appropriate affect Data Reviewed Today: Pertinent Labs: Hemoglobin 9.6, platelet 123, creatinine 0.9 Imaging: No new imaging Assessment and Plan: Active: Acute CVA TIA -Continue aspirin 81 mg, atorvastatin 80 mg nightly -Continue on telemetry -Echocardiogram pending, MRI pending, EEG pending -Neurology following Hypertension -Cardiology note reviewed, start amlodipine -Continue losartan 50 mg daily Thrombocytopenia Normocytic anemia -Continue to monitor -Likely in the setting of chemotherapy Resolved: SUZI Hyponatremia Chronic: Lung cancer Chronic pain, opiate dependent Dyslipidemia GERD BPH Neuropathy DVT ppx: Lovenox Code status: Full code Anticipated discharge place: Pending clinical course Anticipated discharge time: Pending clinical course Objective - Vital Signs Vital signs: Vital Signs Temp 98.1 F 11/29/24 10:32 Pulse 71 11/29/24 12:02 Resp 16 11/29/24 14:06 BP 145/81 11/29/24 12:02 Pulse Ox 94 L 11/29/24 12:02 FiO2 Intake & Output 11/28/24 11/29/24 11/29/24 18:59 06:59 18:59 Intake Total 118 Output Total 940 2 Balance -822 -2 Weight 74.843 kg Intake: Oral 118 Output: Urine 940 2 Other: Voiding Method Toilet Toilet Toilet # Voids 1 - Labs CBC & Chem 7: 11/29/24 04:17 11/29/24 04:17 Labs: Abnormal Lab Results - Last 24 Hours (Table) 11/28/24 11/29/24 11/29/24 Range/Units 10:22 04:17 04:17 RBC 3.30 L (4.40-5.60) X 10*6/uL Hgb 9.6 L (13.0-17.0) g/dL Hct 29.5 L (39.6-50.0) % RDW 15.3 H (11.5-14.5) % Plt Count 123 L (140-440) X 10*3/uL Calcium 8.1 L (8.7-10.3) mg/dL HDL Cholesterol 63.80 H (40.00-60.00) mg/dL
--- NOTE | 2024-11-29 15:52 | CA ---
Transthoracic Echo Report Name: Doni Somers Age: 74 Gender: M : 1950 Exam Date: 11/29/2024 09:02 Exam Location: [facility] Ht (in): 69 Wt (lb): 165 Ordering Physician: Anita Talbert MD Attending/Referring Phys: Rack Cleaner Tamia López RDCS Procedure CPT: Indications: CVA, Transient cerebral ischemic attack, unspecified Cardiac Hx: Technical Quality: Good Contrast 1: Agitated Saline Total Dose (mL): 2 Contrast 2: Total Dose (mL): MEASUREMENTS (Male / Female) Normal Values 2D ECHO LV Diastolic Diameter PLAX 4.2 cm 4.2 - 5.9 / 3.9 - 5.3 cm LV Systolic Diameter PLAX 2.8 cm IVS Diastolic Thickness 0.8 cm 0.6 - 1.0 / 0.6 - 0.9 cm LVPW Diastolic Thickness 0.9 cm 0.6 - 1.0 / 0.6 - 0.9 cm LV Relative Wall Thickness 0.4 LVOT Diameter 2.0 cm LV Diastolic Volume MOD BP 88.5 cm??? 67 - 155 / 56 - 104 cm??? LV Systolic Volume MOD BP 36.9 cm??? 22 - 58 / 19 - 49 cm??? LV Ejection Fraction MOD BP 58.3 % >= 55 % LV Cardiac Index MOD BP 2235.9 cm???/min???m??? LV Diastolic Volume MOD 4C 100.4 cm??? LV Systolic Volume MOD 4C 37.3 cm??? LV Ejection Fraction MOD 4C 62.8 % LV Cardiac Index MOD 4C 2731.7 cm???/min???m??? LV Diastolic Length 4C 8.7 cm LV Systolic Length 4C 7.2 cm LV Diastolic Volume MOD 2C 72.9 cm??? LV Systolic Volume MOD 2C 30.9 cm??? LV Ejection Fraction MOD 2C 57.6 % LV Cardiac Index MOD 2C 1817.7 cm???/min???m??? LV Diastolic Length 2C 8.1 cm LV Systolic Length 2C 6.1 cm LA Volume 41.5 cm??? 18 - 58 / 22 - 52 cm??? LA Volume Index 21.7 cm???/m??? 16 - 28 cm???/m??? DOPPLER AV Peak Velocity 206.3 cm/s AV Peak Gradient 17.0 mmHg AV Mean Velocity 130.8 cm/s AV Mean Gradient 7.9 mmHg AV Velocity Time Integral 32.4 cm LVOT Peak Velocity 135.0 cm/s LVOT Peak Gradient 7.3 mmHg LVOT Velocity Time Integral 23.3 cm LVOT Stroke Volume 72.4 cm??? LVOT Stroke Volume Index 38.0 ml/m??? LVOT Cardiac Index 3137.6 cm???/min???m??? AV Area Cont Eq vti 2.2 cm??? AV Area Cont Eq pk 2.0 cm??? MV Area PHT 2.9 cm??? Mitral E Point Velocity 61.1 cm/s Mitral A Point Velocity 71.0 cm/s Mitral E to A Ratio 0.9 MV Deceleration Time 260.7 ms PV Peak Velocity 105.7 cm/s PV Peak Gradient 4.5 mmHg FINDINGS Left Ventricle Left ventricular ejection fraction is estimated at 55-60 %. Left ventricular cavity size normal. Left ventricular wall thickness normal. No obvious regional wall motion abnormalities. Right Ventricle Normal right ventricular size and function. Unable to estimate the right ventricular systolic pressure. Right Atrium Normal right atrial size. Positive agitated saline bubble study for right to left shunt. Left Atrium Normal left atrial size. Mitral Valve Structurally normal mitral valve. No mitral stenosis, regurgitation or prolapse. Aortic Valve Trileaflet aortic valve. No aortic valve stenosis or regurgitation. Tricuspid Valve Structurally normal tricuspid valve. No tricuspid stenosis. Trace tricuspid regurgitation. Pulmonic Valve Pulmonic valve not well visualized. No pulmonic stenosis. Mild pulmonic regurgitation. Pericardium No pericardial effusion. Aorta Normal size aortic root and proximal ascending aorta. CONCLUSIONS Left ventricular ejection fraction is estimated at 55-60 %. No obvious regional wall motion abnormalities. Normal right ventricular size and function. Evidence of [id number]-vyvj intracardiac shunting on bubble study seen No significant valvular dysfunction appreciated Previewed by: Dr Lb Sanchez (Electronically Signed) Final Date: 29 November 2024 15:52
--- NOTE | 2024-11-29 16:23 | P.PN ---
Subjective Progress Note Date: 11/29/24 The patient is a 74-year-old male who was seen in neurologic follow-up on November 29, 2024, in collaboration with Caitlyn Alarcon, via teleneurology. The patient reports feeling at his baseline today. The patient's is present at the bedside at the time of the evaluation today. She is able to provide a more inclusive history. She states that on the day of presentation to the emergency department, her went up to the bedroom and into the bathroom. He was planning on getting ready for bed because he was tired. She states that her was in the bathroom for an extended period of time. She says she was concerned and so went into the bathroom and found him standing at the sink. Patient reported that he was fine. The left and went to fold laundry. She says that she again was concerned because the patient did not come out of the bathroom. She went back into the bathroom. At that time, the patient began to wheel himself out of the bathroom, sitting on his walker. The patient's reports that she turned to him and saw that his eyes were open and he was staring straight ahead. She says his eyes were "glazed over". He was not responding to her. He did not seem to understand what she was saying. He was not following commands. He reportedly did not know who she was. When patient was able to get a few words out, his speech was slurred. Patient's called 911. She also reports that he clenched his jaw and stopped speaking and stopped responding. She said he was seated on his walker. He was "lax with his head back". According to the , she followed EMS instructions. She did find that he was having very shallow breathing. When EMS arrived, there was concern because his color was "hameed". According to the , the patient's granddaughter also arrived at the time of EMS. Granddaughter is a nurse and was concerned that the patient was having a seizure, because his eyes were moving back and forth, horizontally. Apparently, EMS was also concerned with this. In the emergency department, the patient's reports that he took him a couple hours to "come around". He has no recall of EMS being in the house, the ride in the ambulance or being in the emergency department. Objective - Vital Signs Vital signs: Vital Signs Temp 98.3 F 11/29/24 07:00 Pulse 79 11/29/24 09:31 Resp 16 11/29/24 08:00 BP 123/65 11/29/24 09:31 Pulse Ox 96 11/29/24 09:31 FiO2 Intake & Output 11/28/24 11/29/24 11/29/24 18:59 06:59 18:59 Intake Total 118 Output Total 940 2 Balance -822 -2 Weight 74.843 kg Intake: Oral 118 Output: Urine 940 2 Other: Voiding Method Toilet Toilet Toilet # Voids 1 - Exam General: The patient is well-nourished, well-developed and in no acute distress HEENT: Head is atraumatic, normocephalic. Fundus not visualized. There is no scleral icterus. Mucous members are moist. Neurological examination Mental status: The patient awake, alert and oriented x 3. His speech is clear. There is no dysarthria or aphasia. Cranial nerves: 2-12 grossly intact - Labs CBC & Chem 7: 11/29/24 04:17 11/29/24 04:17 Labs: Abnormal Lab Results - Last 24 Hours (Table) 11/28/24 Range/Units 10:22 HDL Cholesterol 63.80 H (40.00-60.00) mg/dL TSH 4.960 H (0.465-4.680) mIU/L Assessment and Plan Assessment: 1. Episode of altered mental status with reported associated abnormal eye movements, as well as loss of time/amnesia regarding the event: Possible partial complex seizure versus TIA-less likely 2. Stage IV lung cancer 3. Hyperlipidemia 4. Hypertension 5. Rheumatoid arthritis 6. Acute kidney injury Plan: 1. MRI of the brain with and without gadolinium has been ordered to assess for possible brain metastasis related to lung cancer, as etiology for seizure 2. EEG has been ordered 3. Continue current, home medications 4. Avoid sedating medications 5. Agree with checking orthostatic vitals 6. Agree with stroke workup 7. If EEG is positive, antiepileptic medication will be initiated 8. Diagnosis and plans have been discussed with patient's Dr. Adkins will assume neurologic coverage of this patient as of November 30, 2024 Time with Patient: Greater than 30 (40 minutes were spent caring for this patient today including, obtaining history, examining the patient, reviewing labs and creating this note)
--- NOTE | 2024-11-29 21:54 | P.CONS ---
History of Present Illness - Reason for Consult Consult date: 11/29/24 Metastatic lung cancer. Mental status changes - History of Present Illness The patient is a 74-year-old white male, well-known to myself. He was initially seen in consult at [facility] in 03/04 when presenting with shortness of breath and upper abdominal pain. CT angiogram showed 4.2 cm right upper lobe mass, bilateral lung nodules, right middle lobe obstruction, mediastinal adenopathy, multiple liver mets, and possible splenic mets. Subsequent CT abdomen and pelvis confirmed multiple hepatic and splenic lesions as well as retroperitoneal adenopathy. MRI of the brain was negative. The patient had a bronchoscopy with biopsy of the right upper lobe mass, revealing pulmonary adenocarcinoma. The patient was started on treatment with carboplatin and Alimta in 04/03, with ICI immunotherapy not recommended due to history of active rheumatoid arthritis. After completion of 6 cycles, the patient was placed on maintenance Alimta. He had treatment interruption for about 2 months because of major ankle fracture on the right, requiring open reduction and internal fixation. He was subsequently cleared to start back by orthopedic surgery in late 11/03. He therefore resumed maintenance Alimta, and is status post 2 cycles, with the most recent on 11/20/2024 The patient was brought into the emergency room, because of an acute change in his mental status. A significant amount of the history was obtained from his . She states that they were having a normal condition, after which the patient went to the bathroom. He was there for longer than usual, due to which she went into check on him. She states that he was "just standing there", and on being questioned, stated that he just wanted to stay like this for a bit. Upon coming out, he was not responding to her and appeared to be staring into space. Another family ember noted some possible involuntary extraocular movements. EMS was called and brought the patient to the hospital. He states that he remembers riding in the ambulance. Metastatic site already started to improve by the time of his arrival in the ER, and is almost back to normal. No history of any headaches, obvious seizure activity, or trauma. No history of any other focal neurologic deficit. Review of Systems Constitutional: Reports fatigue, Denies chills, Denies fever Eyes: denies blurred vision, denies pain Ears: deny: decreased hearing, ear discharge, earache, tinnitus Ears, nose, mouth and throat: Denies headache, Denies sore throat Cardiovascular: Denies chest pain, Denies shortness of breath Respiratory: Reports as per HPI, Denies cough Gastrointestinal: Denies abdominal pain, Denies diarrhea, Denies nausea, Denies vomiting Genitourinary: Reports as per HPI Musculoskeletal: Denies myalgias Integumentary: Denies pruritus, Denies rash Neurological: Reports as per HPI, Reports change in mentation, Reports change in speech Psychiatric: Reports as per HPI, Reports disorientation Endocrine: Reports fatigue Hematologic/Lymphatic: Reports as per HPI Past Medical History Past Medical History: Cancer, GERD/Reflux, Hyperlipidemia, Hypertension, Musculoskeletal Disorder, Prostate Disorder, Rheumatoid Arthritis (RA) Additional Past Medical History / Comment(s): Degenerative Disc Disease. Enlarged prostate. lung cancer stage 4 History of Any Multi-Drug Resistant Organisms: None Reported Past Surgical History: Back Surgery, Orthopedic Surgery Additional Past Surgical History / Comment(s): Spinal fusion X2, laminectomy, BILATERAL TENNIS ELBOW SURGERY, LEFT HAND CARPAL TUNNEL SURGERY, TRIAL PAIN STIMULATORPLACED AND LATER REMOVED, Pain Procedures, bilateral cataracts removed. Past Anesthesia/Blood Transfusion Reactions: No Reported Reaction Past Psychological History: No Psychological Hx Reported Smoking Status: Former smoker Past Alcohol Use History: None Reported Additional Past Alcohol Use History / Comment(s): QUIT SMOKING IN 1991, SMOKED FOR APPROX 25 YRS, 1 - 2 PPD. Past Drug Use History: None Reported Additional Drug Use History / Comment(s): MARIJUANA USE AT HS FOR SLEEP NEEDED. Aware no use 24 hrs prior to procedure. - Past Family History Sister(s) Family Medical History: Cancer Additional Family Medical History / Comment(s): LUNG CANCER. Medications and Allergies Home Medications Medication Instructions Recorded Confirmed Type Folic Acid 1 mg PO DAILY@0700 08/30/14 11/28/24 History Gabapentin [Neurontin] 800 mg PO TID@0700,1500,2300 08/30/14 11/28/24 History Metoprolol Succinate 25 mg PO DAILY@0700 08/30/14 11/28/24 History Omeprazole [PriLOSEC] 20 mg PO AC-BID 08/30/14 11/28/24 History Pravastatin Sodium [Pravachol] 40 mg PO HS 08/30/14 11/28/24 History calcitrioL 0.25 mcg PO FONTENOT 08/30/14 11/28/24 History Calcium Carbonate/Vitamin D3 2 tab PO DAILY@189906/18/16 11/28/24 History [Calcium 600-Vit D3 5 Mcg (200 Iu)] Doxazosin [Cardura] 4 mg PO BID@0700,1900 06/18/16 11/28/24 History Losartan [Cozaar] 50 mg PO DAILY@189908/08/23 11/28/24 History Magnesium 500 mg PO DAILY@189908/08/23 11/28/24 History Metoclopramide HCl [Reglan] 10 mg PO AC-TID #30 tablet 02/22/24 11/28/24 Rx Latanoprost [Latanoprost 0.005%] 1 drop BOTH EYES HS 06/05/24 11/28/24 History buPROPion SR [Wellbutrin SR] 150 mg PO BID@0700,19006/05/24 11/28/24 History Qbtmvzorko-NHV-Cpaapzh-Codeine 1 cap PO BID PRN #6 cap 09/08/24 11/28/24 Rx [Fiorinal w/Cod 63-860-62-30MG] HYDROcodone/APAP 10-325MG [[place] 1 tab PO QID PRN #12 tab 09/08/24 11/28/24 Rx 10-325] Morphine Sulfate [Ms Contin] 30 mg PO Q12HR #6 tab 09/08/24 11/28/24 Rx Potassium Chloride ER [K-Dur 10] 10 meq PO DAILY 11/28/24 11/28/24 History predniSONE 5 mg PO BID@0700,189911/28/24 11/28/24 History Allergies Allergy/AdvReac Type Severity Reaction Status Date / Time adhesive Allergy Rash/Hives Verified 11/28/24 09:47 - paper tape ok Physical Exam Vitals: Vital Signs Temp Pulse Resp BP BP Pulse Ox 11/29/24 12:02 71 145/81 94 L 11/29/24 11:47 74 142/87 95 11/29/24 11:32 85 150/89 97 11/29/24 11:17 68 135/76 93 L 11/29/24 11:02 72 140/79 93 L 11/29/24 10:47 72 142/78 92 L 11/29/24 10:32 98.1 F 80 18 149/83 95 11/29/24 09:31 79 123/65 96 11/29/24 08:00 16 11/29/24 07:00 98.3 F 85 16 157/77 93 L 11/29/24 02:00 98.8 F 83 17 162/67 93 L 11/29/24 01:51 74 17 11/28/24 20:44 74 17 11/28/24 20:00 97.9 F 74 17 144/69 100 11/28/24 15:08 98.4 F 62 16 112/56 97 Intake and Output 11/28/24 11/29/24 11/29/24 22:59 06:59 14:59 Intake Total 118 Output Total 342 Balance -224 Intake: Oral 118 Output: Urine 342 Other: Voiding Method Toilet Toilet Toilet # Voids 1 - Constitutional General appearance: no acute distress - EENT Eyes: EOMI, PERRLA ENT: hearing grossly normal, normal oropharynx - Neck Neck: no lymphadenopathy Thyroid: bilateral: normal size - Respiratory Respiratory: bilateral: CTA - Cardiovascular Rhythm: regular Heart sounds: normal: S1, S2 - Gastrointestinal General gastrointestinal: normal bowel sounds, soft - Integumentary Integumentary: normal - Neurologic Neurologic: CNII-XII intact - Musculoskeletal Musculoskeletal: strength equal bilaterally - Psychiatric Psychiatric: A&O x's 3, appropriate affect Results CBC & Chem 7: 11/29/24 04:17 11/29/24 04:17 Labs: Abnormal Lab Results - Last 24 Hours (Table) 11/28/24 11/29/24 11/29/24 Range/Units 10:22 04:17 04:17 RBC 3.30 L (4.40-5.60) X 10*6/uL Hgb 9.6 L (13.0-17.0) g/dL Hct 29.5 L (39.6-50.0) % RDW 15.3 H (11.5-14.5) % Plt Count 123 L (140-440) X 10*3/uL Calcium 8.1 L (8.7-10.3) mg/dL HDL Cholesterol 63.80 H (40.00-60.00) mg/dL Comments: CT angiogram report reviewed Chest x-ray: report reviewed CT Scan - head: report reviewed Assessment and Plan (1) Altered mental status Narrative/Plan: Patient is the patient's symptoms were as described, and have since essentially resolved. He has been evaluated by Neurology. Imaging studies so far have been unrevealing. Given the nature of his symptoms, seizure versus TIA are the main differentials. Malignancy is less likely in view of comparatively rapid resolution of the symptoms. Check MRI MRI for further workup. Current Visit: Yes Status: Acute Code(s): R41.82 - ALTERED MENTAL STATUS, UNSPECIFIED SNOMED Code(s): 006755824 (2) Lung cancer Narrative/Plan: Diagnostic and therapeutic circumstances as described. Monitor counts in view of recent chemotherapy and supplement if needed. Resume chemotherapy, on schedule, as outpatient assuming no new events. Current Visit: No Status: Acute Code(s): C34.90 - MALIGNANT NEOPLASM OF UNSP PART OF UNSP BRONCHUS OR LUNG SNOMED Code(s): 619586529
[2024-11-30] MEDS: SODIUM CHLORIDE 0.9% 1,000 ML IV ONE (08:56)
--- NOTE | 2024-11-30 11:02 | MR ---
EXAMINATION TYPE: MR brain wo/w con DATE OF EXAM: 11/30/2024 10:17 AM COMPARISON: 02/19/2024 CLINICAL INDICATION: Male, 74 years old with history of seizure vs TIA in pt with lung cancer, AMS, s eizure vs TIA, lung cancer. IV Contrast: 7 cc Gadobutrol (None if empty) TECHNIQUE: Multiplanar, multisequence images of the brain and brainstem is performed without and with IV contras t, utilizing 7 mL intravenous Gadobutrol . FINDINGS: Diffusion weighted images demonstrate no evidence of a recent infarct or other diffusion ab normality. Mild degenerative change. Multiple areas of scattered signal are nonspecific but most typical remote microvascular ischemia. Faint 3 mm enhancement in the left cerebellum is too small characterize given the degree of artifact and should be monitored. Early metastatic lesion not excluded. Reference imag e 17 series 801. Midline structures demonstrate normal morphology. The craniocervical junction appears within normal limits The. Dural venous sinuses appear patent. The visualized sinuses are clear and the globes are i ntact. Changes of chronic mastoiditis. IMPRESSION: 1. No evidence of acute ischemia. Degenerative and remote ischemic white matter changes. 2. Assessment for enhancing lesions is limited due to motion artifact. There is a 3 mm area of vague enhancement the left side cerebellum which is nonspecific. Recommend close clinical surveillance. Changes of chronic mastoiditis. [facility], , 11/30/2024 11:00 AM
--- NOTE | 2024-11-30 11:26 | EEG ---
ELECTROENCEPHALOGRAM REPORT PREAMBLE: This is a 74-year-old male with altered mental status. CURRENT MEDICATIONS: 1. Fioricet. 2. Lipitor. 3. Wellbutrin. 4. [place]. 5. Lovenox. 6. Cardura. 7. Neurontin. 8. Cozaar. 9. MS Contin. EEG FINDINGS: This is a 21-channel digital EEG recorded with video component, utilizing 10/20 international system with referential and bipolar montages. Background consists of well-developed, moderately well regulated, mixed frequencies of 8 to 9 hertz alpha, with 6 to 7 hertz theta activity seen in bihemispheric region. Background is somewhat posterior dominant, and not clearly reacting to eye opening or closing. Photic driving response was not seen. Different stages of sleep were not seen. No focal or generalized epileptiform activity was seen. IMPRESSION: This is an abnormal EEG due to background slowing, suggestive of mild encephalopathy. No focal, lateralized, or epileptiform activity was seen. MMODL / IJN: [id number] /
--- NOTE | 2024-11-30 11:38 | P.PN ---
Subjective Progress Note Date: 11/30/24 HISTORY OF PRESENTING ILLNESS: 74-year-old male with past medical history of stage IV lung cancer currently getting chemotherapy with Dr. Barahona, history of hypertension, GERD dyslipidemia. He presented to the emergency department because of concerns of altered mental status. Patient's reported that there was some question about slurred speech. Apparently patient took a similar pill to Viagra and thereafter noticed that patient was unresponsive and his eyes were glazed over. He was not able to lift his arm but there was no facial droop reported. There was also some concerns of slurred speech. This is as per the . As per the patient he feels that he was at his normal self. He denies any symptoms of chest pain chest pressure or shortness of breath. He has not had any recent cardiac workup Admission Cardiac Labs: Troponins were negative, Hb 11, BUN 28, creatinine 1.3, repeat BUN 25, creatinine 1, Admission testing: EKG shows normal sinus pericardia heart rate 58, no significant ST or T wave changes concerning for ischemia Chest x-ray does not show any acute congestion or consolidation CT head did not show any new acute intracranial process. CTA neck did not show any significant dissection or stenosis. 11/29/2024 BP 157/77, heart rate 85 bpm Patient reports that he is feeling back to his baseline. Patient denies having any slurred speech or any weakness in bilateral upper or lower extremity at this time. He denies any lightheadedness or dizziness. 11/30 Patient states that he is feeling well today. He denies having chest pain or chest pressure and no shortness of breath. Blood pressure varies from 87/39 to 198/75, heart rate 95, pulse ox 92% on room air. It appears that losartan was discontinued due to low blood pressure readings overnight. Echocardiogram with bubble study reveals EF of 55 to 60%, evidence of right to left intracardiac shunting on bubble study. No significant valvular dysfunction. MRI of the brain performed this morning reveals no evidence of acute ischemia. PHYSICAL EXAMINATION: Neck: Brisk carotid upstroke, no jugular venous distention. Lungs: Clear to auscultation. Heart: Regular rate and rhythm, S1-S2, , no murmur or rub. Abdomen: Soft nontender, positive bowel sounds. Extremities: No edema, intact distal pulses. Neuro: Alert, oritented, no focal deficits. Detailed neuro exam was not performed. ASSESSMENT: # Slurred speech and mild confusion, likely TIA # Stage IV lung cancer currently on chemotherapy # Essential hypertension # Dyslipidemia PLAN: Patient will need further workup as an outpatient regarding positive bubble study with [id number] intracardiac shunting. Patient may follow-up in the office in 1 to 2 weeks. Will hold on event monitor due to positive bubble study Continue aspirin, statin No further cardiac workup at this time. Nurse practitioner note has been reviewed, I agree with documented findings and plan of care. Patient was seen and examined. Objective - Vital Signs Vital signs: Vital Signs Temp 100.1 F H 11/30/24 07:05 Pulse 95 11/30/24 07:05 Resp 15 11/30/24 07:05 BP 87/39 11/30/24 07:05 Pulse Ox 92 L 11/30/24 07:05 FiO2 Intake & Output 11/29/24 11/30/24 11/30/24 18:59 06:59 18:59 Intake Total 598 240 Balance 598 240 Intake: Oral 598 240 Other: Voiding Method Toilet # Voids 3 3 - Labs CBC & Chem 7: 11/29/24 04:17 11/29/24 04:17 Labs: Abnormal Lab Results - Last 24 Hours (Table) 11/28/24 11/29/24 11/29/24 Range/Units 06:01 04:17 04:17 RBC 3.30 L (4.40-5.60) X 10*6/uL Hgb 9.6 L (13.0-17.0) g/dL Hct 29.5 L (39.6-50.0) % RDW 15.3 H (11.5-14.5) % Plt Count 123 L (140-440) X 10*3/uL Promyelocytes # (Man) 0.05 H 0.14 H (0) k/uL Calcium 8.1 L (8.7-10.3) mg/dL
--- NOTE | 2024-11-30 13:45 | P.PN ---
Subjective Progress Note Date: 11/30/24 Patient was initially seen by Dr. Bhardwaj. Please refer to her note for details. Patient is a 74-year-old right-handed male admitted with altered mental status. Dr. Bhardwaj felt was likely partial complex seizure. Patient has history of lung cancer. MRI and EEG were ordered. Patient's has mentioned that this is not the first time he has an episode like this. Others were not as severe. Dr. Bhardwaj did not start the patient on AED. I spoke to the patient and obtain history in detail. Patient states that she is feeling good, no further episodes of confusion. No numbness or tingling. He st ates that his balance is off, and uses cane for last 5 years. It is not any further worse. Denies any visual disturbance. Patient states that his was talking to him when he had a blank look on his face, not responding well. It lasted for an hour. He remembers talking to her. Patient does not take any aspirin or any antiplatelet medication at home. He has smoked 2 pack/day for 20 years, quit 1991. No alcohol use. Patient denies any nausea vomiting any vertigo. He uses cane. Objective - Vital Signs Vital signs: Vital Signs Temp 100.1 F H 11/30/24 07:05 Pulse 95 11/30/24 07:05 Resp 15 11/30/24 07:05 BP 119/55 11/30/24 10:30 Pulse Ox 92 L 11/30/24 07:05 FiO2 Intake & Output 11/29/24 11/30/24 11/30/24 18:59 06:59 18:59 Intake Total 598 240 Balance 598 240 Intake: Oral 598 240 Other: Voiding Method Toilet # Voids 3 3 - Exam Mental status, speech and language functions are normal. No aphasia or dysarthria. Patient can name and repeat very well. He knows it is 11/30/2024 and that he is [facility] imported on [place]. On muscle strength testing there is no pronator drift and the strength is normal in arms and legs. He has questionable ataxia in the left upper limb. Both legs appears to have slight ataxia. No dysdiadochokinesia. Sensitive to touch is equal. Tone and bulk of muscles normal. - Labs CBC & Chem 7: 11/29/24 04:17 11/29/24 04:17 Labs: Abnormal Lab Results - Last 24 Hours (Table) 11/28/24 11/29/24 11/29/24 Range/Units 06:01 04:17 04:17 RBC 3.30 L (4.40-5.60) X 10*6/uL Hgb 9.6 L (13.0-17.0) g/dL Hct 29.5 L (39.6-50.0) % RDW 15.3 H (11.5-14.5) % Plt Count 123 L (140-440) X 10*3/uL Promyelocytes # (Man) 0.05 H 0.14 H (0) k/uL Calcium 8.1 L (8.7-10.3) mg/dL Assessment and Plan Assessment: 1. Episode of altered mental status with reported associated abnormal eye move ments, as well as loss of time/amnesia regarding the event: Possible TIA versus complex partial seizure. 2. MRI of the brain with and without contrast revealed a possible enhancing lesion in the left cerebellum, rule out metastasis. 3. Stage IV lung cancer 4. Hyperlipidemia 5. Hypertension 6. Rheumatoid arthritis 7. Acute kidney injury Plan: 1. MRI of the brain with and without gadolinium revealed no evidence of acute ischemia. Degenerative and remote ischemic white matter changes. There is a 3 mm area of vague enhancement in the left sided cerebellum which is nonspecific. Recommend close clinical surveillance. Changes of chronic mastoiditis. I personally reviewed MRI, agree with the findings. 2. EEG was abnormal due to background slowing, suggestive of mild encephalopathy. No focal, lateralized or epileptiform activity was seen. 3. Continue current, home medications 4. Avoid sedating medications 5. Orthostatic vitals were checked, which were negative. 6. Lipid panel with cholesterol 134, LDL 51, HDL 63 and triglycerides 92. Patient used to be on Pravachol 40 mg at bedtime. This needs to be continued. Hemoglobin A1c 5.7. 7. As the EEG did not reveal any obvious epileptiform activity, we will hold off on AED. 8. Patient was not taking any antiplatelet medication at home. Patient to be started on aspirin regimen daily. Avoid DAPT because of abnormal brain MRI. 9. CTA of head and neck revealed no evidence of dissection of the cervical internal carotid arteries or vertebral arteries. No evidence of significant stenosis at the carotid bifurcation. No evidence of intracranial high-grade stenosis or intracranial aneurysm. Patient 10. 2D echo revealed LVEF 55 to 60%. No obvious regional wall motion abn ormalities. Normal RV size and function. Evidence of right to left intracardiac shunting on bubble study. No significant valvular dysfunction appreciated. 11. Recommend patient follow-up with circular clerk regarding evidence of right to left intracardiac shunting on bubble study. Also recommend patient follow-up with oncologist regarding abnormal brain MRI, to consider repeat brain imaging in 4 to 6 weeks to assess for metastatic disease. 12. Discussed with primary physician.
--- NOTE | 2024-11-30 14:02 | P.DS ---
Providers Date of admission: 11/27/24 22:27 Expected date of discharge: 11/30/24 Attending physician: Yi Chauhan MD Consults: 11/27/24 22:23 Consult Physician Routine Consulting Provider: Ashok Britt Consult Reason/Comments: TIA vs seizure? Do you want consulting provider notified?: Yes, Notify in am 11/28/24 02:34 Consult Physician Routine Consulting Provider: Lb Sanchez Consult Reason/Comments: CVA, sinus alvaro Do you want consulting provider notified?: Yes, Notify in am 11/28/24 02:35 Consult Physician Routine Consulting Provider: King Stephenson Consult Reason/Comments: Known, possible CVA Do you want consulting provider notified?: Yes, Notify in am Primary care physician: Reji Nina MD Hospital Course: Discharge diagnoses; Transient ischemic attack Hypertension Thrombocytopenia Normocytic anemia SUZI Hyponatremia Lung cancer Chronic pain, opiate dependent Dyslipidemia GERD BPH Neuropathy Isolated febrile episode Hospital course; Patient is a 74-year-old male with past medical history of stage IV lung cancer (follows w/ Dr Stepehnson just started back up on chemo last saturday was second treatment), hypertension, GERD, hyperlipidemia, and depression who presents to the ED with a chief complaint of altered mental status. Patient's is at the bedside and stated that they were at home when she noticed that the patient was not acting quite like himself. Shortly thereafter, the patient proceeded to take a pill similar to Viagra as was previously planned. She states he was in the bathroom for an extended period of time. His became concerned and had him sit down in his chair and at this point she states he was unresponsive and seemed like his eyes were glazed over. She also states he had slurred speech and was disoriented and she called 911. reports that she follow dispatcher's instructions and noted that he couldn't lift his arms, but denies any facial drooping when she asked him to smile. She also states he was dropped by EMS on bottom 2 steps, but denies any head trauma or LOC. Patient does report some lightheadedness when changing positions lying to sitting to standing. Denies history of strokes, seizures or use of blood thinners. Patient denies any chest pain, shortness of breath, nausea, vomiting, diarrhea, fevers, chills, or fecal or urinary incontinence. During hospital stay patient was treated for TIA. Symptoms resolved. MRI brain revealed no acute evidence of ischemia, and 3 mm area in the left cerebellum which is nonspecific. EEG is unremarkable. Echocardiogram with normal LV fu nction with evidence of [id number] shunting on bubble study. He was started on aspirin. Patient will be discharged in stable condition to home. Discontinue losartan and pravastatin. He will begin aspirin 81 mg daily and Lipitor 80 mg daily. He is on 1 antiplatelet due to low risk TIA. He has a follow-up with his PCP, oncology, and cardiology. He needs repeat MRI per oncology in 2 to 4 weeks to further follow the cerebellar lesion. He will also need to see cardiology for positive bubble study seen during inpatient. May require event monitor outpat ient as well. Patient requires a wheelchair to complete ADLs which is unable to be done with a cane or a walker because of generalized weakness and recent TIA Unable to be resolved with cane or walker Patient is able to self propel General: Nontoxic, no distress, appears at stated age Derm: Warm, dry Head: Atraumatic, normocephalic, symmetric Eyes: EOMI, no lid lag, anicteric sclera Mouth: No lip lesion, mucus membranes moist Cardiovascular: S1S2 reg, no murmur Lungs: CTA bilateral, no rhonchi, no rales, no accessory muscle use Abdominal: Soft, nontender to palpation, no guarding, no appreciable organomegaly Ext: No gross muscle atrophy, no edema, no contractures Neuro: CN II-XI grossly intact, no focal neuro deficits Psych: Alert, oriented, appropriate affect Dictation was produced using [employer] dictation software. please excuse any grammatical, word or spelling errors. A total of 36 minutes of time were spent preparing this complex discharge jean garrison. Patient was discharged on 11/30/2024 at 1310. I have seen and evaluated the patient today. Discussed with the resident and agree with the residents finding and plan as documented in the resident's note. Changes highlighted in blue font. Patient Condition at Discharge: Stable Plan - Discharge Summary Discharge Rx Participant: No New Discharge Prescriptions: New Aspirin 81 mg PO DAILY #90 tab Atorvastatin [Lipitor] 80 mg PO HS #90 tab Continue Omeprazole [PriLOSEC] 20 mg PO AC-BID Metoprolol Succinate 25 mg PO DAILY@0700 Folic Acid 1 mg PO DAILY@0700 calcitrioL 0.25 mcg PO FONTENOT Gabapentin [Neurontin] 800 mg PO TID@0700,1500,2300 Doxazosin [Cardura] 4 mg PO BID@0700,1900 Calcium Carbonate/Vitamin D3 [Calcium 600-Vit D3 5 Mcg (200 Iu)] 2 tab PO DAILY@1900 Metoclopramide HCl [Reglan] 10 mg PO AC-TID #30 tablet Hytkirwzif-ZHK-Ywycrek-Codeine [Fiorinal w/Cod 17-046-82-30MG] 1 cap PO BID PRN #6 cap PRN Reason: Migraine Headache Morphine Sulfate [Ms Contin] 30 mg PO Q12HR #6 tab Magnesium 500 mg PO DAILY@1900 Latanoprost [Latanoprost 0.005%] 1 drop BOTH EYES HS buPROPion SR [Wellbutrin SR] 150 mg PO BID@0700,1900 HYDROcodone/APAP 10-325MG [[place] 10-325] 1 tab PO QID PRN #12 tab PRN Reason: Pain predniSONE 5 mg PO BID@0700,1900 Potassium Chloride ER [K-Dur 10] 10 meq PO DAILY Discontinued Pravastatin Sodium [Pravachol] 40 mg PO HS Losartan [Cozaar] 50 mg PO DAILY@1900 Discharge Medication List Folic Acid 1 mg PO DAILY@0700 08/30/14 [History] Gabapentin [Neurontin] 800 mg PO TID@0700,1500,2300 08/30/14 [History] Metoprolol Succinate 25 mg PO DAILY@0700 08/30/14 [History] Omeprazole [PriLOSEC] 20 mg PO AC-BID 08/30/14 [History] calcitrioL 0.25 mcg PO FONTENOT 08/30/14 [History] Calcium Carbonate/Vitamin D3 [Calcium 600-Vit D3 5 Mcg (200 Iu)] 2 tab PO DAILY@1900 06/18/16 [History] Doxazosin [Cardura] 4 mg PO BID@0700,1900 06/18/16 [History] Magnesium 500 mg PO DAILY@1900 08/08/23 [History] Metoclopramide HCl [Reglan] 10 mg PO AC-TID #30 tablet 02/22/24 [Rx] Latanoprost [Latanoprost 0.005%] 1 drop BOTH EYES HS 06/05/24 [History] buPROPion SR [Wellbutrin SR] 150 mg PO BID@0700,1900 06/05/24 [History] Kvfeybixpr-BBR-Othfblx-Codeine [Fiorinal w/Cod 48-261-96-30MG] 1 cap PO BID PRN #6 cap 09/08/24 [Rx] HYDROcodone/APAP 10-325MG [[place] 10-325] 1 tab PO QID PRN #12 tab 09/08/24 [Rx] Morphine Sulfate [Ms Contin] 30 mg PO Q12HR #6 tab 09/08/24 [Rx] Potassium Chloride ER [K-Dur 10] 10 meq PO DAILY 11/28/24 [History] predniSONE 5 mg PO BID@0700,1900 11/28/24 [History] Aspirin 81 mg PO DAILY #90 tab 11/30/24 [Rx] Atorvastatin [Lipitor] 80 mg PO HS #90 tab 11/30/24 [Rx] Follow up Appointment(s)/Referral(s): Arjun Hernández NPC [Nurse Practitioner] - 12/03/24 9:30 am (This appt is at the office located [address]) Francis Helms DO [STAFF PHYSICIAN] - 1 Week Reji Nina MD [Primary Care Provider] - 1-2 days Patient Instructions/Handouts: Transient Ischemic Attack (DC) Activity/Diet/Wound Care/Special Instructions: Please see PCP, neurology and cardiology. You will need repeat Brain MRI by oncology, and further work up by cardiology. If you develop any high fevers, please consider calling your oncologist or coming back to ER. Discharge Disposition: HOME SELF-CARE
[2024-11-30 14:12] VITALS: BP 92/63; PULSE 89; RESP 16; TEMP 99.3
== END 2024-11-30 15:29 | disposition home or self-care (01) | DRG 69 ==
LOC: EC 18:51 → 6NMEDSUR 22:27 → OBSVTOIN 11-30 08:02
PROVIDERS: ADMIT Internal Medicine; ATTEND Internal Medicine
DX: G45.9 Transient cerebral ischemic attack, unspecified (principal); C34.11 Malignant neoplasm of upper lobe, right bronchus or lung; C78.7 Secondary malignant neoplasm of liver and intrahepatic bile duct; E87.1 Hypo-osmolality and hyponatremia; F11.20 Opioid dependence, uncomplicated; G40.209 Localization-related (focal) (partial) symptomatic epilepsy and epileptic syndromes with complex partial seizures, not intractable, without status epilepticus; N17.9 Acute kidney failure, unspecified; I10 Essential (primary) hypertension; E86.0 Dehydration; M06.9 Rheumatoid arthritis, unspecified; R47.81 Slurred speech; I95.9 Hypotension, unspecified; P96.81 Exposure to (parental) (environmental) tobacco smoke in the perinatal period; F32.A Depression, unspecified; D64.9 Anemia, unspecified; D69.6 Thrombocytopenia, unspecified; E78.5 Hyperlipidemia, unspecified; E83.41 Hypermagnesemia; G62.9 Polyneuropathy, unspecified; G89.29 Other chronic pain; K21.9 Gastro-esophageal reflux disease without esophagitis; N40.0 Benign prostatic hyperplasia without lower urinary tract symptoms; Z79.82 Long term (current) use of aspirin; Z79.899 Other long term (current) drug therapy; Z98.1 Arthrodesis status; Z79.52 Long term (current) use of systemic steroids; Z87.891 Personal history of nicotine dependence
CPT/HCPCS: 36415; 70450; 70496; 70498; 70553; 71046; 80048; 80053; 80061; 81003; 82140; 83036; 83735; 83880; 84439; 84443; 84484; 85025; 85610; 85730; 93005; 93306; 95816; 96361; 96372; 96374; 99285

== ENCOUNTER → 2025-01-20 | Outpatient (CLI) | payer MEDICARE ==
[2025-01-20 10:24] LABS: African American GFR (CKD) 82 (>60 ml/min/1.73 sqM); Blood Urea Nitrogen 28 mg/dL (9-20); Non-African American GFR(CKD) 71 (>60 ml/min/1.73 sqM)
--- NOTE | 2025-01-20 13:29 | CT ---
EXAMINATION TYPE: CT ChestAbdPelvis w con DATE OF EXAM: 01/20/2025 11:47 AM COMPARISON: 10/12/2024. CLINICAL INDICATION: Male, 74 years old with history of C34.11 LUNG CANCER; [facility], LUNG CA Technique: CT ChestAbdPelvis w con; Multiple axial images were obtained. Two-dimensional coronal and sagittal reconstructions were obtained. Contrast used:100 mL of Isovue 300 with IV Contrast, (None if empty) Oral contrast used: with Oral Contrast CT DLP: 834.6 mGycm, Automated exposure control for dose reduction was used. Findings: CHEST: LUNGS/PLEURA: There is some increased interstitial opacities throughout the right lung base compared to prior. * Enlarging left lower lung 7 mm nodule previously 4 mm series 3 image 39 * New pulmonary nodule in the costophrenic angle appearing 10 mm series 3 image 35. * 4 mm pulmonary nodule in lingula unchanged series 3 image 37. * Other scattered parenchymal abnormalities are not significantly changed from prior. Findings sligh tly hard to compare given acute infectious process is suspected. Soft tissue extending along the right suprahilar region towards the pleura pathology measuring simila r to 20 mm in thickness and extending anteriorly up to 6.5 cm similar prior. AIRWAY: Patent and unremarkable. HEART: Size within normal limits. Moderate coronary artery atherosclerosis. MEDIASTINUM: No enlarged lymph nodes within the visualized VASCULATURE: No aortic aneurysm. SOFT TISSUES/LYMPH NODES: Stable axillary lymph nodes. Mild gynecomastia changes bilaterally. LOWER NECK: No significant findings. ABDOMEN: ABDOMEN LIVER: The hepatic lesions have increased in size is a large confluent area in the left hepatic lobe series 3 image 52 not well appreciated prior measuring up in totality up to 7.3 x 6.0 cm. Other lesio ns are hard to compare given differences in phase of contrast may be slightly larger right hepatic lo be 23 mm previously 15. GALLBLADDER AND BILE DUCTS: Unremarkable. PANCREAS: Unremarkable. SPLEEN: Lesions within the spleen are present. These lesions have decreased in in size now measuring 11 mm previously 19 mm others are more conspicuous ADRENAL GLANDS: Unremarkable. KIDNEYS AND URETERS: No evidence of hydronephrosis or renal calculus. The ureters are unremarkable. PELVIS BLADDER: Unremarkable REPRODUCTIVE: Prostate is enlarged in size measuring 4.5 cm in transverse dimension. ABDOMEN & PELVIS STOMACH AND BOWEL: No evidence of bowel obstruction. There is a large stool burden throughout the col on. PERITONEUM: No evidence of pneumoperitoneum or free fluid. VASCULATURE: Moderate atherosclerotic calcifications are present throughout the abdominal aorta and i ts branches. 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 Postsurgical changes of the spine. LYMPH NODES: Retroperitoneal lymph node near the level of left kidney now measuring 5 mm, previously 13 mm, and 17 mm in short axis. SOFT TISSUE/ABDOMINAL WALL: Bilateral fat-containing inguinal hernias. IMPRESSION: 1. Increasing size of left lower lobe 7 mm nodule and new 10 mm nodule as well as increasing size of at least the left hepatic lobe now confluent mass scattered other liver lesions are present. Finding s concerning for progression of disease. Consider follow-up PET/CT. 2. Scattered interstitial pulmonary lung markings correlate for atypical pneumonia. 3. Scattered osseous sclerotic lesions are felt to be similar compared to prior. [facility], , 01/20/2025 1:27 PM
== END | disposition home or self-care (01) ==
LOC: RADCTMAIN 09:45
PROVIDERS: ATTEND Internal Medicine Hematology & Oncology
DX: C34.11 Malignant neoplasm of upper lobe, right bronchus or lung (principal); R91.1 Solitary pulmonary nodule; M12.9 Arthropathy, unspecified; R51.9 Headache, unspecified; K40.20 Bilateral inguinal hernia, without obstruction or gangrene, not specified as recurrent; I25.10 Atherosclerotic heart disease of native coronary artery without angina pectoris; K76.89 Other specified diseases of liver; G89.3 Neoplasm related pain (acute) (chronic)
CPT/HCPCS: 82565; 84520; 71260; 74177; 36415; Q9967

== ENCOUNTER → 2025-01-26 | Outpatient (CLI) | payer MEDICARE ==
--- NOTE | 2025-01-26 15:03 | MR ---
EXAMINATION TYPE: MR brain wo/w con DATE OF EXAM: 01/26/2025 COMPARISON: Prior MRI November 30, 2024 HISTORY: Lung cancer, F/U comparison to prior MRI 11-30-24. TECHNIQUE: Multiplanar, multisequence images of the brain and brainstem is performed without and with IV contras t, utilizing 7 mL intravenous Gadobutrol . FINDINGS: Diffusion weighted images demonstrate no evidence of a recent infarct or other diffusion ab normality. There is mild ventricular and sulcal prominence redemonstrated. Persistent multifocal are as of T2 hyperintensity throughout the white matter is prominent periventricular levels. Lesions are nonspecific in appearance and distribution. Midline structures redemonstrate normal morphology. The craniocervical junction remaining within nor mal limits. Post contrast images demonstrate no abnormal enhancement or enhancing masses with partic ular attention to the left cerebellar hemisphere at the area of concern on most recent prior MRI. The dural venous sinuses remain patent. Bilateral aphakia is redemonstrated. The paranasal sinuses are g rossly clear. Nasal septum remains deviated to right of midline. Increased fluid signal throughout th e right mastoid air cells is again seen. 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 IMPRESSION: No suspicious enhancing masses to suggest metastatic disease to the brain. Other findings stable. Persistent moderate to severe nonspecific white matter changes are noted. [facility], , 01/26/2025 3:01 PM
== END | disposition home or self-care (01) ==
LOC: RADMRIMAIN 13:10
PROVIDERS: ATTEND Internal Medicine Hematology & Oncology
DX: C34.11 Malignant neoplasm of upper lobe, right bronchus or lung (principal); H27.03 Aphakia, bilateral
CPT/HCPCS: 70553; A9585

== ENCOUNTER → 2025-02-19 | Outpatient (CLI) | payer MEDICARE ==
--- NOTE | 2025-02-22 22:05 | PE ---
EXAMINATION TYPE: PET CT fusion skull to thigh DATE OF EXAM: 02/19/2025 COMPARISON: 01/20/2025 CT chest abdomen pelvis. Prior PET/CT: No prior PET/CT at this location CLINICAL INDICATION: Male, 74 years old with history of C34.11 Lung CA, TECHNIQUE: Following the intravenous administration of 11.21 mCi of F-18 FDG, whole body images are performed PET CT fusion skull to thigh. Images are reviewed on the computer in the coronal, axial, a nd sagittal planes. Reconstructed rotating images are created on independent workstation and reviewe d on the computer. A localization and attenuation correction CT is performed in conjunction with e PET scan. DLP: 612.67 mGycm SCAN: Subsequent Blood glucose: 60 mg/dL Average Mediastinum SUV: 1.55 Average normal-appearing parenchymal Liver SUV: 2.35 FINDINGS: NECK: No abnormal uptake THORAX: In the right suprahilar region in the soft tissues adjacent to the mediastinal pleural margin there is a focus of radiotracer accumulation measuring SUV 9.12. Image 96. There is a focus radiotra cer accumulation within the inferior right hilum with an SUV of 8.42, image 109. A nonspecific puncta te hyperintensity is in the subcarinal region adjacent to the aorta with an SUV of 6.22. Findings are suspicious for metastatic disease. ABDOMEN: There are several large heterogenous masses within the liver. This involves the majority of the left lobe liver with SUV in the range of 11. A ring-enhancing radiotracer accumulation is in the anterior right mid liver, image 145, SUV 12.89. Irregular mass is superior within the right lobe live r with an SUV of 10.8. A smaller posterior focus of radiotracer is along the right upper liver margin measuring SUV 10, image 131 there is a enhancing area within the inferior lateral liver, image 149, SUV 10.5. Findings are compatible with neoplasm. There are couple of faint areas of mild uptake within the spleen. Example image 144, SUV 3.1 and ante rior spleen image 148, SUV 3.95. Early metastasis should be considered. PELVIS: No abnormal intraperitoneal uptake OSSEOUS STRUCTURES: There is mild uptake in the right facets of the C2-3 level with an SUV of 4.28. T his could be related to degenerative changes with facet hypertrophy. Consider metastasis. Abnormal up take is within the upper thoracic vertebral body with an SUV of 10.6 compatible with metastasis. Abno rmal uptake is within the posterior left lower thoracic vertebral body, image 140, SUV 10.31. There i s a focus radiotracer accumulation within the superior acetabulum image 219, SUV 8.2. There is a focu s radiotracer within the left external, image 105, SUV 7.9. There may be some very faint areas of pun ctate uptake within osseous structures. Additional early metastasis osseous structures is not exclude d. LOCALIZATION CT: There is thickening along the medial right lung pleural margin. Multiple hypodensiti es are within the left and right lobes of the liver small pericardial effusion is present. Cholelithi asis is present. There may be some mild fecal retention. COMPARISON: None IMPRESSION: 1. Focus of radiotracer within the medial left upper lung field with abnormal uptake may be the patie nt's primary. There are multiple punctate areas of uptake within the mediastinum suspicious for metas tatic lymph nodes. 2. Extensive large heterogenous masses within the liver compatible with metastasis. 3. There are multiple osseous metastasis including upper and lower thoracic spine, superior right sofia tabulum, anterior left sternum. Additional osseous metastasis may be present. 4. Early metastasis may be within the spleen. 5. Small pericardial effusion [facility], , 02/22/2025 10:02 PM
== END | disposition home or self-care (01) ==
LOC: RADPETMAIN 09:53
PROVIDERS: ATTEND Internal Medicine Hematology & Oncology
DX: C34.11 Malignant neoplasm of upper lobe, right bronchus or lung (principal); R16.0 Hepatomegaly, not elsewhere classified; C79.51 Secondary malignant neoplasm of bone; I31.39 Other pericardial effusion (noninflammatory)
CPT/HCPCS: 78815; A9552

== ENCOUNTER 2025-02-25 16:31 | Inpatient (IN) | payer MEDICARE ==
--- NOTE | 2025-02-25 17:13 | ED ---
General Adult HPI - General Chief complaint: Fall Stated complaint: fall,facial injury Time Seen by Provider: 02/25/25 16:39 Source: patient, family Mode of arrival: wheelchair Limitations: no limitations - History of Present Illness Initial comments: Dictation was produced using [employer] dictation software. please excuse any grammatical, word or spelling errors. Chief Complaint: 74-year-old male presents with facial injury after fall History of Present Illness: 74-year-old male presents to the emergency department after trip and fall. States that he hit his head no loss of conscious takes aspirin. Not on anticoagulation medications. Patient allegedly had low sodium in oncology office of 116. States that he fell due to qhgw-rq-blmb contact in his left knee. He is not a candidate for knee surgery due to history of lung cancer. The ROS documented in this emergency department record has been reviewed and confirmed by me. Those systems with pertinent positive or negative responses have been documented in the HPI. All other systems are other negative and/or noncontributory. - Related Data Home Medications Medication Instructions Recorded Confirmed Folic Acid 1 mg PO DAILY@0700 08/30/14 12/25/24 Gabapentin [Neurontin] 800 mg PO TID@0700,1500,2300 08/30/14 12/25/24 Metoprolol Succinate 50 mg PO HS 08/30/14 12/25/24 Omeprazole [PriLOSEC] 20 mg PO AC-BID 08/30/14 12/25/24 calcitrioL 0.25 mcg PO FONTENOT 08/30/14 12/25/24 Calcium Carbonate/Vitamin D3 2 tab PO DAILY@0 06/18/16 12/25/24 [Calcium 600-Vit D3 5 Mcg (200 Iu)] Doxazosin [Cardura] 4 mg PO BID@0700,1900 06/18/16 12/25/24 Magnesium 500 mg PO DAILY@189908/08/23 12/25/24 buPROPion SR [Wellbutrin SR] 150 mg PO DAILY 06/05/24 12/25/24 Potassium Chloride ER [K-Dur 10] 10 meq PO DAILY 11/28/24 12/25/24 predniSONE 5 mg PO DAILY 11/28/24 12/25/24 Hydrocortisone Cream 1 applic TOPICAL DIRECTED 12/23/24 12/23/24 [Hydrocortisone 2.5% Cream] Rosuvastatin (Unk) 1 tab PO HS 12/23/24 12/25/24 predniSONE 5 mg PO DAILY 12/23/24 12/25/24 Previous Rx's Medication Instructions Recorded Metoclopramide HCl [Reglan] 10 mg PO AC-TID #30 tablet 02/22/24 Nxqwqmlyfl-JEX-Xeigiix-Codeine 1 cap PO BID PRN #6 cap 09/08/24 [Fiorinal w/Cod 32-563-85-30MG] HYDROcodone/APAP 10-325MG [Lihue 1 tab PO QID PRN #12 tab 09/08/24 10-325] Morphine Sulfate [Ms Contin] 30 mg PO Q12HR #6 tab 09/08/24 Allergies Allergy/AdvReac Type Severity Reaction Status Date / Time adhesive Allergy Rash/Hives Verified 02/25/25 16:38 - paper tape ok Review of Systems ROS Statement: Those systems with pertinent positive or pertinent negative responses have been documented in the HPI. ROS Other: All systems not noted in ROS Statement are negative. Past Medical History Past Medical History: Cancer, CVA/TIA, GERD/Reflux, Hyperlipidemia, Hypertension, Musculoskeletal Disorder, Prostate Disorder, Rheumatoid Arthritis (RA) Additional Past Medical History / Comment(s): Degenerative Disc Disease. E nlarged prostate. lung cancer stage 4, 2-3 weeks ago "small stroke" memory issues after, has some cancer spots in other areas History of Any Multi-Drug Resistant Organisms: None Reported Past Surgical History: Back Surgery, Orthopedic Surgery Additional Past Surgical History / Comment(s): Spinal fusion X2, laminectomy, BILATERAL TENNIS ELBOW SURGERY, LEFT HAND CARPAL TUNNEL SURGERY, TRIAL PAIN STIMULATORPLACED AND LATER REMOVED, Pain Procedures, bilateral cataracts removed. ankle repair, Past Anesthesia/Blood Transfusion Reactions: No Reported Reaction Past Psychological History: Anxiety, Depression Smoking Status: Former smoker Past Alcohol Use History: None Reported Past Drug Use History: Marijuana - Past Family History Sister(s) Family Medical History: Cancer Additional Family Medical History / Comment(s): LUNG CANCER. General Exam - General Exam Comments Initial Comments: PHYSICAL EXAM: General Impression: Alert and oriented x3, not in acute distress HEENT: Abrasion to the forehead, extra-ocular movements intact, pupils equal and reactive to light bilaterally, mucous membranes moist. Cardiovascular: Heart regular rate and rhythm Chest: Able to complete full sentences, no retractions, no tachypnea Abdomen: abdomen soft, non-tender, non-distended, no organomegaly Musculoskeletal: Pulses present and equal in all extremities, no peripheral edema Motor: no focal deficits noted Neurological: CN II-XII grossly intact, no focal motor or sensory deficits noted Skin: Intact with no visualized rashes Psych: Normal affect and mood Limitations: no limitations Course Vital Signs 02/25/25 02/25/25 02/25/25 16:33 17:42 18:39 Temperature 98 F Pulse Rate 53 L 68 61 Respiratory 17 20 20 Rate Blood Pressure 126/65 133/69 151/78 O2 Sat by Pulse 98 97 98 Oximetry - Reevaluation(s) Reevaluation #1: 02/25/25 18:53 Case discussed with medical service representative regarding ICU admission given that his sodium level was 114. Case discussed with nephrology did not recommend 3% saline administration. Because of this Dr. Britt did not feel that patient met criteria for ICU admission. EKG Findings - EKG Comments: EKG Findings:: My EKG interpretation: Ventricular rate 52, sinus rhythm, VA interval 201, QRS 85, QTc 404. No VA prolongation, no QTC prolongation, no ST or T-wave changes noted. Overall, this EKG is unremarkable Medical Decision Making - Medical Decision Making Was pt. sent in by a medical professional or institution (, [facility], RECONCILER, urgent care, hospital, or care home...) When possible be specific @ -Sent in from oncology office Did you speak to anyone other than the patient for history (EMS, parent, family, police, friend...)? What history was obtained from this source @ -No Did you review nursing and triage notes (agree or disagree)? Why? @ -I reviewed and agree with nursing and triage notes Were old charts reviewed (outside hosp., previous admission, EMS record, old EKG, old radiological studies, urgent care reports/EKG's, care home records)? Report findings @ -No old charts were reviewed Differential Diagnosis (chest pain, altered mental status, abdominal pain women, abdominal pain men, vaginal bleeding, musculoskeletal, weakness, fever, dyspnea, syncope, headache, dizziness, GI bleed, back pain, seizure, CVA, palpatations, mental health)? @ -Intracranial bleed, skull fracture, head contusion EKG interpreted by me (3pts min.). @ -See above X-rays interpreted by me (1pt min.). @ -None done CT interpreted by me (1pt min.). @ -CT brain is C-spine is nonacute U/S interpreted by me (1pt. min.). @ -None done What testing was considered but not performed or refused? (CT, X-rays, U/S, labs)? Why? @ -None What meds were considered but not given or refused? Why? @ -None Was smoking cessation discussed for >3mins.? @ -No Were there social determinants of health that impacted care today? How? (Homelessness, low income, unemployed, alcoholism, drug addiction, transportation, low edu. Level, literacy, decrease access to med. care, correction, rehab)? @ -No Was there de-escalation of care discussed even if they declined (Discuss DNR or withdrawal of care, Hospice)? DNR status @ -No What co-morbidities impacted this encounter? (DM, HTN, Smoking, COPD, CAD, Cancer, CVA, ARF, Chemo, Hep., AIDS, mental health diagnosis, sleep apnea, morbid obesity)? @ -None Was patient admitted / discharged? Hospital course, mention meds given and route, prescriptions, significant lab abnormalities, going to OR and other pertinent info. @ -74-year-old male sent to the emergency department for abnormal outpatient lab. Is found to have hyponatremia at home. Patient at 116 level in the office this morning. Presents to the ER after he had fallen. States that he fell because of chronic issues with his knee. No loss of conscious does not take anticoagulation medications. CT brain C-spine is nonacute. Labs obtained with sodium level 114. Rest of labs within acceptable limits. Patient case discussed with nephrology who will monitor patient during inpatient stay. Every 4 hours sodium levels ordered. Patient given normal saline. Case discussed with hospitalist for admission. Patient did not meet criteria for ICU admission according to medical service representative, Dr. Britt. Did you discuss the management of the patient with other professionals (professionals i.e. , PA, RECONCILER, lab, RT, psych nurse, executive secretary social welfare, gas engine operator, t eacher, first officer, foster care case manager)? Give summary @ -As above Was critical care preformed (if so, how long)? @ -Yes, 33 minutes for management of severe metabolic derangement Undiagnosed new problem with uncertain prognosis? @ -No Drug Therapy requiring intensive monitoring for toxicity (Heparin, Nitro, Insulin, Cardizem)? @ -No Were any procedures done? @ -No Diagnosis/symptom? Acute, or Chronic, or Acute on Chronic? Uncomplicated (without systemic symptoms) or Complicated (systemic symptoms)? @ -Hyponatremia, head contusion, forehead abrasion Side effects of treatment? @ -No Exacerbation, Progression, or Severe Exacerbation? @ -No Poses a threat to life or bodily function? How? (Chest pain, USA, NC, pneumonia, PE, COPD, DKA, ARF, appy, cholecystitis, CVA, Diverticulitis, Homicidal, Suicidal, threat to staff... and all critical care pts) @ -yes - Lab Data Result diagrams: 02/25/25 17:15 02/25/25 17:15 Lab Results 02/25/25 02/25/25 Range/Units 17:15 17:15 WBC 8.85 (4.50-10.00) 10*3/uL RBC 3.94 L (4.40-5.60) 10*6/uL Hgb 11.5 L (13.0-17.0) g/dL Hct 32.6 L (39.6-50.0) % MCV 82.7 (80.0-97.0) fL MCH 29.2 (27.0-32.0) pg MCHC 35.3 (32.0-37.0) g/dL Plt Count 158 (140-440) 10*3/uL MPV 10.0 (9.5-12.2) fL Immature Gran % (Auto) 4.1 % Neutrophils % 78.5 % Lymphocytes % 8.6 % Monocytes % 7.8 % Eosinophils % 0.7 % Basophils % 0.3 % Immature Gran # 0.36 H (0.00-0.04) 10*3/uL Neutrophils # 6.95 (1.80-7.70) 10*3/uL Lymphocytes # 0.76 L (0.90-5.00) 10*3/uL Monocytes # 0.69 (0.20-1.00) 10*3/uL Eosinophils # 0.06 (0.04-0.35) 10*3/uL Basophils # 0.03 (0.00-0.10) 10*3/uL Sodium 114 L* (137-145) mmol/L Potassium 5.2 H (3.5-5.1) mmol/L Chloride 84 L (98-107) mmol/L Carbon Dioxide 26 (22-30) mmol/L Anion Gap 4 mmol/L BUN 25 H (9-20) mg/dL Creatinine 0.48 L (0.66-1.25) mg/dL Est GFR (CKD-EPI)AfAm >90 (>60 ml/min/1.73 sqM) Est GFR (CKD-EPI)NonAf >90 (>60 ml/min/1.73 sqM) Glucose 99 (74-99) mg/dL Calcium 8.2 L (8.4-10.2) mg/dL Total Bilirubin 0.9 (0.2-1.3) mg/dL AST 90 H (17-59) U/L ALT 55 H (4-49) U/L Alkaline Phosphatase 255 H (38-126) U/L Total Protein 5.9 L (6.3-8.2) g/dL Albumin 3.1 L (3.5-5.0) g/dL Disposition Clinical Impression: Hyponatremia Disposition: ADMITTED IP TO THIS HOSP Condition: Serious Referrals: Reji Nina MD [Primary Care Provider] - 1-2 days Decision Time: 18:57
[2025-02-25 17:31] LABS: Basophils # (A) 0.03 10*3/uL (0.00-0.10); Basophils % (A) 0.3 %; Eosinophils # (A) 0.06 10*3/uL (0.04-0.35); Eosinophils % (A) 0.7 %; HCT 32.6 % (39.6-50.0); HGB 11.5 g/dL (13.0-17.0); Lymphocytes # (A) 0.76 10*3/uL (0.90-5.00); Lymphocytes % (A) 8.6 %; MCH 29.2 pg (27.0-32.0); MCHC 35.3 g/dL (32.0-37.0); MCV 82.7 fL (80.0-97.0); Monocytes # (A) 0.69 10*3/uL (0.20-1.00); Monocytes % (A) 7.8 %; Neutrophils # (A) 6.95 10*3/uL (1.80-7.70); Neutrophils % (A) 78.5 %; RBC 3.94 10*6/uL (4.40-5.60); WBC 8.85 10*3/uL (4.50-10.00)
[2025-02-25 17:32] LABS: ALT 55 U/L (4-49); African American GFR (CKD) >90 (>60 ml/min/1.73 sqM); Albumin 3.1 g/dL (3.5-5.0); Anion Gap 4 mmol/L; Blood Urea Nitrogen 25 mg/dL (9-20); Calcium 8.2 mg/dL (8.4-10.2); Carbon Dioxide 26 mmol/L (22-30); Chloride 84 mmol/L (98-107); Glucose 99 mg/dL (74-99); Non-African American GFR(CKD) >90 (>60 ml/min/1.73 sqM); Total Bilirubin 0.9 mg/dL (0.2-1.3); Total Protein 5.9 g/dL (6.3-8.2)
[2025-02-25 17:40] LABS: AST 90 U/L (17-59); Alkaline Phosphatase 255 U/L (38-126); Potassium 5.2 mmol/L (3.5-5.1); Sodium 114 mmol/L (137-145)
--- NOTE | 2025-02-25 17:57 | CT ---
EXAMINATION TYPE: CT brain cspine wo con DATE OF EXAM: 02/25/2025 5:40 PM COMPARISON: Previous CT had study dated 11/27/2024. CLINICAL INDICATION: Male, 74 years old with history of fall; abrasion above left eyebrow and after f all and hit head. TECHNIQUE: Brain: Multiple axial CT images of the brain were obtained without IV contrast. Cspine: Axial CT images from the skull base to the inferior aspect of T2 we obtained without intraven ous contrast. Coronal and sagittal reformatted images were also reviewed. . CT DLP: 1373.5 mGycm, Automated exposure control for dose reduction was used. FINDINGS: Brain: Extra-axial spaces: No abnormal extra-axial fluid collections. Ventricular system: Dilatation in proportion to cerebral atrophy. Cerebral parenchyma: No acute intraparenchymal hemorrhage or mass effect. The hameed-white junction is well differentiated. Scattered hypoattenuating areas are seen within the white matter. Cerebellum: Unremarkable. Mass effect: No evidence of midline shift. Intracranial vasculature: unremarkable Soft tissues: Left forehead/frontal scalp hematoma/contusion. Calvarium/osseous structures: No depressed skull fracture. Paranasal sinuses and mastoid air cells: Clear. Visualized orbits: The lenses are surgically removed from the globes. Cervical spine: Fracture: None. Osseous structures: Sclerotic changes involving the T2 and T3 partially visualized thoracic spine sug gestive of treated osseous metastatic disease given patient's history of malignancy. Anterior spinal fusion hardware visualized spanning C3-C7 without periprosthetic loosening or evidence of acute hardw are failure. Vertebral alignment: Within normal limits. Spinal canal/Neural Foramina: Remaining levels of the cervical spine demonstrates facet arthropathy i s identified to hypertrophied with varying degrees of neural foraminal narrowing. Limited evaluation of the spinal canal due to extensive streak metallic artifact. Neck soft tissues: Prevertebral soft tissues are within normal limits. Other: The airway is patent. Biapical scarring. IMPRESSION: 1. No acute intracranial process. 2. No acute fracture or traumatic dilatation of the cervical spine. [facility], , 02/25/2025 5:55 PM
[2025-02-25 18:24] LABS: Platelet Count 158 10*3/uL (140-440)
[2025-02-25] MEDS: SODIUM CHLORIDE 0.9% 1,000 ML IV STA (18:27)
[2025-02-25] MEDS: SODIUM CHLORIDE 0.9% 500 ML 500 ML IV STA (18:27)
[2025-02-25] MEDS ORDERED: NALOXONE 0.4 MG/ML 1 ML VIAL IV PRN (18:58)
[2025-02-25] MEDS: DIPH,PERTUS(ACELL)TETVAC-LF 0.5 ML VIAL IM ONE (19:01)
[2025-02-25] MEDS: BACITRACIN OINT 1 EACH PACKET TOPICAL ONE (19:33)
[2025-02-25 20:00] LABS: African American GFR (CKD) >90 (>60 ml/min/1.73 sqM); Anion Gap 4 mmol/L; Blood Urea Nitrogen 22 mg/dL (9-20); Calcium 7.7 mg/dL (8.4-10.2); Carbon Dioxide 25 mmol/L (22-30); Chloride 88 mmol/L (98-107); Glucose 83 mg/dL (74-99); Non-African American GFR(CKD) >90 (>60 ml/min/1.73 sqM)
[2025-02-25 20:07] LABS: Sodium 117 mmol/L (137-145)
[2025-02-25] MEDS: ATORVASTATIN 80 MG TAB PO SCH (21:50)
[2025-02-25 23:09] LABS: African American GFR (CKD) >90 (>60 ml/min/1.73 sqM); Anion Gap 4 mmol/L; Blood Urea Nitrogen 20 mg/dL (9-20); Calcium 7.8 mg/dL (8.4-10.2); Carbon Dioxide 24 mmol/L (22-30); Chloride 89 mmol/L (98-107); Glucose 95 mg/dL (74-99); Non-African American GFR(CKD) >90 (>60 ml/min/1.73 sqM); Potassium 4.2 mmol/L (3.5-5.1)
[2025-02-25 23:11] LABS: Sodium 117 mmol/L (137-145)
--- NOTE | 2025-02-25 23:35 | P.HPIM ---
History of Present Illness H&P Date: 02/25/25 Chief Complaint: Fall Patient is a 74 year old male with past medical history of CVA/TIA, GERD, hyperlipidemia, hypertension, rheumatoid arthritis, lung cancer stage IV with m ets to the liver, spine, spleen as well as retroperitoneal adenopathy presented to the ED after sustaining a fall. Patient reports having multiple falls in the past couple of days. With todayt's fall he reports falling on his face and hitting his head but denies losing consciousness. He states that he fell because of [id number] contact in the left knee due to severe RA. He claims it was totally accidental due to tripping. he is not on blood thinners , he did not lose consciousness . He denies any headache or pain anywhere else currently. Patient presented to his oncologist's office this morning for evaluation where he was found to have hyponatremia with Na 116 and was told by the PCP to go to the hospital. He reports not being a good candidate for surgery because of lung cancer. Patient's mentions that the patient has been very weak recently. He was on chemotherapy started a few months ago, that had to be stopped a month ago due to his rheumatoid arthritis flaring up. He is now on prednisone to manage his RA symptoms and new chemotherapy will be started in a week, as the old regimen wasn't working Patient has been in chronic pain for years due to RA and is currently on percocet QID. He denies having reduced apetite or losing weight. He does admit to not drinking enough water and his has been trying to make him increased his water intake. Patient denies lightheadedness or dizziness, fever, recent infections. Additonally, patient had a HAMMAD in December 2024 that showed EF 55% with mild mitral regurgitation. Denies fever, shortness of breath, cough, chest pain, palpitations, abdominal pain, nausea, vomiting, hematuria, dysuria, hematochezia, melena, headache, slurred speech, numbness, tingling, dizziness, lightheadedness, blurred vision, double vision. ED documentation reviewed- Case discussed with barber shop manager regarding ICU admission given that his sodium level was 114. Case discussed with nephrology did not recommend 3% saline administration. Because of this Dr. Britt did not feel that patient met criteria for ICU admission. In the ED patient was treated with bacitracin ointment, 0.9 normal saline, Tdap vaccine Vitals on admission T 98 F, AZ 53 bpm, RR 17, BP 126/65, oxygen saturation 98% on room air EKG independently interpreted as sinus bradycardia, AZ interval 201 ms, rate 52 bpm, QTc 404 ms Head and Cervical spine CT shows no acute intracranial process, no acute fracture or traumatic dilatation of the cervical spine Labs on admission show WBC 8.85, hemoglobin 11.5, platelet count 158, sodium 114, potassium 5.2, chloride 84, BUN 25, creatinine 0.48, calcium 8.2, AST 90, ALT 55, ALP 255, albumin 3.1 Patient admitted to internal medicine service Review of systems: Pertinent positives and negatives as discussed in HPI, a complete review of systems was performed and all other systems are negative. Physical examination: Vital signs reviewed General: nontoxic, no distress, appears at stated age Derm: multiple abrasions Head: abrasion on forehead and nose, normocephalic, symmetric Eyes: EOMI, anicteric sclera Cardiovascular: S1 S2 reg, no murmur Lungs: CTA bilateral, no rhonchi, no rales, no accessory muscle use Abdominal: soft, non-tender to palpation Extremities:1+ pitting edema, abrasion on right elbow and left knee Neuro: Alert, Oriented, Gross neurological examination did not reveal any focal deficits. Psych: well appearing, appropriate affect Assessment/Plan: Patient is a 74 year old male with past medical history of CVA/TIA, GERD, hyperlipidemia, hypertension, rheumatoid arthritis, lung cancer stage IV presented to the ED after sustaining a fall. Active: #. Fall, secondary to OA vs generalized weakness due to advanced cancer #. 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 Metastatic lung cancer #. Elevated transaminases, likely secondary to liver mets On admission Low Na 114. Elevated AST 90, ALT 55, ALP 255 Received 500 mL normal saline bolus in the ED Continue 0.9 normal saline at 50ml/hr Obtain serum osmolality, urine sodium, urine osmolality, TSH Monitor urine output Continue telemetry monitoring Monitor CMP Fall precautions Consult nephrology, ED discussed case with nephrology, did not recommend 3% Hypertonic Saline Consult PT, OT and social work #. Mild Hyperkalemia K elevated to 5.2 on admission EKG independently interpreted as sinus bradycardia, AZ interval 201 ms, rate 52 bpm, QTc 404 ms Monitor BMP Chronic: #. Hyperlipidemia #. History of CVA/TIA #. Hypocalcemia #. Vitamin D deficiency #. BPH #. Chronic normocytic anemia, likely anemia of chronic disease #. Tobacco dependence #. Neuropathy #. Anxiety/Insomnia #. GERD #. Chronic pain, opiate dependent #. Rheumatoid arthritis Continue aspirin 80 mg p.o. daily, atorvastatin 80 mg p.o. at bedtime, calcitriol 0.25 mg p.o. Saturday, calcium ascorbate 500 mg PO daily, calcium carbonate/vitamin D3, doxazosin 4 mg p.o. twice daily, ferrous sulfate 325 mg p.o. every 48 hours, folic acid 1 mg p.o. daily, metoprolol 25 mg p.o. daily, pantoprazole 40 mg p.o. daily, ondansetron 4 mg IVP Q8HR PRN, Prednisone 5 mg PO BID, Percocet PO QID PRN, monitor CBC F: 0.9 normal saline at 50 mL/h E: Replete Na N: Renal diet A: Ambulatory DVT prophylaxis: Lovenox 40 mg SQ daily GI prophylaxis: Pantoprazole 40 mg PO daily The patient is admitted with an anticipated more than 2 midnight stay for evaluation of fall CODE STATUS: FULL CODE Discussed with: Patient Anticipated discharge place: Pending clinical course Dictation was produced using [employer] dictation software. please excuse any grammatical, word or spelling errors. Angelica Terry MD PGY-1 IM I have seen and evaluated the patient today. I Discussed the case with the resident and agree with the resident's findings I edited the assessment and plan as necessary as documented in the resident's note. Past Medical History Past Medical History: Cancer, CVA/TIA, GERD/Reflux, Hyperlipidemia, Hyperten evy, Musculoskeletal Disorder, Prostate Disorder, Rheumatoid Arthritis (RA) Additional Past Medical History / Comment(s): Degenerative Disc Disease. Enlarged prostate. lung cancer stage 4, ?TIA History of Any Multi-Drug Resistant Organisms: None Reported Past Surgical History: Back Surgery, Orthopedic Surgery Additional Past Surgical History / Comment(s): Spinal fusion X2, laminectomy, BILATERAL TENNIS ELBOW SURGERY, LEFT HAND CARPAL TUNNEL SURGERY, TRIAL PAIN STIMULATORPLACED AND LATER REMOVED, Pain Procedures, bilateral cataracts removed. ankle repair, Past Anesthesia/Blood Transfusion Reactions: No Reported Reaction Past Psychological History: Anxiety, Depression Smoking Status: Former smoker Past Alcohol Use History: None Reported Past Drug Use History: Marijuana - Past Family History Sister(s) Family Medical History: Cancer Additional Family Medical History / Comment(s): LUNG CANCER. Medications and Allergies Home Medications Medication Instructions Recorded Confirmed Type Folic Acid 1 mg PO DAILY@0730 08/30/14 02/25/25 History Gabapentin [Neurontin] 800 mg PO TID@0730,1500,1900 08/30/14 02/25/25 History Metoprolol Succinate 25 mg PO DAILY@0730 08/30/14 02/25/25 History Omeprazole [PriLOSEC] 20 mg PO BID 08/30/14 02/25/25 History calcitrioL 0.25 mcg PO FONTENOT 08/30/14 02/25/25 History Calcium Carbonate/Vitamin D3 2 tab PO DAILY@0730 06/18/16 02/25/25 History [Calcium 600-Vit D3 5 Mcg (200 Iu)] Doxazosin [Cardura] 4 mg PO BID@0730,1900 06/18/16 02/25/25 History buPROPion SR [Wellbutrin SR] 150 mg PO BID@0730,1900 06/05/24 02/25/25 History Potassium Chloride ER [K-Dur 10] 10 meq PO DAILY 11/28/24 02/25/25 History Hydrocortisone Cream 1 applic TOPICAL TID PRN 12/23/24 02/25/25 History [Hydrocortisone 2.5% Cream] predniSONE 5 mg PO BID 12/23/24 02/25/25 History Aspirin EC [Ecotrin Low Dose] 81 mg PO DAILY@72902/25/25 02/25/25 History Atorvastatin [Lipitor] 80 mg PO HS 02/25/25 02/25/25 History Butalbit/Acetamin/Caff/Codeine 1 cap PO BID PRN 02/25/25 02/25/25 History [Fioricet-Cod 42-531-47-30 Cap] Calcium Ascorbate 500mg 500 mg PO DAILY@30 02/25/25 02/25/25 History Ferrous Sulfate [Feosol] 325 mg PO Q48H 02/25/25 02/25/25 History Latanoprost [Latanoprost 0.005%] 1 drop BOTH EYES HS 02/25/25 02/25/25 History Magnesium Oxide [Mag-Ox] 500 mg PO DAILY@0730 02/25/25 02/25/25 History Metoclopramide HCl [Reglan] 10 mg PO AC-TID PRN 02/25/25 02/25/25 History Ondansetron [Zofran] 4 - 8 mg PO Q4H PRN MDD 32 mg 02/25/25 02/25/25 History Zolpidem Tartrate [Ambien Cr] 12.5 mg PO HS PRN 02/25/25 02/25/25 History oxyCODONE-APAP 10-325MG [Percocet 1 tab PO QID@0730,,,23 02/25/25 02/25/25 History 10-325 mg] Allergies Allergy/AdvReac Type Severity Reaction Status Date / Time adhesive Allergy Rash/Hives Verified 02/25/25 19:33 - paper tape ok Physical Exam Vitals: Vital Signs Temp Pulse Resp BP Pulse Ox 02/25/25 18:54 98.4 F 02/25/25 18:39 61 20 151/78 98 02/25/25 17:42 68 20 133/69 97 02/25/25 16:33 98 F 53 L 17 126/65 98 Intake and Output 02/25/25 02/25/25 02/25/25 06:59 14:59 22:59 Other: Weight 66.678 kg Results CBC & Chem 7: 02/25/25 17:15 02/25/25 22:17 Labs: Abnormal Lab Results - Last 24 Hours (Table) 02/25/25 02/25/25 Range/Units 17:15 17:15 RBC 3.94 L (4.40-5.60) 10*6/uL Hgb 11.5 L (13.0-17.0) g/dL Hct 32.6 L (39.6-50.0) % Immature Gran # 0.36 H (0.00-0.04) 10*3/uL Lymphocytes # 0.76 L (0.90-5.00) 10*3/uL Sodium 114 L* (137-145) mmol/L Potassium 5.2 H (3.5-5.1) mmol/L Chloride 84 L (98-107) mmol/L BUN 25 H (9-20) mg/dL Creatinine 0.48 L (0.66-1.25) mg/dL Calcium 8.2 L (8.4-10.2) mg/dL AST 90 H (17-59) U/L ALT 55 H (4-49) U/L Alkaline Phosphatase 255 H (38-126) U/L Total Protein 5.9 L (6.3-8.2) g/dL Albumin 3.1 L (3.5-5.0) g/dL
[2025-02-26 03:41] LABS: African American GFR (CKD) >90 (>60 ml/min/1.73 sqM); Anion Gap 2 mmol/L; Blood Urea Nitrogen 18 mg/dL (9-20); Calcium 8.1 mg/dL (8.4-10.2); Carbon Dioxide 26 mmol/L (22-30); Chloride 90 mmol/L (98-107); Glucose 90 mg/dL (74-99); Non-African American GFR(CKD) >90 (>60 ml/min/1.73 sqM); Potassium 4.3 mmol/L (3.5-5.1)
[2025-02-26 03:47] LABS: Sodium 118 mmol/L (137-145)
[2025-02-26] MEDS: CALCIUM CARB-VIT D 500 MG-5 MCG TAB PO SCH (06:29)
[2025-02-26] MEDS: DOXAZOSIN 4 MG TAB PO SCH (06:29)
[2025-02-26] MEDS: PANTOPRAZOLE 40 MG TABLET PO SCH (06:29)
[2025-02-26] MEDS: METOPROLOL SUCCINATE (ER) 25 MG TAB.ER.24H PO SCH (06:29)
[2025-02-26] MEDS: FOLIC ACID 1 MG TAB PO SCH (06:29)
[2025-02-26] MEDS: ASPIRIN 81 MG PO SCH (06:29)
[2025-02-26 06:35] LABS: HCT 32.4 % (39.6-50.0); HGB 11.1 g/dL (13.0-17.0); Immature Platelet Fraction 2.5 % (1.1-6.1); MCH 29.4 pg (27.0-32.0); MCHC 34.3 g/dL (32.0-37.0); MCV 85.7 fL (80.0-97.0); Mean Platelet Volume 10.2 fL (9.5-12.2); Platelet Count 130 10*3/uL (140-440); RBC 3.78 10*6/uL (4.40-5.60); RDW 17.2 % (11.5-14.5); WBC 8.69 10*3/uL (4.50-10.00)
[2025-02-26 06:50] LABS: African American GFR (CKD) >90 (>60 ml/min/1.73 sqM); Anion Gap 1 mmol/L; Blood Urea Nitrogen 17 mg/dL (9-20); Calcium 8.4 mg/dL (8.4-10.2); Carbon Dioxide 28 mmol/L (22-30); Chloride 90 mmol/L (98-107); Glucose 74 mg/dL (74-99); Magnesium 1.8 mg/dL (1.6-2.3); Non-African American GFR(CKD) >90 (>60 ml/min/1.73 sqM); Potassium 4.1 mmol/L (3.5-5.1)
[2025-02-26 06:54] LABS: Sodium 119 mmol/L (137-145)
[2025-02-26] MEDS ORDERED: GABAPENTIN 400 MG CAP PO SCH (07:30)
[2025-02-26] MEDS ORDERED: buPROPion SR 150 MG TABLET.ER PO SCH (07:30)
[2025-02-26] MEDS: ASCORBIC ACID 500 MG TAB PO SCH (08:27)
[2025-02-26] MEDS: FERROUS SULFATE 325 MG TAB PO SCH (08:27)
[2025-02-26] MEDS: predniSONE 5 MG TAB PO SCH (08:27)
[2025-02-26 10:50] LABS: African American GFR (CKD) >90 (>60 ml/min/1.73 sqM); Anion Gap 5 mmol/L; Blood Urea Nitrogen 14 mg/dL (9-20); Calcium 8.2 mg/dL (8.4-10.2); Carbon Dioxide 26 mmol/L (22-30); Chloride 90 mmol/L (98-107); Glucose 91 mg/dL (74-99); Non-African American GFR(CKD) >90 (>60 ml/min/1.73 sqM); Potassium 3.7 mmol/L (3.5-5.1); Sodium 121 mmol/L (137-145)
--- NOTE | 2025-02-26 10:54 | P.NPCON ---
History of Present Illness - Reason for Consult hyponatremia - History of Present Illness Patient is a 74-year-old male with history of CVA, hypertension, lung cancer with mets to the liver and spine along with retroperitoneal lymphadenopathy. Patient also has underlying history of rheumatoid arthritis. He has had multiple falls at home. Patient states that he tripped and fell hitting his head. Patient was seen at his oncologist office and labs show sodium of 116 and he was advised to go into the hospital. No previous history of hyponatremia. No history of severe pain No new medications added recently Patient does admit to decreased oral intake over the last few weeks. No mental status changes. Serum sodium was 114 on admission. Patient received normal saline bolus and his sodium increased to 117 and it is 119 today. He is currently maintained on saline at 50 cc an hour. Urine osmolality 352 and urine sodium of 64 Past Medical History Past Medical History: Cancer, CVA/TIA, GERD/Reflux, Hyperlipidemia, Hypertension, Musculoskeletal Disorder, Prostate Disorder, Rheumatoid Arthritis (RA) Additional Past Medical History / Comment(s): Degenerative Disc Disease. Enlarged prostate. lung cancer stage 4, ?TIA History of Any Multi-Drug Resistant Organisms: None Reported Past Surgical History: Back Surgery, Orthopedic Surgery Additional Past Surgical History / Comment(s): Spinal fusion X2, laminectomy, BILATERAL TENNIS ELBOW SURGERY, LEFT HAND CARPAL TUNNEL SURGERY, TRIAL PAIN STIMULATORPLACED AND LATER REMOVED, Pain Procedures, bilateral cataracts removed. ankle repair, Past Anesthesia/Blood Transfusion Reactions: No Reported Reaction Past Psychological History: Anxiety, Depression Smoking Status: Former smoker Past Alcohol Use History: None Reported Past Drug Use History: Marijuana - Past Family History Sister(s) Family Medical History: Cancer Additional Family Medical History / Comment(s): LUNG CANCER. Medications and Allergies Home Medications Medication Instructions Recorded Confirmed Type Folic Acid 1 mg PO DAILY@0730 08/30/14 02/25/25 History Gabapentin [Neurontin] 800 mg PO TID@0730,1500,1900 08/30/14 02/25/25 History Metoprolol Succinate 25 mg PO DAILY@0730 08/30/14 02/25/25 History Omeprazole [PriLOSEC] 20 mg PO BID 08/30/14 02/25/25 History calcitrioL 0.25 mcg PO FONTENOT 08/30/14 02/25/25 History Calcium Carbonate/Vitamin D3 2 tab PO DAILY@0730 06/18/16 04/17/25 History [Calcium 600-Vit D3 5 Mcg (200 Iu)] Doxazosin [Cardura] 4 mg PO BID@729,189906/18/16 02/25/25 History buPROPion SR [Wellbutrin SR] 150 mg PO BID@0730,19006/05/24 02/25/25 History Potassium Chloride ER [K-Dur 10] 10 meq PO DAILY 11/28/24 02/25/25 History Hydrocortisone Cream 1 applic TOPICAL TID PRN 12/23/24 02/25/25 History [Hydrocortisone 2.5% Cream] predniSONE 5 mg PO BID 12/23/24 02/25/25 History Aspirin EC [Ecotrin Low Dose] 81 mg PO DAILY@72902/25/25 02/25/25 History Atorvastatin [Lipitor] 80 mg PO HS 02/25/25 02/25/25 History Butalbit/Acetamin/Caff/Codeine 1 cap PO BID PRN 02/25/25 02/25/25 History [Fioricet-Cod 56-249-27-30 Cap] Calcium Ascorbate 500mg 500 mg PO DAILY@72902/25/25 02/25/25 History Ferrous Sulfate [Feosol] 325 mg PO Q48H 02/25/25 02/25/25 History Latanoprost [Latanoprost 0.005%] 1 drop BOTH EYES HS 02/25/25 02/25/25 History Magnesium Oxide [Mag-Ox] 500 mg PO DAILY@72902/25/25 02/25/25 History Metoclopramide HCl [Reglan] 10 mg PO AC-TID PRN 02/25/25 02/25/25 History Ondansetron [Zofran] 4 - 8 mg PO Q4H PRN MDD 32 mg 02/25/25 02/25/25 History Zolpidem Tartrate [Ambien Cr] 12.5 mg PO HS PRN 02/25/25 02/25/25 History oxyCODONE-APAP 10-325MG [Percocet 1 tab PO QID@0730,13,19,23 02/25/25 02/25/25 History 10-325 mg] Allergies Allergy/AdvReac Type Severity Reaction Status Date / Time adhesive Allergy Rash/Hives Verified 02/25/25 19:33 - paper tape ok Physical Exam Vitals: Vital Signs Temp Pulse Pulse Resp BP BP Pulse Ox 02/26/25 08:00 97.5 F L 65 16 142/69 96 02/26/25 04:00 98.4 F 60 16 152/57 98 02/26/25 02:00 16 02/26/25 00:00 65 16 127/62 97 02/25/25 21:27 98.2 F 61 16 136/65 98 02/25/25 20:21 98.5 F 63 17 188/84 98 02/25/25 18:54 98.4 F 02/25/25 18:39 61 20 151/78 98 02/25/25 17:42 68 20 133/69 97 02/25/25 16:33 98 F 53 L 17 126/65 98 Intake and Output 02/25/25 02/26/25 02/26/25 22:59 06:59 14:59 Output Total 475 650 Balance -475 -650 Output: Urine 475 650 Other: Voiding Method Urinal # Voids 1 Weight 66.678 kg 69.1 kg Patient is awake, comfortable, no acute distress Ecchymosis noted around left eye and abrasion on the forehead Examination of the heart S1 and S2 Examination of the lungs shows decreased breath sounds at the bases no crackles or wheezing is heard Abdomen is soft nontender Examination of lower extremity shows no evidence of edema ANESTHESIA DIRECTOR exam shows patient is moving all 4 extremities. Results - Lab Results Most recent lab results Calcium 8.4 mg/dL (8.4-10.2) 02/26/25 06:10 Magnesium 1.8 mg/dL (1.6-2.3) 02/26/25 06:10 02/26/25 06:10 02/26/25 06:10 Assessment and Plan Assessment: 1. Hyponatremia, hypovolemic and improving with normal saline infusion. U nlikely to be SIADH given improvement with saline infusion. Continue to monitor serum sodium every 4-6 hours 2. Metastatic lung cancer 3. History of falls 4. Dyslipidemia Plan: Continue with saline at 50 cc an hour Repeat sodium in 4 to 6 hours Patient was encouraged to increase oral intake Thank you for the consultation. We will continue to follow the patient with you during his hospitalization.
--- NOTE | 2025-02-26 13:15 | P.PN ---
Subjective Progress Note Date: 02/26/25 74 year old male with past medical history of CVA/TIA, GERD, hyperlipidemia, hypertension, rheumatoid arthritis, lung cancer stage IV with mets to the liver, spine, spleen as well as retroperitoneal adenopathy presented to the ED after sustaining a fall. Patient reports having multiple falls in the past couple of days. With todayt's fall he reports falling on his face and hitting his head but denies losing consciousness. He states that he fell because of mykc-ei-[id number] contact in the left knee due to severe RA. He claims it was totally accidental due to tripping. he is not on blood thinners , he did not lose consciousness . He denies any headache or pain anywhere else currently. Patient presented to his oncologist's office this morning for evaluation where he was found to have hyponatremia with Na 116 and was told by the PCP to go to the hospital. He reports not being a good candidate for surgery because of lung cancer. Patient's mentions that the patient has been very weak recently. He was on chemotherapy started a few months ago, that had to be stopped a month ago due to his rheumatoid arthritis flaring up. He is now on prednisone to manage his RA symptoms and new chemotherapy will be started in a week, as the old regimen wasn't working Patient has been in chronic pain for years due to RA and is currently on percocet QID. He denies having reduced apetite or losing weight. He does admit to not drinking enough water and his has been trying to make him increased his water intake. Patient denies lightheadedness or dizziness, fever, recent infections. Additonally, patient had a H[facility]AD in December 2024 that showed EF 55% with mild mitral regurgitation. 02/26 - He is seen and examined at bedside this morning, now on the third floor. He was noted per the nursing staff to have fallen in the bathroom overnight, he was found in there, he denies any head trauma. Will order repeat head CT just to confirm no signs of bleeding. REVIEW OF SYSTEMS: Pertinent positives and negatives noted in HPI. Physical Exam: Vital signs reviewed General: nontoxic, no distress, appears at stated age Derm: multiple abrasions Head: abrasion on forehead and nose, normocephalic, symmetric Eyes: EOMI, anicteric sclera Cardiovascular: S1 S2 reg, no murmur Lungs: CTA bilateral, no rhonchi, no rales, no accessory muscle use Abdominal: soft, non-tender to palpation Extremities:1+ pitting edema, abrasion on right elbow and left knee Neuro: Alert, Oriented, Gross neurological examination did not reveal any focal deficits. Psych: well appearing, appropriate affect Data Received Today: Labs: WBC 8.69, hemoglobin 11.1, hematocrit 32.4, platelet 130; sodium 121, potassium 3.7, BUN 14, creatinine 0.47, calcium 8.2, magnesium 1.8, TSH 2.950 Imagining: Repeat head CT ordered this morning, currently Assessment and plan Patient is a 74 year old male with past medical history of CVA/TIA, GERD, hyperlipidemia, hypertension, rheumatoid arthritis, lung cancer stage IV presented to the ED after sustaining a fall. #Fall, secondary to OA vs generalized weakness due to advanced cancer #Hyponatremia, most likely hypovolemic with improvement in normal saline #Metastatic lung cancer #Elevated transaminases, likely secondary to liver mets -Na on admission 114, this morning Na 121 -Continue 0.9 normal saline at 50ml/hr; recheck sodium every 4-6 hours -Serum osmolality 249, urine osmolality 342, urine sodium 64 -Monitor urine output -Continue telemetry monitoring -Monitor CMP -Fall precautions -Nephrology following -Consult PT, OT and social work #Mild Hyperkalemia, resolved -K this morning 3.7 -Monitor BMP #Thrombocytopenia, likely reactive -Continue monitor CBC Chronic: #Hyperlipidemia #History of CVA/TIA #Hypocalcemia #Vitamin D deficiency #BPH #Chronic normocytic anemia, likely anemia of chronic disease #Tobacco dependence #Neuropathy #Anxiety/Insomnia #GERD #Chronic pain, opiate dependent #Rheumatoid arthritis -Continue aspirin 80 mg p.o. daily, atorvastatin 80 mg p.o. at bedtime, calcitriol 0.25 mg p.o. Saturday, calcium ascorbate 500 mg PO daily, calcium carbonate/vitamin D3, doxazosin 4 mg p.o. twice daily, ferrous sulfate 325 mg p.o. every 48 hours, folic acid 1 mg p.o. daily, metoprolol 25 mg p.o. daily, pantoprazole 40 mg p.o. daily, ondansetron 4 mg IVP Q8HR PRN, Prednisone 5 mg PO BID, Percocet PO QID PRN, monitor CBC DVT ppx: Code status: Full code F: NS 50 cc/h E: Replete as needed N: Renal diet A: Ambulatory Anticipated discharge place: Pending clinical course Anticipated discharge time: Pending clinical course Dictation was produced using [employer] dictation software. please excuse any grammatical, word or spelling errors. Julián Taylor MD PGY-1 IM I saw and evaluated the patient during the ochoa and critical portions of this encounter, and discussed the case in detail with the resident author of this note, I agree with the Assessment and Plan, and my changes, if any, are highlighted in blue. Plan is to obtain a CT of the head to rule out head bleed after patient was found down in the bathroom, after which we can resume his daily Lovenox if it is negative for bleed. Furthermore, patient was recounseled today about the need for falls precautions and request that he asked nursing for help prior to ambulating to the bathroom alone. Objective - Vital Signs Vital signs: Vital Signs Temp 97.5 F L 02/26/25 08:00 Pulse 65 02/26/25 08:00 Resp 16 02/26/25 08:00 BP 142/69 02/26/25 08:00 Pulse Ox 96 02/26/25 08:00 FiO2 Intake & Output 02/25/25 02/26/25 02/26/25 18:59 06:59 18:59 Output Total 475 650 Balance -475 -650 Weight 66.678 kg 69.1 kg Output: Urine 475 650 Other: Voiding Method Urinal # Voids 1 - Labs CBC & Chem 7: 02/26/25 06:10 02/26/25 10:27 Labs: Abnormal Lab Results - Last 24 Hours (Table) 02/25/25 02/25/25 02/25/25 Range/Units 17:15 17:15 19:05 RBC 3.94 L (4.40-5.60) 10*6/uL Hgb 11.5 L (13.0-17.0) g/dL Hct 32.6 L (39.6-50.0) % Plt Count (140-440) 10*3/uL Immature Gran # 0.36 H (0.00-0.04) 10*3/uL Lymphocytes # 0.76 L (0.90-5.00) 10*3/uL Sodium 114 L* 117 L* (137-145) mmol/L Potassium 5.2 H (3.5-5.1) mmol/L Chloride 84 L 88 L (98-107) mmol/L BUN 25 H 22 H (9-20) mg/dL Creatinine 0.48 L 0.54 L (0.66-1.25) mg/dL Osmolality (275-295) mOsm/kg Calcium 8.2 L 7.7 L (8.4-10.2) mg/dL AST 90 H (17-59) U/L ALT 55 H (4-49) U/L Alkaline Phosphatase 255 H (38-126) U/L Total Protein 5.9 L (6.3-8.2) g/dL Albumin 3.1 L (3.5-5.0) g/dL Urine Osmolality (400-1100) mOsm/kg 02/25/25 02/26/25 02/26/25 Range/Units 22:17 02:45 04:14 RBC (4.40-5.60) 10*6/uL Hgb (13.0-17.0) g/dL Hct (39.6-50.0) % Plt Count (140-440) 10*3/uL Immature Gran # (0.00-0.04) 10*3/uL Lymphocytes # (0.90-5.00) 10*3/uL Sodium 117 L* 118 L* (137-145) mmol/L Potassium (3.5-5.1) mmol/L Chloride 89 L 90 L (98-107) mmol/L BUN (9-20) mg/dL Creatinine 0.61 L 0.56 L (0.66-1.25) mg/dL Osmolality 249 L (275-295) mOsm/kg Calcium 7.8 L 8.1 L (8.4-10.2) mg/dL AST (17-59) U/L ALT (4-49) U/L Alkaline Phosphatase (38-126) U/L Total Protein (6.3-8.2) g/dL Albumin (3.5-5.0) g/dL Urine Osmolality 342 L (400-1100) mOsm/kg 02/26/25 02/26/25 Range/Units 06:10 06:10 RBC 3.78 L (4.40-5.60) 10*6/uL Hgb 11.1 L (13.0-17.0) g/dL Hct 32.4 L (39.6-50.0) % Plt Count 130 L (140-440) 10*3/uL Immature Gran # (0.00-0.04) 10*3/uL Lymphocytes # (0.90-5.00) 10*3/uL Sodium 119 L* (137-145) mmol/L Potassium (3.5-5.1) mmol/L Chloride 90 L (98-107) mmol/L BUN (9-20) mg/dL Creatinine 0.54 L (0.66-1.25) mg/dL Osmolality (275-295) mOsm/kg Calcium (8.4-10.2) mg/dL AST (17-59) U/L ALT (4-49) U/L Alkaline Phosphatase (38-126) U/L Total Protein (6.3-8.2) g/dL Albumin (3.5-5.0) g/dL Urine Osmolality (400-1100) mOsm/kg
[2025-02-26 14:45] LABS: African American GFR (CKD) >90 (>60 ml/min/1.73 sqM); Anion Gap 4 mmol/L; Blood Urea Nitrogen 14 mg/dL (9-20); Calcium 8.2 mg/dL (8.4-10.2); Carbon Dioxide 25 mmol/L (22-30); Chloride 91 mmol/L (98-107); Glucose 84 mg/dL (74-99); Non-African American GFR(CKD) >90 (>60 ml/min/1.73 sqM); Potassium 3.8 mmol/L (3.5-5.1); Sodium 120 mmol/L (137-145)
[2025-02-26] MEDS: SODIUM CHLORIDE 0.9% 1,000 ML IV SCH (17:30)
[2025-02-26] MEDS: oxyCODONE-APAP 10-325MG 1 EACH TAB PO PRN (17:50)
[2025-02-26 19:31] LABS: African American GFR (CKD) >90 (>60 ml/min/1.73 sqM); Anion Gap 5 mmol/L; Blood Urea Nitrogen 14 mg/dL (9-20); Calcium 8.2 mg/dL (8.4-10.2); Carbon Dioxide 24 mmol/L (22-30); Chloride 90 mmol/L (98-107); Glucose 79 mg/dL (74-99); Non-African American GFR(CKD) >90 (>60 ml/min/1.73 sqM); Potassium 3.9 mmol/L (3.5-5.1)
[2025-02-26 19:53] LABS: Sodium 119 mmol/L (137-145)
[2025-02-26] MEDS: ENOXAPARIN 40 MG/0.4 ML SYRINGE SQ SCH (20:19)
[2025-02-26 23:09] LABS: African American GFR (CKD) >90 (>60 ml/min/1.73 sqM); Anion Gap 4 mmol/L; Blood Urea Nitrogen 17 mg/dL (9-20); Carbon Dioxide 25 mmol/L (22-30); Chloride 90 mmol/L (98-107); Glucose 74 mg/dL (74-99); Non-African American GFR(CKD) >90 (>60 ml/min/1.73 sqM); Potassium 3.6 mmol/L (3.5-5.1)
[2025-02-26 23:28] LABS: Sodium 119 mmol/L (137-145)
[2025-02-27] MEDS: ONDANSETRON 4 MG/2 ML VIAL IVP PRN (08:47)
[2025-02-27] MEDS: SODIUM CHLORIDE 0.9% 1,000 ML IV SCH (08:48)
--- NOTE | 2025-02-27 09:19 | P.PN ---
Subjective Patient is seen in follow-up for hyponatremia. Sodium level 119 this morning. Oral intake is poor. Off IV fluids. Nauseated this morning. Vital signs are stable. General: No acute distress. HEENT: Head exam is unremarkable. LUNGS: No audible rhonchi or wheezes. HEART: Rate and Rhythm are regular. ABDOMEN: Nontender. EXTREMITITES: No edema. Objective - Vital Signs Vital signs: Vital Signs Temp 97.7 F 02/27/25 08:35 Pulse 67 02/27/25 08:35 Resp 20 02/27/25 08:35 BP 151/72 02/27/25 08:35 Pulse Ox 99 02/27/25 08:35 FiO2 Intake & Output 02/26/25 02/27/25 02/27/25 18:59 06:59 18:59 Intake Total 720 10 Output Total 650 Balance 70 10 Weight 66.8 kg Intake: IV 10 Invasive Line 2 10 Oral 720 Output: Urine 650 Other: Voiding Method Urinal Urinal Urinal # Voids 3 # Bowel Movements 1 - Labs CBC & Chem 7: 02/26/25 06:10 02/27/25 04:28 Labs: Abnormal Lab Results - Last 24 Hours (Table) 02/26/25 02/26/25 02/26/25 Range/Units 04:14 10:27 14:24 Sodium 121 L 120 L (137-145) mmol/L Chloride 90 L 91 L (98-107) mmol/L Creatinine 0.47 L 0.48 L (0.66-1.25) mg/dL Calcium 8.2 L 8.2 L (8.4-10.2) mg/dL Urine Osmolality 342 L (400-1100) mOsm/kg 02/26/25 02/26/25 02/27/25 Range/Units 19:03 22:38 04:28 Sodium 119 L* 119 L* 119 L* (137-145) mmol/L Chloride 90 L 90 L (98-107) mmol/L Creatinine 0.53 L 0.52 L (0.66-1.25) mg/dL Calcium 8.2 L 8.0 L (8.4-10.2) mg/dL Urine Osmolality (400-1100) mOsm/kg Assessment and Plan Plan: Assessment: 1. Hyponatremia, initially hypovolemic and improved with normal saline but now trending down again. 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 Sodium level 119 this morning. Urine sodium 64 and urine osmolality 342. TSH normal. 2. Metastatic lung cancer. 3. History of falls. Plan: Resume normal saline at 75 cc an hour. Add 1200 cc fluid restriction. Add urea. Repeat sodium level this afternoon. If no improvement, will consider [facility].
[2025-02-27] MEDS: UREA 15 GM POWD.PACK PO SCH (12:09)
--- NOTE | 2025-02-27 13:13 | P.PN ---
Subjective Progress Note Date: 02/27/25 74 year old male with past medical history of CVA/TIA, GERD, hyperlipidemia, hypertension, rheumatoid arthritis, lung cancer stage IV with mets to the liver, spine, spleen as well as retroperitoneal adenopathy presented to the ED after sustaining a fall. Patient reports having multiple falls in the past couple of days. With todayt's fall he reports falling on his face and hitting his head but denies losing consciousness. He states that he fell because of tanw-[id number] contact in the left knee due to severe RA. He claims it was totally accidental due to tripping. he is not on blood thinners , he did not lose consciousness . He denies any headache or pain anywhere else currently. Patient presented to his oncologist's office this morning for evaluation where he was found to have hyponatremia with Na 116 and was told by the PCP to go to the hospital. He reports not being a good candidate for surgery because of lung cancer. Patient's mentions that the patient has been very weak recently. He was on chemotherapy started a few months ago, that had to be stopped a month ago due to his rheumatoid arthritis flaring up. He is now on prednisone to manage his RA symptoms and new chemotherapy will be started in a week, as the old regimen wasn't working Patient has been in chronic pain for years due to RA and is currently on percocet QID. He denies having reduced apetite or losing weight. He does admit to not drinking enough water and his has been trying to make him increased his water intake. Patient denies lightheadedness or dizziness, fever, recent infections. Additonally, patient had a [facility]AD in December 2024 that showed EF 55% with mild mitral regurgitation. 02/26 - He is seen and examined at bedside this morning, now on the third floor. He was noted per the nursing staff to have fallen in the bathroom overnight, he was found in there, he denies any head trauma. Will order repeat head CT just to confirm no signs of bleeding. 02/27 - He is seen and examined at bedside this morning. No acute events overnight and no acute complaints this morning. Discussed with him the i mportance of not getting up on his own, as this continues to be a persistent problem. His is at bedside with him. REVIEW OF SYSTEMS: Pertinent positives and negatives noted in HPI. Physical Exam: Vital signs reviewed General: nontoxic, no distress, appears at stated age Derm: multiple abrasions Head: abrasion on forehead and nose, normocephalic, symmetric Eyes: EOMI, anicteric sclera Cardiovascular: S1 S2 reg, no murmur Lungs: CTA bilateral, no rhonchi, no rales, no accessory muscle use Abdominal: soft, non-tender to palpation Extremities:1+ pitting edema, abrasion on right elbow and left knee Neuro: Alert, Oriented, Gross neurological examination did not reveal any focal deficits. Psych: well appearing, appropriate affect Data Received Today: Labs: 119 this morning, recheck pending at 13:00 Imagining: Repeat head CT ordered this morning, currently Assessment and plan Patient is a 74 year old male with past medical history of CVA/TIA, GERD, hyperlipidemia, hypertension, rheumatoid arthritis, lung cancer stage IV presented to the ED after sustaining a fall. #Fall, secondary to OA vs generalized weakness due to advanced cancer #Hyponatremia, most likely hypovolemic with improvement in normal saline #Metastatic lung cancer #Elevated transaminases, likely secondary to liver mets -Na this morning 119 -Continue NS 75 cc/h; continue to monitor sodium closely -Serum osmolality 249, urine osmolality 342, urine sodium 64 -Monitor urine output -Continue telemetry monitoring -Monitor CMP -Fall precautions -Nephrology following -Consult PT, OT and social work #Mild Hyperkalemia, resolved -K this morning 3.7 -Monitor BMP #Thrombocytopenia, likely reactive -Continue monitor CBC Chronic: #Hyperlipidemia #History of CVA/TIA #Hypocalcemia #Vitamin D deficiency #BPH #Chronic normocytic anemia, likely anemia of chronic disease #Tobacco dependence #Neuropathy #Anxiety/Insomnia #GERD #Chronic pain, opiate dependent #Rheumatoid arthritis -Continue aspirin 80 mg p.o. daily, atorvastatin 80 mg p.o. at bedtime, calcitriol 0.25 mg p.o. Saturday, calcium ascorbate 500 mg PO daily, calcium carbonate/vitamin D3, doxazosin 4 mg p.o. twice daily, ferrous sulfate 325 mg p.o. every 48 hours, folic acid 1 mg p.o. daily, metoprolol 25 mg p.o. daily, pantoprazole 40 mg p.o. daily, ondansetron 4 mg IVP Q8HR PRN, Prednisone 5 mg PO BID, Percocet PO QID PRN, monitor CBC DVT ppx: Code status: Full code F: NS 75 cc/h E: Replete as needed N: Renal diet A: Ambulatory Anticipated discharge place: Pending clinical course Anticipated discharge time: Pending clinical course Dictation was produced using [employer] dictation software. please excuse any gramma tical, word or spelling errors. Julián Taylor MD PGY-1 IM I saw and evaluated the patient during the ochoa and critical portions of this encounter, and discussed the case in detail with the resident author of this note, I agree with the Assessment and Plan, and my changes, if any, are highlighted in blue. Objective - Vital Signs Vital signs: Vital Signs Temp 98.3 F 02/27/25 04:00 Pulse 69 02/27/25 04:00 Resp 18 02/27/25 04:00 BP 152/73 02/27/25 04:00 Pulse Ox 97 02/27/25 04:00 FiO2 Intake & Output 02/26/25 02/27/25 02/27/25 18:59 06:59 18:59 Intake Total 720 Output Total 650 Balance 70 Weight 66.8 kg Intake: Oral 720 Output: Urine 650 Other: Voiding Method Urinal Urinal # Voids 3 # Bowel Movements 1 - Labs CBC & Chem 7: 02/26/25 06:10 02/27/25 12:51 Labs: Abnormal Lab Results - Last 24 Hours (Table) 02/26/25 02/26/25 02/26/25 Range/Units 04:14 10:27 14:24 Sodium 121 L 120 L (137-145) mmol/L Chloride 90 L 91 L (98-107) mmol/L Creatinine 0.47 L 0.48 L (0.66-1.25) mg/dL Calcium 8.2 L 8.2 L (8.4-10.2) mg/dL Urine Osmolality 342 L (400-1100) mOsm/kg 02/26/25 02/26/25 02/27/25 Range/Units 19:03 22:38 04:28 Sodium 119 L* 119 L* 119 L* (137-145) mmol/L Chloride 90 L 90 L (98-107) mmol/L Creatinine 0.53 L 0.52 L (0.66-1.25) mg/dL Calcium 8.2 L 8.0 L (8.4-10.2) mg/dL Urine Osmolality (400-1100) mOsm/kg
[2025-02-27] MEDS: TOLVAPTAN 15 MG TABLET PO ONE (15:20)
[2025-02-27 19:18] LABS: African American GFR (CKD) >90 (>60 ml/min/1.73 sqM); Anion Gap 6 mmol/L; Blood Urea Nitrogen 26 mg/dL (9-20); Calcium 8.7 mg/dL (8.4-10.2); Carbon Dioxide 25 mmol/L (22-30); Chloride 92 mmol/L (98-107); Glucose 97 mg/dL (74-99); Non-African American GFR(CKD) >90 (>60 ml/min/1.73 sqM); Potassium 4.1 mmol/L (3.5-5.1); Sodium 123 mmol/L (137-145)
[2025-02-28 07:19] LABS: Basophils # (A) 0.06 10*3/uL (0.00-0.10); Basophils % (A) 0.8 %; Eosinophils # (A) 0.05 10*3/uL (0.04-0.35); Eosinophils % (A) 0.6 %; HGB 11.4 g/dL (13.0-17.0); Lymphocytes # (A) 0.99 10*3/uL (0.90-5.00); Lymphocytes % (A) 12.5 %; MCH 28.9 pg (27.0-32.0); MCHC 33.5 g/dL (32.0-37.0); MCV 86.1 fL (80.0-97.0); Mean Platelet Volume 9.6 fL (9.5-12.2); Monocytes # (A) 0.55 10*3/uL (0.20-1.00); Neutrophils # (A) 5.89 10*3/uL (1.80-7.70); Neutrophils % (A) 74.7 %; Platelet Count 151 10*3/uL (140-440); RBC 3.95 10*6/uL (4.40-5.60); RDW 17.2 % (11.5-14.5); WBC 7.89 10*3/uL (4.50-10.00)
[2025-02-28 07:40] LABS: African American GFR (CKD) >90 (>60 ml/min/1.73 sqM); Anion Gap 7 mmol/L; Blood Urea Nitrogen 19 mg/dL (9-20); Calcium 8.6 mg/dL (8.4-10.2); Carbon Dioxide 24 mmol/L (22-30); Chloride 95 mmol/L (98-107); Glucose 68 mg/dL (74-99); Magnesium 1.7 mg/dL (1.6-2.3); Non-African American GFR(CKD) >90 (>60 ml/min/1.73 sqM); Potassium 3.9 mmol/L (3.5-5.1); Sodium 126 mmol/L (137-145)
--- NOTE | 2025-02-28 10:28 | P.PN ---
Subjective Patient is seen in follow-up for hyponatremia. Sodium level 126 this morning. Oral intake is fair. Denies vomiting. Vital signs are stable. General: No acute distress. HEENT: Facial bruising noted. LUNGS: No audible rhonchi or wheezes. HEART: Rate and Rhythm are regular. ABDOMEN: Nontender. EXTREMITITES: No edema. Objective - Vital Signs Vital signs: Vital Signs Temp 97.9 F 02/28/25 08:26 Pulse 71 02/28/25 08:26 Resp 14 02/28/25 08:26 BP 114/61 02/28/25 08:26 Pulse Ox 98 02/28/25 08:26 FiO2 Intake & Output 02/27/25 02/28/25 02/28/25 18:59 06:59 18:59 Intake Total 490 248 Output Total 1250 1400 Balance -760 -1400 248 Weight 64.2 kg Intake: IV 10 10 Invasive Line 2 10 10 Oral 480 238 Output: Urine 1250 1400 Other: Voiding Method Urinal Urinal Urinal # Voids 1 1 # Bowel Movements 1 - Labs CBC & Chem 7: 02/28/25 06:15 02/28/25 06:15 Labs: Abnormal Lab Results - Last 24 Hours (Table) 02/27/25 02/27/25 02/28/25 Range/Units 12:51 18:50 06:15 RBC (4.40-5.60) 10*6/uL Hgb (13.0-17.0) g/dL Hct (39.6-50.0) % Immature Gran # (0.00-0.04) 10*3/uL Sodium 117 L* 123 L 126 L (137-145) mmol/L Chloride 92 L 95 L (98-107) mmol/L BUN 26 H (9-20) mg/dL Creatinine 0.60 L (0.66-1.25) mg/dL Glucose 68 L (74-99) mg/dL 02/28/25 Range/Units 06:15 RBC 3.95 L (4.40-5.60) 10*6/uL Hgb 11.4 L (13.0-17.0) g/dL Hct 34.0 L (39.6-50.0) % Immature Gran # 0.35 H (0.00-0.04) 10*3/uL Sodium (137-145) mmol/L Chloride (98-107) mmol/L BUN (9-20) mg/dL Creatinine (0.66-1.25) mg/dL Glucose (74-99) mg/dL Assessment and Plan Plan: Assessment: 1. Hyponatremia, initially hypovolemic and improved with normal saline but then started trending down. 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 Status post [facility] February 27, 2025. Sodium level 126 this morning. Urine sodium 64 and urine osmolality 342. TSH normal. 2. Metastatic lung cancer. 3. History of falls. Plan: Maintain 1200 cc fluid restriction. Maintain urea. Repeat labs in the morning. Encouraged oral intake.
[2025-02-28 11:38] VITALS: RESP 16
[2025-02-28] MEDS: ARTIFICIAL TEARS-HYPROMELLOSE DROPS 15 ML BTL BOTH EYES PRN (11:38)
[2025-02-28] MEDS: MAGNESIUM SULFATE-D5W PMX 1 GM in DEXTROSE/WATER 1 100ML.BAG IVPB ONE (11:38)
--- NOTE | 2025-02-28 14:23 | P.PN ---
Subjective Progress Note Date: 02/28/25 74 year old male with past medical history of CVA/TIA, GERD, hyperlipidemia, hypertension, rheumatoid arthritis, lung cancer stage IV with mets to the liver, spine, spleen as well as retroperitoneal adenopathy presented to the ED after sustaining a fall. Patient reports having multiple falls in the past couple of days. With todayt's fall he reports falling on his face and hitting his head but denies losing consciousness. He states that he fell because of [id number] contact in the left knee due to severe RA. He claims it was totally accidental due to tripping. he is not on blood thinners , he did not lose consciousness . He denies any headache or pain anywhere else currently. Patient presented to his oncologist's office this morning for evaluation where he was found to have hyponatremia with Na 116 and was told by the PCP to go to the hospital. He reports not being a good candidate for surgery because of lung cancer. Patient's mentions that the patient has been very weak recently. He was on chemotherapy started a few months ago, that had to be stopped a month ago due to his rheumatoid arthritis flaring up. He is now on prednisone to manage his RA symptoms and new chemotherapy will be started in a week, as the old regimen wasn't working Patient has been in chronic pain for years due to RA and is currently on percocet QID. He denies having reduced apetite or losing weight. He does admit to not drinking enough water and his has been trying to make him increased his water intake. Patient denies lightheadedness or dizziness, fever, recent infections. Additonally, patient had a HAMMAD in December 2024 that showed EF 55% with mild mitral regurgitation. 02/26 - He is seen and examined at bedside this morning, now on the third floor. He was noted per the nursing staff to have fallen in the bathroom overnight, he was found in there, he denies any head trauma. Will order repeat head CT just to confirm no signs of bleeding. 02/27 - He is seen and examined at bedside this morning. No acute events overnight and no acute complaints this morning. Discussed with him the i mportance of not getting up on his own, as this continues to be a persistent problem. His is at bedside with him. 02/28 - Pt is doing well today, no new complaints. Na is improving to 126. Neph rology following. PT final eval pending on Saturday. REVIEW OF SYSTEMS: Pertinent positives and negatives noted in HPI. Physical Exam: Vital signs reviewed General: nontoxic, no distress, appears at stated age Derm: multiple abrasions Head: abrasion on forehead and nose, normocephalic, symmetric Eyes: EOMI, anicteric sclera Cardiovascular: S1 S2 reg, no murmur Lungs: CTA bilateral, no rhonchi, no rales, no accessory muscle use Abdominal: soft, non-tender to palpation Extremities:1+ pitting edema, abrasion on right elbow and left knee Neuro: Alert, Oriented, Gross neurological examination did not reveal any focal deficits. Psych: well appearing, appropriate affect Data Received Today: Labs: 119 this morning, recheck pending at 13:00 Imagining: Repeat head CT ordered this morning, currently Assessment and plan Patient is a 74 year old male with past medical history of CVA/TIA, GERD, hyperlipidemia, hypertension, rheumatoid arthritis, lung cancer stage IV presented to the ED after sustaining a fall. #Fall, secondary to OA vs generalized weakness due to advanced cancer #Hyponatremia, most likely hypovolemic with improvement in normal saline #Metastatic lung cancer #Elevated transaminases, likely secondary to liver mets -Na this morning 126 -Continue NS 75 cc/h; continue to monitor sodium closely -Serum osmolality 249, urine osmolality 342, urine sodium 64 -Monitor urine output -Continue telemetry monitoring -Monitor CMP -Fall precautions -Nephrology following -Consult PT, OT and social work #Thrombocytopenia -Continue monitor CBC Chronic: #Hyperlipidemia #History of CVA/TIA #Hypocalcemia #Vitamin D deficiency #BPH #Chronic normocytic anemia, likely anemia of chronic disease #Tobacco dependence #Neuropathy #Anxiety/Insomnia #GERD #Chronic pain, opiate dependent #Rheumatoid arthritis -Continue aspirin 80 mg p.o. daily, atorvastatin 80 mg p.o. at bedtime, calcit riol 0.25 mg p.o. Saturday, calcium ascorbate 500 mg PO daily, calcium carbonate/vitamin D3, doxazosin 4 mg p.o. twice daily, ferrous sulfate 325 mg p.o. every 48 hours, folic acid 1 mg p.o. daily, metoprolol 25 mg p.o. daily, pantoprazole 40 mg p.o. daily, ondansetron 4 mg IVP Q8HR PRN, Prednisone 5 mg PO BID, Percocet PO QID PRN, monitor CBC DVT ppx: Code status: Full code F: NS 75 cc/h E: Replete as needed N: Renal diet A: Ambulatory Anticipated discharge place: Pending clinical course Anticipated discharge time: Pending clinical course Dictation was produced using [employer] dictation software. please excuse any grammatical, word or spelling errors. Objective - Vital Signs Vital signs: Vital Signs Temp 98.3 F 02/28/25 11:37 Pulse 62 02/28/25 11:37 Resp 16 02/28/25 11:37 BP 146/75 02/28/25 11:37 Pulse Ox 99 02/28/25 11:37 FiO2 Intake & Output 02/27/25 02/28/25 02/28/25 18:59 06:59 18:59 Intake Total 490 248 Output Total 1250 1400 240 Balance -760 -1400 8 Weight 64.2 kg Intake: IV 10 10 Invasive Line 2 10 10 Oral 480 238 Output: Urine 1250 1400 240 Other: Voiding Method Urinal Urinal Urinal # Voids 1 1 # Bowel Movements 1 - Labs CBC & Chem 7: 02/28/25 06:15 02/28/25 06:15 Labs: Abnormal Lab Results - Last 24 Hours (Table) 02/27/25 02/28/25 02/28/25 Range/Units 18:50 06:15 06:15 RBC 3.95 L (4.40-5.60) 10*6/uL Hgb 11.4 L (13.0-17.0) g/dL Hct 34.0 L (39.6-50.0) % Immature Gran # 0.35 H (0.00-0.04) 10*3/uL Sodium 123 L 126 L (137-145) mmol/L Chloride 92 L 95 L (98-107) mmol/L BUN 26 H (9-20) mg/dL Creatinine 0.60 L (0.66-1.25) mg/dL Glucose 68 L (74-99) mg/dL
[2025-02-28] MEDS: ZOLPIDEM 5 MG TAB PO PRN (20:21)
[2025-03-01 06:40] LABS: African American GFR (CKD) >90 (>60 ml/min/1.73 sqM); Anion Gap 6 mmol/L; Blood Urea Nitrogen 37 mg/dL (9-20); Calcium 8.8 mg/dL (8.4-10.2); Carbon Dioxide 26 mmol/L (22-30); Chloride 96 mmol/L (98-107); Glucose 97 mg/dL (74-99); Magnesium 1.9 mg/dL (1.6-2.3); Non-African American GFR(CKD) >90 (>60 ml/min/1.73 sqM); Potassium 3.8 mmol/L (3.5-5.1); Sodium 128 mmol/L (137-145)
[2025-03-01 07:19] LABS: Basophils # (A) 0.04 10*3/uL (0.00-0.10); Basophils % (A) 0.5 %; Eosinophils # (A) 0.04 10*3/uL (0.04-0.35); Eosinophils % (A) 0.5 %; HCT 29.9 % (39.6-50.0); Lymphocytes # (A) 0.68 10*3/uL (0.90-5.00); Lymphocytes % (A) 8.9 %; MCH 29.1 pg (27.0-32.0); MCHC 33.4 g/dL (32.0-37.0); MCV 86.9 fL (80.0-97.0); Mean Platelet Volume 9.8 fL (9.5-12.2); Monocytes # (A) 0.56 10*3/uL (0.20-1.00); Monocytes % (A) 7.3 %; Neutrophils # (A) 6.11 10*3/uL (1.80-7.70); Neutrophils % (A) 80.1 %; Platelet Count 155 10*3/uL (140-440); RBC 3.44 10*6/uL (4.40-5.60); RDW 17.2 % (11.5-14.5); WBC 7.64 10*3/uL (4.50-10.00)
--- NOTE | 2025-03-01 09:53 | P.PN ---
Subjective Patient is seen in follow-up for hyponatremia. Sodium level 128 this morning. Oral intake is fair. Denies vomiting. Admits to good urine output. Vital signs are stable. General: No acute distress. HEENT: Facial bruising noted. LUNGS: No audible rhonchi or wheezes. HEART: Rate and Rhythm are regular. ABDOMEN: Nontender. EXTREMITITES: No edema. Objective - Vital Signs Vital signs: Vital Signs Temp 97.6 F 03/01/25 08:00 Pulse 69 03/01/25 08:00 Resp 16 03/01/25 08:00 BP 128/71 03/01/25 08:00 Pulse Ox 96 03/01/25 08:00 FiO2 Intake & Output 02/28/25 03/01/25 03/01/25 18:59 06:59 18:59 Intake Total 248 240 Output Total 940 150 300 Balance -692 90 -300 Weight 64 kg Intake: IV 10 Invasive Line 2 10 Oral 238 240 Output: Urine 940 150 300 Other: Voiding Method Urinal Urinal # Voids 1 - Labs CBC & Chem 7: 03/01/25 05:59 03/01/25 05:59 Labs: Abnormal Lab Results - Last 24 Hours (Table) 03/01/25 03/01/25 Range/Units 05:59 05:59 RBC 3.44 L (4.40-5.60) 10*6/uL Hgb 10.0 L (13.0-17.0) g/dL Hct 29.9 L (39.6-50.0) % Immature Gran # 0.21 H (0.00-0.04) 10*3/uL Lymphocytes # 0.68 L (0.90-5.00) 10*3/uL Sodium 128 L (137-145) mmol/L Chloride 96 L (98-107) mmol/L BUN 37 H (9-20) mg/dL Creatinine 0.58 L (0.66-1.25) mg/dL Assessment and Plan Plan: Assessment: 1. Hyponatremia, initially hypovolemic and improved with normal saline but then started trending down. 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 Status post [facility] February 27, 2025. Sodium level 128 this morning. Urine sodium 64 and ur ine osmolality 342. TSH normal. 2. Metastatic lung cancer. 3. History of falls. Plan: Maintain 1200 cc fluid restriction. Maintain urea. Repeat labs in the morning. Encouraged oral intake.
--- NOTE | 2025-03-01 17:14 | P.PN ---
Subjective Progress Note Date: 03/01/25 74 year old male with past medical history of CVA/TIA, GERD, hyperlipidemia, hypertension, rheumatoid arthritis, lung cancer stage IV with mets to the liver, spine, spleen as well as retroperitoneal adenopathy presented to the ED after sustaining a fall. Patient reports having multiple falls in the past couple of days. With todayt's fall he reports falling on his face and hitting his head but denies losing consciousness. He states that he fell because of [id number] contact in the left knee due to severe RA. He claims it was totally accidental due to tripping. he is not on blood thinners , he did not lose consciousness . He denies any headache or pain anywhere else currently. Patient presented to his oncologist's office this morning for evaluation where he was found to have hyponatremia with Na 116 and was told by the PCP to go to the hospital. He reports not being a good candidate for surgery because of lung cancer. Patient's mentions that the patient has been very weak recently. He was on chemotherapy started a few months ago, that had to be stopped a month ago due to his rheumatoid arthritis flaring up. He is now on prednisone to manage his RA symptoms and new chemotherapy will be started in a week, as the old regimen wasn't working Patient has been in chronic pain for years due to RA and is currently on percocet QID. He denies having reduced apetite or losing weight. He does admit to not drinking enough water and his has been trying to make him increased his water intake. Patient denies lightheadedness or dizziness, fever, recent infections. Additonally, patient had a HAMMAD in December 2024 that showed EF 55% with mild mitral regurgitation. 02/26 - He is seen and examined at bedside this morning, now on the third floor. He was noted per the nursing staff to have fallen in the bathroom overnight, he was found in there, he denies any head trauma. Will order repeat head CT just to confirm no signs of bleeding. 02/27 - He is seen and examined at bedside this morning. No acute events overnight and no acute complaints this morning. Discussed with him the i mportance of not getting up on his own, as this continues to be a persistent problem. His is at bedside with him. 02/28 - Pt is doing well today, no new complaints. Na is improving to 126. Neph rology following. PT final eval pending on Saturday. 03/01patient seen and evaluated at bedside. No acute events. No events overnight. REVIEW OF SYSTEMS: Pertinent positives and negatives noted in HPI. Physical Exam: Vital signs reviewed General: nontoxic, no distress, appears at stated age Derm: multiple abrasions Head: abrasion on forehead and nose, normocephalic, symmetric Eyes: EOMI, anicteric sclera Cardiovascular: S1 S2 reg, no murmur Lungs: CTA bilateral, no rhonchi, no rales, no accessory muscle use Abdominal: soft, non-tender to palpation Extremities:1+ pitting edema, abrasion on right elbow and left knee Neuro: Alert, Oriented, Gross neurological examination did not reveal any focal deficits. Psych: well appearing, appropriate affect Data Received Today: Labs: Sodium 128 Imagining: N/A Assessment and plan Patient is a 74 year old male with past medical history of CVA/TIA, GERD, hyperlipidemia, hypertension, rheumatoid arthritis, lung cancer stage IV presented to the ED after sustaining a fall. #Fall, secondary to OA vs generalized weakness due to advanced cancer #Hyponatremia, most likely hypovolemic with improvement in normal saline #Metastatic lung cancer #Elevated transaminases, likely secondary to liver mets -Na this morning 120 -Fluids have been discontinued, placed on urea by nephrology 50 mg p.o. twice daily -Serum osmolality 249, urine osmolality 342, urine sodium 64 -Monitor urine output -Continue telemetry monitoring -Monitor CMP -Fall precautions -Nephrology note reviewed, maintain 1200 cc fluid restriction, maintain urea, repeat labs in morning, encourage oral intake -Consult PT, OT and social work #Thrombocytopenia -Continue monitor CBC Chronic: #Hyperlipidemia #History of CVA/TIA #Hypocalcemia #Vitamin D deficiency #BPH #Chronic normocytic anemia, likely anemia of chronic disease #Tobacco dependence #Neuropathy #Anxiety/Insomnia #GERD #Chronic pain, opiate dependent #Rheumatoid arthritis -Continue aspirin 80 mg p.o. daily, atorvastatin 80 mg p.o. at bedtime, calcitriol 0.25 mg p.o. Saturday, calcium ascorbate 500 mg PO daily, calcium carbonate/vitamin D3, doxazosin 4 mg p.o. twice daily, ferrous sulfate 325 mg p.o. every 48 hours, folic acid 1 mg p.o. daily, metoprolol 25 mg p.o. daily, pantoprazole 40 mg p.o. daily, ondansetron 4 mg IVP Q8HR PRN, Prednisone 5 mg PO BID, Percocet PO QID PRN, monitor CBC DVT ppx: Lovenox 40 SQ daily Code status: Full code Anticipated discharge place: Pending clinical course Anticipated discharge time: Pending clinical course Dictation was produced using [employer] dictation software. please excuse any grammatical, word or spelling errors. I saw and evaluated the patient during the ochoa and critical portions of this encounter, and discussed the case in detail with the resident author of this note, I agree with the Assessment and Plan, and my changes, if any, are highlighted in blue. Objective - Vital Signs Vital signs: Vital Signs Temp 98.3 F 03/01/25 03:02 Pulse 72 03/01/25 03:02 Resp 16 03/01/25 03:02 BP 119/66 03/01/25 03:02 Pulse Ox 97 03/01/25 03:02 FiO2 Intake & Output 02/28/25 03/01/25 03/01/25 18:59 06:59 18:59 Intake Total 248 240 Output Total 940 150 Balance -692 90 Weight 64 kg Intake: IV 10 Invasive Line 2 10 Oral 238 240 Output: Urine 940 150 Other: Voiding Method Urinal Urinal - Labs CBC & Chem 7: 03/01/25 05:59 03/01/25 05:59 Labs: Abnormal Lab Results - Last 24 Hours (Table) 02/28/25 03/01/25 03/01/25 Range/Units 06:15 05:59 05:59 RBC 3.44 L (4.40-5.60) 10*6/uL Hgb 10.0 L (13.0-17.0) g/dL Hct 29.9 L (39.6-50.0) % Immature Gran # 0.21 H (0.00-0.04) 10*3/uL Lymphocytes # 0.68 L (0.90-5.00) 10*3/uL Sodium 126 L 128 L (137-145) mmol/L Chloride 95 L 96 L (98-107) mmol/L BUN 37 H (9-20) mg/dL Creatinine 0.58 L (0.66-1.25) mg/dL Glucose 68 L (74-99) mg/dL
[2025-03-02 03:49] VITALS: TEMP 98.1
[2025-03-02 07:44] LABS: Basophils # (A) 0.04 10*3/uL (0.00-0.10); Basophils % (A) 0.5 %; Eosinophils # (A) 0.06 10*3/uL (0.04-0.35); Eosinophils % (A) 0.8 %; HCT 31.4 % (39.6-50.0); HGB 10.4 g/dL (13.0-17.0); Lymphocytes # (A) 1.07 10*3/uL (0.90-5.00); Lymphocytes % (A) 14.4 %; MCH 28.7 pg (27.0-32.0); MCHC 33.1 g/dL (32.0-37.0); MCV 86.7 fL (80.0-97.0); Mean Platelet Volume 9.9 fL (9.5-12.2); Monocytes # (A) 0.66 10*3/uL (0.20-1.00); Monocytes % (A) 8.9 %; Neutrophils # (A) 5.36 10*3/uL (1.80-7.70); Neutrophils % (A) 72.4 %; Platelet Count 155 10*3/uL (140-440); RBC 3.62 10*6/uL (4.40-5.60); RDW 17.4 % (11.5-14.5); WBC 7.41 10*3/uL (4.50-10.00)
[2025-03-02 08:10] LABS: Chloride 98 mmol/L (98-107); Glucose 76 mg/dL (74-99); Potassium 3.4 mmol/L (3.5-5.1)
[2025-03-02 08:11] LABS: African American GFR (CKD) >90 (>60 ml/min/1.73 sqM); Anion Gap 9 mmol/L; Blood Urea Nitrogen 38 mg/dL (9-20); Calcium 8.7 mg/dL (8.4-10.2); Carbon Dioxide 25 mmol/L (22-30); Magnesium 1.7 mg/dL (1.6-2.3); Non-African American GFR(CKD) >90 (>60 ml/min/1.73 sqM); Sodium 132 mmol/L (137-145)
[2025-03-02 08:22] VITALS: BP 155/77; PULSE 76
[2025-03-02] MEDS ORDERED: POTASSIUM CHLORIDE ER 20 MEQ TAB.ER PO STA (10:26)
--- NOTE | 2025-03-02 10:28 | P.PN ---
Subjective Patient is seen in follow-up for hyponatremia. Sodium level 132 this morning. Oral intake is fair. Denies vomiting. Admits to good urine output. Vital signs are stable. General: No acute distress. HEENT: Facial bruising noted. LUNGS: No audible rhonchi or wheezes. HEART: Rate and Rhythm are regular. ABDOMEN: Nontender. EXTREMITITES: No edema. Objective - Vital Signs Vital signs: Vital Signs Temp 98.1 F 03/02/25 03:37 Pulse 76 03/02/25 08:00 Resp 16 03/02/25 08:00 BP 155/77 03/02/25 08:00 Pulse Ox 98 03/02/25 08:00 FiO2 Intake & Output 03/01/25 03/02/25 03/02/25 18:59 06:59 18:59 Intake Total 240 Output Total 600 400 Balance -600 240 -400 Weight 63.4 kg Intake: Oral 240 Output: Urine 600 400 Other: Voiding Method Urinal Urinal # Voids 1 1 - Labs CBC & Chem 7: 03/02/25 06:29 03/02/25 06:29 Labs: Abnormal Lab Results - Last 24 Hours (Table) 03/02/25 03/02/25 Range/Units 06:29 06:29 RBC 3.62 L (4.40-5.60) 10*6/uL Hgb 10.4 L (13.0-17.0) g/dL Hct 31.4 L (39.6-50.0) % Immature Gran # 0.22 H (0.00-0.04) 10*3/uL Sodium 132 L (137-145) mmol/L Potassium 3.4 L (3.5-5.1) mmol/L BUN 38 H (9-20) mg/dL Creatinine 0.57 L (0.66-1.25) mg/dL Assessment and Plan Plan: Assessment: 1. Hyponatremia, initially hypovolemic and improved with normal saline but then started trending down. 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 Status post [facility] February 27, 2025. Sodium level 132 this morning. Urine sodium 64 and urine osmolality 342. TSH normal. 2. Metastatic lung cancer. 3. History of falls. Plan: Maintain 1200 cc fluid restriction. Maintain urea. Encouraged oral intake. Replace potassium.
--- NOTE | 2025-03-02 11:16 | P.DS ---
Providers Date of admission: 02/25/25 18:58 Discharge Diagnosis: Fall, secondary to OA vs generalized weakness due to advanced cancer Hyponatremia, most likely hypovolemic with improvement in normal saline Metastatic lung cancer Elevated transaminases, likely secondary to liver mets Thrombocytopenia Hyperlipidemia History of CVA/TIA Hypocalcemia Vitamin D deficiency BPH Chronic normocytic anemia, likely anemia of chronic disease Tobacco dependence Neuropathy Anxiety/Insomnia GERD Chronic pain, opiate dependent Rheumatoid arthritis Hospital Course: 74 year old male with past medical history of CVA/TIA, GERD, hyperlipidemia, hypertension, rheumatoid arthritis, lung cancer stage IV with mets to the liver, spine, spleen as well as retroperitoneal adenopathy presented to the ED after sustaining a fall. Patient reports having multiple falls in the past couple of days. With todayt's fall he reports falling on his face and hitting his head but denies losing consciousness. He states that he fell because of [id number] contact in the left knee due to severe RA. He claims it was totally accidental due to tripping. he is not on blood thinners , he did not lose consciousness . He denies any headache or pain anywhere else currently. Patient presented to his oncologist's office this morning for evaluation where he was found to have hyponatremia with Na 116 and was told by the PCP to go to the hospital. He reports not being a good candidate for surgery because of lung cancer. Patient's mentions that the patient has been very weak recently. He was on chemotherapy started a few months ago, that had to be stopped a month ago due to his rheumatoid arthritis flaring up. He is now on prednisone to manage his RA symptoms and new chemotherapy will be started in a week, as the old regimen wasn't working Patient has been in chronic pain for years due to RA and is currently on percocet QID. He denies having reduced apetite or losing weight. He does admit to not drinking enough water and his has been trying to make him increased his water intake. Patient denies lightheadedness or dizziness, fever, recent infections. Additonally, patient had a HAMMAD in December 2024 that showed EF 55% with mild mitral regurgitation. Vitals on admission T 98 F, AZ 53 bpm, RR 17, BP 126/65, oxygen saturation 98% on room air EKG independently interpreted as sinus bradycardia, AZ interval 201 ms, rate 52 bpm, QTc 404 ms Head and Cervical spine CT shows no acute intracranial process, no acute fracture or traumatic dilatation of the cervical spine Labs on admission show WBC 8.85, hemoglobin 11.5, platelet count 158, sodium 114, potassium 5.2, chloride 84, BUN 25, creatinine 0.48, calcium 8.2, AST 90, ALT 55, ALP 255, albumin 3.1 02/26 - He is seen and examined at bedside this morning, now on the third floor. He was noted per the nursing staff to have fallen in the bathroom overnight, he was found in there, he denies any head trauma. Will order repeat head CT just to confirm no signs of bleeding. 02/27 - He is seen and examined at bedside this morning. No acute events overnight and no acute complaints this morning. Discussed with him the importance of not getting up on his own, as this continues to be a persistent pr oblem. His is at bedside with him. 02/28 - Pt is doing well today, no new complaints. Na is improving to 126. Nephrology following. PT final eval pending on Saturday. 03/01patient seen and evaluated at bedside. No acute events. No events overnight. 03/02: Patient started on trending up to 132. Urea has been discontinued. Patient was discussed with hand has been cleared by nephrology. 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 He can be discharged today with home with health services. Vital signs reviewed and stable. Physical examination: Vital signs reviewed General: non toxic, no distress, appears at stated age Derm: Multiple abrasions Head: abrasion on forehead and nose, normocephalic, symmetric Eyes: EOMI, anicteric sclera Cardiovascular: S1S2 reg, no murmur, positive dorsalis pedis pulse bilateral, no edema Lungs: CTA bilateral, no rhonchi, no rales, no accessory muscle use Abdominal: soft, non-tender to palpation, no guarding Ext: 1+ pitting edema, abrasion on right elbow and left knee Neuro: CN II-XI grossly intact, no gross focal neuro deficits Psych: Alert, oriented to person, place, and time A total of greater than 30 minutes of time were spent preparing this complex discharge summary. Patient was discharge on A March 02, 2025 at 10:49 AM. Aleisha Clayton MD PGY-1 IM Dictation was produced using [employer] dictation software. please excuse any grammatical, word or spelling errors. I saw and evaluated the patient during the ochoa and critical portions of this encounter, and discussed the case in detail with the resident author of this note, I agree with the Assessment and Plan, and my changes, if any, are highlighted in blue. Expected date of discharge: 03/02/25 Attending physician: Dona Morrell MD Consults: 02/25/25 18:39 Consult Physician Routine Consulting Provider: Genet Martel Consult Reason/Comments: hyponatremia Do you want consulting provider notified?: Already Contacted Primary care physician: Reji Nina MD Patient Condition at Discharge: Serious Plan - Discharge Summary Discharge Rx Participant: No New Discharge Prescriptions: Continue Omeprazole [PriLOSEC] 20 mg PO BID Metoprolol Succinate 25 mg PO DAILY@07 Folic Acid 1 mg PO DAILY@07 calcitrioL 0.25 mcg PO FONTENOT Gabapentin [Neurontin] 800 mg PO TID@729,1500,1900 Doxazosin [Cardura] 4 mg PO BID@729,1900 Calcium Carbonate/Vitamin D3 [Calcium 600-Vit D3 5 Mcg (200 Iu)] 2 tab PO DAILY@729 predniSONE 5 mg PO BID Hydrocortisone Cream [Hydrocortisone 2.5% Cream] 1 applic TOPICAL TID PRN PRN Reason: rash/itching Atorvastatin [Lipitor] 80 mg PO HS Butalbit/Acetamin/Caff/Codeine [Fioricet-Cod 87-655-19-30 Cap] 1 cap PO BID PRN PRN Reason: Migraine Headache Magnesium Oxide [Mag-Ox] 500 mg PO DAILY@07 Latanoprost [Latanoprost 0.005%] 1 drop BOTH EYES HS oxyCODONE-APAP 10-325MG [Percocet 10-325 mg] 1 tab PO QID@0730,,19,23 buPROPion SR [Wellbutrin SR] 150 mg PO BID@0730,1900 Potassium Chloride ER [K-Dur 10] 10 meq PO DAILY Calcium Ascorbate 500mg 500 mg PO DAILY@0730 Aspirin EC [Ecotrin Low Dose] 81 mg PO DAILY@0730 Metoclopramide HCl [Reglan] 10 mg PO AC-TID PRN PRN Reason: Nausea Zolpidem Tartrate [Ambien Cr] 12.5 mg PO HS PRN PRN Reason: Insomnia Ondansetron [Zofran] 4 - 8 mg PO Q4H PRN MDD 32 mg PRN Reason: Nausea Ferrous Sulfate [Iron (65 MG Elemental)] 325 mg PO Q48H Discharge Medication List Folic Acid 1 mg PO DAILY@72908/30/14 [History] Gabapentin [Neurontin] 800 mg PO TID@729,1500,189908/30/14 [History] Metoprolol Succinate 25 mg PO DAILY@72908/30/14 [History] Omeprazole [PriLOSEC] 20 mg PO BID 08/30/14 [History] calcitrioL 0.25 mcg PO FONTENOT 08/30/14 [History] Calcium Carbonate/Vitamin D3 [Calcium 600-Vit D3 5 Mcg (200 Iu)] 2 tab PO DAILY@72906/18/16 [History] Doxazosin [Cardura] 4 mg PO BID@729,189906/18/16 [History] buPROPion SR [Wellbutrin SR] 150 mg PO BID@729,189906/05/24 [History] Potassium Chloride ER [K-Dur 10] 10 meq PO DAILY 11/28/24 [History] Hydrocortisone Cream [Hydrocortisone 2.5% Cream] 1 applic TOPICAL TID PRN 12/23/24 [History] predniSONE 5 mg PO BID 12/23/24 [History] Aspirin EC [Ecotrin Low Dose] 81 mg PO DAILY@72902/25/25 [History] Atorvastatin [Lipitor] 80 mg PO HS 02/25/25 [History] Butalbit/Acetamin/Caff/Codeine [Fioricet-Cod [id number] Cap] 1 cap PO BID PRN 02/25/25 [History] Calcium Ascorbate 500mg 500 mg PO DAILY@72902/25/25 [History] Ferrous Sulfate [Iron (65 MG Elemental)] 325 mg PO Q48H 02/25/25 [History] Latanoprost [Latanoprost 0.005%] 1 drop BOTH EYES HS 02/25/25 [History] Magnesium Oxide [Mag-Ox] 500 mg PO DAILY@72902/25/25 [History] Metoclopramide HCl [Reglan] 10 mg PO AC-TID PRN 02/25/25 [History] Ondansetron [Zofran] 4 - 8 mg PO Q4H PRN MDD 32 mg 02/25/25 [History] Zolpidem Tartrate [Ambien Cr] 12.5 mg PO HS PRN 02/25/25 [History] oxyCODONE-APAP 10-325MG [Percocet 10-325 mg] 1 tab PO QID@0730,13,19,23 02/25/25 [History] Follow up Appointment(s)/Referral(s): Reji Nina MD [Primary Care Provider] - 1-2 days [facility] [NON-STAFF] - As Needed Dominick Dean DO [STAFF PHYSICIAN] - 1 Week Patient Instructions/Handouts: Hyponatremia (DC) Activity/Diet/Wound Care/Special Instructions: Follow up with PCP and nephrology. Discharge Disposition: HOME WITH HOME HEALTH SERVICES
== END 2025-03-02 12:11 | disposition home health service (06) | DRG 644 ==
LOC: EC 16:31 → 3SCARD 18:58
PROVIDERS: ADMIT Family Medicine; ATTEND Family Medicine
DX: E22.2 Syndrome of inappropriate secretion of antidiuretic hormone (principal); C34.90 Malignant neoplasm of unspecified part of unspecified bronchus or lung; C78.7 Secondary malignant neoplasm of liver and intrahepatic bile duct; D69.6 Thrombocytopenia, unspecified; E83.51 Hypocalcemia; E86.1 Hypovolemia; F11.20 Opioid dependence, uncomplicated; M06.9 Rheumatoid arthritis, unspecified; I10 Essential (primary) hypertension; D63.0 Anemia in neoplastic disease; E78.5 Hyperlipidemia, unspecified; N40.0 Benign prostatic hyperplasia without lower urinary tract symptoms; F17.200 Nicotine dependence, unspecified, uncomplicated; G62.9 Polyneuropathy, unspecified; F41.9 Anxiety disorder, unspecified; G47.00 Insomnia, unspecified; K21.9 Gastro-esophageal reflux disease without esophagitis; G89.29 Other chronic pain; R29.6 Repeated falls; E87.5 Hyperkalemia; S00.83XA Contusion of other part of head, initial encounter; Z86.73 Personal history of transient ischemic attack (TIA), and cerebral infarction without residual deficits; Z91.81 History of falling; W01.0XXA Fall on same level from slipping, tripping and stumbling without subsequent striking against object, initial encounter; Z91.048 Other nonmedicinal substance allergy status; Z79.899 Other long term (current) drug therapy; Z79.82 Long term (current) use of aspirin; Z98.1 Arthrodesis status
CPT/HCPCS: 36415; 70450; 72125; 80048; 80053; 83735; 83930; 83935; 84295; 84300; 84443; 85025; 85027; 90471; 90715; 93005; 96360; 99291

== ENCOUNTER 2025-03-15 18:22 | Inpatient (IN) | payer MEDICARE ==
--- NOTE | 2025-03-15 19:26 | ED ---
General Adult HPI - General Source: patient, RN notes reviewed, old records reviewed Mode of arrival: ambulatory Limitations: no limitations <Cristi Argueta - Last Filed: 03/15/25 20:49> <Cristi Archibald - Last Filed: 03/16/25 21:15> - General Chief complaint: Abdominal Pain Stated complaint: abd pain,AMS Time Seen by Provider: 03/15/25 18:40 - History of Present Illness Initial comments: This is a 74-year-old male with a past medical history significant for stage IV lung cancer. 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 states a few weeks ago he was a little bit altered and he found his sodium to be extremely low. Patient comes in today because he is altered again and according to the he is having dry heaves but no actual vomiting. Patient denies any chest pain or difficulty breathing. Patient has any abdominal pain. Patient denies any diarrhea. Patient Nuys any recent injury or fall. Patient denies headache patient denies numbness weakness. (Cristi Argueta) - Related Data Home Medications Medication Instructions Recorded Confirmed Folic Acid 1 mg PO DAILY@0708/30/14 03/16/25 Gabapentin [Neurontin] 800 mg PO TID@0730,1500,1900 08/30/14 03/16/25 Metoprolol Succinate 25 mg PO DAILY@72908/30/14 03/16/25 Omeprazole [PriLOSEC] 20 mg PO BID 08/30/14 03/16/25 calcitrioL 0.25 mcg PO FONTENOT 08/30/14 03/16/25 Calcium Carbonate/Vitamin D3 2 tab PO DAILY@0706/18/16 03/16/25 [Calcium 600-Vit D3 5 Mcg (200 Iu)] Doxazosin [Cardura] 4 mg PO BID@729,189906/18/16 03/16/25 buPROPion SR [Wellbutrin SR] 150 mg PO BID@07,189906/05/24 03/16/25 Potassium Chloride ER [K-Dur 10] 10 meq PO DAILY 11/28/24 03/16/25 Hydrocortisone Cream 1 applic TOPICAL TID PRN 12/23/24 03/16/25 [Hydrocortisone 2.5% Cream] predniSONE 5 mg PO BID 12/23/24 03/16/25 Aspirin EC [Ecotrin Low Dose] 81 mg PO DAILY@72902/25/25 03/16/25 Atorvastatin [Lipitor] 80 mg PO HS 02/25/25 03/16/25 Butalbit/Acetamin/Caff/Codeine 1 cap PO BID PRN 02/25/25 03/16/25 [Fioricet-Cod 01-729-14-30 Cap] Calcium Ascorbate 500mg 500 mg PO DAILY@72902/25/25 03/16/25 Ferrous Sulfate [Iron (65 MG 325 mg PO Q48H 02/25/25 03/16/25 Elemental)] Latanoprost [Latanoprost 0.005%] 1 drop BOTH EYES HS 02/25/25 03/16/25 Magnesium Oxide [Mag-Ox] 500 mg PO DAILY@72902/25/25 03/16/25 Metoclopramide HCl [Reglan] 10 mg PO AC-TID PRN 02/25/25 03/16/25 Ondansetron [Zofran] 4 - 8 mg PO Q4H PRN MDD 32 mg 02/25/25 03/16/25 Zolpidem Tartrate [Ambien Cr] 12.5 mg PO HS PRN 02/25/25 03/16/25 oxyCODONE-APAP 10-325MG [Percocet 1 tab PO QID@0730,13,19,23 02/25/25 03/16/25 10-325 mg] Allergies Allergy/AdvReac Type Severity Reaction Status Date / Time adhesive Allergy Rash/Hives Verified 03/16/25 10:45 - paper tape ok Review of Systems ROS Other: All systems not noted in ROS Statement are negative. <Cristi Argueta - Last Filed: 03/15/25 20:49> ROS Other: All systems not noted in ROS Statement are negative. <Cristi Archibald - Last Filed: 03/16/25 21:15> ROS Statement: Those systems with pertinent positive or pertinent negative responses have been documented in the HPI. Past Medical History Past Medical History: Cancer, CVA/TIA, GERD/Reflux, Hyperlipidemia, Hypertension, Musculoskeletal Disorder, Prostate Disorder, Rheumatoid Arthritis (RA) Additional Past Medical History / Comment(s): Degenerative Disc Disease. Enlarged prostate. lung cancer stage 4, ?TIA History of Any Multi-Drug Resistant Organisms: None Reported Past Surgical History: Back Surgery, Orthopedic Surgery Additional Past Surgical History / Comment(s): Spinal fusion X2, laminectomy, BILATERAL TENNIS ELBOW SURGERY, LEFT HAND CARPAL TUNNEL SURGERY, TRIAL PAIN STIMULATORPLACED AND LATER REMOVED, Pain Procedures, bilateral cataracts removed. ankle repair, Past Anesthesia/Blood Transfusion Reactions: No Reported Reaction Past Psychological History: Anxiety, Depression Smoking Status: Former smoker Past Alcohol Use History: None Reported Past Drug Use History: Marijuana - Past Family History Sister(s) Family Medical History: Cancer Additional Family Medical History / Comment(s): LUNG CANCER. <Cristi Argueta - Last Filed: 03/15/25 20:49> General Exam Limitations: no limitations <Cristi Argueta - Last Filed: 03/15/25 20:49> Limitations: altered mental status General appearance: alert, in no apparent distress Head exam: Present: atraumatic, normocephalic, normal inspection Eye exam: Present: normal appearance, PERRL, EOMI. Absent: scleral icterus, conjunctival injection, periorbital swelling ENT exam: Present: normal exam, mucous membranes moist Neck exam: Present: normal inspection. Absent: tenderness, meningismus, lymphadenopathy Respiratory exam: Present: normal lung sounds bilaterally. Absent: respiratory distress, wheezes, rales, rhonchi, stridor Cardiovascular Exam: Present: regular rate, normal rhythm, normal heart sounds. Absent: systolic murmur, diastolic murmur, rubs, gallop, clicks GI/Abdominal exam: Present: soft, normal bowel sounds. Absent: distended, tenderness, guarding, rebound, rigid Extremities exam: Present: normal inspection, full ROM, normal capillary refill. Absent: tenderness, pedal edema, joint swelling, calf tenderness Back exam: Present: normal inspection Neurological exam: Present: alert, oriented X3, CN II-XII intact Psychiatric exam: Present: normal affect, normal mood Skin exam: Present: warm, dry, intact, normal color. Absent: rash <Cristi Archibald - Last Filed: 03/16/25 21:15> - General Exam Comments Initial Comments: GENERAL: Patient is well-developed and well-nourished. Patient is nontoxic and well- hydrated and is in mild distress. ENT: Neck is soft and supple. No significant lymphadenopathy is noted. Oropharynx is clear. Moist mucous membranes. Neck has full range of motion without eliciting any pain. EYES: The sclera were anicteric and conjunctiva were pink and moist. Extraocular movements were intact and pupils were equal round and reactive to light. Eyelids were unremarkable. PULMONARY: Unlabored respirations. Good breath sounds bilaterally. No audible rales rhonchi or wheezing was noted. CARDIOVASCULAR: There is a regular rate and rhythm without any murmurs gallops or rubs. ABDOMEN: Mild right upper quadrant tenderness SKIN: Skin is clear with no lesions or rashes and otherwise unremarkable. NEUROLOGIC: Patient is alert and oriented x3. Cranial nerves II through XII are grossly intact. Motor and sensory are also intact. Normal speech, volume and content. Symmetrical smile. MUSCULOSKELETAL: Normal extremities with adequate strength and full range of motion. LYMPHATICS: No significant lymphadenopathy is noted PSYCHIATRIC: Normal psychiatric evaluation. (Cristi Argueta) Course <Cristi Archibald - Last Filed: 03/16/25 21:15> Vital Signs 03/15/25 03/15/25 03/15/25 18:36 19:52 23:03 Temperature 97.9 F Pulse Rate 104 H 102 H 107 H Pulse Rate [ Pulse Oximetery ] Respiratory 18 17 17 Rate Blood Pressure 129/85 111/70 122/81 O2 Sat by Pulse 98 95 97 Oximetry 03/16/25 01:33 Temperature Pulse Rate Pulse Rate [ 103 H Pulse Oximetery ] Respiratory 16 Rate Blood Pressure O2 Sat by Pulse Oximetry - Reevaluation(s) Reevaluation #1: 03/16/25 00:01 Medical records reviewed (Cristi Archibald) Reevaluation #2: 03/16/25 00:02 Patient's symptoms improved (Cristi Archibald) Reevaluation #3: 03/16/25 00:02 Patient informed of results questions answered (Cristi Archibald) Reevaluation #4: Differential Altered Mental Status: Hypoglycemia, DKA, hypercapnia, ETOH, overdose, CO poisoning, trauma, myxedema coma, HTN encephalopathy, infection, encephalitis, psychosis, intercranial hemorrhage, hepatic encephalopathy, meningitis, CVA, this is not meant to be an all-inclusive list Differential Abdominal Pain Men: Appendicitis, cholecystitis, diverticulosis, ischemic bowel, pancreatitis, hepatitis, UTI, gastroenteritis, AAA, incarcerated hernia, bowel obstruction, constipation, inflammatory bowel, hepatitis, peptic ulcer disease, splenic i nfarction, perforated viscus, testicular torsion, this is not meant to be an all-inclusive list (Cristi Archibald) - Consultations Consultation #1: Spoke with [facility] who agrees to admit this patient (Cristi Archibald) Medical Decision Making - Lab Data Result diagrams: 03/15/25 19:37 <Cristi Argueta - Last Filed: 03/15/25 20:49> - Lab Data Result diagrams: 03/16/25 09:01 03/16/25 17:56 - EKG Data -: EKG Interpreted by Me - Radiology Data Radiology results: report reviewed (CT brain negative for acute disease chest x- ray is negative for acute disease, CT abdomen pelvis negative for acute disease), image reviewed <Cristi Archibald - Last Filed: 03/16/25 21:15> - Medical Decision Making EKG is interpreted by myself. EKG shows a sinus tachycardia at 101 bpm AL 132 QRS is 90 QT interval is 344 QTc is 402. Patient's EKG shows no ST segment elevation or depression Was pt. sent in by a medical professional or institution (JIMBO Kahn, STRATEGIC ADVISOR, urgent care, hospital, or intermediate...) When possible be specific @ -[No] Did you speak to anyone other than the patient for history (EMS, parent, family, police, friend...)? What history was obtained from this source @ -[No] Did you review nursing and triage notes (agree or disagree)? Why? @ -[I reviewed and agree with nursing and triage notes] Were old charts reviewed (outside hosp., previous admission, EMS record, old EKG, old radiological studies, urgent care reports/EKG's, intermediate records)? Report findings @ -[No old charts were reviewed] Differential Diagnosis? @ -[chest pain, altered mental status, abdominal pain women, abdominal pain men, vaginal bleeding, weakness, fever, dyspnea, syncope, headache, dizziness, GI bleed, back pain, seizure, CVA, palpatations, mental health, musculoskeletal] EKG interpreted by me (3pts min.). @ -[As above] X-rays interpreted by me (1pt min.). @ -[None done] CT interpreted by me (1pt min.). @ -[None done] U/S interpreted by me (1pt. min.). @ -[None done] What testing was considered but not performed or refused? (CT, X-rays, U/S, labs)? Why? @ -[None] What meds were considered but not given or refused? Why? @ -[None] Did you discuss the management of the patient with other professionals (professionals i.e. DrTerrence, PA, STRATEGIC ADVISOR, lab, RT, psych nurse, social work nurse, machine welder, teacher, air crew officer, immigration case worker)? Give summary @ -[No] Was smoking cessation discussed for >3mins.? @ -[No] Was critical care preformed (if so, how long)? @ -[No] Were there social determinants of health that impacted care today? How? (Homelessness, low income, unemployed, alcoholism, drug addiction, transportation, low edu. Level, literacy, decrease access to med. care, residential, rehab)? @ -[No] Was there de-escalation of care discussed even if they declined (Discuss DNR or withdrawal of care, Hospice)? DNR status @ -[No] What co-morbidities impacted this encounter? (DM, HTN, Smoking, COPD, CAD, Cancer, CVA, ARF, Chemo, Hep., AIDS, mental health diagnosis, sleep apnea, morbid obesity)? @ -[None] Was patient admitted / discharged? Hospital course, mention meds given and route, prescriptions, significant lab abnormalities, going to OR and other pertinent info. @ -Patient will be signed out to Dr. Archibald at 9 PM (Cristi Argueta) 74 female with significant underlying lung cancer with metastasis coming in for abdominal pain altered mental status low sodium, low blood sugar, failure to thrive with UTI, leukocytosis placed on IV antibiotic (Cristi Archibald) - Lab Data Lab Results 03/15/25 03/15/25 03/15/25 Range/Units 19:37 19:37 20:13 WBC 20.60 H (4.50-10.00) 10*3/uL RBC 3.94 L (4.40-5.60) 10*6/uL Hgb 12.0 L (13.0-17.0) g/dL Hct 33.8 L (39.6-50.0) % MCV 85.8 (80.0-97.0) fL MCH 30.5 (27.0-32.0) pg MCHC 35.5 (32.0-37.0) g/dL Plt Count 263 (140-440) 10*3/uL MPV 9.8 (9.5-12.2) fL Immature Gran % (Auto) 3.2 % Neutrophils % 80.7 % Lymphocytes % 3.3 % Monocytes % 11.6 % Eosinophils % 0.7 % Basophils % 0.5 % Immature Gran # 0.65 H (0.00-0.04) 10*3/uL Neutrophils # 16.63 H (1.80-7.70) 10*3/uL Lymphocytes # 0.69 L (0.90-5.00) 10*3/uL Monocytes # 2.38 H (0.20-1.00) 10*3/uL Eosinophils # 0.15 (0.04-0.35) 10*3/uL Basophils # 0.10 (0.00-0.10) 10*3/uL PT 11.7 (10.0-12.5) sec INR 1.1 (<1.2) APTT 25.2 (22.0-30.0) sec VBG pH (7.31-7.41) VBG pCO2 (37-51) mmHg VBG HCO3 (24-28) mmol/L Sodium (137-145) mmol/L Potassium (3.5-5.1) mmol/L Chloride (98-107) mmol/L Carbon Dioxide (22-30) mmol/L Anion Gap mmol/L BUN (9-20) mg/dL Creatinine (0.66-1.25) mg/dL Est GFR (CKD-EPI)AfAm (>60 ml/min/1.73 sqM) Est GFR (CKD-EPI)NonAf (>60 ml/min/1.73 sqM) Glucose (74-99) mg/dL POC Glucose (mg/dL) (70-110) mg/dL POC Glu Estate Planning Counselor ID Plasma Lactic Acid Deepak 1.4 (0.7-2.0) mmol/L Calcium (8.4-10.2) mg/dL Magnesium (1.6-2.3) mg/dL Total Bilirubin (0.2-1.3) mg/dL AST (17-59) U/L ALT (4-49) U/L Alkaline Phosphatase (38-126) U/L Ammonia <9 (<30) umol/L Total Protein (6.3-8.2) g/dL Albumin (3.5-5.0) g/dL 03/15/25 03/15/25 03/15/25 Range/Units 20:13 21:18 22:44 WBC (4.50-10.00) 10*3/uL RBC (4.40-5.60) 10*6/uL Hgb (13.0-17.0) g/dL Hct (39.6-50.0) % MCV (80.0-97.0) fL MCH (27.0-32.0) pg MCHC (32.0-37.0) g/dL Plt Count (140-440) 10*3/uL MPV (9.5-12.2) fL Immature Gran % (Auto) % Neutrophils % % Lymphocytes % % Monocytes % % Eosinophils % % Basophils % % Immature Gran # (0.00-0.04) 10*3/uL Neutrophils # (1.80-7.70) 10*3/uL Lymphocytes # (0.90-5.00) 10*3/uL Monocytes # (0.20-1.00) 10*3/uL Eosinophils # (0.04-0.35) 10*3/uL Basophils # (0.00-0.10) 10*3/uL PT (10.0-12.5) sec INR (<1.2) APTT (22.0-30.0) sec VBG pH 7.42 H (7.31-7.41) VBG pCO2 37 (37-51) mmHg VBG HCO3 24 (24-28) mmol/L Sodium 122 L (137-145) mmol/L Potassium 4.2 (3.5-5.1) mmol/L Chloride 87 L (98-107) mmol/L Carbon Dioxide 23 (22-30) mmol/L Anion Gap 12 mmol/L BUN 15 (9-20) mg/dL Creatinine 0.85 (0.66-1.25) mg/dL Est GFR (CKD-EPI)AfAm >90 (>60 ml/min/1.73 sqM) Est GFR (CKD-EPI)NonAf 87 (>60 ml/min/1.73 sqM) Glucose 36 L* (74-99) mg/dL POC Glucose (mg/dL) 101 (70-110) mg/dL POC Glu Estate Planning Counselor ID Gutierrez Christopher Plasma Lactic Acid Deepak (0.7-2.0) mmol/L Calcium 8.6 (8.4-10.2) mg/dL Magnesium 2.3 (1.6-2.3) mg/dL Total Bilirubin 1.6 H (0.2-1.3) mg/dL AST 133 H (17-59) U/L ALT 31 (4-49) U/L Alkaline Phosphatase 287 H (38-126) U/L Ammonia (<30) umol/L Total Protein 5.6 L (6.3-8.2) g/dL Albumin 2.9 L (3.5-5.0) g/dL Disposition <Cristi Argueta - Last Filed: 03/15/25 20:49> Is patient prescribed a controlled substance at d/c from ED?: No Time of Disposition: 00:00 <Cristi Archibald - Last Filed: 03/16/25 21:15> Clinical Impression: Nausea and vomiting, Lung cancer, Dehydration, Hyponatremia, Altered mental status, Hypoglycemia, Leukocytosis Disposition: ADMITTED IP TO THIS HOSP Condition: Fair
--- NOTE | 2025-03-15 19:36 | CT ---
EXAMINATION TYPE: CT brain wo con DATE OF EXAM: 03/15/2025 7:23 PM COMPARISON: None. CLINICAL INDICATION: Male, 74 years old with history of Altered mental status, nausea, ams TECHNIQUE: CT of the brain is performed utilizing 3 mm thick sections through the posterior fossa and 3 mm thick sections through the remaining calvarium. Study is performed within 24 hours of arrival to the hospital. Contrast used: mL of , (none if empty) CT DLP: 1229.4 mGycm, Automated exposure control for dose reduction was used. FINDINGS: No abnormal hyperdensity is present to suggest an acute intracranial hemorrhage. No mass lesion is evident. There is some hypodensity within the left rutherford radiata which may extend into the left basal ganglia . Ischemic change may be present of indeterminate age. When compared to the prior study this may be s lightly better visualized suggesting this is more likely old. Correlate with the patient's symptoms. Periventricular white matter hypodensity is present, likely on the basis of chronic white ischemic ch anges. Ventricles and sulci are prominent for the patient age. Paranasal sinuses and mastoid air cells within the [id number] are clear. IMPRESSION: 1. There is an ill-defined hypodensity within the left basal ganglia and ruhterford radiata could be acut e ischemic change. Consider follow-up. Report was called and case discussed with ER physician. 2. Chronic appearing periventricular white matter ischemic type changes with age related atrophy [facility], Workstation: [facility], 03/15/2025 7:34 PM
--- NOTE | 2025-03-15 19:39 | XR ---
EXAMINATION TYPE: XR chest 2V DATE OF EXAM: 03/15/2025 7:25 PM COMPARISON: 11/27/2024 CLINICAL INDICATION: Male, 74 years old with history of Difficulty breathing , lung cancer with metas tasis TECHNIQUE: XR chest 2V view(s) obtained. There is slight right rotation. FINDINGS: The heart size is normal. The pulmonary vasculature is normal. Right suprahilar mediastinum has some fullness. Underlying mass should be considered. This correlates with the PET/CT and the patient's known lung cancer IMPRESSION: 1. Fullness in the right suprahilar mediastinal region relates with patient's known lung cancer. [facility], Workstation: [email or web address], 03/15/2025 7:37 PM
[2025-03-15] MEDS: ONDANSETRON 4 MG/2 ML VIAL IVP STA (19:49)
[2025-03-15 20:03] LABS: Basophils % (A) 0.5 %; Eosinophils # (A) 0.15 10*3/uL (0.04-0.35); Eosinophils % (A) 0.7 %; HCT 33.8 % (39.6-50.0); Lymphocytes # (A) 0.69 10*3/uL (0.90-5.00); Lymphocytes % (A) 3.3 %; MCH 30.5 pg (27.0-32.0); MCHC 35.5 g/dL (32.0-37.0); MCV 85.8 fL (80.0-97.0); Mean Platelet Volume 9.8 fL (9.5-12.2); Monocytes # (A) 2.38 10*3/uL (0.20-1.00); Monocytes % (A) 11.6 %; Neutrophils # (A) 16.63 10*3/uL (1.80-7.70); Neutrophils % (A) 80.7 %; Platelet Count 263 10*3/uL (140-440); RBC 3.94 10*6/uL (4.40-5.60)
[2025-03-15 20:05] LABS: Lactic Acid, Venous 1.4 mmol/L (0.7-2.0)
[2025-03-15 20:31] LABS: VBG PH 7.42 (7.31-7.41)
[2025-03-15 20:47] LABS: INR 1.1 (<1.2); Partial Thromboplastin Time 25.2 sec (22.0-30.0); Prothrombin Time 11.7 sec (10.0-12.5)
[2025-03-15 21:56] LABS: ALT 31 U/L (4-49); AST 133 U/L (17-59); African American GFR (CKD) >90 (>60 ml/min/1.73 sqM); Albumin 2.9 g/dL (3.5-5.0); Alkaline Phosphatase 287 U/L (38-126); Anion Gap 12 mmol/L; Blood Urea Nitrogen 15 mg/dL (9-20); Calcium 8.6 mg/dL (8.4-10.2); Carbon Dioxide 23 mmol/L (22-30); Chloride 87 mmol/L (98-107); Magnesium 2.3 mg/dL (1.6-2.3); Non-African American GFR(CKD) 87 (>60 ml/min/1.73 sqM); Potassium 4.2 mmol/L (3.5-5.1); Sodium 122 mmol/L (137-145); Total Bilirubin 1.6 mg/dL (0.2-1.3); Total Protein 5.6 g/dL (6.3-8.2)
[2025-03-15 21:59] LABS: Glucose 36 mg/dL (74-99)
[2025-03-15] MEDS: DEXTROSE 50% SYRINGE 50 ML IVP STA (22:05)
[2025-03-15 22:45] LABS: Glucose,Whole Blood 101 mg/dL (70-110)
[2025-03-15] MEDS: DEXTROSE 5%-0.45% NACL 1,000 ML IV ONE (22:56)
--- NOTE | 2025-03-15 23:03 | CT ---
EXAMINATION TYPE: CT abdomen pelvis wo con DATE OF EXAM: 03/15/2025 10:30 PM COMPARISON: None. CLINICAL INDICATION: Male, 74 years old with history of pain, abdominal pain TECHNIQUE: Axial images were obtained from above the diaphragm to the pubic rami in the axial plane a t 5 mm thick sections. Reconstructed images are reviewed on the computer in the coronal plane. CONTRAST: mL of . Study performed without Oral Contrast DLP: 877.4 mGycm, Automated exposure control for dose reduction was used. FINDINGS: Limited CT sections are obtained the lung bases. There is a 0.6 cm nodule posterior lateral left karla g base. Series [address] ABDOMEN: Liver: Moderate fatty infiltration in the liver. There are scattered hypodensities with ill-defined m argins present compatible with metastatic disease. These are poorly visualized on current exam. Spleen: Normal Pancreas: Normal Adrenal glands: The adrenal glands are normal. Gallbladder: Some wall calcification may be within the gallbladder appears distended Kidneys: No masses are evident. No hydronephrosis is present. No cysts are present. No renal stone s evident Aorta: Vascular calcification is within the aorta. Some mild fusiform prominence 2.7 cm the mid abdo jaylin aorta. Inferior vena cava: Normal. CT PELVIS: Loops of bowel within the abdomen and pelvis are normal. There are loops of bowel which are incom pletely distended or lack oral contrast limiting their evaluation. Appendix: Not identified Urinary bladder: Normal. Genitourinary structures: Prostate is prominent and contains calcification Osseous structures: Sclerotic lesion is identified in the lower thoracic vertebral level and within t he upper sacrum IMPRESSION: 1. Multiple ill-defined hepatic masses 2. Axial skeleton sclerotic lesions. [facility], Workstation: [facility], 03/15/2025 11:01 PM
[2025-03-15] MEDS: LORazepam 2 MG/ML INJ IV STA (23:04)
[2025-03-16] MEDS ORDERED: NALOXONE 0.4 MG/ML 1 ML VIAL IV PRN (00:02)
[2025-03-16] MEDS: SODIUM CHLORIDE 0.9% 1,000 ML IV SCH (00:25)
[2025-03-16] MEDS: ONDANSETRON 4 MG/2 ML VIAL IVP PRN (03:07)
--- NOTE | 2025-03-16 03:56 | P.HPIM ---
History of Present Illness H&P Date: 03/16/25 Chief Complaint: Confusion The patient is a 74-year-old male with history of stage IV metastatic lung cancer. The patient was brought in by his for confusion at the time of no time of my evaluation patient is unable to provide from the chart. The patient's states the last time he had similar complaints he was noted to be hyponatremic. In the emergency room patient was noted to have an elevated leukocytosis he was also hypoglycemic he received an amp of D50. The patient received IV Rocephin for possible urinary tract infection. The patient had a CT of the abdomen pelvis did not show any acute issue. There was an ill-defined density in the brain CT that could represent ischemia age-indeterminate. The patient was hospitalized for further workup and management. Review of Systems ROS unobtainable: due to mental status Past Medical History Past Medical History: Cancer, CVA/TIA, GERD/Reflux, Hyperlipidemia, Hypertension, Musculoskeletal Disorder, Prostate Disorder, Rheumatoid Arthritis (RA) Additional Past Medical History / Comment(s): Degenerative Disc Disease. Enlarged prostate. lung cancer stage 4, ?TIA History of Any Multi-Drug Resistant Organisms: None Reported Past Surgical History: Back Surgery, Orthopedic Surgery Additional Past Surgical History / Comment(s): Spinal fusion X2, laminectomy, BILATERAL TENNIS ELBOW SURGERY, LEFT HAND CARPAL TUNNEL SURGERY, TRIAL PAIN STIMULATORPLACED AND LATER REMOVED, Pain Procedures, bilateral cataracts removed. ankle repair, Past Anesthesia/Blood Transfusion Reactions: No Reported Reaction Past Psychological History: Anxiety, Depression Smoking Status: Former smoker Past Alcohol Use History: None Reported Additional Past Alcohol Use History / Comment(s): QUIT SMOKING IN 1991, SMOKED FOR APPROX 25 YRS, 1 - 2 PPD. Past Drug Use History: Marijuana Additional Drug Use History / Comment(s): MARIJUANA USE AT HS FOR SLEEP NEEDED. Aware no use 24 hrs prior to procedure. - Past Family History Sister(s) Family Medical History: Cancer Additional Family Medical History / Comment(s): LUNG CANCER. Medications and Allergies Home Medications Medication Instructions Recorded Confirmed Type Folic Acid 1 mg PO DAILY@0730 08/30/14 02/25/25 History Gabapentin [Neurontin] 800 mg PO TID@0730,1500,1900 08/30/14 02/25/25 History Metoprolol Succinate 25 mg PO DAILY@0730 08/30/14 02/25/25 History Omeprazole [PriLOSEC] 20 mg PO BID 08/30/14 02/25/25 History calcitrioL 0.25 mcg PO FONTENOT 08/30/14 02/25/25 History Calcium Carbonate/Vitamin D3 2 tab PO DAILY@72906/18/16 02/25/25 History [Calcium 600-Vit D3 5 Mcg (200 Iu)] Doxazosin [Cardura] 4 mg PO BID@729,189906/18/16 02/25/25 History buPROPion SR [Wellbutrin SR] 150 mg PO BID@729,189906/05/24 02/25/25 History Potassium Chloride ER [K-Dur 10] 10 meq PO DAILY 11/28/24 02/25/25 History Hydrocortisone Cream 1 applic TOPICAL TID PRN 12/23/24 02/25/25 History [Hydrocortisone 2.5% Cream] predniSONE 5 mg PO BID 12/23/24 02/25/25 History Aspirin EC [Ecotrin Low Dose] 81 mg PO DAILY@72902/25/25 02/25/25 History Atorvastatin [Lipitor] 80 mg PO HS 02/25/25 02/25/25 History Butalbit/Acetamin/Caff/Codeine 1 cap PO BID PRN 02/25/25 02/25/25 History [Fioricet-Cod 64-748-44-30 Cap] Calcium Ascorbate 500mg 500 mg PO DAILY@72902/25/25 02/25/25 History Ferrous Sulfate [Iron (65 MG 325 mg PO Q48H 02/25/25 02/25/25 History Elemental)] Latanoprost [Latanoprost 0.005%] 1 drop BOTH EYES HS 02/25/25 02/25/25 History Magnesium Oxide [Mag-Ox] 500 mg PO DAILY@72902/25/25 02/25/25 History Metoclopramide HCl [Reglan] 10 mg PO AC-TID PRN 02/25/25 02/25/25 History Ondansetron [Zofran] 4 - 8 mg PO Q4H PRN MDD 32 mg 02/25/25 02/25/25 History Zolpidem Tartrate [Ambien Cr] 12.5 mg PO HS PRN 02/25/25 02/25/25 History oxyCODONE-APAP 10-325MG [Percocet 1 tab PO QID@0730,13,19,23 02/25/25 02/25/25 History 10-325 mg] Allergies Allergy/AdvReac Type Severity Reaction Status Date / Time adhesive Allergy Rash/Hives Verified 03/15/25 18:40 - paper tape ok Physical Exam Vitals: Vital Signs Temp Pulse Pulse Resp BP BP Pulse Ox 03/16/25 02:30 98.6 F 03/16/25 02:00 100.0 F H 103 H 16 126/66 97 03/16/25 01:33 103 H 16 03/15/25 23:03 107 H 17 122/81 97 03/15/25 19:52 102 H 17 111/70 95 03/15/25 18:36 97.9 F 104 H 18 129/85 98 Intake and Output 03/15/25 03/15/25 03/16/25 14:59 22:59 06:59 Output Total 250 Balance -250 Output: Urine 250 Other: Voiding Method Diaper Weight 65.317 kg 65.317 kg - Constitutional General appearance: no acute distress - EENT ENT: normal oropharynx - Respiratory Respiratory: bilateral: diminished - Cardiovascular Rhythm: regular - Gastrointestinal General gastrointestinal: normal bowel sounds, tenderness - Musculoskeletal Musculoskeletal: strength equal bilaterally - Psychiatric limited insight Results CBC & Chem 7: 03/15/25 19:37 03/15/25 21:18 Labs: Abnormal Lab Results - Last 24 Hours (Table) 03/15/25 03/15/25 03/15/25 Range/Units 19:37 20:13 21:18 WBC 20.60 H (4.50-10.00) 10*3/uL RBC 3.94 L (4.40-5.60) 10*6/uL Hgb 12.0 L (13.0-17.0) g/dL Hct 33.8 L (39.6-50.0) % Immature Gran # 0.65 H (0.00-0.04) 10*3/uL Neutrophils # 16.63 H (1.80-7.70) 10*3/uL Lymphocytes # 0.69 L (0.90-5.00) 10*3/uL Monocytes # 2.38 H (0.20-1.00) 10*3/uL VBG pH 7.42 H (7.31-7.41) Sodium 122 L (137-145) mmol/L Chloride 87 L (98-107) mmol/L Glucose 36 L* (74-99) mg/dL Total Bilirubin 1.6 H (0.2-1.3) mg/dL AST 133 H (17-59) U/L Alkaline Phosphatase 287 H (38-126) U/L Total Protein 5.6 L (6.3-8.2) g/dL Albumin 2.9 L (3.5-5.0) g/dL Chest x-ray: report reviewed Thrombosis Risk Factor Assmnt - Choose All That Apply Any of the Below Risk Factors Present?: No Other Risk Factors: Yes Each Risk Factor Represents 2 Points: Age 61-74 years Other congenital or acquired thrombophilia - If yes, enter type in comment: No Thrombosis Risk Factor Assessment Total Risk Factor Score: 2 Thrombosis Risk Factor Assessment Level: Low Risk Assessment and Plan (1) Altered mental status Narrative/Plan: Multifactorial, neurochecks, given CT results rule out stroke, Current Visit: Yes Status: Acute Code(s): R41.82 - ALTERED MENTAL STATUS, UNSPECIFIED SNOMED Code(s): 359206987 (2) Dehydration Narrative/Plan: Continue IV hydration Current Visit: Yes Status: Acute Code(s): E86.0 - DEHYDRATION SNOMED Code(s): 80293376 (3) Leukocytosis Narrative/Plan: Could not see UA will repeat UA continue Rocephin given leukocytosis on patient decreased to mental status Current Visit: Yes Status: Acute Code(s): D72.829 - ELEVATED WHITE BLOOD CELL COUNT, UNSPECIFIED SNOMED Code(s): 529411828 (4) Hypoglycemia Narrative/Plan: Will monitor closely Current Visit: Yes Status: Acute Code(s): E16.2 - HYPOGLYCEMIA, UNSPECIFIED SNOMED Code(s): 195818281 (5) Hyponatremia Narrative/Plan: Will continue IV hydration Current Visit: Yes Status: Acute Code(s): E87.1 - HYPO-OSMOLALITY AND HYPONATREMIA SNOMED Code(s): 46934030 (6) Lung cancer Narrative/Plan: Will consult oncology as needed Current Visit: Yes Status: Acute Code(s): C34.90 - MALIGNANT NEOPLASM OF UNSP PART OF UNSP BRONCHUS OR LUNG SNOMED Code(s): 901408924 Plan: Multifactorial encephalopathy, IV fluids, IV antibiotics, neurochecks,
[2025-03-16 04:51] LABS: Appearance,Urine Clear (Clear); Bilirubin,Urine 1+ (Negative); Blood,Urine Negative (Negative); Color,Urine Yellow; Glucose,Urine (UA) Trace (Negative); Hyaline Casts,Urine 12 /lpf (0-2); Ketones,Urine 2+ (Negative); Leukocyte Esterase,Urine Negative (Negative); Mucus,Urine Rare /hpf; Nitrite,Urine Negative (Negative); Protein,Urine 1+ (Negative); RBC,Urine 19 /hpf (0-5); Specific Gravity,Urine 1.022 (1.001-1.035); Squamous Epithelial Cell,Urine <1 /hpf (0-4); WBC,Urine 5 /hpf (0-5)
[2025-03-16] MEDS ORDERED: DEXTROSE 50% SYRINGE 50 ML IVP PRN ×2 (08:05)
[2025-03-16] MEDS ORDERED: BUTA/APAP/CAF/COD 50-325-40-30 CAP PO PRN (08:08)
[2025-03-16 08:34] LABS: Glucose,Whole Blood 88 mg/dL (70-110)
[2025-03-16 09:25] LABS: Basophils # (A) 0.05 10*3/uL (0.00-0.10); Basophils % (A) 0.3 %; HCT 29.5 % (39.6-50.0); HGB 10.1 g/dL (13.0-17.0); Lymphocytes # (A) 0.73 10*3/uL (0.90-5.00); MCHC 34.2 g/dL (32.0-37.0); MCV 84.8 fL (80.0-97.0); Mean Platelet Volume 9.1 fL (9.5-12.2); Monocytes % (A) 11.9 %; Neutrophils # (A) 15.11 10*3/uL (1.80-7.70); Platelet Count 233 10*3/uL (140-440); RBC 3.48 10*6/uL (4.40-5.60); WBC 18.43 10*3/uL (4.50-10.00)
[2025-03-16] MEDS: PANTOPRAZOLE 40 MG TABLET PO SCH (09:40)
[2025-03-16] MEDS: predniSONE 5 MG TAB PO SCH (09:40)
[2025-03-16] MEDS: FERROUS SULFATE 325 MG TAB PO SCH (09:40)
[2025-03-16] MEDS: ENOXAPARIN 40 MG/0.4 ML SYRINGE SQ SCH (09:40)
[2025-03-16] MEDS: MORPHINE SULFATE 4 MG/ML SYRINGE IV PRN (09:41)
[2025-03-16 09:42] LABS: African American GFR (CKD) >90 (>60 ml/min/1.73 sqM); Anion Gap 8 mmol/L; Blood Urea Nitrogen 15 mg/dL (9-20); Calcium 8.4 mg/dL (8.4-10.2); Carbon Dioxide 25 mmol/L (22-30); Chloride 86 mmol/L (98-107); Glucose 83 mg/dL (74-99); Magnesium 2.3 mg/dL (1.6-2.3); Non-African American GFR(CKD) 88 (>60 ml/min/1.73 sqM); Potassium 3.8 mmol/L (3.5-5.1)
[2025-03-16 09:59] LABS: Sodium 119 mmol/L (137-145)
--- NOTE | 2025-03-16 11:34 | P.NPCON ---
History of Present Illness - Reason for Consult hyponatremia - History of Present Illness Reason for consultation: Hyponatremia History of present illness: Patient is a 74-year-old male seen in renal consultation for hyponatremia. Patient came to the hospital due to generalized weakness as well as abdominal discomfort and dry heaves. This has been going on since Saturday. Patient does have history of stage IV lung cancer with metastatic disease. He has been receiving chemotherapy outpatient but is currently on hold due to rheumatoid arthritis flare. He is scheduled to resume chemotherapy later this month. Patient sodium on admission was 122. He did receive D5 half-normal saline overnight and sodium level this morning dropped to 119. Oral intake has been poor. Denies excessive fluid intake. Has been voiding. GFR at baseline. I do not see any diuretics on his home medication list. He does take Wellbutrin outpatient and is also scheduled to be given this admission. According to the , he has been having a lot of memory issues and has been quite forgetful. Vital signs are stable. General: No acute distress. HEENT: Head exam is unremarkable. Kartha LUNGS: No audible rhonchi or wheezes. HEART: Rate and Rhythm are regular. ABDOMEN: Nontender. EXTREMITITES: No edema. Past Medical History Past Medical History: Cancer, CVA/TIA, GERD/Reflux, Hyperlipidemia, Hypertension, Musculoskeletal Disorder, Prostate Disorder, Rheumatoid Arthritis (RA) Additional Past Medical History / Comment(s): Degenerative Disc Disease. Enlarged prostate. lung cancer stage 4, ?TIA History of Any Multi-Drug Resistant Organisms: None Reported Past Surgical History: Back Surgery, Orthopedic Surgery Additional Past Surgical History / Comment(s): Spinal fusion X2, laminectomy, BILATERAL TENNIS ELBOW SURGERY, LEFT HAND CARPAL TUNNEL SURGERY, TRIAL PAIN STIM ULATORPLACED AND LATER REMOVED, Pain Procedures, bilateral cataracts removed. ankle repair, Past Anesthesia/Blood Transfusion Reactions: No Reported Reaction Past Psychological History: Anxiety, Depression Smoking Status: Former smoker Past Alcohol Use History: None Reported Additional Past Alcohol Use History / Comment(s): QUIT SMOKING IN 1991, SMOKED FOR APPROX 25 YRS, 1 - 2 PPD. Past Drug Use History: Marijuana Additional Drug Use History / Comment(s): MARIJUANA USE AT HS FOR SLEEP NEEDED. Aware no use 24 hrs prior to procedure. - Past Family History Sister(s) Family Medical History: Cancer Additional Family Medical History / Comment(s): LUNG CANCER. Medications and Allergies Home Medications Medication Instructions Recorded Confirmed Type Folic Acid 1 mg PO DAILY@72908/30/14 03/16/25 History Gabapentin [Neurontin] 800 mg PO TID@0730,1500,189908/30/14 03/16/25 History Metoprolol Succinate 25 mg PO DAILY@0708/30/14 03/16/25 History Omeprazole [PriLOSEC] 20 mg PO BID 08/30/14 03/16/25 History calcitrioL 0.25 mcg PO FONTENOT 08/30/14 03/16/25 History Calcium Carbonate/Vitamin D3 2 tab PO DAILY@72906/18/16 03/16/25 History [Calcium 600-Vit D3 5 Mcg (200 Iu)] Doxazosin [Cardura] 4 mg PO BID@0730,189906/18/16 03/16/25 History buPROPion SR [Wellbutrin SR] 150 mg PO BID@0730,19006/05/24 03/16/25 History Potassium Chloride ER [K-Dur 10] 10 meq PO DAILY 11/28/24 03/16/25 History Hydrocortisone Cream 1 applic TOPICAL TID PRN 12/23/24 03/16/25 History [Hydrocortisone 2.5% Cream] predniSONE 5 mg PO BID 12/23/24 03/16/25 History Aspirin EC [Ecotrin Low Dose] 81 mg PO DAILY@72902/25/25 03/16/25 History Atorvastatin [Lipitor] 80 mg PO HS 02/25/25 03/16/25 History Butalbit/Acetamin/Caff/Codeine 1 cap PO BID PRN 02/25/25 03/16/25 History [Fioricet-Cod 24-131-61-30 Cap] Calcium Ascorbate 500mg 500 mg PO DAILY@72902/25/25 03/16/25 History Ferrous Sulfate [Iron (65 MG 325 mg PO Q48H 02/25/25 03/16/25 History Elemental)] Latanoprost [Latanoprost 0.005%] 1 drop BOTH EYES HS 02/25/25 03/16/25 History Magnesium Oxide [Mag-Ox] 500 mg PO DAILY@72902/25/25 03/16/25 History Metoclopramide HCl [Reglan] 10 mg PO AC-TID PRN 02/25/25 03/16/25 History Ondansetron [Zofran] 4 - 8 mg PO Q4H PRN MDD 32 mg 02/25/25 03/16/25 History Zolpidem Tartrate [Ambien Cr] 12.5 mg PO HS PRN 02/25/25 03/16/25 History oxyCODONE-APAP 10-325MG [Percocet 1 tab PO QID@0730,13,19,23 02/25/25 03/16/25 History 10-325 mg] Allergies Allergy/AdvReac Type Severity Reaction Status Date / Time adhesive Allergy Rash/Hives Verified 03/16/25 10:45 - paper tape ok Physical Exam Vitals: Vital Signs Temp Pulse Pulse Resp BP BP Pulse Ox 03/16/25 07:11 98.3 F 86 18 112/54 97 03/16/25 02:30 98.6 F 03/16/25 02:00 100.0 F H 103 H 16 126/66 97 03/16/25 01:33 103 H 16 03/15/25 23:03 107 H 17 122/81 97 03/15/25 19:52 102 H 17 111/70 95 03/15/25 18:36 97.9 F 104 H 18 129/85 98 Intake and Output 03/15/25 03/16/25 03/16/25 22:59 06:59 14:59 Intake Total 540 Output Total 250 Balance 290 Intake: Oral 540 Output: Urine 250 Other: Voiding Method Urinal Diaper Weight 65.317 kg 65.317 kg Results - Lab Results Most recent lab results Calcium 8.4 mg/dL (8.4-10.2) 03/16/25 09:01 Magnesium 2.3 mg/dL (1.6-2.3) 03/16/25 09:01 03/16/25 09:01 03/16/25 09:01 Assessment and Plan Plan: Assessment: 1. Hyponatremia secondary to poor solute intake and further worsened with hypotonic fluids that was given overnight. Sodium level 119 this morning. TSH normal. 2. Stage IV lung cancer with metastatic disease. Plan: IV fluids discontinued this morning. Encouraged oral intake, particularly protein. Add urea. Add fluid restriction. Repeat sodium level this evening. Check bladder scan to rule out urinary retention. Follow-up urine studies. Thank you for the consultation. I will continue to follow the patient with you during his hospital stay.
[2025-03-16 12:12] LABS: Glucose,Whole Blood 100 mg/dL (70-110)
[2025-03-16] MEDS: oxyCODONE-APAP 10-325MG 1 EACH TAB PO SCH (12:26)
[2025-03-16] MEDS: UREA 15 GM POWD.PACK PO SCH (12:27)
--- NOTE | 2025-03-16 13:12 | P.PN ---
Subjective Progress Note Date: 03/16/25 Hospital course: Patient is a 74-year-old male with a past medical history of stage IV metastatic lung cancer, hypertension, hyperlipidemia, BPH, and anxiety with depression. He presented to the hospital on 03/16/2025 secondary to concerns of weakness, confusion, and fever. Upon arrival per facility, patient underwent evaluation in the emergency department. Vital signs upon arrival show blood pressure 129/85, heart rate 104, respiratory rate 18, temp 97.9 F, and SpO2 of 98% on room air. Shortly after arrival temperature elevated to 100.0 F orally. EKG c ompleted showing sinus tachycardia at 101 bpm with T wave inversion in inferior lead III otherwise no noted T wave or ST abnormality showing no signs of acute ischemia upon personal review and interpretation. CT brain completed showing an ill-defined hypodensity in the left basal ganglia and coronary radiata possibly secondary to acute ischemic change and chronic appearing periventricular white m atter ischemic changes with age-related atrophy. Chest x-ray revealing fullness in the right suprahilar mediastinal region relates with patient's known lung cancer. Labs completed and reviewed. CBC showing leukocytosis with WBC count of 20.60 with a left shift with immature granulocytes of 0.65, neutrophils of 16.63, lymphocytes of 0.69, and monocytes of 2.38 and normocytic anemia with hemoglobin of 12.0. Coagulation profile normal findings. VBG showing pH of 7.42 with pCO2 of 37 and bicarb of 24. BMP showing hypochloremic hyponatremia with sodium 122 and chloride of 87, bicarb of 23 and elevated anion gap of 12. Blood glucose was 36. Liver profile showing hyperbilirubinemia with total bili of 1.6 and transaminitis with AST of 133, ALT of 31, and alkaline phosphatase of 287. Low total protein of 5.6 and albumin of 2.9. Urinalysis positive for protein, glucose, ketones, urine bilirubin, 19 RBCs, and [address] abdomen and pelvis showing multiple ill-defined hepatic masses with axial skeleton sclerotic lesions in the lower thoracic vertebral level and within the upper sacrum. Patient was admitted under services with consultation to neurology, nephrology, and oncology. Physical exam: Patient seen and fully evaluated at bedside this morning. He is alert to person and place but confused to time and situation. He currently denies having any pain or complaints at this time. Vital signs reviewed and stable. General: Nontoxic, no distress and appears stated age. Derm: Skin warm and dry, normal coloration for ethnicity. Head: Atraumatic, normocephalic and symmetric. Eyes: EOM's intact, no lid lag, and anicteric sclera Mouth: no lip lesions, mucus membranes moist Cardiovascular: regular rate and rhythm with normal S1S2, systolic murmur, positive posterior tibial pulses bilaterally, and cap refill < 2 seconds. Lungs: Respirations even, regular, and unlabored on room air. Lungs diminished with diffuse rhonchi. No wheezes, rales, or crackles. Abdominal: soft, nontender to palpation, no guarding, no appreciable organomegaly Ext: ROM intact. No gross muscle atrophy, no edema, no contractures. Neuro: Speech clear, face symmetrical and CN II-XII grossly intact with no noted focal neuro deficits Psych: Alert and oriented to person in place and confused to time and situation. Appropriate and pleasant affect. Assessment and Plan of Care: Acute metabolic encephalopathy, unclear cause likely multifactorial Hyponatremia, possibly SIADH Hypoglycemia SIRS/sepsis with tachycardia, altered mental status, pyrexia, and leukocytosis - Patient initially placed on IV fluid hydration and received IV fluids overnight, sodium worsening this morning from previous 122 down to 119. IV fluids stopped at this time and discussed with sandwich counter attendant, Dr. Dean, placing patient on urea 15 g 3 times daily. - Order placed for TSH with reflex free T4, cortisol level, serum osmolality, urine osmolality, and urine sodium. - Repeat morning glucose 88, orders placed for glycemic protocol with blood glucose checks every 4 hours. Monitor for signs/symptoms of hypoglycemia. - CT brain reported ill-defined hypodensity in the left basal ganglia and coronary radiata. - Neurology consulted, appreciate recommendations - Neurochecks every 4 hours, fall precautions, seizure precautions to remain in place. - Continue IV antibiotics with Rocephin pending urine culture and blood culture results secondary to altered mental status, tachycardia, pyrexia, and leukocytosis with left shift. Hypertension -Vital signs and continue daily medication regimen with metoprolol 25 mg daily. Hyperlipidemia -Continue daily medication regimen with atorvastatin 80 mg nightly. BPH -Continue daily medication regimen with doxazosin 4 mg twice daily Anxiety with depression -Continue daily medication regimen with Wellbutrin 150 mg twice daily. CODE STATUS: Full code DVT prophylaxis: Lovenox Discussed with: Patient, RN, and sandwich counter attendant Anticipated discharge date: Pending clinical course Anticipated discharge place: Pending clinical course Patient was seen independently by Nurse Pracitioner. This document was prepared using [employer] dictation software. Please allow for errors in management professor, while rare they do occur. Rigoberto Singh LASER/ELECTRO [employer] TECHNICIAN rendered care for this patient independently, reviewed the findings and plan as documented in the note above and agree with plan. I did not physically speak with or examine the patient on this date. Objective - Vital Signs Vital signs: Vital Signs Temp 98.3 F 03/16/25 07:11 Pulse 86 03/16/25 07:11 Resp 18 03/16/25 07:11 BP 112/54 03/16/25 07:11 Pulse Ox 97 03/16/25 07:11 FiO2 Intake & Output 03/15/25 03/16/25 03/16/25 18:59 06:59 18:59 Intake Total 540 Output Total 250 Balance 290 Weight 65.317 kg 65.317 kg Intake: Oral 540 Output: Urine 250 Other: Voiding Method Urinal Diaper - Labs CBC & Chem 7: 03/16/25 09:01 03/16/25 09:01 Labs: Abnormal Lab Results - Last 24 Hours (Table) 03/15/25 03/15/25 03/15/25 Range/Units 19:37 20:13 21:18 WBC 20.60 H (4.50-10.00) 10*3/uL RBC 3.94 L (4.40-5.60) 10*6/uL Hgb 12.0 L (13.0-17.0) g/dL Hct 33.8 L (39.6-50.0) % Immature Gran # 0.65 H (0.00-0.04) 10*3/uL Neutrophils # 16.63 H (1.80-7.70) 10*3/uL Lymphocytes # 0.69 L (0.90-5.00) 10*3/uL Monocytes # 2.38 H (0.20-1.00) 10*3/uL VBG pH 7.42 H (7.31-7.41) Sodium 122 L (137-145) mmol/L Chloride 87 L (98-107) mmol/L Glucose 36 L* (74-99) mg/dL Total Bilirubin 1.6 H (0.2-1.3) mg/dL AST 133 H (17-59) U/L Alkaline Phosphatase 287 H (38-126) U/L Total Protein 5.6 L (6.3-8.2) g/dL Albumin 2.9 L (3.5-5.0) g/dL Urine Protein (Negative) Urine Glucose (UA) (Negative) Urine Ketones (Negative) Urine Bilirubin (Negative) Urine RBC (0-5) /hpf Hyaline Casts (0-2) /lpf Urine Mucus (None) /hpf 03/16/25 Range/Units 03:00 WBC (4.50-10.00) 10*3/uL RBC (4.40-5.60) 10*6/uL Hgb (13.0-17.0) g/dL Hct (39.6-50.0) % Immature Gran # (0.00-0.04) 10*3/uL Neutrophils # (1.80-7.70) 10*3/uL Lymphocytes # (0.90-5.00) 10*3/uL Monocytes # (0.20-1.00) 10*3/uL VBG pH (7.31-7.41) Sodium (137-145) mmol/L Chloride (98-107) mmol/L Glucose (74-99) mg/dL Total Bilirubin (0.2-1.3) mg/dL AST (17-59) U/L Alkaline Phosphatase (38-126) U/L Total Protein (6.3-8.2) g/dL Albumin (3.5-5.0) g/dL Urine Protein 1+ H (Negative) Urine Glucose (UA) Trace H (Negative) Urine Ketones 2+ H (Negative) Urine Bilirubin 1+ H (Negative) Urine RBC 19 H (0-5) /hpf Hyaline Casts 12 H (0-2) /lpf Urine Mucus Rare H (None) /hpf
[2025-03-16 16:20] LABS: Glucose,Whole Blood 158 mg/dL (70-110)
[2025-03-16] MEDS: GABAPENTIN 400 MG CAP PO SCH (16:26)
[2025-03-16] MEDS: DOXAZOSIN 4 MG TAB PO SCH (19:58)
[2025-03-16] MEDS: buPROPion SR 150 MG TABLET.ER PO SCH (19:59)
[2025-03-16] MEDS: ATORVASTATIN 80 MG TAB PO SCH (20:00)
[2025-03-16] MEDS: LATANOPROST 0.005% OPHTH DROPS 2.5 ML BTL BOTH EYES SCH (20:00)
[2025-03-16 20:17] LABS: Glucose,Whole Blood 137 mg/dL (70-110)
--- NOTE | 2025-03-16 21:35 | P.CONS ---
History of Present Illness - Reason for Consult Consult date: 03/16/25 met NSCLC Requesting physician: Rigoberto Singh - Chief Complaint weakness - History of Present Illness Mr Somers a male pt of Dr. Stephenson initially seen in consult at [facility] on 02/19/24. He presented with c/o SOB, difficulty with inspiration, as well as upper abdominal pain. The patient has a long-standing history of active rheumatoid arthritis, and apparently the pain was attributed to the same. However it had gotten significantly worse over a few weeks. CTA was neg for PE but reported 4.2 cm right upper lobe mass, bilateral lung nodules, the lateral right middle lobe due to obstruction of the proximal bronchus by mass. Mediastinal adenopathy, including subcarinal, right hilar and left intralobar. There are also numerous masses throughout the liver, largest 6 cm in the inferior right lobe. There are also low density lesion seen in the spleen concerning for metastasis. CT AP confirmed multiple hepatic and splenic lesions concerning for metastasis, along with enlarged para-aortic lymphadenopathy. MRI of the brain was negative for metastatic disease. Whole-body bone scan showed some nonspecific uptake along the sternum, and the cervical and thoracic spine felt to be degenerative. 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 Biomarker testing showed no actionable mutations. Due to history of active Rheumatoid arthritis, immunotherapy was not recommended. The patient was started on carboplatin and Alimta on 03/27/24, completing 6 cycles 08/04 and was placed on maintenance alimta. Treatment had to beb interrupted whenhe suffered a major ankle fracture on the right, requiring open reduction and internal fixation. Treatment was held, until recovery was sufficient. The patient was cleared to start back on chemo by Orthopedic surgery 10/2024. He cont on treatment until CT scans in 01/2025 raised the possibility of progression. As the findings are not definitive, it was decided to do a PET scan after a few weeks of steroid treatment for his rheumatoid arthritis to reduce any inflammation related effects. This was done in mid February, unfortunately confirming progression especially in the liver and with multiple new areas of involvement in the skeletal system. He had cycle 1 of cyramza and taxotere a few weeks ago, cycle 2 is due in a few days. Patient presented to the emergency department with complaints of complaints of abdominal pain and altered mental status. Brain CT without contrast reporting an ill-defined hypodensity in the left basal ganglia and rutherford radiata, possibly an acute ischemic change. Chest x-ray fullness in the right suprahilar mediastinal region. CT abdomen and pelvis without contrast reporting multiple ill-defined hepatic masses, skeletal sclerotic lesions coags were normal on admission. Blood sugar was 36. Sodium 122 bilirubin 1.6 WBCs 20.6 on admission. Pt is not communicating normally with MD during H&P. He denied falling, N,V,D. Mostly one word answers-yes, no-did not elaborate on questions asked that required more information. Review of Systems ROS unobtainable: due to mental status Past Medical History Past Medical History: Cancer, CVA/TIA, GERD/Reflux, Hyperlipidemia, Hypert ension, Musculoskeletal Disorder, Prostate Disorder, Rheumatoid Arthritis (RA) Additional Past Medical History / Comment(s): Degenerative Disc Disease. Enlarged prostate. lung cancer stage 4, ?TIA History of Any Multi-Drug Resistant Organisms: None Reported Past Surgical History: Back Surgery, Orthopedic Surgery Additional Past Surgical History / Comment(s): Spinal fusion X2, laminectomy, BILATERAL TENNIS ELBOW SURGERY, LEFT HAND CARPAL TUNNEL SURGERY, TRIAL PAIN STIMULATORPLACED AND LATER REMOVED, Pain Procedures, bilateral cataracts removed. ankle repair, Past Anesthesia/Blood Transfusion Reactions: No Reported Reaction Past Psychological History: Anxiety, Depression Smoking Status: Former smoker Past Alcohol Use History: None Reported Additional Past Alcohol Use History / Comment(s): QUIT SMOKING IN 1991, SMOKED FOR APPROX 25 YRS, 1 - 2 PPD. Past Drug Use History: Marijuana Additional Drug Use History / Comment(s): MARIJUANA USE AT HS FOR SLEEP NEEDED. Aware no use 24 hrs prior to procedure. - Past Family History Sister(s) Family Medical History: Cancer Additional Family Medical History / Comment(s): LUNG CANCER. Medications and Allergies Home Medications Medication Instructions Recorded Confirmed Type Folic Acid 1 mg PO DAILY@0730 08/30/14 03/16/25 History Gabapentin [Neurontin] 800 mg PO TID@0730,1500,1900 08/30/14 03/16/25 History Metoprolol Succinate 25 mg PO DAILY@0730 08/30/14 03/16/25 History Omeprazole [PriLOSEC] 20 mg PO BID 08/30/14 03/16/25 History calcitrioL 0.25 mcg PO FONTENOT 08/30/14 03/16/25 History Calcium Carbonate/Vitamin D3 2 tab PO DAILY@72906/18/16 03/16/25 History [Calcium 600-Vit D3 5 Mcg (200 Iu)] Doxazosin [Cardura] 4 mg PO BID@0730,189906/18/16 03/16/25 History buPROPion SR [Wellbutrin SR] 150 mg PO BID@07,189906/05/24 03/16/25 History Potassium Chloride ER [K-Dur 10] 10 meq PO DAILY 11/28/24 03/16/25 History Hydrocortisone Cream 1 applic TOPICAL TID PRN 12/23/24 03/16/25 History [Hydrocortisone 2.5% Cream] predniSONE 5 mg PO BID 12/23/24 03/16/25 History Aspirin EC [Ecotrin Low Dose] 81 mg PO DAILY@72902/25/25 03/16/25 History Atorvastatin [Lipitor] 80 mg PO HS 02/25/25 03/16/25 History Butalbit/Acetamin/Caff/Codeine 1 cap PO BID PRN 02/25/25 03/16/25 History [Fioricet-Cod 95-941-71-30 Cap] Calcium Ascorbate 500mg 500 mg PO DAILY@72902/25/25 03/16/25 History Ferrous Sulfate [Iron (65 MG 325 mg PO Q48H 02/25/25 03/16/25 History Elemental)] Latanoprost [Latanoprost 0.005%] 1 drop BOTH EYES HS 02/25/25 03/16/25 History Magnesium Oxide [Mag-Ox] 500 mg PO DAILY@72902/25/25 03/16/25 History Metoclopramide HCl [Reglan] 10 mg PO AC-TID PRN 02/25/25 03/16/25 History Ondansetron [Zofran] 4 - 8 mg PO Q4H PRN MDD 32 mg 02/25/25 03/16/25 History Zolpidem Tartrate [Ambien Cr] 12.5 mg PO HS PRN 02/25/25 03/16/25 History oxyCODONE-APAP 10-325MG [Percocet 1 tab PO QID@0730,,19,02/25/25 03/16/25 History 10-325 mg] Allergies Allergy/AdvReac Type Severity Reaction Status Date / Time adhesive Allergy Rash/Hives Verified 03/16/25 10:45 - paper tape ok Physical Exam Vitals: Vital Signs Temp Pulse Pulse Resp BP BP Pulse Ox 03/16/25 07:11 98.3 F 86 18 112/54 97 03/16/25 02:30 98.6 F 03/16/25 02:00 100.0 F H 103 H 16 126/66 97 03/16/25 01:33 103 H 16 03/15/25 23:03 107 H 17 122/81 97 03/15/25 19:52 102 H 17 111/70 95 03/15/25 18:36 97.9 F 104 H 18 129/85 98 Intake and Output 03/15/25 03/16/25 03/16/25 22:59 06:59 14:59 Intake Total 540 Output Total 250 Balance 290 Intake: Oral 540 Output: Urine 250 Other: Voiding Method Urinal Diaper Weight 65.317 kg 65.317 kg - Constitutional General appearance: average body habitus, cooperative, no acute distress - EENT Eyes: anicteric sclerae, EOMI ENT: hearing grossly normal - Neck Neck: no lymphadenopathy - Respiratory Respiratory: bilateral: CTA - Cardiovascular Rhythm: regular Heart sounds: normal: S1, S2 Abnormal Heart Sounds: no systolic murmur, no diastolic murmur, no rub, no S3 Gallop, no S4 Gallop, no click, no other leg Peripheral Edema: bilateral: None - Gastrointestinal General gastrointestinal: no absent bowel sounds, no decreased bowel sounds, no distended, no hepatomegaly, no hyperactive bowel sounds, normal bowel sounds, no organomegaly, no rigid, no scaphoid, soft, no splenomegaly, no tenderness, no umbilical hernia, no ventral hernia - Neurologic Neurologic: CNII-XII intact - Musculoskeletal Musculoskeletal: generalized weakness - Psychiatric Alert, unable to determine orientation as pt does not answer questions beyond yes, flat affect. Results CBC & Chem 7: 03/16/25 09:01 03/16/25 17:56 Labs: Abnormal Lab Results - Last 24 Hours (Table) 03/15/25 03/15/25 03/15/25 Range/Units 19:37 20:13 21:18 WBC 20.60 H (4.50-10.00) 10*3/uL RBC 3.94 L (4.40-5.60) 10*6/uL Hgb 12.0 L (13.0-17.0) g/dL Hct 33.8 L (39.6-50.0) % Immature Gran # 0.65 H (0.00-0.04) 10*3/uL Neutrophils # 16.63 H (1.80-7.70) 10*3/uL Lymphocytes # 0.69 L (0.90-5.00) 10*3/uL Monocytes # 2.38 H (0.20-1.00) 10*3/uL VBG pH 7.42 H (7.31-7.41) Sodium 122 L (137-145) mmol/L Chloride 87 L (98-107) mmol/L Glucose 36 L* (74-99) mg/dL Total Bilirubin 1.6 H (0.2-1.3) mg/dL AST 133 H (17-59) U/L Alkaline Phosphatase 287 H (38-126) U/L Total Protein 5.6 L (6.3-8.2) g/dL Albumin 2.9 L (3.5-5.0) g/dL Urine Protein (Negative) Urine Glucose (UA) (Negative) Urine Ketones (Negative) Urine Bilirubin (Negative) Urine RBC (0-5) /hpf Hyaline Casts (0-2) /lpf Urine Mucus (None) /hpf 03/16/25 Range/Units 03:00 WBC (4.50-10.00) 10*3/uL RBC (4.40-5.60) 10*6/uL Hgb (13.0-17.0) g/dL Hct (39.6-50.0) % Immature Gran # (0.00-0.04) 10*3/uL Neutrophils # (1.80-7.70) 10*3/uL Lymphocytes # (0.90-5.00) 10*3/uL Monocytes # (0.20-1.00) 10*3/uL VBG pH (7.31-7.41) Sodium (137-145) mmol/L Chloride (98-107) mmol/L Glucose (74-99) mg/dL Total Bilirubin (0.2-1.3) mg/dL AST (17-59) U/L Alkaline Phosphatase (38-126) U/L Total Protein (6.3-8.2) g/dL Albumin (3.5-5.0) g/dL Urine Protein 1+ H (Negative) Urine Glucose (UA) Trace H (Negative) Urine Ketones 2+ H (Negative) Urine Bilirubin 1+ H (Negative) Urine RBC 19 H (0-5) /hpf Hyaline Casts 12 H (0-2) /lpf Urine Mucus Rare H (None) /hpf Chest x-ray: report reviewed CT scan - abdomen: report reviewed CT Scan - head: report reviewed CT scan - pelvis: report reviewed Assessment and Plan (1) Altered mental status Current Visit: Yes Status: Acute Code(s): R41.82 - ALTERED MENTAL STATUS, UNSPECIFIED SNOMED Code(s): 560303205 (2) Hypoglycemia Current Visit: Yes Status: Acute Code(s): E16.2 - HYPOGLYCEMIA, UNSPECIFIED SNOMED Code(s): 876172331 (3) Metastatic non-small cell lung cancer Current Visit: Yes Status: Chronic Priority: Medium Code(s): C34.90 - MALIGNANT NEOPLASM OF UNSP PART OF UNSP BRONCHUS OR LUNG SNOMED Code(s): 944902505 Plan: Altered mental status and hypoglycemia -Hypoglycemia currently being medically managed. - Blood glucose much improved on recent labs. - Will see how patient's mental status changes in the next day. - MRI of the brain has been ordered to rule out metastasis after review of the CT without contrast -Patient also is on Rocephin, suspect UTI Metastatic non-small cell lung cancer - Diagnosis and treatment as documented in HPI -Recent progression of disease. Patient has only had 1 cycle of his most recent treatment Cyramza and Taxotere. Overall, tolerated treatment well in the days immediately following. He is due for cycle 2 in a couple of days. - Treatment will be on hold at this time until patient completely recovers from acute situation Severe hyponatremia - Likely secondary to malignancy, poor oral intake -Nephrology consulted, following patient Doctor attests: I performed a history and physical examination of this patient, developed impression and plan of care. Discussed with dictator. I agree with dictators note, documented as a scribe.
[2025-03-17 01:25] LABS: Glucose,Whole Blood 124 mg/dL (70-110)
[2025-03-17 07:32] LABS: Glucose,Whole Blood 125 mg/dL (70-110)
[2025-03-17] MEDS: METOPROLOL SUCCINATE (ER) 50 MG TAB.ER.24H PO SCH (08:11)
[2025-03-17] MEDS: FOLIC ACID 1 MG TAB PO SCH (08:11)
[2025-03-17] MEDS: ASPIRIN 81 MG PO SCH (08:12)
[2025-03-17 08:38] LABS: ALT 34 U/L (10-49); AST 145 U/L (14-35); Albumin 2.7 g/dL (3.8-4.9); Albumin/Globulin Ratio 1.04 Ratio (1.60-3.17); Alkaline Phosphatase 263 U/L (41-126); BUN/Creat Ratio 66.75 Ratio (12.00-20.00); Blood Urea Nitrogen 53.4 mg/dL (9.0-27.0); Calcium 8.4 mg/dL (8.7-10.3); Carbon Dioxide 22.3 mmol/L (21.6-31.8); Chloride 93 mmol/L (96-109); Globulin 2.6 g/dL (1.6-3.3); Glucose 141 mg/dL (70-110); HCT 29.3 % (39.6-50.0); HGB 9.7 g/dL (13.0-17.0); MCHC 33.1 g/dL (32.0-37.0); MCV 87.7 FL (80.0-97.0); Magnesium 2.5 mg/dL (1.5-2.4); Mean Platelet Volume 9.9 FL (9.5-12.2); NRBC Per 100 WBC 0 X 10*3/uL (0.00-0.01); Phosphorus 3.4 mg/dL (2.4-5.1); Platelet Count 243 X 10*3/uL (140-440); Potassium 4.3 mmol/L (3.5-5.5); RBC 3.34 X 10*6/uL (4.40-5.60); RDW 16.1 % (11.5-14.5); Sodium 127 mmol/L (135-145); Total Bilirubin 0.5 mg/dL (0.3-1.2); Total Protein 5.3 g/dL (6.2-8.2); WBC 17.44 X 10*3/uL (4.50-10.00)
[2025-03-17 10:00] LABS: Basophils # (A) 0.07 X 10*3/uL (0.00-0.10); Basophils % (A) 0.4 %; Crenated RBC 2+ (None Seen); Eosinophils # (A) 0 X 10*3/uL (0.04-0.35); Eosinophils % (A) 0 %; Lymphocytes # (A) 0.46 X 10*3/uL (0.90-5.00); Lymphocytes % (A) 2.6 %; Neutrophils # (A) 14.49 X 10*3/uL (1.80-7.70); Neutrophils % (A) 83.2 %
--- NOTE | 2025-03-17 10:24 | P.PN ---
Subjective Patient is seen in follow-up for hyponatremia. Sodium level improved to 127 this morning. Oral intake is better. More awake and alert today. Vital signs are stable. General: No acute distress. HEENT: Head exam is unremarkable. LUNGS: No audible rhonchi or wheezes. HEART: Rate and Rhythm are regular. ABDOMEN: Nontender. EXTREMITITES: No edema. Objective - Vital Signs Vital signs: Vital Signs Temp 98.2 F 03/17/25 07:30 Pulse 94 03/17/25 07:30 Resp 16 03/17/25 07:30 BP 136/71 03/17/25 07:30 Pulse Ox 96 03/17/25 07:30 FiO2 Intake & Output 03/16/25 03/17/25 03/17/25 18:59 06:59 18:59 Intake Total 1020 530 480 Output Total 200 400 Balance 820 130 480 Intake: Intake, IV Titration 50 Amount cefTRIAXone 1 gm In 50 Sodium Chloride 0.9% 50 ml @ 100 mls/hr IVPB Q24H [facility] Rx#:[id number] Oral 1020 480 480 Output: Urine 400 Post Void Residual 200 Other: Voiding Method Diaper Diaper External Catheter External Catheter # Voids 5 - Labs CBC & Chem 7: 03/17/25 04:37 03/17/25 04:37 Labs: Abnormal Lab Results - Last 24 Hours (Table) 03/16/25 03/16/25 03/16/25 Range/Units 09:01 12:00 16:19 WBC (4.50-10.00) X 10*3/uL RBC (4.40-5.60) X 10*6/uL Hgb (13.0-17.0) g/dL Hct (39.6-50.0) % RDW (11.5-14.5) % Immature Gran # (0.00-0.04) X 10*3/uL Neutrophils # (1.80-7.70) X 10*3/uL Lymphocytes # (0.90-5.00) X 10*3/uL Monocytes # (0.20-1.00) X 10*3/uL Eosinophils # (0.04-0.35) X 10*3/uL Crenated Cell (None Seen) Sodium (137-145) mmol/L Chloride (96-109) mmol/L BUN (9.0-27.0) mg/dL BUN/Creatinine Ratio (12.00-20.00) Ratio Glucose (70-110) mg/dL POC Glucose (mg/dL) 158 H (70-110) mg/dL Osmolality 254 L (275-295) mOsm/kg Calcium (8.7-10.3) mg/dL Magnesium (1.5-2.4) mg/dL AST (14-35) U/L Alkaline Phosphatase (41-126) U/L Total Protein (6.2-8.2) g/dL Albumin (3.8-4.9) g/dL Albumin/Globulin Ratio (1.60-3.17) Ratio Ur Random Sodium <20 L (40-220) mmol/L 03/16/25 03/16/25 03/17/25 Range/Units 17:56 20:15 01:23 WBC (4.50-10.00) X 10*3/uL RBC (4.40-5.60) X 10*6/uL Hgb (13.0-17.0) g/dL Hct (39.6-50.0) % RDW (11.5-14.5) % Immature Gran # (0.00-0.04) X 10*3/uL Neutrophils # (1.80-7.70) X 10*3/uL Lymphocytes # (0.90-5.00) X 10*3/uL Monocytes # (0.20-1.00) X 10*3/uL Eosinophils # (0.04-0.35) X 10*3/uL Crenated Cell (None Seen) Sodium 121 L (137-145) mmol/L Chloride (96-109) mmol/L BUN (9.0-27.0) mg/dL BUN/Creatinine Ratio (12.00-20.00) Ratio Glucose (70-110) mg/dL POC Glucose (mg/dL) 137 H 124 H (70-110) mg/dL Osmolality (275-295) mOsm/kg Calcium (8.7-10.3) mg/dL Magnesium (1.5-2.4) mg/dL AST (14-35) U/L Alkaline Phosphatase (41-126) U/L Total Protein (6.2-8.2) g/dL Albumin (3.8-4.9) g/dL Albumin/Globulin Ratio (1.60-3.17) Ratio Ur Random Sodium (40-220) mmol/L 03/17/25 03/17/25 03/17/25 Range/Units 04:37 04:37 07:30 WBC 17.44 H (4.50-10.00) X 10*3/uL RBC 3.34 L (4.40-5.60) X 10*6/uL Hgb 9.7 L (13.0-17.0) g/dL Hct 29.3 L (39.6-50.0) % RDW 16.1 H (11.5-14.5) % Immature Gran # 0.32 H (0.00-0.04) X 10*3/uL Neutrophils # 14.49 H (1.80-7.70) X 10*3/uL Lymphocytes # 0.46 L (0.90-5.00) X 10*3/uL Monocytes # 2.10 H (0.20-1.00) X 10*3/uL Eosinophils # 0 L (0.04-0.35) X 10*3/uL Crenated Cell 2+ A (None Seen) Sodium 127 L (137-145) mmol/L Chloride 93 L (96-109) mmol/L BUN 53.4 H (9.0-27.0) mg/dL BUN/Creatinine Ratio 66.75 H (12.00-20.00) Ratio Glucose 141 H (70-110) mg/dL POC Glucose (mg/dL) 125 H (70-110) mg/dL Osmolality (275-295) mOsm/kg Calcium 8.4 L (8.7-10.3) mg/dL Magnesium 2.5 H (1.5-2.4) mg/dL AST 145 H (14-35) U/L Alkaline Phosphatase 263 H (41-126) U/L Total Protein 5.3 L (6.2-8.2) g/dL Albumin 2.7 L (3.8-4.9) g/dL Albumin/Globulin Ratio 1.04 L (1.60-3.17) Ratio Ur Random Sodium (40-220) mmol/L Microbiology - Last 24 Hours (Table) 03/16/25 05:13 Urine Culture - Final Urine,Clean Catch 03/15/25 22:45 Blood Culture - Preliminary Blood Assessment and Plan Plan: Assessment: 1. Hyponatremia secondary to poor solute intake and further worsened with hypotonic fluids. Sodium level 127 today. TSH normal. Urine sodium less than 20 and urine osmolality 432. 2. Stage IV lung cancer with metastatic disease. Plan: Encouraged oral intake, particularly protein. Stop urea. Maintain fluid restriction. Repeat labs in the morning.
[2025-03-17 12:44] LABS: Glucose,Whole Blood 190 mg/dL (70-110)
--- NOTE | 2025-03-17 15:25 | MR ---
EXAMINATION TYPE: MR brain wo/w con DATE OF EXAM: 03/17/2025 2:53 PM COMPARISON: 01/28/2025. CLINICAL INDICATION: Male, 74 years old with history of AMS, met NSCLC; PHH, AMS, met NSCLC. TECHNIQUE: Multi planar, multi sequence imaging was performed through the brain including: T1, T2, In version recovery, susceptibility weighted imaging and gradient echo imaging and Diffusion weighted im aging. The patient was then given intravenous contrast and multi planar, T1 fat-saturation images wer e obtained. IV Contrast: 6.5 mL Gadobutrol FINDINGS: The hameed-white junctions, ventricular system, basal cisterns appear unremarkable. Diffusion-weighted imaging shows no evidence of restricted diffusion to suggest acute/subacute infarct. Intracranial ar terial flow voids are maintained. Midline structures show no abnormality. Scattered foci of high T2 s ignal intensity are seen within the periventricular white matter. The susceptibility weighted images demonstrates focus of blooming artifact in left cerebral hemisphere suggestive of micro-hemorrhage. A fter administration of gadolinium, no abnormal enhancement is seen. The bone marrow signal is within normal limits. Paranasal sinuses and mastoid air cells: No significant paranasal sinus disease. Trace bilateral high T2 signal in the mastoid air cells. Visualized orbits: Bilateral aphakia IMPRESSION: 1. No evidence of intracranial mass, acute/subacute infarct, or abnormal enhancement. 2. Nonspecific white matter changes, likely related to small vessel ischemic disease. 3. Trace bilateral mastoid air cell effusion [facility], , 03/17/2025 3:23 PM
--- NOTE | 2025-03-17 15:38 | P.PN ---
Subjective Progress Note Date: 03/17/25 Hospital Course: Patient is a 74-year-old male with a past medical history of stage IV metastatic lung cancer, hypertension, hyperlipidemia, BPH, and anxiety with depression. He presented to the hospital on 03/16/2025 secondary to concerns of weakness, confusion, and fever. Upon arrival per facility, patient underwent evaluation in the emergency department. Vital signs upon arrival show blood pressure 129/85, heart rate 104, respiratory rate 18, temp 97.9 F, and SpO2 of 98% on room air. Shortly after arrival temperature elevated to 100.0 F orally. EKG completed showing sinus tachycardia at 101 bpm with T wave inversion in inferior lead III otherwise no noted T wave or ST abnormality showing no signs of acute ischemia upon personal review and interpretation. CT brain completed showing an ill-defined hypodensity in the left basal ganglia and coronary radiata possibly secondary to acute ischemic change and chronic appearing periventricular white matter ischemic changes with age-related atrophy. Chest x-ray revealing fullne ss in the right suprahilar mediastinal region relates with patient's known lung cancer. Labs completed and reviewed. CBC showing leukocytosis with WBC count of 20.60 with a left shift with immature granulocytes of 0.65, neutrophils of 16.63, lymphocytes of 0.69, and monocytes of 2.38 and normocytic anemia with hemoglobin of 12.0. Coagulation profile normal findings. VBG showing pH of 7.42 with pCO2 of 37 and bicarb of 24. BMP showing hypochloremic hyponatremia with sodium 122 and chloride of 87, bicarb of 23 and elevated anion gap of 12. Blood glucose was 36. Liver profile showing hyperbilirubinemia with total bili of 1.6 and transaminitis with AST of 133, ALT of 31, and alkaline phosphatase of 287. Low total protein of 5.6 and albumin of 2.9. Urinalysis positive for protein, glucose, ketones, urine bilirubin, 19 RBCs, and [address] abdomen and pelvis showing multiple ill-defined hepatic masses with axial skeleton sclerotic lesions in the lower thoracic vertebral level and within the upper sacrum. Patient was admitted under services with consultation to neurology, nephrology, and oncology. Physical exam: Patient seen and fully evaluated at bedside this morning. He was visiting with at bedside. Patient reports he feels much better today compared to yesterday but still remains slightly confused to time and situation. Patient did state it was 2023 and knew that he was at [facility] but remain confused as to what brought him to the hospital in the first place. He reports feeling some occasional abdominal discomfort and nausea unrelieved with Zofran. He is waiting to undergo MRI brain later today. Vital signs reviewed and stable. General: Nontoxic, no distress and appears stated age. Derm: Skin warm and dry, normal coloration for ethnicity. Head: Atraumatic, normocephalic and symmetric. Eyes: EOM's intact, no lid lag, and anicteric sclera Mouth: no lip lesions, mucus membranes moist Cardiovascular: regular rate and rhythm with normal S1S2, systolic murmur, positive posterior tibial pulses bilaterally, and cap refill < 2 seconds. Lungs: Respirations even, regular, and unlabored on room air. Lungs diminished with diffuse rhonchi. No wheezes, rales, or crackles. Abdominal: soft, nontender to palpation, no guarding, no appreciable organomegaly Ext: ROM intact. No gross muscle atrophy, no edema, no contractures. Neuro: Speech clear, face symmetrical and CN II-XII grossly intact with no noted focal neuro deficits Psych: Alert and oriented to person in place and confused to time and situation. Appropriate and pleasant affect. Assessment and Plan of Care: Acute metabolic encephalopathy, unclear cause likely multifactorial Hyponatremia, possibly SIADH Normocytic anemia Hypoglycemia Stage IV metastatic lung cancer Transaminitis, CT revealed multiple liver lesions. SIRS/sepsis on arrival with tachycardia, altered mental status, pyrexia, and leukocytosis -Nephrology following, Dr. Dean, patient was initially placed on urea 15 g 3 times daily and sodium increasing to 127 this morning. Urea was discontinued at this time, steel sash erector recommending continued fluid restriction and continued close monitoring with repeat morning labs.. -Continue protein supplements 3 times daily between meals and will start patient on low-dose Marinol 2.5 mg twice daily to help increase appetite. -Blood glucose has remained stable with no further episodes of hypoglycemia since arrival to our facility, patient reports improved appetite. -CT brain reported ill-defined hypodensity in the left basal ganglia and coronary radiata. Patient awaiting to undergo MRI later today. -Neurology consulted, discussed plan of care with Dr. Britt. -Continue neurochecks every 4 hours, fall precautions, seizure precautions to remain in place. -Continue IV antibiotics with Rocephin pending urine culture and blood culture results secondary to altered mental status, tachycardia, pyrexia, and leukocytosis with left shift. - Oncology following, discussed plan of care in detail with oncology PRINTING WORKER SUPERVISOR. Hypertension -Monitor vital signs and continue daily medication regimen with metoprolol 25 mg daily. Hyperlipidemia -Continue daily medication regimen with atorvastatin 80 mg nightly. BPH -Continue daily medication regimen with doxazosin 4 mg twice daily Anxiety with depression -Continue daily medication regimen with Wellbutrin 150 mg twice daily. Data and imaging reviewed: - Morning labs reviewed. CBC showing improvement in leukocytosis with WBC count of 17.44 from initial 20.60. Hemoglobin 9.7. BMP showing improvement of sodium to 127 this morning. Urea was discontinued and patient to remain on fluid restriction. Chloride 93. BUN 53.4 with creatinine of 0.8, and GFR of 94. Blood glucose 141. Magnesium was 2.5. Liver profile showing elevated AST of 145 and alkaline phosphatase of 263. - Vital signs reviewed. Blood pressure 136/71, heart rate 94, respiratory rate 16, temp 98.2 F, and SpO2 of 96% on room air. Temperature high over the past 24 hours was 100.3 F. CODE STATUS: Full code DVT prophylaxis: Lovenox Discussed with: Patient, RN, neurologist, oncology PRINTING WORKER SUPERVISOR and steel sash erector Anticipated discharge date: Pending clinical course Anticipated discharge place: Pending clinical course Patient was seen independently by Nurse Pracitioner. This document was prepared using [employer] dictation software. Please allow for errors in oral hygienist, while rare they do occur. Rigoberto Singh NP rendered care for this patient independently, reviewed the findings and plan as documented in the note above and agree with plan. I did not physically speak with or examine the patient on this date. Objective - Vital Signs Vital signs: Vital Signs Temp 98.2 F 03/17/25 07:30 Pulse 94 03/17/25 07:30 Resp 16 03/17/25 07:30 BP 136/71 03/17/25 07:30 Pulse Ox 96 03/17/25 07:30 FiO2 Intake & Output 03/16/25 03/17/25 03/17/25 18:59 06:59 18:59 Intake Total 1020 530 Output Total 200 400 Balance 820 130 Intake: Intake, IV Titration 50 Amount cefTRIAXone 1 gm In 50 Sodium Chloride 0.9% 50 ml @ 100 mls/hr IVPB Q24H [facility] Rx#:[id number] Oral 1020 480 Output: Urine 400 Post Void Residual 200 Other: Voiding Method Diaper Diaper External Catheter External Catheter # Voids 5 - Labs CBC & Chem 7: 03/17/25 04:37 03/17/25 04:37 Labs: Abnormal Lab Results - Last 24 Hours (Table) 03/16/25 03/16/25 03/16/25 Range/Units 09:01 09:01 12:00 WBC 18.43 H (4.50-10.00) 10*3/uL RBC 3.48 L (4.40-5.60) 10*6/uL Hgb 10.1 L (13.0-17.0) g/dL Hct 29.5 L (39.6-50.0) % RDW 16.0 H (11.5-14.5) % MPV 9.1 L (9.5-12.2) fL Immature Gran # 0.34 H (0.00-0.04) 10*3/uL Neutrophils # 15.11 H (1.80-7.70) 10*3/uL Lymphocytes # 0.73 L (0.90-5.00) 10*3/uL Monocytes # 2.20 H (0.20-1.00) 10*3/uL Eosinophils # 0.00 L (0.04-0.35) 10*3/uL Sodium 119 L* (137-145) mmol/L Chloride 86 L (98-107) mmol/L POC Glucose (mg/dL) (70-110) mg/dL Osmolality 254 L (275-295) mOsm/kg Ur Random Sodium <20 L (40-220) mmol/L 03/16/25 03/16/25 03/16/25 Range/Units 16:19 17:56 20:15 WBC (4.50-10.00) 10*3/uL RBC (4.40-5.60) 10*6/uL Hgb (13.0-17.0) g/dL Hct (39.6-50.0) % RDW (11.5-14.5) % MPV (9.5-12.2) fL Immature Gran # (0.00-0.04) 10*3/uL Neutrophils # (1.80-7.70) 10*3/uL Lymphocytes # (0.90-5.00) 10*3/uL Monocytes # (0.20-1.00) 10*3/uL Eosinophils # (0.04-0.35) 10*3/uL Sodium 121 L (137-145) mmol/L Chloride (98-107) mmol/L POC Glucose (mg/dL) 158 H 137 H (70-110) mg/dL Osmolality (275-295) mOsm/kg Ur Random Sodium (40-220) mmol/L 03/17/25 03/17/25 Range/Units 01:23 07:30 WBC (4.50-10.00) 10*3/uL RBC (4.40-5.60) 10*6/uL Hgb (13.0-17.0) g/dL Hct (39.6-50.0) % RDW (11.5-14.5) % MPV (9.5-12.2) fL Immature Gran # (0.00-0.04) 10*3/uL Neutrophils # (1.80-7.70) 10*3/uL Lymphocytes # (0.90-5.00) 10*3/uL Monocytes # (0.20-1.00) 10*3/uL Eosinophils # (0.04-0.35) 10*3/uL Sodium (137-145) mmol/L Chloride (98-107) mmol/L POC Glucose (mg/dL) 124 H 125 H (70-110) mg/dL Osmolality (275-295) mOsm/kg Ur Random Sodium (40-220) mmol/L Microbiology - Last 24 Hours (Table) 03/15/25 22:45 Blood Culture - Preliminary Blood
--- NOTE | 2025-03-17 15:40 | P.PN ---
Subjective Progress Note Date: 03/17/25 Principal diagnosis: AMS, hypoglycemia, Met NSCLC recent In f/u today patient mental status is significantly improved, more alert, more conversation of, he is able to tell me where he is what month and year it is, he knew he knew my name and his oncologist name spontaneously. Patient states he feels really good and would like to go home. Objective - Vital Signs Vital signs: Vital Signs Temp 98.3 F 03/17/25 12:36 Pulse 87 03/17/25 12:36 Resp 16 03/17/25 12:36 BP 95/54 03/17/25 12:36 Pulse Ox 97 03/17/25 12:36 FiO2 Intake & Output 03/16/25 03/17/25 03/17/25 18:59 06:59 18:59 Intake Total 1020 530 720 Output Total 200 400 Balance 820 130 720 Intake: Intake, IV Titration 50 Amount cefTRIAXone 1 gm In 50 Sodium Chloride 0.9% 50 ml @ 100 mls/hr IVPB Q24H [facility] Rx#:[id number] Oral 1020 480 720 Output: Urine 400 Post Void Residual 200 Other: Voiding Method Diaper Diaper Diaper External Catheter External Catheter External Catheter # Voids 5 - Constitutional General appearance: Present: average body habitus, cooperative, no acute distress - EENT Eyes: Present: anicteric sclerae, EOMI ENT: Present: hearing grossly normal - Respiratory Details: Respirations even and unlabored at rest - Cardiovascular Details: Skin warm and dry to the touch, radial pulse palpable 2+, regular - Peripheral edema leg Peripheral Edema: bilateral: None - Integumentary Integumentary: Present: pale - Neurologic Neurologic: Present: CNII-XII intact - Musculoskeletal Musculoskeletal: Present: generalized weakness, strength equal bilaterally - Psychiatric Psychiatric: Present: A&O x's 3, appropriate affect, intact judgment & insight - Labs CBC & Chem 7: 03/17/25 04:37 03/17/25 04:37 Labs: Abnormal Lab Results - Last 24 Hours (Table) 03/16/25 03/16/25 03/16/25 Range/Units 12:00 16:19 17:56 WBC (4.50-10.00) X 10*3/uL RBC (4.40-5.60) X 10*6/uL Hgb (13.0-17.0) g/dL Hct (39.6-50.0) % RDW (11.5-14.5) % Immature Gran # (0.00-0.04) X 10*3/uL Neutrophils # (1.80-7.70) X 10*3/uL Lymphocytes # (0.90-5.00) X 10*3/uL Monocytes # (0.20-1.00) X 10*3/uL Eosinophils # (0.04-0.35) X 10*3/uL Crenated Cell (None Seen) Sodium 121 L (137-145) mmol/L Chloride (96-109) mmol/L BUN (9.0-27.0) mg/dL BUN/Creatinine Ratio (12.00-20.00) Ratio Glucose (70-110) mg/dL POC Glucose (mg/dL) 158 H (70-110) mg/dL Calcium (8.7-10.3) mg/dL Magnesium (1.5-2.4) mg/dL AST (14-35) U/L Alkaline Phosphatase (41-126) U/L Total Protein (6.2-8.2) g/dL Albumin (3.8-4.9) g/dL Albumin/Globulin Ratio (1.60-3.17) Ratio Ur Random Sodium <20 L (40-220) mmol/L 03/16/25 03/17/25 03/17/25 Range/Units 20:15 01:23 04:37 WBC 17.44 H (4.50-10.00) X 10*3/uL RBC 3.34 L (4.40-5.60) X 10*6/uL Hgb 9.7 L (13.0-17.0) g/dL Hct 29.3 L (39.6-50.0) % RDW 16.1 H (11.5-14.5) % Immature Gran # 0.32 H (0.00-0.04) X 10*3/uL Neutrophils # 14.49 H (1.80-7.70) X 10*3/uL Lymphocytes # 0.46 L (0.90-5.00) X 10*3/uL Monocytes # 2.10 H (0.20-1.00) X 10*3/uL Eosinophils # 0 L (0.04-0.35) X 10*3/uL Crenated Cell 2+ A (None Seen) Sodium (137-145) mmol/L Chloride (96-109) mmol/L BUN (9.0-27.0) mg/dL BUN/Creatinine Ratio (12.00-20.00) Ratio Glucose (70-110) mg/dL POC Glucose (mg/dL) 137 H 124 H (70-110) mg/dL Calcium (8.7-10.3) mg/dL Magnesium (1.5-2.4) mg/dL AST (14-35) U/L Alkaline Phosphatase (41-126) U/L Total Protein (6.2-8.2) g/dL Albumin (3.8-4.9) g/dL Albumin/Globulin Ratio (1.60-3.17) Ratio Ur Random Sodium (40-220) mmol/L 03/17/25 03/17/25 03/17/25 Range/Units 04:37 07:30 12:43 WBC (4.50-10.00) X 10*3/uL RBC (4.40-5.60) X 10*6/uL Hgb (13.0-17.0) g/dL Hct (39.6-50.0) % RDW (11.5-14.5) % Immature Gran # (0.00-0.04) X 10*3/uL Neutrophils # (1.80-7.70) X 10*3/uL Lymphocytes # (0.90-5.00) X 10*3/uL Monocytes # (0.20-1.00) X 10*3/uL Eosinophils # (0.04-0.35) X 10*3/uL Crenated Cell (None Seen) Sodium 127 L (137-145) mmol/L Chloride 93 L (96-109) mmol/L BUN 53.4 H (9.0-27.0) mg/dL BUN/Creatinine Ratio 66.75 H (12.00-20.00) Ratio Glucose 141 H (70-110) mg/dL POC Glucose (mg/dL) 125 H 190 H (70-110) mg/dL Calcium 8.4 L (8.7-10.3) mg/dL Magnesium 2.5 H (1.5-2.4) mg/dL AST 145 H (14-35) U/L Alkaline Phosphatase 263 H (41-126) U/L Total Protein 5.3 L (6.2-8.2) g/dL Albumin 2.7 L (3.8-4.9) g/dL Albumin/Globulin Ratio 1.04 L (1.60-3.17) Ratio Ur Random Sodium (40-220) mmol/L Microbiology - Last 24 Hours (Table) 03/16/25 05:13 Urine Culture - Final Urine,Clean Catch 03/15/25 22:45 Blood Culture - Preliminary Blood - Imaging and Cardiology MRI - head: report reviewed Assessment and Plan (1) Altered mental status Current Visit: Yes Status: Acute Code(s): R41.82 - ALTERED MENTAL STATUS, UNSPECIFIED SNOMED Code(s): 862581505 (2) Hypoglycemia Current Visit: Yes Status: Acute Code(s): E16.2 - HYPOGLYCEMIA, UNSPECIFIED SNOMED Code(s): 604690330 (3) Metastatic non-small cell lung cancer Current Visit: Yes Status: Chronic Priority: Medium Code(s): C34.90 - MALIGNANT NEOPLASM OF UNSP PART OF UNSP BRONCHUS OR LUNG SNOMED Code(s): 404686558 Plan: Altered mental status and hypoglycemia -Hypoglycemia currently being medically managed. Blood glucose has been normal once corrected --Patient mental status significantly improved today. Suspect likely related to hypoglycemia - MRI of the brain has been ordered to rule out metastasis after review of the CT without contrast. MRI resulted after pt seen-no evidence of metastatic disease. Will review results with pt in AM -Cont on Rocephin for suspect UTI that will contribute to AMS as well Metastatic non-small cell lung cancer - Diagnosis and treatment as documented in consult -Recent progression of disease. CORRECTION: Patient has NOT started treatment with Cyramza and Taxotere, he was on the schedule to start 03/18/25. His current condition not related to treatment as pt has not had treatment since Dec. - Treatment will be delayed until patient completely recovers from acute situation Severe hyponatremia - Likely secondary to malignancy, poor oral intake -Na+ improved to 127 today -Nephrology consulted, following patient Case discussed with IM FURNITURE REMOVALIST'S ASSISTANT, who is recommending marinol for appetite, agree with plan. Pt started on the same
--- NOTE | 2025-03-17 15:58 | P.CNNES ---
History of Present Illness Consult date: 03/17/25 Requesting physician: Rigoberto Singh Reason for Consult: confusion, ill defined hypodensity History of Present Illness: This is a 74-year-old gentleman with history of stage IV lung cancer presents emergency department because of confusion and abdominal pain. Patient is at bedside who provide the history. The recently has been confused. Patient does not have any focal deficit. He does not have any headache. No focal weakness. Patient does have history of TIA and he is on aspirin. During this hospital visit it seems that the patient has hyponatremia. He also had a CT of the head which showed ill-defined hypodensity in the left basal ganglia possibly secondary due to acute ischemic changes. According to the patient mentation is better compared to initial presentation. Some of the workup during this hospital visit consisted of: During this hospital visit patient temperature was as high as 100.3F and currently normal. Wbc is 20.6K. During this hospital visit patient sodium was as low as 119 and currently at 127. Patient does have hyponatremia that is been significant since a month ago and was as low as 114. Ammonia level is less than 9 AST is 145 and ALT is 34 TSH is 1.260 I reviewed the rest of the lab workup Patient had CT of the abdomen and pelvis which showed multiple ill-defined hepatic masses. CT of the head is reported as there is an ill-defined hypodensity in the left basal ganglia and rutherford radiata could be acute ischemic change. Chronic appearing periventricular white matter ischemic type changes with age-related atrophy. I personally reviewed the CT of the head and I do not see any acute or subacute ischemia in my opinion. Review of Systems As per HPI. Past Medical History Past Medical History: Cancer, CVA/TIA, GERD/Reflux, Hyperlipidemia, Hypertension, Musculoskeletal Disorder, Prostate Disorder, Rheumatoid Arthritis (RA) Additional Past Medical History / Comment(s): Degenerative Disc Disease. Enlarged prostate. lung cancer stage 4, ?TIA History of Any Multi-Drug Resistant Organisms: None Reported Past Surgical History: Back Surgery, Orthopedic Surgery Additional Past Surgical History / Comment(s): Spinal fusion X2, laminectomy, BILATERAL TENNIS ELBOW SURGERY, LEFT HAND CARPAL TUNNEL SURGERY, TRIAL PAIN STIMULATORPLACED AND LATER REMOVED, Pain Procedures, bilateral cataracts rem heather. ankle repair, Past Anesthesia/Blood Transfusion Reactions: No Reported Reaction Past Psychological History: Anxiety, Depression Smoking Status: Former smoker Past Alcohol Use History: None Reported Additional Past Alcohol Use History / Comment(s): QUIT SMOKING IN 1991, SMOKED FOR APPROX 25 YRS, 1 - 2 PPD. Past Drug Use History: Marijuana Additional Drug Use History / Comment(s): MARIJUANA USE AT FOR SLEEP NEE DED. Aware no use 24 hrs prior to procedure. - Past Family History Sister(s) Family Medical History: Cancer Additional Family Medical History / Comment(s): LUNG CANCER. Medications and Allergies Home Medications Medication Instructions Recorded Confirmed Type Folic Acid 1 mg PO DAILY@72908/30/14 03/16/25 History Gabapentin [Neurontin] 800 mg PO TID@0730,1500,19008/30/14 03/16/25 History Metoprolol Succinate 25 mg PO DAILY@72908/30/14 03/16/25 History Omeprazole [PriLOSEC] 20 mg PO BID 08/30/14 03/16/25 History calcitrioL 0.25 mcg PO FONTENOT 08/30/14 03/16/25 History Calcium Carbonate/Vitamin D3 2 tab PO DAILY@72906/18/16 03/16/25 History [Calcium 600-Vit D3 5 Mcg (200 Iu)] Doxazosin [Cardura] 4 mg PO BID@0730,0 06/18/16 03/16/25 History buPROPion SR [Wellbutrin SR] 150 mg PO BID@0730,1900 06/05/24 03/16/25 History Potassium Chloride ER [K-Dur 10] 10 meq PO DAILY 11/28/24 03/16/25 History Hydrocortisone Cream 1 applic TOPICAL TID PRN 12/23/24 03/16/25 History [Hydrocortisone 2.5% Cream] predniSONE 5 mg PO BID 12/23/24 03/16/25 History Aspirin EC [Ecotrin Low Dose] 81 mg PO DAILY@72902/25/25 03/16/25 History Atorvastatin [Lipitor] 80 mg PO HS 02/25/25 03/16/25 History Butalbit/Acetamin/Caff/Codeine 1 cap PO BID PRN 02/25/25 03/16/25 History [Fioricet-Cod 26-185-24-30 Cap] Calcium Ascorbate 500mg 500 mg PO DAILY@72902/25/25 03/16/25 History Ferrous Sulfate [Iron (65 MG 325 mg PO Q48H 02/25/25 03/16/25 History Elemental)] Latanoprost [Latanoprost 0.005%] 1 drop BOTH EYES HS 02/25/25 03/16/25 History Magnesium Oxide [Mag-Ox] 500 mg PO DAILY@0730 02/25/25 03/16/25 History Metoclopramide HCl [Reglan] 10 mg PO AC-TID PRN 02/25/25 03/16/25 History Ondansetron [Zofran] 4 - 8 mg PO Q4H PRN MDD 32 mg 02/25/25 03/16/25 History Zolpidem Tartrate [Ambien Cr] 12.5 mg PO HS PRN 02/25/25 03/16/25 History oxyCODONE-APAP 10-325MG [Percocet 1 tab PO QID@0730,13,19,23 02/25/25 03/16/25 History 10-325 mg] Allergies Allergy/AdvReac Type Severity Reaction Status Date / Time adhesive Allergy Rash/Hives Verified 03/16/25 10:45 - paper tape ok Physical Examination - Vital Signs Vital Signs: Vital Signs Temp Pulse Resp BP Pulse Ox 03/17/25 12:36 98.3 F 87 16 95/54 97 03/17/25 07:30 98.2 F 94 16 136/71 96 03/17/25 02:53 113/60 03/17/25 02:17 98.8 F 97/57 03/17/25 01:58 99.9 F H 99 16 92/51 99 03/16/25 20:30 98.5 F 03/16/25 19:56 100.3 F H 97 16 135/65 96 Intake and Output 03/17/25 03/17/25 03/17/25 06:59 14:59 22:59 Intake Total 530 720 Output Total 400 Balance 130 720 Intake: Intake, IV Titration 50 Amount cefTRIAXone 1 gm In 50 Sodium Chloride 0.9% 50 ml @ 100 mls/hr IVPB Q24H [facility] Rx#:[id number] Oral 480 720 Output: Urine 400 Other: Voiding Method Diaper External Catheter General: Lying in bed and is not in acute distress. Neuro: The patient is awake alert oriented to self place and time. Is following simple commands. No aphasia from limited language. Pupils are round equal reactive to light. Visual [place] are full to conversation. Extraocular movements intact no nystagmus. Normal facial sensation to touch. No facial weakness. No dysarthria The motor: The strength is patient was lifting all extremities above gravity equally. Normal tone and bulk Sensation was normal to touch. Cerebellar is normal [id number] bilaterally. Results - Laboratory Findings CBC and BMP: 03/17/25 04:37 03/17/25 04:37 Abnormal Lab Findings: Abnormal Labs 03/15/25 03/15/25 03/15/25 19:37 20:13 21:18 WBC 20.60 H RBC 3.94 L Hgb 12.0 L Hct 33.8 L RDW MPV Immature Gran # 0.65 H Neutrophils # 16.63 H Lymphocytes # 0.69 L Monocytes # 2.38 H Eosinophils # Crenated Cell VBG pH 7.42 H Sodium 122 L Chloride 87 L BUN BUN/Creatinine Ratio Glucose 36 L* POC Glucose (mg/dL) Osmolality Calcium Magnesium Total Bilirubin 1.6 H AST 133 H Alkaline Phosphatase 287 H Total Protein 5.6 L Albumin 2.9 L Albumin/Globulin Ratio Urine Protein Urine Glucose (UA) Urine Ketones Urine Bilirubin Urine RBC Hyaline Casts Urine Mucus Ur Random Sodium 03/16/25 03/16/25 03/16/25 03:00 09:01 09:01 WBC 18.43 H RBC 3.48 L Hgb 10.1 L Hct 29.5 L RDW 16.0 H MPV 9.1 L Immature Gran # 0.34 H Neutrophils # 15.11 H Lymphocytes # 0.73 L Monocytes # 2.20 H Eosinophils # 0.00 L Crenated Cell VBG pH Sodium 119 L* Chloride 86 L BUN BUN/Creatinine Ratio Glucose POC Glucose (mg/dL) Osmolality 254 L Calcium Magnesium Total Bilirubin AST Alkaline Phosphatase Total Protein Albumin Albumin/Globulin Ratio Urine Protein 1+ H Urine Glucose (UA) Trace H Urine Ketones 2+ H Urine Bilirubin 1+ H Urine RBC 19 H Hyaline Casts 12 H Urine Mucus Rare H Ur Random Sodium 03/16/25 03/16/25 03/16/25 12:00 16:19 17:56 WBC RBC Hgb Hct RDW MPV Immature Gran # Neutrophils # Lymphocytes # Monocytes # Eosinophils # Crenated Cell VBG pH Sodium 121 L Chloride BUN BUN/Creatinine Ratio Glucose POC Glucose (mg/dL) 158 H Osmolality Calcium Magnesium Total Bilirubin AST Alkaline Phosphatase Total Protein Albumin Albumin/Globulin Ratio Urine Protein Urine Glucose (UA) Urine Ketones Urine Bilirubin Urine RBC Hyaline Casts Urine Mucus Ur Random Sodium <20 L 03/16/25 03/17/25 03/17/25 20:15 01:23 04:37 WBC 17.44 H RBC 3.34 L Hgb 9.7 L Hct 29.3 L RDW 16.1 H MPV Immature Gran # 0.32 H Neutrophils # 14.49 H Lymphocytes # 0.46 L Monocytes # 2.10 H Eosinophils # 0 L Crenated Cell 2+ A VBG pH Sodium Chloride BUN BUN/Creatinine Ratio Glucose POC Glucose (mg/dL) 137 H 124 H Osmolality Calcium Magnesium Total Bilirubin AST Alkaline Phosphatase Total Protein Albumin Albumin/Globulin Ratio Urine Protein Urine Glucose (UA) Urine Ketones Urine Bilirubin Urine RBC Hyaline Casts Urine Mucus Ur Random Sodium 03/17/25 03/17/25 03/17/25 04:37 07:30 12:43 WBC RBC Hgb Hct RDW MPV Immature Gran # Neutrophils # Lymphocytes # Monocytes # Eosinophils # Crenated Cell VBG pH Sodium 127 L Chloride 93 L BUN 53.4 H BUN/Creatinine Ratio 66.75 H Glucose 141 H POC Glucose (mg/dL) 125 H 190 H Osmolality Calcium 8.4 L Magnesium 2.5 H Total Bilirubin AST 145 H Alkaline Phosphatase 263 H Total Protein 5.3 L Albumin 2.7 L Albumin/Globulin Ratio 1.04 L Urine Protein Urine Glucose (UA) Urine Ketones Urine Bilirubin Urine RBC Hyaline Casts Urine Mucus Ur Random Sodium Assessment and Plan Assessment: This is a 74-year-old gentleman with history of stage IV lung cancer presents the emergency department because of abdominal pain and confusion. He has hypon atremia and it seems that he has been having moderate to severe amount of hyponatremia since last month as well as in the 110s. CT of the head shows ill- defined hypodensity in the left basal ganglia concerning for acute ischemia. Patient also has low-grade fever with leukocytosis. Altered Mental status due to multifactorial and it seems due to metabolic encephalopathy. Also rule out due to underlying infection especially with the leukocytosis and low-grade fever but unclear known cause at this time. urine culture is negative and blood culture is preliminary blood culture Hypodensity in the left basal ganglia on the CT of the head concerning for stroke History of stage IV lung cancer and seems mets to the liver History of TIA Plan: If unknown source of leukocytosis with fever then please recommend pursuing with lumbar puncture MRI Brain is pending. Recommend I.D. consultation. Oncology is on board. Will defer the the rest of medical management to primary team and other specialist. The plan is discussed with patient's and primary team N.P. Thank you for the consultation. Time with Patient: Greater than 30
[2025-03-17 17:16] LABS: Glucose,Whole Blood 167 mg/dL (70-110)
[2025-03-17] MEDS: droNABinol 2.5 MG CAP PO SCH (17:17)
[2025-03-17] MEDS: IOPAMIDOL CONTRAST (ORAL USE) VIAL PO PRN (18:29)
[2025-03-17 21:12] LABS: Glucose,Whole Blood 120 mg/dL (70-110)
--- NOTE | 2025-03-17 21:13 | CT ---
EXAMINATION TYPE: CT abdomen pelvis w con DATE OF EXAM: 03/17/2025 8:31 PM COMPARISON: 03/15/2025. CT and prior pet CLINICAL INDICATION: Male, 74 years old with history of Fever; fever TECHNIQUE: Axial CT abdomen pelvis w con;Sagittal and coronal reformats were created on a separate w orkstation. Contrast used:100 mL of Isovue 300 with IV Contrast, (none if empty) Oral contrast used: with Oral Contrast (none if empty) CT DLP: 1095.6 mGycm, Automated exposure control for dose reduction was used. FINDINGS: LOWER CHEST: Left lower lobe pulmonary nodule. 9 mm series 201 image 2 and 7 mm image 13. Interstitia l prominence as seen on prior PET/CT. ABDOMEN LIVER: Scattered heterogenous masses throughout ther liver the largest in the left hepatic lobe measu ring up to 10.8 x 1.4 cm which was FDG avid on 02/19/2025. GALLBLADDER AND BILE DUCTS: Unremarkable. PANCREAS: Unremarkable. SPLEEN: Unremarkable. ADRENAL GLANDS: Unremarkable. KIDNEYS AND URETERS: No evidence of hydronephrosis or obstructing renal calculus. The ureters are unr emarkable. PELVIS BLADDER: No distended urinary bladder evidence for wall thickening or mass given limitations of exam. REPRODUCTIVE: Unremarkable. ABDOMEN & PELVIS STOMACH AND BOWEL: No evidence of bowel obstruction. Large amount stool throughout the colon. PERITONEUM/RETROPERITONEUM: No evidence of pneumoperitoneum or free fluid. VASCULATURE: Moderate atherosclerotic calcifications are present throughout the abdominal aorta and i ts branches. No evidence of aortic aneurysm. MUSCULOSKELETAL: No acute osseous abnormalities scattered sclerotic osseous metastatic disease as see n on prior PET/CT. Example includes: Sclerotic focus in the anterior aspect of L5 measuring 14 mm. L2 and L4 vertebral body curvilinear sclerosis near the superior endplate new from prior on 01/20/2025 . Fixation hardware in the spine appears intact. LYMPH NODES: No upper abdominal prominent lymph node near the nicola hepatis measuring 17 mm in short axis which was FDG avid on prior PET. SOFT TISSUE/ABDOMINAL WALL: Bilateral fat-containing inguinal hernias. IMPRESSION: 1. Scattered metastatic disease including the liver and the osseous structures. The liver lesions cole ve increased in size from 01/20/2025 and given low attenuating areas within the liver masses underlyin g necrosis is not excluded with superimposed infection given history of fever. Correlate with liver thang larsons No additional evidence for acute infectious process. 2. New from 01/20/2025 L2 and L4 vertebral body superior endplate fractures. Consider correlation wit h MRI. 3. Large amount stool throughout the colon. 4. Pulmonary nodules in the left lung base are not significantly changed and does not demonstrate FD G activity on prior PET. [facility], , 03/17/2025 9:10 PM
--- NOTE | 2025-03-17 21:58 | P.CONS ---
History of Present Illness - Reason for Consult Consult date: 03/17/25 Elevated white count low-grade fever Requesting physician: Rigoberto Singh - Chief Complaint Abdominal distention and discomfort x few days - History of Present Illness Patient is a 74-year-old male with a past medical history significant for rheumatoid arthritis stage IV lung cancer BPH hypertension hyperlipidemia reflux presenting to the hospital 2 days ago for evaluation of mental status changes and the patient also noticed to have some abdominal distention and discomfort his symptoms apparently started the day of presentation to the hospital has been complaining of mostly dull aching pain with moderate intensity without radiation did have some nausea but no vomiting seems to have issues with constipation with the symptoms the patient was evaluated on presentation to the hospital he did have a low-grade fever 100 F and also have a temperature of 100.3 last evening patient was tachycardic on admission that has subsequent resolved not hypotensive or hypoxic no need for supplemental oxygen patient did have a white count of 20,000 which is down to 17.44 creatinine 0.8 liver enzymes are elevated UA has been negative blood and urine cultures are currently pending patient did have a chest x-ray fullness in the right suprahilar mediastinal region. With the patient known lung cancer abdominal pelvis CT was done without IV contrast multiple ill-defined hepatic metastasis and skeletal sclerotic lesion MRI of the brain no evidence of intracranial mass acute or subacute infarct patient has been treated empirically with the ceftriaxone infectious dis ease was consulted today because of his elevated white count and low-grade fever Review of Systems Positive point and negatives has been mentioned in the HPI, complete review of systems was performed and all other systems are negative Past Medical History Past Medical History: Cancer, CVA/TIA, GERD/Reflux, Hyperlipidemia, Hyperte nsion, Musculoskeletal Disorder, Prostate Disorder, Rheumatoid Arthritis (RA) Additional Past Medical History / Comment(s): Degenerative Disc Disease. Enlarged prostate. lung cancer stage 4, ?TIA History of Any Multi-Drug Resistant Organisms: None Reported Past Surgical History: Back Surgery, Orthopedic Surgery Additional Past Surgical History / Comment(s): Spinal fusion X2, laminectomy, BILATERAL TENNIS ELBOW SURGERY, LEFT HAND CARPAL TUNNEL SURGERY, TRIAL PAIN STIMULATORPLACED AND LATER REMOVED, Pain Procedures, bilateral cataracts removed. ankle repair, Past Anesthesia/Blood Transfusion Reactions: No Reported Reaction Past Psychological History: Anxiety, Depression Smoking Status: Former smoker Past Alcohol Use History: None Reported Additional Past Alcohol Use History / Comment(s): QUIT SMOKING IN 1991, SMOKED FOR APPROX 25 YRS, 1 - 2 PPD. Past Drug Use History: Marijuana Additional Drug Use History / Comment(s): MARIJUANA USE AT HS FOR SLEEP NEEDED. Aware no use 24 hrs prior to procedure. - Past Family History Sister(s) Family Medical History: Cancer Additional Family Medical History / Comment(s): LUNG CANCER. Medications and Allergies Home Medications Medication Instructions Recorded Confirmed Type Folic Acid 1 mg PO DAILY@0708/30/14 03/16/25 History Gabapentin [Neurontin] 800 mg PO TID@0730,1500,1900 08/30/14 03/16/25 History Metoprolol Succinate 25 mg PO DAILY@72908/30/14 03/16/25 History Omeprazole [PriLOSEC] 20 mg PO BID 08/30/14 03/16/25 History calcitrioL 0.25 mcg PO FONTENOT 08/30/14 03/16/25 History Calcium Carbonate/Vitamin D3 2 tab PO DAILY@0730 06/18/16 03/16/25 History [Calcium 600-Vit D3 5 Mcg (200 Iu)] Doxazosin [Cardura] 4 mg PO BID@0730,1900 06/18/16 03/16/25 History buPROPion SR [Wellbutrin SR] 150 mg PO BID@0730,1900 06/05/24 03/16/25 History Potassium Chloride ER [K-Dur 10] 10 meq PO DAILY 11/28/24 03/16/25 History Hydrocortisone Cream 1 applic TOPICAL TID PRN 12/23/24 03/16/25 History [Hydrocortisone 2.5% Cream] predniSONE 5 mg PO BID 12/23/24 03/16/25 History Aspirin EC [Ecotrin Low Dose] 81 mg PO DAILY@0730 02/25/25 03/16/25 History Atorvastatin [Lipitor] 80 mg PO HS 02/25/25 03/16/25 History Butalbit/Acetamin/Caff/Codeine 1 cap PO BID PRN 02/25/25 03/16/25 History [Fioricet-Cod 35-971-98-30 Cap] Calcium Ascorbate 500mg 500 mg PO DAILY@0730 02/25/25 03/16/25 History Ferrous Sulfate [Iron (65 MG 325 mg PO Q48H 02/25/25 03/16/25 History Elemental)] Latanoprost [Latanoprost 0.005%] 1 drop BOTH EYES HS 02/25/25 03/16/25 History Magnesium Oxide [Mag-Ox] 500 mg PO DAILY@0730 02/25/25 03/16/25 History Metoclopramide HCl [Reglan] 10 mg PO AC-TID PRN 02/25/25 03/16/25 History Ondansetron [Zofran] 4 - 8 mg PO Q4H PRN MDD 32 mg 02/25/25 03/16/25 History Zolpidem Tartrate [Ambien Cr] 12.5 mg PO HS PRN 02/25/25 03/16/25 History oxyCODONE-APAP 10-325MG [Percocet 1 tab PO QID@0730,13,19,23 02/25/25 03/16/25 History 10-325 mg] Allergies Allergy/AdvReac Type Severity Reaction Status Date / Time adhesive Allergy Rash/Hives Verified 03/16/25 10:45 - paper tape ok Physical Exam Vitals: Vital Signs Temp Pulse Resp BP Pulse Ox 03/17/25 12:36 98.3 F 87 16 95/54 97 03/17/25 07:30 98.2 F 94 16 136/71 96 03/17/25 02:53 113/60 03/17/25 02:17 98.8 F 97/57 03/17/25 01:58 99.9 F H 99 16 92/51 99 03/16/25 20:30 98.5 F 03/16/25 19:56 100.3 F H 97 16 135/65 96 Intake and Output 03/17/25 03/17/25 03/17/25 06:59 14:59 22:59 Intake Total 530 720 Output Total 400 Balance 130 720 Intake: Intake, IV Titration 50 Amount cefTRIAXone 1 gm In 50 Sodium Chloride 0.9% 50 ml @ 100 mls/hr IVPB Q24H [facility] Rx#:[id number] Oral 480 720 Output: Urine 400 Other: Voiding Method Diaper External Catheter GENERAL DESCRIPTION: Elderly male lying in bed, no distress. No tachypnea or accessory muscle of respiration use. HEENT: Shows Pallor , no scleral icterus. Oral mucous membrane is dry. NECK: Trachea central, no thyromegaly. LUNGS: Unlabored breathing. Clear to auscultation anteriorly. No wheeze or cr ackle. HEART: S1, S2, regular rate and rhythm. No loud murmur ABDOMEN: Soft, no tenderness , mild distention EXTREMITIES: No edema of feet. SKIN: No rash, no masses palpable. NEUROLOGICAL: The patient is awake, alert, oriented x3, mood and affect normal. Results CBC & Chem 7: 03/18/25 05:47 03/18/25 05:47 Labs: Abnormal Lab Results - Last 24 Hours (Table) 03/16/25 03/16/25 03/16/25 Range/Units 12:00 16:19 17:56 WBC (4.50-10.00) X 10*3/uL RBC (4.40-5.60) X 10*6/uL Hgb (13.0-17.0) g/dL Hct (39.6-50.0) % RDW (11.5-14.5) % Immature Gran # (0.00-0.04) X 10*3/uL Neutrophils # (1.80-7.70) X 10*3/uL Lymphocytes # (0.90-5.00) X 10*3/uL Monocytes # (0.20-1.00) X 10*3/uL Eosinophils # (0.04-0.35) X 10*3/uL Crenated Cell (None Seen) Sodium 121 L (137-145) mmol/L Chloride (96-109) mmol/L BUN (9.0-27.0) mg/dL BUN/Creatinine Ratio (12.00-20.00) Ratio Glucose (70-110) mg/dL POC Glucose (mg/dL) 158 H (70-110) mg/dL Calcium (8.7-10.3) mg/dL Magnesium (1.5-2.4) mg/dL AST (14-35) U/L Alkaline Phosphatase (41-126) U/L Total Protein (6.2-8.2) g/dL Albumin (3.8-4.9) g/dL Albumin/Globulin Ratio (1.60-3.17) Ratio Ur Random Sodium <20 L (40-220) mmol/L 03/16/25 03/17/25 03/17/25 Range/Units 20:15 01:23 04:37 WBC 17.44 H (4.50-10.00) X 10*3/uL RBC 3.34 L (4.40-5.60) X 10*6/uL Hgb 9.7 L (13.0-17.0) g/dL Hct 29.3 L (39.6-50.0) % RDW 16.1 H (11.5-14.5) % Immature Gran # 0.32 H (0.00-0.04) X 10*3/uL Neutrophils # 14.49 H (1.80-7.70) X 10*3/uL Lymphocytes # 0.46 L (0.90-5.00) X 10*3/uL Monocytes # 2.10 H (0.20-1.00) X 10*3/uL Eosinophils # 0 L (0.04-0.35) X 10*3/uL Crenated Cell 2+ A (None Seen) Sodium (137-145) mmol/L Chloride (96-109) mmol/L BUN (9.0-27.0) mg/dL BUN/Creatinine Ratio (12.00-20.00) Ratio Glucose (70-110) mg/dL POC Glucose (mg/dL) 137 H 124 H (70-110) mg/dL Calcium (8.7-10.3) mg/dL Magnesium (1.5-2.4) mg/dL AST (14-35) U/L Alkaline Phosphatase (41-126) U/L Total Protein (6.2-8.2) g/dL Albumin (3.8-4.9) g/dL Albumin/Globulin Ratio (1.60-3.17) Ratio Ur Random Sodium (40-220) mmol/L 03/17/25 03/17/25 03/17/25 Range/Units 04:37 07:30 12:43 WBC (4.50-10.00) X 10*3/uL RBC (4.40-5.60) X 10*6/uL Hgb (13.0-17.0) g/dL Hct (39.6-50.0) % RDW (11.5-14.5) % Immature Gran # (0.00-0.04) X 10*3/uL Neutrophils # (1.80-7.70) X 10*3/uL Lymphocytes # (0.90-5.00) X 10*3/uL Monocytes # (0.20-1.00) X 10*3/uL Eosinophils # (0.04-0.35) X 10*3/uL Crenated Cell (None Seen) Sodium 127 L (137-145) mmol/L Chloride 93 L (96-109) mmol/L BUN 53.4 H (9.0-27.0) mg/dL BUN/Creatinine Ratio 66.75 H (12.00-20.00) Ratio Glucose 141 H (70-110) mg/dL POC Glucose (mg/dL) 125 H 190 H (70-110) mg/dL Calcium 8.4 L (8.7-10.3) mg/dL Magnesium 2.5 H (1.5-2.4) mg/dL AST 145 H (14-35) U/L Alkaline Phosphatase 263 H (41-126) U/L Total Protein 5.3 L (6.2-8.2) g/dL Albumin 2.7 L (3.8-4.9) g/dL Albumin/Globulin Ratio 1.04 L (1.60-3.17) Ratio Ur Random Sodium (40-220) mmol/L Microbiology - Last 24 Hours (Table) 03/16/25 05:13 Urine Culture - Final Urine,Clean Catch 03/15/25 22:45 Blood Culture - Preliminary Blood Assessment and Plan (1) Fever Current Visit: Yes Status: Acute Code(s): R50.9 - FEVER, UNSPECIFIED SNOMED Code(s): 726312113 (2) Altered mental status Current Visit: Yes Status: Acute Code(s): R41.82 - ALTERED MENTAL STATUS, UNSPECIFIED SNOMED Code(s): 072294507 (3) Leukocytosis Current Visit: Yes Status: Acute Code(s): D72.829 - ELEVATED WHITE BLOOD CELL COUNT, UNSPECIFIED SNOMED Code(s): 546434624 Plan: 1patient who did have low-grade fever elevated white count in this patient who did have metastatic lung cancer with mets to the liver and skeletal system presenting mostly with the abdominal pain and distention concerning for possible abdominal source for his fever and elevated white count with initial CAT scan done without any contrast that will limit the sensitivity of that testing 2we will obtain a CT of abdominal pelvis with contrast 3check inflammatory markers 4we will increase dose of Rocephin to 2 g daily and Flagyl pending completion of the workup Multiple question concern answered We will follow on clinical condition and cultures to further adjust medication if needed Thank you for this consultation we will follow the patient along with you Dictation was produced using [employer] dictation software. please excuse any grammatical, word or spelling errors. Time with Patient: Greater than 30
[2025-03-18] MEDS: metroNIDAZOLE 500 MG TAB PO SCH (00:38)
[2025-03-18 01:23] LABS: Glucose,Whole Blood 119 mg/dL (70-110)
[2025-03-18 05:15] LABS: Glucose,Whole Blood 129 mg/dL (70-110)
[2025-03-18] MEDS: cefTRIAXone 2 GM in DEXTROSE 5% IN WATER 50 ML IVPB SCH (08:32)
--- NOTE | 2025-03-18 10:08 | P.PN ---
Subjective Progress Note Date: 03/18/25 I am following up with the patient and his mentation is improving. He denies of any headache, any nausea and vomiting. The primary team reach out to me and they stated that they have the source of infection and it seems bacteremia in which the blood culture was Staph aureus so far. Objective - Vital Signs Vital signs: Vital Signs Temp 97.6 F 03/18/25 07:06 Pulse 75 03/18/25 07:06 Resp 20 03/18/25 07:06 BP 97/61 03/18/25 07:06 Pulse Ox 97 03/18/25 07:06 FiO2 Intake & Output 03/17/25 03/18/25 03/18/25 18:59 06:59 18:59 Intake Total 957 240 Output Total 300 Balance 657 240 Intake: Oral 957 240 Output: Urine 300 Other: Voiding Method Diaper Diaper External Catheter External Catheter # Voids 3 - Exam General: Lying in bed and is not in acute distress. HENT: Supple neck. Neuro: The patient is awake alert oriented to self place and time. Is following simple commands. No aphasia from limited language. Pupils are round equal reactive to light. Visual newby are full to conversation. Extraocular movements intact no nystagmus. Normal facial sensation to touch. No facial weakness. No dysarthria The motor: The strength is patient was lifting all extremities above gravity equally. Normal tone and bulk Sensation was normal to touch. Cerebellar is normal [id number] bilaterally. Some of the workup during this hospital visit consisted of: During this hospital visit patient temperature was as high as 100.3F and currently normal. Wbc is 20.6K-->trending down. During this hospital visit patient sodium was as low as 119 and currently at 127. Patient does have hyponatremia that is been significant since a month ago and was as low as 114. Ammonia level is less than 9 AST is 145 and ALT is 34 TSH is 1.260 I reviewed the rest of the lab workup Patient had CT of the abdomen and pelvis which showed multiple ill-defined hepatic masses. CT of the head is reported as there is an ill-defined hypodensity in the left basal ganglia and rutherford radiata could be acute ischemic change. Chronic appearing periventricular white matter ischemic type changes with age-related atrophy. I personally reviewed the CT of the head and I do not see any acute or subacute ischemia in my opinion. MRI of the brain is reported as no evidence of intracranial mass, acute/subacute infarct or abnormal enhancement. Nonspecific white matter changes. Trace bilateral mastoid air cell effusion. - Labs CBC & Chem 7: 03/17/25 04:37 03/17/25 04:37 Labs: Abnormal Lab Results - Last 24 Hours (Table) 03/17/25 03/17/25 03/17/25 Range/Units 12:43 17:14 21:10 POC Glucose (mg/dL) 190 H 167 H 120 H (70-110) mg/dL 03/18/25 03/18/25 Range/Units 01:20 05:14 POC Glucose (mg/dL) 119 H 129 H (70-110) mg/dL Microbiology - Last 24 Hours (Table) 03/15/25 22:45 Blood Culture Gram Stain - Preliminary Blood Blood Culture - Preliminary Molecular ID 03/16/25 05:13 Urine Culture - Final Urine,Clean Catch Assessment and Plan Assessment: This is a 74-year-old gentleman with history of stage IV lung cancer presents the emergency department because of abdominal pain and confusion. He has hyponatremia and it seems that he has been having moderate to severe amount of hyponatremia since last month as well as in the 110s. CT of the head shows ill- defined hypodensity in the left basal ganglia concerning for acute ischemia. Patient also has low-grade fever with leukocytosis. Altered Mental status due to multifactorial and it seems due to metabolic encephalopathy and septic encephalopathy--It seems she has bactremia--mentation is improving and has supple neck. I feel less likely meningoencephalitis. Hypodensity in the left basal ganglia on CT but on MRI Brain no acute or subacute stroke and no enhancement--therefore likely artifact. History of stage IV lung cancer and seems mets to the liver History of TIA Plan: I discontinued the Lumbar puncture since the primary source of infection is found and mentation is improving. Will defer the use of Lumbar Puncture to I.D. if needed. I.D. is consulted. Oncology is on board. Will defer the the rest of medical management to primary team and other specialist. The plan is discussed with patient's primary team N.P. Will follow-up sporadically. Time with Patient: Less than 30
[2025-03-18 10:09] LABS: Glucose,Whole Blood 200 mg/dL (70-110)
[2025-03-18 10:32] LABS: HGB 9.1 g/dL (13.0-17.0); MCH 28.6 pg (27.0-32.0); MCHC 32.5 g/dL (32.0-37.0); MCV 88.1 FL (80.0-97.0); Mean Platelet Volume 10.2 FL (9.5-12.2); NRBC Per 100 WBC 0 X 10*3/uL (0.00-0.01); Platelet Count 255 X 10*3/uL (140-440); RBC 3.18 X 10*6/uL (4.40-5.60); WBC 12.91 X 10*3/uL (4.50-10.00)
--- NOTE | 2025-03-18 10:32 | P.PN ---
Subjective Patient is seen in follow-up for hyponatremia. Sodium level improved to 127 as of yesterday. Oral intake is better. No active complaints. Vital signs are stable. General: No acute distress. HEENT: Head exam is unremarkable. LUNGS: No audible rhonchi or wheezes. HEART: Rate and Rhythm are regular. ABDOMEN: Nontender. EXTREMITITES: No edema. Objective - Vital Signs Vital signs: Vital Signs Temp 97.6 F 03/18/25 07:06 Pulse 75 03/18/25 07:06 Resp 20 03/18/25 07:06 BP 97/61 03/18/25 07:06 Pulse Ox 97 03/18/25 07:06 FiO2 Intake & Output 03/17/25 03/18/25 03/18/25 18:59 06:59 18:59 Intake Total 957 240 Output Total 300 Balance 657 240 Intake: Oral 957 240 Output: Urine 300 Other: Voiding Method Diaper Diaper External Catheter External Catheter # Voids 3 - Labs CBC & Chem 7: 03/17/25 04:37 03/17/25 04:37 Labs: Abnormal Lab Results - Last 24 Hours (Table) 03/17/25 03/17/25 03/17/25 Range/Units 12:43 17:14 21:10 POC Glucose (mg/dL) 190 H 167 H 120 H (70-110) mg/dL 03/18/25 03/18/25 03/18/25 Range/Units 01:20 05:14 10:08 POC Glucose (mg/dL) 119 H 129 H 200 H (70-110) mg/dL Microbiology - Last 24 Hours (Table) 03/15/25 22:45 Blood Culture Gram Stain - Preliminary Blood Blood Culture - Preliminary Molecular ID 03/16/25 05:13 Urine Culture - Final Urine,Clean Catch Assessment and Plan Plan: Assessment: 1. Hyponatremia secondary to poor solute intake and further worsened with hypotonic fluids. Sodium level 127 yesterday. TSH normal. Urine sodium less than 20 and urine osmolality 432. 2. Stage IV lung cancer with metastatic disease. 3. Gram-positive bacteremia on antibiotics. Plan: Encouraged oral intake, particularly protein. Maintain fluid restriction. Follow-up echocardiogram. Morning labs pending.
[2025-03-18 10:42] LABS: BUN/Creat Ratio 56.71 Ratio (12.00-20.00); Blood Urea Nitrogen 39.7 mg/dL (9.0-27.0); Calcium 8.4 mg/dL (8.7-10.3); Carbon Dioxide 24.9 mmol/L (21.6-31.8); Chloride 96 mmol/L (96-109); Glucose 112 mg/dL (70-110); Magnesium 2.4 mg/dL (1.5-2.4); Potassium 4.9 mmol/L (3.5-5.5); Sodium 131 mmol/L (135-145)
[2025-03-18] MEDS: LACTULOSE 20 GM/30 ML CUP PO ONE (12:37)
--- NOTE | 2025-03-18 14:08 | P.PN ---
Subjective Progress Note Date: 03/18/25 Principal diagnosis: Reason for follow-up is fever/leukocytosis and positive blood culture Patient is a 74-year-old male with a past medical history significant for rheumatoid arthritis stage IV lung cancer BPH hypertension hyperlipidemia reflux presenting to the hospital for evaluation of mental status changes, patient did have a low-grade fever elevated white count probably this consultation. On today's evaluation that is 03/18/2025, Patient did have resolution of his fever and is afebrile patient is currently on room air and denies having any shortness of breath, the patient denies any chest pain or cough, the patient denies any nausea vomiting did not have any abdominal pain and no diarrhea. Patient did have a white count is down to 12.91, creatinine 0.7 CT abdominal pelvis with contrast shows scattered metastatic disease liver masses underlying necrosis not excluded large stool burden blood culture positive with staph epi Objective - Vital Signs Vital signs: Vital Signs Temp 97.9 F 03/18/25 12:21 Pulse 76 03/18/25 12:21 Resp 20 03/18/25 12:21 BP 111/65 03/18/25 12:21 Pulse Ox 97 03/18/25 12:21 FiO2 Intake & Output 03/17/25 03/18/25 03/18/25 18:59 06:59 18:59 Intake Total 957 240 Output Total 300 Balance 657 240 Intake: Oral 957 240 Output: Urine 300 Other: Voiding Method Diaper Diaper Diaper External Catheter External Catheter External Catheter # Voids 3 - Exam GENERAL DESCRIPTION: An elderly male lying in bed in no distress RESPIRATORY SYSTEM: Unlabored breathing , decreased breath sounds at bases HEART: S1 S2 regular rate and rhythm , ABDOMEN: Soft , no tenderness EXTREMITIES: No edema feet - Labs CBC & Chem 7: 03/18/25 05:47 03/18/25 05:47 Labs: Abnormal Lab Results - Last 24 Hours (Table) 03/17/25 03/17/25 03/18/25 Range/Units 17:14 21:10 01:20 WBC (4.50-10.00) X 10*3/uL RBC (4.40-5.60) X 10*6/uL Hgb (13.0-17.0) g/dL Hct (39.6-50.0) % RDW (11.5-14.5) % Sodium (135-145) mmol/L BUN (9.0-27.0) mg/dL BUN/Creatinine Ratio (12.00-20.00) Ratio Glucose (70-110) mg/dL POC Glucose (mg/dL) 167 H 120 H 119 H (70-110) mg/dL Calcium (8.7-10.3) mg/dL C-Reactive Protein (0.00-0.80) mg/dL Procalcitonin (0.02-0.50) ng/mL 03/18/25 03/18/25 03/18/25 Range/Units 05:14 05:47 05:47 WBC 12.91 H (4.50-10.00) X 10*3/uL RBC 3.18 L (4.40-5.60) X 10*6/uL Hgb 9.1 L (13.0-17.0) g/dL Hct 28.0 L (39.6-50.0) % RDW 16.0 H (11.5-14.5) % Sodium 131 L (135-145) mmol/L BUN 39.7 H (9.0-27.0) mg/dL BUN/Creatinine Ratio 56.71 H (12.00-20.00) Ratio Glucose 112 H (70-110) mg/dL POC Glucose (mg/dL) 129 H (70-110) mg/dL Calcium 8.4 L (8.7-10.3) mg/dL C-Reactive Protein 20.30 H (0.00-0.80) mg/dL Procalcitonin (0.02-0.50) ng/mL 03/18/25 03/18/25 Range/Units 05:47 10:08 WBC (4.50-10.00) X 10*3/uL RBC (4.40-5.60) X 10*6/uL Hgb (13.0-17.0) g/dL Hct (39.6-50.0) % RDW (11.5-14.5) % Sodium (135-145) mmol/L BUN (9.0-27.0) mg/dL BUN/Creatinine Ratio (12.00-20.00) Ratio Glucose (70-110) mg/dL POC Glucose (mg/dL) 200 H (70-110) mg/dL Calcium (8.7-10.3) mg/dL C-Reactive Protein (0.00-0.80) mg/dL Procalcitonin 5.18 H (0.02-0.50) ng/mL Microbiology - Last 24 Hours (Table) 03/15/25 22:45 Blood Culture Gram Stain - Preliminary Blood Blood Culture - Preliminary Molecular ID Assessment and Plan (1) Fever Current Visit: Yes Status: Acute Code(s): R50.9 - FEVER, UNSPECIFIED SNOMED Code(s): 212515106 (2) Altered mental status Current Visit: Yes Status: Acute Code(s): R41.82 - ALTERED MENTAL STATUS, UNSPECIFIED SNOMED Code(s): 487165198 (3) Leukocytosis Current Visit: Yes Status: Acute Code(s): D72.829 - ELEVATED WHITE BLOOD CELL COUNT, UNSPECIFIED SNOMED Code(s): 922507029 (4) Positive blood culture Current Visit: Yes Status: Acute Code(s): R78.81 - BACTEREMIA SNOMED Cod e(s): 984730158 Plan: 1patient who did have low-grade fever elevated white count in this patient who did have metastatic lung cancer with mets to the liver and skeletal system presenting mostly with the abdominal pain and distention concerning for possible abdominal source for his fever and elevated white count with initial CAT scan done without any contrast that will limit the sensitivity of that testing 2patient did have CT of abdominal pelvis with contrast with evidence of multiple metastasis and some necrosis could be responsible for this elevated white count as well as low-grade fever 3patient did have positive blood culture staph epi more likely skin contamination blood culture has been repeated today for vancomycin 4on to continue Rocephin to 2 g daily and Flagyl and monitor clinical course closely Dictation was produced using [employer] dictation software. please excuse any grammatical, word or spelling errors.
--- NOTE | 2025-03-18 17:16 | CA ---
Transthoracic Echo Report Name: Doni Somers Age: 74 Gender: M : 1950 Exam Date: 03/18/2025 09:58 Exam Location: [facility] Ht (in): 66 Wt (lb): 144 Ordering Physician: Rigoberto Singh Attending/Referring Phys: Regional Sales Coordinator Vika Eucead RDCS Procedure CPT: Indications: Staph aureus bacteremia, rule out endocarditis Cardiac Hx: Technical Quality: Good Contrast 1: Definity Total Dose (mL): 2 Contrast 2: Total Dose (mL): MEASUREMENTS (Male / Female) Normal Values 2D ECHO LV Diastolic Diameter PLAX 4.9 cm 4.2 - 5.9 / 3.9 - 5.3 cm LV Systolic Diameter PLAX 3.6 cm IVS Diastolic Thickness 1.0 cm 0.6 - 1.0 / 0.6 - 0.9 cm LVPW Diastolic Thickness 0.9 cm 0.6 - 1.0 / 0.6 - 0.9 cm LV Relative Wall Thickness 0.4 RV Internal Dim ED PLAX 2.8 cm LVOT Diameter 1.8 cm LA Systolic Diameter LX 3.7 cm 3.0 - 4.0 / 2.7 - 3.8 cm LV Diastolic Volume MOD BP 104.8 cm??? 67 - 155 / 56 - 104 cm??? LV Systolic Volume MOD BP 32.9 cm??? / 19 - 49 cm??? LV Ejection Fraction MOD BP 68.6 % >= 55 % LV Cardiac Index MOD BP 3082.2 cm???/min???m??? LV Diastolic Volume MOD 4C 117.5 cm??? LV Systolic Volume MOD 4C 32.8 cm??? LV Ejection Fraction MOD 4C 72.1 % LV Cardiac Index MOD 4C 3633.5 cm???/min???m??? LV Diastolic Length 4C 9.1 cm LV Systolic Length 4C 7.3 cm LV Diastolic Volume MOD 2C 91.5 cm??? LV Systolic Volume MOD 2C 31.7 cm??? LV Ejection Fraction MOD 2C 65.4 % LV Cardiac Index MOD 2C 2565.1 cm???/min???m??? LV Diastolic Length 2C 8.9 cm LV Systolic Length 2C 6.8 cm LA Volume 44.5 cm??? 18 - 58 / 22 - 52 cm??? LA Volume Index 25.5 cm???/m??? 16 - 28 cm???/m??? DOPPLER MV Area PHT 3.2 cm??? Mitral E Point Velocity 63.7 cm/s Mitral A Point Velocity 78.5 cm/s Mitral E to A Ratio 0.8 MV Deceleration Time 240.2 ms TR Peak Velocity 230.2 cm/s TR Peak Gradient 21.2 mmHg Right Atrial Pressure 5.0 mmHg Pulmonary Artery Systolic Pressu 26.2 mmHg Right Ventricular Systolic Press 26.2 mmHg FINDINGS Left Ventricle Left ventricular ejection fraction is estimated at 60%. Normal left ventricular systolic function with no obvious regional wall motion abnormalities. Left ventricular wall thickness normal. Right Ventricle Normal right ventricular size and function. Right ventricular systolic pressure within normal limits. Right Atrium Normal right atrial size. Left Atrium Normal left atrial size. Mitral Valve Mitral annular calcification. No mitral stenosis. Trace mitral regurgitation. Aortic Valve Trileaflet aortic valve. Aortic valve sclerosis. No aortic valve stenosis or regurgitation. Tricuspid Valve Structurally normal tricuspid valve. No tricuspid stenosis. Trace tricuspid regurgitation. Pulmonic Valve Structurally normal pulmonic valve. No pulmonic stenosis. Mild pulmonic regurgitation. Pericardium No pericardial effusion. Aorta Normal size aortic root and proximal ascending aorta. CONCLUSIONS Normal LV size and systolic function. Mild concentric LVH. Minimal mitral and tricuspid regurgitation. No pulmonary hypertension. No pericardial effusion Previewed by: Dr. Luis Alberto Romero MD (Electronically Signed) Final Date: 18 Mar 2025 17:15
--- NOTE | 2025-03-18 17:33 | P.PN ---
Subjective Progress Note Date: 03/18/25 Hospital Course: Patient is a 74-year-old male with a past medical history of stage IV metastatic lung cancer, hypertension, hyperlipidemia, BPH, and anxiety with depression. He presented to the hospital on 03/16/2025 secondary to concerns of weakness, confusion, and fever. Upon arrival per facility, patient underwent evaluation in the emergency department. Vital signs upon arrival show blood pressure 129/85, heart rate 104, respiratory rate 18, temp 97.9 F, and SpO2 of 98% on room air. Shortly after arrival temperature elevated to 100.0 F orally. EKG completed showing sinus tachycardia at 101 bpm with T wave inversion in inferior lead III otherwise no noted T wave or ST abnormality showing no signs of acute ischemia upon personal review and interpretation. CT brain completed showing an ill-defined hypodensity in the left basal ganglia and coronary radiata possibly secondary to acute ischemic change and chronic appearing periventricular white matter ischemic changes with age-related atrophy. Chest x-ray revealing fullne ss in the right suprahilar mediastinal region relates with patient's known lung cancer. Labs completed and reviewed. CBC showing leukocytosis with WBC count of 20.60 with a left shift with immature granulocytes of 0.65, neutrophils of 16.63, lymphocytes of 0.69, and monocytes of 2.38 and normocytic anemia with hemoglobin of 12.0. Coagulation profile normal findings. VBG showing pH of 7.42 with pCO2 of 37 and bicarb of 24. BMP showing hypochloremic hyponatremia with sodium 122 and chloride of 87, bicarb of 23 and elevated anion gap of 12. Blood glucose was 36. Liver profile showing hyperbilirubinemia with total bili of 1.6 and transaminitis with AST of 133, ALT of 31, and alkaline phosphatase of 287. Low total protein of 5.6 and albumin of 2.9. Urinalysis positive for protein, glucose, ketones, urine bilirubin, 19 RBCs, and [address] abdomen and pelvis showing multiple ill-defined hepatic masses with axial skeleton sclerotic lesions in the lower thoracic vertebral level and within the upper sacrum. Patient was admitted under services with consultation to neurology, nephrology, and oncology. Physical exam: Patient seen and fully evaluated at bedside this morning. He was visiting with at bedside. Patient's mentation continues to improve and he is currently alert to person, place, and time but remains slightly confused to situation. Patient reports slightly worsening abdominal distention and nausea that remains uncontrolled with Zofran. CT abdomen and pelvis completed yesterday evening did report large amount of stool throughout the colon. Zofran discontinued and patient started on Compazine 10 mg IVP every 6 hours as needed for nausea. Discussed with patient and his at bedside we will start with a dose of lactulose and if no bowel movement by this afternoon we will place order for suppository and monitor for resolution. Vital signs reviewed and stable. General: Nontoxic, no distress and appears stated age. Derm: Skin warm and dry, normal coloration for ethnicity. Head: Atraumatic, normocephalic and symmetric. Eyes: EOM's intact, no lid lag, and anicteric sclera Mouth: no lip lesions, mucus membranes moist Cardiovascular: regular rate and rhythm with normal S1S2, systolic murmur, positive posterior tibial pulses bilaterally, and cap refill < 2 seconds. Lungs: Respirations even, regular, and unlabored on room air. Lungs diminished with diffuse rhonchi. No wheezes, rales, or crackles. Abdominal: soft, nontender to palpation, no guarding, no appreciable organomegaly Ext: ROM intact. No gross muscle atrophy, no edema, no contractures. Neuro: Speech clear, face symmetrical and CN II-XII grossly intact with no noted focal neuro deficits Psych: Alert and oriented to person in place and confused to time and situation. Appropriate and pleasant affect. Assessment and Plan of Care: Staphylococcus aureus bacteremia Acute metabolic encephalopathy, likely multifactorial secondary to sepsis and hyponatremia on arrival Hyponatremia, secondary to poor oral intake Sepsis on arrival with tachycardia, altered mental status, pyrexia, and leukocytosis -Continue IV antibiotics with Rocephin 2 g daily. -Order placed for echocardiogram to rule out infective endocarditis -Consult placed to infectious disease -Nephrology following, reviewed documentation in chart. -Continue protein supplements 3 times daily between meals and Marinol 2.5 mg twice daily to help increase appetite. -CT brain reported ill-defined hypodensity in the left basal ganglia and rutherford ry radiata. MRI completed showing no evidence of intercranial mass, acute/subacute infarct, or abnormal enhancement revealing nonspecific white matter changes likely related to small vessel ischemic disease and trace bilateral mastoid air miracle effusion. -Neurology following, discussed plan of care with Dr. Britt. -Continue neurochecks every 4 hours and maintain fall precautions -Continue IV antibiotics with Rocephin pending urine culture and blood culture results secondary to altered mental status, tachycardia, pyrexia, and leukocytosis with left shift. Hypoglycemia - Hypoglycemia likely secondary to decreased oral intake and sepsis. -On arrival patient's blood glucose was 36. Patient was given dextrose resulting in improvement of hypoglycemia. Blood glucose checks were monitored closely throughout hospitalization patient has not had any further episodes of hypoglycemia at this time. Discontinued [id number] glucose checks this morning. Constipation - CT abdomen and pelvis showing moderate stool throughout colon. Patient reports increased abdominal distention. Discussed with patient and his at bedside we will start with a dose of lactulose and if no bowel movement by this afternoon we will place order for suppository and monitor for resolution. Stage IV metastatic lung cancer Transaminitis, CT revealed multiple liver lesions Normocytic anemia -Oncology following, discussed plan of care in detail with oncology [address]. Hypertension -Monitor vital signs and continue daily medication regimen with metoprolol 25 mg daily. Hyperlipidemia -Continue daily medication regimen with atorvastatin 80 mg nightly. BPH -Continue daily medication regimen with doxazosin 4 mg twice daily Anxiety with depression -Continue daily medication regimen with Wellbutrin 150 mg twice daily. Data and imaging reviewed: - Morning labs reviewed. CBC showing improvement in leukocytosis with WBC coun from initial 20.60 down to 12.91 this morning. Hemoglobin 9.1. BMP showing improvement of sodium to 131 this morning. Blood glucose 112. Magnesium 2.4. Procalcitonin is 5.18. - Vital signs reviewed. Blood pressure this morning at 97/61, heart rate 75, respiratory rate 20, 97.6 F, and SpO2 of 97% on room air. - MRI completed showing no evidence of intercranial mass, acute/subacute inf arct, or abnormal enhancement revealing nonspecific white matter changes likely related to small vessel ischemic disease and trace bilateral mastoid air miracle effusion. CODE STATUS: Full code DVT prophylaxis: Lovenox Discussed with: Patient, RN, neurologist, and oncology [address] Anticipated discharge date: Pending clinical course Anticipated discharge place: Pending clinical course Patient was seen independently by Nurse Pracitioner. This document was prepared using [employer] dictation software. Please allow for errors in silver steward, while rare they do occur. Rigoberto Singh NP rendered care for this patient independently, reviewed the findings and plan as documented in the note above and agree with plan. I did not physically speak with or examine the patient on this date. Objective - Vital Signs Vital signs: Vital Signs Temp 97.6 F 03/18/25 07:06 Pulse 75 03/18/25 07:06 Resp 20 03/18/25 07:06 BP 97/61 03/18/25 07:06 Pulse Ox 97 03/18/25 07:06 FiO2 Intake & Output 03/17/25 03/18/25 03/18/25 18:59 06:59 18:59 Intake Total 957 240 Output Total 300 Balance 657 240 Intake: Oral 957 240 Output: Urine 300 Other: Voiding Method Diaper Diaper External Catheter External Catheter # Voids 3 - Labs CBC & Chem 7: 03/18/25 05:47 03/18/25 05:47 Labs: Abnormal Lab Results - Last 24 Hours (Table) 03/17/25 03/17/25 03/17/25 Range/Units 04:37 12:43 17:14 Immature Gran # 0.32 H (0.00-0.04) X 10*3/uL Neutrophils # 14.49 H (1.80-7.70) X 10*3/uL Lymphocytes # 0.46 L (0.90-5.00) X 10*3/uL Monocytes # 2.10 H (0.20-1.00) X 10*3/uL Eosinophils # 0 L (0.04-0.35) X 10*3/uL Crenated Cell 2+ A (None Seen) POC Glucose (mg/dL) 190 H 167 H (70-110) mg/dL 03/17/25 03/18/25 03/18/25 Range/Units 21:10 01:20 05:14 Immature Gran # (0.00-0.04) X 10*3/uL Neutrophils # (1.80-7.70) X 10*3/uL Lymphocytes # (0.90-5.00) X 10*3/uL Monocytes # (0.20-1.00) X 10*3/uL Eosinophils # (0.04-0.35) X 10*3/uL Crenated Cell (None Seen) POC Glucose (mg/dL) 120 H 119 H 129 H (70-110) mg/dL Microbiology - Last 24 Hours (Table) 03/15/25 22:45 Blood Culture Gram Stain - Preliminary Blood Blood Culture - Preliminary Molecular ID 03/16/25 05:13 Urine Culture - Final Urine,Clean Catch
--- NOTE | 2025-03-18 17:33 | P.PN ---
Subjective Progress Note Date: 03/18/25 Principal diagnosis: AMS, hypoglycemia, Met NSCLC recent In f/u today patient is stable mental status guadalupe, his feels he is back to himself. No new c/o, denies fever, N,V. He has not had a BM Objective - Vital Signs Vital signs: Vital Signs Temp 97.9 F 03/18/25 12:21 Pulse 76 03/18/25 12:21 Resp 20 03/18/25 12:21 BP 111/65 03/18/25 12:21 Pulse Ox 97 03/18/25 12:21 FiO2 Intake & Output 03/17/25 03/18/25 03/18/25 18:59 06:59 18:59 Intake Total 957 240 530 Output Total 300 Balance 657 240 530 Intake: Intake, IV Titration 50 Amount cefTRIAXone 2 gm In 50 Dextrose 5% in Water 50 ml @ 100 mls/hr IVPB Q24H [facility] Rx#:[id number] Oral 957 240 480 Output: Urine 300 Other: Voiding Method Diaper Diaper Diaper External Catheter External Catheter External Catheter # Voids 3 - Constitutional General appearance: Present: average body habitus, cooperative, no acute distress - EENT Eyes: Present: anicteric sclerae, edentulous ENT: Present: hearing grossly normal - Respiratory Respiratory: bilateral: CTA - Cardiovascular Rhythm: regular - Peripheral edema leg Peripheral Edema: bilateral: None - Gastrointestinal General gastrointestinal: Present: soft - Neurologic Neurologic: Present: CNII-XII intact - Musculoskeletal Musculoskeletal: Present: strength equal bilaterally - Psychiatric Psychiatric: Present: A&O x's 3, appropriate affect, intact judgment & insight - Labs CBC & Chem 7: 03/18/25 05:47 03/18/25 05:47 Labs: Abnormal Lab Results - Last 24 Hours (Table) 03/17/25 03/17/25 03/18/25 Range/Units 17:14 21:10 01:20 WBC (4.50-10.00) X 10*3/uL RBC (4.40-5.60) X 10*6/uL Hgb (13.0-17.0) g/dL Hct (39.6-50.0) % RDW (11.5-14.5) % Sodium (135-145) mmol/L BUN (9.0-27.0) mg/dL BUN/Creatinine Ratio (12.00-20.00) Ratio Glucose (70-110) mg/dL POC Glucose (mg/dL) 167 H 120 H 119 H (70-110) mg/dL Calcium (8.7-10.3) mg/dL C-Reactive Protein (0.00-0.80) mg/dL Procalcitonin (0.02-0.50) ng/mL 03/18/25 03/18/25 03/18/25 Range/Units 05:14 05:47 05:47 WBC 12.91 H (4.50-10.00) X 10*3/uL RBC 3.18 L (4.40-5.60) X 10*6/uL Hgb 9.1 L (13.0-17.0) g/dL Hct 28.0 L (39.6-50.0) % RDW 16.0 H (11.5-14.5) % Sodium 131 L (135-145) mmol/L BUN 39.7 H (9.0-27.0) mg/dL BUN/Creatinine Ratio 56.71 H (12.00-20.00) Ratio Glucose 112 H (70-110) mg/dL POC Glucose (mg/dL) 129 H (70-110) mg/dL Calcium 8.4 L (8.7-10.3) mg/dL C-Reactive Protein 20.30 H (0.00-0.80) mg/dL Procalcitonin (0.02-0.50) ng/mL 03/18/25 03/18/25 Range/Units 05:47 10:08 WBC (4.50-10.00) X 10*3/uL RBC (4.40-5.60) X 10*6/uL Hgb (13.0-17.0) g/dL Hct (39.6-50.0) % RDW (11.5-14.5) % Sodium (135-145) mmol/L BUN (9.0-27.0) mg/dL BUN/Creatinine Ratio (12.00-20.00) Ratio Glucose (70-110) mg/dL POC Glucose (mg/dL) 200 H (70-110) mg/dL Calcium (8.7-10.3) mg/dL C-Reactive Protein (0.00-0.80) mg/dL Procalcitonin 5.18 H (0.02-0.50) ng/mL Microbiology - Last 24 Hours (Table) 03/15/25 22:45 Blood Culture Gram Stain - Preliminary Blood Blood Culture - Preliminary Molecular ID - Imaging and Cardiology CT scan - abdomen: report reviewed CT scan - pelvis: report reviewed MRI - head: report reviewed Assessment and Plan (1) Altered mental status Current Visit: Yes Status: Acute Code(s): R41.82 - ALTERED MENTAL STATUS, UNSPECIFIED SNOMED Code(s): 955014770 (2) Hypoglycemia Current Visit: Yes Status: Acute Code(s): E16.2 - HYPOGLYCEMIA, UNSPECIFIED SNOMED Code(s): 408692746 (3) Metastatic non-small cell lung cancer Current Visit: Yes Status: Chronic Priority: Medium Code(s): C34.90 - MALIGNANT NEOPLASM OF UNSP PART OF UNSP BRONCHUS OR LUNG SNOMED Code(s): 921960203 Plan: Altered mental status and hypoglycemia-blood cultures are positive -Hypoglycemia resolved -Patient mental status remains normal. Suspect likely related to hypoglycemia. BC are positive so, infection may have played a part as well. Pt on abx - MRI of the brain reported no evidence of metastatic disease. Reviewed with pt and -ID consulted Metastatic non-small cell lung cancer - Diagnosis and treatment as documented in consult -Recent progression of disease. CORRECTION: Patient has NOT started treatment with Cyramza and Taxotere, he was on the schedule to start 03/18/25 but, he has been inpt. His current condition not related to treatment as pt has not had treatment since Dec. -CT AP findings reporting worsening of disease is known. Pt treatment was recently changed, he has not started new treatment yet. - Treatment will be delayed until patient completely recovers from acute situation Severe hyponatremia - Likely secondary to malignancy, poor oral intake -Na+ improved to 131 today -Nephrology following patient CTAP reporting significant stool burden, pt is receiving treatment for that same
[2025-03-18] MEDS: bisacodyL 10 MG SUPP RECTAL STA (17:59)
[2025-03-19 08:21] LABS: HCT 26.4 % (39.6-50.0); HGB 8.4 g/dL (13.0-17.0); MCH 28.2 pg (27.0-32.0); MCHC 31.8 g/dL (32.0-37.0); MCV 88.6 FL (80.0-97.0); Mean Platelet Volume 10.1 FL (9.5-12.2); NRBC Per 100 WBC 0 X 10*3/uL (0.00-0.01); Platelet Count 243 X 10*3/uL (140-440); RBC 2.98 X 10*6/uL (4.40-5.60); RDW 16.1 % (11.5-14.5); WBC 11.59 X 10*3/uL (4.50-10.00)
[2025-03-19] MEDS: polyethylene glycoL 3350 17 GM POWD.PACK PO SCH (09:32)
[2025-03-19 10:27] LABS: Magnesium 2.3 mg/dL (1.5-2.4)
--- NOTE | 2025-03-19 10:33 | P.PN ---
Subjective Patient is seen in follow-up for hyponatremia. Sodium level improved to 131 as of yesterday. Oral intake is improved. No active complaints. Vital signs are stable. General: No acute distress. HEENT: Head exam is unremarkable. LUNGS: No audible rhonchi or wheezes. HEART: Rate and Rhythm are regular. ABDOMEN: Nontender. EXTREMITITES: No edema. Objective - Vital Signs Vital signs: Vital Signs Temp 97.7 F 03/19/25 07:46 Pulse 80 03/19/25 07:46 Resp 18 03/19/25 07:46 BP 130/68 03/19/25 07:46 Pulse Ox 97 03/19/25 07:46 FiO2 Intake & Output 03/18/25 03/19/25 03/19/25 18:59 06:59 18:59 Intake Total 530 1020 Balance 530 1020 Intake: Intake, IV Titration 50 Amount cefTRIAXone 2 gm In 50 Dextrose 5% in Water 50 ml @ 100 mls/hr IVPB Q24H [facility] Rx#:[id number] Oral 480 1020 Other: Voiding Method Diaper Diaper External Catheter # Voids 2 1 # Bowel Movements 1 - Labs CBC & Chem 7: 03/19/25 04:57 03/18/25 05:47 Labs: Abnormal Lab Results - Last 24 Hours (Table) 03/18/25 03/18/25 03/18/25 Range/Units 05:47 05:47 05:47 WBC 12.91 H (4.50-10.00) X 10*3/uL RBC 3.18 L (4.40-5.60) X 10*6/uL Hgb 9.1 L (13.0-17.0) g/dL Hct 28.0 L (39.6-50.0) % MCHC (32.0-37.0) g/dL RDW 16.0 H (11.5-14.5) % Sodium 131 L (135-145) mmol/L BUN 39.7 H (9.0-27.0) mg/dL BUN/Creatinine Ratio 56.71 H (12.00-20.00) Ratio Glucose 112 H (70-110) mg/dL Calcium 8.4 L (8.7-10.3) mg/dL C-Reactive Protein 20.30 H (0.00-0.80) mg/dL Procalcitonin 5.18 H (0.02-0.50) ng/mL 03/19/25 Range/Units 04:57 WBC 11.59 H (4.50-10.00) X 10*3/uL RBC 2.98 L (4.40-5.60) X 10*6/uL Hgb 8.4 L (13.0-17.0) g/dL Hct 26.4 L (39.6-50.0) % MCHC 31.8 L (32.0-37.0) g/dL RDW 16.1 H (11.5-14.5) % Sodium (135-145) mmol/L BUN (9.0-27.0) mg/dL BUN/Creatinine Ratio (12.00-20.00) Ratio Glucose (70-110) mg/dL Calcium (8.7-10.3) mg/dL C-Reactive Protein (0.00-0.80) mg/dL Procalcitonin (0.02-0.50) ng/mL Microbiology - Last 24 Hours (Table) 03/15/25 22:45 Blood Culture Gram Stain - Final Blood Blood Culture - Final Coagulase Negative Staph Micrococcus species Molecular ID Assessment and Plan Plan: Assessment: 1. Hyponatremia secondary to poor solute intake and further worsened with hypotonic fluids. Sodium level 131 yesterday. TSH normal. Urine sodium less than 20 and urine osmolality 432. 2. Stage IV lung cancer with metastatic disease. 3. Gram-positive bacteremia on antibiotics. Plan: Encouraged oral intake, particularly protein. Maintain fluid restriction. Preserved EF noted on echocardiogram. Morning labs pending.
[2025-03-19 10:41] LABS: ALT 62 U/L (10-49); AST 129 U/L (14-35); Albumin 2.5 g/dL (3.8-4.9); Albumin/Globulin Ratio 1.14 Ratio (1.60-3.17); Alkaline Phosphatase 359 U/L (41-126); BUN/Creat Ratio 38.86 Ratio (12.00-20.00); Blood Urea Nitrogen 27.2 mg/dL (9.0-27.0); Calcium 8.4 mg/dL (8.7-10.3); Carbon Dioxide 24.8 mmol/L (21.6-31.8); Chloride 97 mmol/L (96-109); Globulin 2.2 g/dL (1.6-3.3); Glucose 106 mg/dL (70-110); Potassium 4.9 mmol/L (3.5-5.5); Sodium 132 mmol/L (135-145); Total Bilirubin 0.3 mg/dL (0.3-1.2); Total Protein 4.7 g/dL (6.2-8.2)
--- NOTE | 2025-03-19 13:20 | P.PN ---
Subjective Progress Note Date: 03/19/25 Principal diagnosis: Reason for follow-up is fever/leukocytosis and positive blood culture Patient is a 74-year-old male with a past medical history significant for rheumatoid arthritis stage IV lung cancer BPH hypertension hyperlipidemia reflux presenting to the hospital for evaluation of mental status changes, patient did have a low-grade fever elevated white count probably this consultation. On today's evaluation that is 03/19/2025, patient has been afebrile, patient is breathing comfortably and is currently on room air, patient denies having any chest pain and cough, patient denies nausea vomiting or diarrhea and no abdominal pain did have bowel movement yesterday. Patient white count is down to 11.59 creatinine 0.7, blood cultures with coagulase-negative staph and micrococcus Objective - Vital Signs Vital signs: Vital Signs Temp 97.7 F 03/19/25 07:46 Pulse 80 03/19/25 07:46 Resp 18 03/19/25 07:46 BP 130/68 03/19/25 07:46 Pulse Ox 97 03/19/25 07:46 FiO2 Intake & Output 03/18/25 03/19/25 03/19/25 18:59 06:59 18:59 Intake Total 530 1020 Balance 530 1020 Intake: Intake, IV Titration 50 Amount cefTRIAXone 2 gm In 50 Dextrose 5% in Water 50 ml @ 100 mls/hr IVPB Q24H [facility] Rx#:[id number] Oral 480 1020 Other: Voiding Method Diaper Diaper External Catheter # Voids 2 1 # Bowel Movements 1 - Exam GENERAL DESCRIPTION: An elderly male lying in bed in no distress RESPIRATORY SYSTEM: Unlabored breathing , decreased breath sounds at bases HEART: S1 S2 regular rate and rhythm , ABDOMEN: Soft , no tenderness EXTREMITIES: No edema feet - Labs CBC & Chem 7: 03/19/25 04:57 03/19/25 04:57 Labs: Abnormal Lab Results - Last 24 Hours (Table) 03/19/25 03/19/25 Range/Units 04:57 04:57 WBC 11.59 H (4.50-10.00) X 10*3/uL RBC 2.98 L (4.40-5.60) X 10*6/uL Hgb 8.4 L (13.0-17.0) g/dL Hct 26.4 L (39.6-50.0) % MCHC 31.8 L (32.0-37.0) g/dL RDW 16.1 H (11.5-14.5) % Sodium 132 L (135-145) mmol/L BUN 27.2 H (9.0-27.0) mg/dL BUN/Creatinine Ratio 38.86 H (12.00-20.00) Ratio Calcium 8.4 L (8.7-10.3) mg/dL AST 129 H (14-35) U/L ALT 62 H (10-49) U/L Alkaline Phosphatase 359 H (41-126) U/L Total Protein 4.7 L (6.2-8.2) g/dL Albumin 2.5 L (3.8-4.9) g/dL Albumin/Globulin Ratio 1.14 L (1.60-3.17) Ratio Microbiology - Last 24 Hours (Table) 03/15/25 22:45 Blood Culture Gram Stain - Final Blood Blood Culture - Final Coagulase Negative Staph Micrococcus species Molecular ID Assessment and Plan (1) Fever Current Visit: Yes Status: Acute Code(s): R50.9 - FEVER, UNSPECIFIED SNOMED Code(s): 261969499 (2) Altered mental status Current Visit: Yes Status: Acute Code(s): R41.82 - ALTERED MENTAL STATUS, UNSPECIFIED SNOMED Code(s): 487391330 (3) Leukocytosis Current Visit: Yes Status: Acute Code(s): D72.829 - ELEVATED WHITE BLOOD CELL COUNT, UNSPECIFIED SNOMED Code(s): 901820727 (4) Positive blood culture Current Visit: Yes Status: Acute Code(s): R78.81 - BACTEREMIA SNOMED Code(s): 180659646 Plan: 1patient who did have low-grade fever elevated white count in this patient who did have metastatic lung cancer with mets to the liver and skeletal system presenting mostly with the abdominal pain and distention concerning for possible abdominal source for his fever and elevated white count with initial CAT scan done without any contrast that will limit the sensitivity of that testing 2patient did have CT of abdominal pelvis with contrast with evidence of multiple metastasis and some necrosis could be responsible for this elevated white count as well as low-grade fever 3patient did have positive blood culture staph epi and micrococcus more likely skin contamination blood culture has been repeated there is no need for vancomycin 4patient white count is trending down continue Rocephin to 2 g daily and Flagyl and hopefully finishing therapy with oral Ceftin and Flagyl Dictation was produced using [employer] dictation software. please excuse any grammatical, word or spelling errors. Time with Patient: Less than 30
[2025-03-19] MEDS: ZINC OXIDE PASTE (Z-GUARD) 1 APPLIC TOPICAL PRN (13:55)
--- NOTE | 2025-03-19 16:33 | P.PN ---
Subjective Progress Note Date: 03/19/25 Hospital Course: Patient is a 74-year-old male with a past medical history of stage IV metastatic lung cancer, hypertension, hyperlipidemia, BPH, and anxiety with depression. He presented to the hospital on 03/16/2025 secondary to concerns of weakness, confusion, and fever. Upon arrival per facility, patient underwent evaluation in the emergency department. Vital signs upon arrival show blood pressure 129/85, heart rate 104, respiratory rate 18, temp 97.9 F, and SpO2 of 98% on room air. Shortly after arrival temperature elevated to 100.0 F orally. EKG completed showing sinus tachycardia at 101 bpm with T wave inversion in inferior lead III otherwise no noted T wave or ST abnormality showing no signs of acute ischemia upon personal review and interpretation. CT brain completed showing an ill-defined hypodensity in the left basal ganglia and coronary radiata possibly secondary to acute ischemic change and chronic appearing periventricular white matter ischemic changes with age-related atrophy. Chest x-ray revealing fullne ss in the right suprahilar mediastinal region relates with patient's known lung cancer. Labs completed and reviewed. CBC showing leukocytosis with WBC count of 20.60 with a left shift with immature granulocytes of 0.65, neutrophils of 16.63, lymphocytes of 0.69, and monocytes of 2.38 and normocytic anemia with hemoglobin of 12.0. Coagulation profile normal findings. VBG showing pH of 7.42 with pCO2 of 37 and bicarb of 24. BMP showing hypochloremic hyponatremia with sodium 122 and chloride of 87, bicarb of 23 and elevated anion gap of 12. Blood glucose was 36. Liver profile showing hyperbilirubinemia with total bili of 1.6 and transaminitis with AST of 133, ALT of 31, and alkaline phosphatase of 287. Low total protein of 5.6 and albumin of 2.9. Urinalysis positive for protein, glucose, ketones, urine bilirubin, 19 RBCs, and [address] abdomen and pelvis showing multiple ill-defined hepatic masses with axial skeleton sclerotic lesions in the lower thoracic vertebral level and within the upper sacrum. Patient was admitted under services with consultation to neurology, nephrology, and oncology. Physical exam: Patient seen and fully evaluated at bedside this morning. He was visiting with at bedside. Patient's mentation continues to improve each day but states he is still not quite back to baseline but very close. Awaiting repeat blood cultures to result, discussed with patient and at bedside likely plan for discharge home tomorrow. Plan is for discharge home with home care. Patient did ambulate with PT this morning. Was able to ambulate through room with walker, recommended SNF for rehab, but patient and declined but are in agreement with home care and palliative care. Vital signs reviewed and stable. General: Nontoxic, no distress and appears stated age. Derm: Skin warm and dry, normal coloration for ethnicity. Head: Atraumatic, normocephalic and symmetric. Eyes: EOM's intact, no lid lag, and anicteric sclera Mouth: no lip lesions, mucus membranes moist Cardiovascular: regular rate and rhythm with normal S1S2, systolic murmur, positive posterior tibial pulses bilaterally, and cap refill < 2 seconds. Lungs: Respirations even, regular, and unlabored on room air. Lungs diminished with diffuse rhonchi. No wheezes, rales, or crackles. Abdominal: soft, nontender to palpation, no guarding, no appreciable organomegaly Ext: ROM intact. No gross muscle atrophy, no edema, no contractures. Neuro: Speech clear, face symmetrical and CN II-XII grossly intact with no noted focal neuro deficits Psych: Alert and oriented to person in place and confused to time and situation. Appropriate and pleasant affect. Assessment and Plan of Care: Staphylococcus aureus bacteremia Acute metabolic encephalopathy, likely multifactorial secondary to sepsis and hyponatremia on arrival Hyponatremia, secondary to poor oral intake Sepsis on arrival with tachycardia, altered mental status, pyrexia, and leukocytosis -Continue IV antibiotics with Rocephin 2 g daily. -Echocardiogram completed showing a preserved EF of 60% with mild mitral and tricuspid regurgitation no pulmonary hypertension, no pericardial effusion, and no reports of vegetative growth ruling out acute endocarditis. -Consult placed to infectious disease -Nephrology following, reviewed documentation in chart. -Continue protein supplements 3 times daily between meals and Marinol 2.5 mg twice daily to help increase appetite. -CT brain reported ill-defined hypodensity in the left basal ganglia and c oronary radiata. MRI completed showing no evidence of intercranial mass, acute/subacute infarct, or abnormal enhancement revealing nonspecific white matter changes likely related to small vessel ischemic disease and trace bilateral mastoid air miracle effusion. -Neurology following, discussed plan of care with Dr. Britt. -Continue neurochecks every 4 hours and maintain fall precautions Hypoglycemia - Hypoglycemia likely secondary to decreased oral intake and sepsis. -On arrival patient's blood glucose was 36. Patient was given dextrose resulting in improvement of hypoglycemia. Blood glucose checks were monitored closely throughout hospitalization patient has not had any further episodes of hypoglycemia at this time. Discontinued [id number] glucose checks this morning. Constipation - CT abdomen and pelvis showing moderate stool throughout colon. - Patient received one time dose of lactulose later followed by Dulcolax suppository resulting in successful bowel movements. Started on MiraLAX 17 g daily. Stage IV metastatic lung cancer Transaminitis, CT revealed multiple liver lesions Normocytic anemia -Oncology following, discussed plan of care in detail with oncology RF TECHNICIAN. Hypertension -Monitor vital signs and continue daily medication regimen with metoprolol 25 mg daily. Hyperlipidemia -Continue daily medication regimen with atorvastatin 80 mg nightly. BPH -Continue daily medication regimen with doxazosin 4 mg twice daily Anxiety with depression -Continue daily medication regimen with Wellbutrin 150 mg twice daily. Data and imaging reviewed: - Morning labs reviewed. CBC showing continued improvement of leukocytosis with WBC count of 11.59, hemoglobin 8.4. BMP showing sodium 132 renal function stable with BUN of 27.2, creatinine 0.7, GFR of 98. Blood glucose was 106. Magnesium 2.3. Liver profile continues to show transaminitis with AST of 129, ALT of 62, and alkaline phosphatase of 359. - Vital signs reviewed. Blood pressure 130/68, heart rate 80, respiratory rate 18, temp 97.7 F, and SpO2 of 97% on room air. Temperature high over the past 24 hours being 99.5 F. - Echocardiogram completed showing a preserved EF of 60% with mild mitral and tricuspid regurgitation no pulmonary hypertension, no pericardial effusion, and no reports of vegetative growth ruling out acute endocarditis. CODE STATUS: Full code DVT prophylaxis: Lovenox Discussed with: Patient, RN, neurologist, and oncology RF TECHNICIAN Anticipated discharge date: Pending clinical course Anticipated discharge place: Pending clinical course Patient was seen independently by Nurse Pracitioner. This document was prepared using [employer] dictation software. Please allow for errors in coremaker experimental, while rare they do occur. Rigoberto Singh, RF TECHNICIAN rendered care for this patient independently, reviewed the findings and plan as documented in the note above and agree with plan. I did not physically speak with or examine the patient on this date. Objective - Vital Signs Vital signs: Vital Signs Temp 97.7 F 03/19/25 07:46 Pulse 80 03/19/25 07:46 Resp 18 03/19/25 07:46 BP 130/68 03/19/25 07:46 Pulse Ox 97 03/19/25 07:46 FiO2 Intake & Output 03/18/25 03/19/25 03/19/25 18:59 06:59 18:59 Intake Total 530 1020 Balance 530 1020 Intake: Intake, IV Titration 50 Amount cefTRIAXone 2 gm In 50 Dextrose 5% in Water 50 ml @ 100 mls/hr IVPB Q24H [facility] Rx#:[id number] Oral 480 1020 Other: Voiding Method Diaper Diaper External Catheter # Voids 2 1 # Bowel Movements 1 - Labs CBC & Chem 7: 03/19/25 04:57 03/19/25 04:57 Labs: Abnormal Lab Results - Last 24 Hours (Table) 03/18/25 03/18/25 03/18/25 Range/Units 05:47 05:47 05:47 WBC 12.91 H (4.50-10.00) X 10*3/uL RBC 3.18 L (4.40-5.60) X 10*6/uL Hgb 9.1 L (13.0-17.0) g/dL Hct 28.0 L (39.6-50.0) % MCHC (32.0-37.0) g/dL RDW 16.0 H (11.5-14.5) % Sodium 131 L (135-145) mmol/L BUN 39.7 H (9.0-27.0) mg/dL BUN/Creatinine Ratio 56.71 H (12.00-20.00) Ratio Glucose 112 H (70-110) mg/dL POC Glucose (mg/dL) (70-110) mg/dL Calcium 8.4 L (8.7-10.3) mg/dL C-Reactive Protein 20.30 H (0.00-0.80) mg/dL Procalcitonin 5.18 H (0.02-0.50) ng/mL 03/18/25 03/19/25 Range/Units 10:08 04:57 WBC 11.59 H (4.50-10.00) X 10*3/uL RBC 2.98 L (4.40-5.60) X 10*6/uL Hgb 8.4 L (13.0-17.0) g/dL Hct 26.4 L (39.6-50.0) % MCHC 31.8 L (32.0-37.0) g/dL RDW 16.1 H (11.5-14.5) % Sodium (135-145) mmol/L BUN (9.0-27.0) mg/dL BUN/Creatinine Ratio (12.00-20.00) Ratio Glucose (70-110) mg/dL POC Glucose (mg/dL) 200 H (70-110) mg/dL Calcium (8.7-10.3) mg/dL C-Reactive Protein (0.00-0.80) mg/dL Procalcitonin (0.02-0.50) ng/mL Microbiology - Last 24 Hours (Table) 03/15/25 22:45 Blood Culture Gram Stain - Preliminary Blood Blood Culture - Preliminary Molecular ID
--- NOTE | 2025-03-20 13:15 | P.PN ---
Subjective Patient is seen for follow-up for hyponatremia. Sodium is improved to 132 today. No significant complaints except for pain. Objective - Vital Signs Vital signs: Vital Signs Temp 97.7 F 03/20/25 07:32 Pulse 77 03/20/25 07:32 Resp 18 03/20/25 07:32 BP 130/72 03/20/25 07:32 Pulse Ox 96 03/20/25 07:32 FiO2 Intake & Output 03/19/25 03/20/25 03/20/25 18:59 06:59 18:59 Intake Total 240 Output Total 240 Balance 240 -240 Intake: Oral 240 Output: Urine 240 Other: Voiding Method Diaper Urinal Urinal Diaper Diaper # Voids 3 3 # Bowel Movements 1 - Exam Patient is awake, comfortable, no acute distress Examination of the heart S1 and S2 Examination of the lungs bilateral breath sounds are heard Abdomen is soft nontender Examination lower extremity shows no significant edema - Labs CBC & Chem 7: 03/19/25 04:57 03/19/25 04:57 Labs: Microbiology - Last 24 Hours (Table) 03/18/25 09:33 Blood Culture - Preliminary Blood 03/15/25 22:45 Blood Culture Gram Stain - Final Blood Blood Culture - Final Coagulase Negative Staph Micrococcus species Molecular ID Assessment and Plan Assessment: 1. Hyponatremia secondary to poor solute intake and further worsened with hypotonic fluids. Sodium level 131 yesterday. TSH normal. Urine sodium less than 20 and urine osmolality 432. 2. Stage IV lung cancer with metastatic disease. 3. Gram-positive bacteremia on antibiotics. Plan: Encourage increase oral intake particularly protein. Maintain fluid restriction Repeat labs in a.m.
[2025-03-20 15:02] LABS: HCT 29.9 % (39.6-50.0); HGB 9.5 g/dL (13.0-17.0); MCH 28.2 pg (27.0-32.0); MCHC 31.8 g/dL (32.0-37.0); MCV 88.7 FL (80.0-97.0); Mean Platelet Volume 10.3 FL (9.5-12.2); NRBC Per 100 WBC 0 X 10*3/uL (0.00-0.01); Platelet Count 290 X 10*3/uL (140-440); RBC 3.37 X 10*6/uL (4.40-5.60); RDW 16.5 % (11.5-14.5); WBC 14.32 X 10*3/uL (4.50-10.00)
[2025-03-20 15:11] LABS: ALT 62 U/L (10-49); AST 106 U/L (14-35); Albumin 2.8 g/dL (3.8-4.9); Albumin/Globulin Ratio 1.04 Ratio (1.60-3.17); Alkaline Phosphatase 445 U/L (41-126); BUN/Creat Ratio 32.43 Ratio (12.00-20.00); Blood Urea Nitrogen 22.7 mg/dL (9.0-27.0); Calcium 8.9 mg/dL (8.7-10.3); Carbon Dioxide 24.6 mmol/L (21.6-31.8); Chloride 102 mmol/L (96-109); Globulin 2.7 g/dL (1.6-3.3); Glucose 103 mg/dL (70-110); Magnesium 2.1 mg/dL (1.5-2.4); Potassium 4.4 mmol/L (3.5-5.5); Sodium 138 mmol/L (135-145); Total Bilirubin 0.3 mg/dL (0.3-1.2); Total Protein 5.5 g/dL (6.2-8.2)
--- NOTE | 2025-03-20 17:19 | P.PN ---
Subjective Progress Note Date: 03/20/25 Hospital Course: Patient is a 74-year-old male with a past medical history of stage IV metastatic lung cancer, hypertension, hyperlipidemia, BPH, and anxiety with depression. He presented to the hospital on 03/16/2025 secondary to concerns of weakness, confusion, and fever. Upon arrival per facility, patient underwent evaluation in the emergency department. Vital signs upon arrival show blood pressure 129/85, heart rate 104, respiratory rate 18, temp 97.9 F, and SpO2 of 98% on room air. Shortly after arrival temperature elevated to 100.0 F orally. EKG completed showing sinus tachycardia at 101 bpm with T wave inversion in inferior lead III otherwise no noted T wave or ST abnormality showing no signs of acute ischemia upon personal review and interpretation. CT brain completed showing an ill-defined hypodensity in the left basal ganglia and coronary radiata possibly secondary to acute ischemic change and chronic appearing periventricular white matter ischemic changes with age-related atrophy. Chest x-ray revealing fullne ss in the right suprahilar mediastinal region relates with patient's known lung cancer. Labs completed and reviewed. CBC showing leukocytosis with WBC count of 20.60 with a left shift with immature granulocytes of 0.65, neutrophils of 16.63, lymphocytes of 0.69, and monocytes of 2.38 and normocytic anemia with hemoglobin of 12.0. Coagulation profile normal findings. VBG showing pH of 7.42 with pCO2 of 37 and bicarb of 24. BMP showing hypochloremic hyponatremia with sodium 122 and chloride of 87, bicarb of 23 and elevated anion gap of 12. Blood glucose was 36. Liver profile showing hyperbilirubinemia with total bili of 1.6 and transaminitis with AST of 133, ALT of 31, and alkaline phosphatase of 287. Low total protein of 5.6 and albumin of 2.9. Urinalysis positive for protein, glucose, ketones, urine bilirubin, 19 RBCs, and [address] abdomen and pelvis showing multiple ill-defined hepatic masses with axial skeleton sclerotic lesions in the lower thoracic vertebral level and within the upper sacrum. Patient was admitted under services with consultation to neurology, nephrology, and oncology. Physical exam: Patient seen and fully evaluated at bedside this morning. He was visiting with at bedside. Patient's mentation appears to be back at baseline. Discussed with patient and at bedside along with RN. Goal for today is to encourage increased ambulation as plan is for discharge home with home care. Possible plans for discharge tomorrow morning. Vital signs reviewed and stable. General: Nontoxic, no distress and appears stated age. Derm: Skin warm and dry, normal coloration for ethnicity. Head: Atraumatic, normocephalic and symmetric. Eyes: EOM's intact, no lid lag, and anicteric sclera Mouth: no lip lesions, mucus membranes moist Cardiovascular: regular rate and rhythm with normal S1S2, systolic murmur, positive posterior tibial pulses bilaterally, and cap refill < 2 seconds. Lungs: Respirations even, regular, and unlabored on room air. Lungs diminished with diffuse rhonchi. No wheezes, rales, or crackles. Abdominal: soft, nontender to palpation, no guarding, no appreciable organomegaly Ext: ROM intact. No gross muscle atrophy, no edema, no contractures. Neuro: Speech clear, face symmetrical and CN II-XII grossly intact with no noted focal neuro deficits Psych: Alert and oriented to person in place and confused to time and situation. Appropriate and pleasant affect. Assessment and Plan of Care: Staphylococcus aureus bacteremia Acute metabolic encephalopathy, likely multifactorial secondary to sepsis and hyponatremia on arrival Hyponatremia, secondary to poor oral intake Sepsis on arrival with tachycardia, altered mental status, pyrexia, and leukocytosis -Continue IV antibiotics with Rocephin 2 g daily. -Echocardiogram completed showing a preserved EF of 60% with mild mitral and tricuspid regurgitation no pulmonary hypertension, no pericardial effusion, and no reports of vegetative growth ruling out acute endocarditis. -Consult placed to infectious disease, discussed plan of care with Dr. Johnson. -Nephrology following, reviewed documentation in chart. -Continue protein supplements 3 times daily between meals and Marinol 2.5 mg twice daily to help increase appetite. -CT brain reported ill-defined hypodensity in the left basal ganglia and coronary radiata. MRI completed showing no evidence of intercranial mass, acute/subacute infarct, or abnormal enhancement revealing nonspecific white matter changes likely related to small vessel ischemic disease and trace bilateral mastoid air miracle effusion. -Neurology following, reviewed documentation in chart. -Continue neurochecks every 4 hours and maintain fall precautions. - Repeat blood cultures showing no growth to date. Hypoglycemia - Hypoglycemia likely secondary to decreased oral intake and sepsis. -On arrival patient's blood glucose was 36. Patient was given dextrose resulting in improvement of hypoglycemia. Blood glucose checks were monitored closely throughout hospitalization patient has not had any further episodes of hypoglycemia at this time. Discontinued [id number] glucose checks this morning. Constipation - CT abdomen and pelvis showing moderate stool throughout colon. - Patient received one time dose of lactulose later followed by Dulcolax suppository resulting in successful bowel movements. Continue MiraLAX 17 g daily. Stage IV metastatic lung cancer Transaminitis, CT revealed multiple liver lesions Normocytic anemia -Oncology following, discussed plan of care in detail with oncology TRIAGE SPECIALIST. Hypertension -Monitor vital signs and continue daily medication regimen with metoprolol 25 mg daily. Hyperlipidemia -Continue daily medication regimen with atorvastatin 80 mg nightly. BPH -Continue daily medication regimen with doxazosin 4 mg twice daily Anxiety with depression -Continue daily medication regimen with Wellbutrin 150 mg twice daily. Data and imaging reviewed: - Morning labs reviewed. CBC showing leukocytosis with WBC count of 14.32, hemoglobin 9.5. BMP unremarkable. Magnesium 2.1. Liver profile showing continued transaminitis with AST of 106, ALT of 62, and alkaline phosphatase of 445. - Vital signs reviewed. Blood pressure 130/72, heart rate 77, respiratory rate 18, temp 97.7 F, and SpO2 of 96% on room air. Temperature hide over the last 24 hours is 98.7. CODE STATUS: Full code DVT prophylaxis: Lovenox Discussed with: Patient, RN, Infectious Disease physician, and oncology TRIAGE SPECIALIST Anticipated discharge date: Pending clinical course, likely in the next [address]: home with Home care Patient was seen independently by Nurse Pracitioner. This document was prepared using [employer] dictation software. Please allow for errors in heel gouger, while rare they do occur. Rigoberto Singh NP rendered care for this patient independently, reviewed the findings and plan as documented in the note above and agree with plan. I did not physically speak with or examine the patient on this date. Objective - Vital Signs Vital signs: Vital Signs Temp 97.7 F 03/20/25 07:32 Pulse 77 03/20/25 07:32 Resp 18 03/20/25 07:32 BP 130/72 03/20/25 07:32 Pulse Ox 96 03/20/25 07:32 FiO2 Intake & Output 03/19/25 03/20/25 03/20/25 18:59 06:59 18:59 Intake Total 240 Output Total 240 Balance 240 -240 Intake: Oral 240 Output: Urine 240 Other: Voiding Method Diaper Urinal Diaper # Voids 3 3 # Bowel Movements 1 - Labs CBC & Chem 7: 03/20/25 06:47 03/20/25 06:47 Labs: Abnormal Lab Results - Last 24 Hours (Table) 03/19/25 Range/Units 04:57 Sodium 132 L (135-145) mmol/L BUN 27.2 H (9.0-27.0) mg/dL BUN/Creatinine Ratio 38.86 H (12.00-20.00) Ratio Calcium 8.4 L (8.7-10.3) mg/dL AST 129 H (14-35) U/L ALT 62 H (10-49) U/L Alkaline Phosphatase 359 H (41-126) U/L Total Protein 4.7 L (6.2-8.2) g/dL Albumin 2.5 L (3.8-4.9) g/dL Albumin/Globulin Ratio 1.14 L (1.60-3.17) Ratio Microbiology - Last 24 Hours (Table) 03/18/25 09:33 Blood Culture - Preliminary Blood 03/15/25 22:45 Blood Culture Gram Stain - Final Blood Blood Culture - Final Coagulase Negative Staph Micrococcus species Molecular ID
--- NOTE | 2025-03-21 10:39 | P.PN ---
Subjective Patient is seen for follow-up for hyponatremia. Sodium is improved to 138 today. No significant complaints. Objective - Vital Signs Vital signs: Vital Signs Temp 98.0 F 03/21/25 07:29 Pulse 86 03/21/25 07:29 Resp 18 03/21/25 07:29 BP 106/56 03/21/25 07:29 Pulse Ox 95 03/21/25 07:29 FiO2 Intake & Output 03/20/25 03/21/25 03/21/25 18:59 06:59 18:59 Intake Total 720 240 Output Total 700 480 Balance 20 -240 Intake: Oral 720 240 Output: Urine 700 480 Other: Voiding Method Urinal Urinal Urinal Diaper Diaper Diaper # Voids 2 - Exam Patient is awake, comfortable, no acute distress Examination of the heart S1 and S2 Examination of the lungs bilateral breath sounds are heard Abdomen is soft nontender Examination lower extremity shows no significant edema - Labs CBC & Chem 7: 03/20/25 06:47 03/20/25 06:47 Labs: Abnormal Lab Results - Last 24 Hours (Table) 03/20/25 03/20/25 Range/Units 06:47 06:47 WBC 14.32 H (4.50-10.00) X 10*3/uL RBC 3.37 L (4.40-5.60) X 10*6/uL Hgb 9.5 L (13.0-17.0) g/dL Hct 29.9 L (39.6-50.0) % MCHC 31.8 L (32.0-37.0) g/dL RDW 16.5 H (11.5-14.5) % BUN/Creatinine Ratio 32.43 H (12.00-20.00) Ratio AST 106 H (14-35) U/L ALT 62 H (10-49) U/L Alkaline Phosphatase 445 H (41-126) U/L Total Protein 5.5 L (6.2-8.2) g/dL Albumin 2.8 L (3.8-4.9) g/dL Albumin/Globulin Ratio 1.04 L (1.60-3.17) Ratio Microbiology - Last 24 Hours (Table) 03/18/25 09:33 Blood Culture - Preliminary Blood Assessment and Plan Assessment: 1. Hyponatremia secondary to poor solute intake and further worsened with hypotonic fluids. Sodium level 138 today. TSH normal. Urine sodium less than 20 and urine osmolality 432. 2. Stage IV lung cancer with metastatic disease. 3. Gram-positive bacteremia on antibiotics. Identification was coagulase- negative staph Plan: Encourage increase oral intake particularly protein. Maintain fluid restriction Stable for discharge from nephrology standpoint
--- NOTE | 2025-03-21 12:41 | P.PN ---
Subjective Progress Note Date: 03/20/25 Principal diagnosis: Reason for follow-up is fever/leukocytosis and positive blood culture Patient is a 74-year-old male with a past medical history significant for rheumatoid arthritis stage IV lung cancer BPH hypertension hyperlipidemia reflux presenting to the hospital for evaluation of mental status changes, patient did have a low-grade fever elevated white count probably this consultation. On today's evaluation that is 03/20/2025, Patient is afebrile this morning patient denies having any chest pain shortness of breath or cough, the patient is currently on room air, patient denies any abdominal pain no diarrhea no nausea no vomiting. Patient white count slightly up to 14.32 today creatinine 0.7 blood cultures been negative urine is negative Objective - Vital Signs Vital signs: Vital Signs Temp 97.8 F 03/20/25 20:00 Pulse 75 03/20/25 20:00 Resp 20 03/20/25 20:00 BP 116/66 03/20/25 20:00 Pulse Ox 96 03/20/25 20:00 FiO2 Intake & Output 03/20/25 03/20/25 03/21/25 06:59 18:59 06:59 Intake Total 720 Output Total 240 700 240 Balance -240 20 -240 Intake: Oral 720 Output: Urine 240 700 240 Other: Voiding Method Urinal Urinal Diaper Diaper # Voids 3 - Exam GENERAL DESCRIPTION: An elderly male lying in bed in no distress RESPIRATORY SYSTEM: Unlabored breathing , decreased breath sounds at bases HEART: S1 S2 regular rate and rhythm , ABDOMEN: Soft , no tenderness EXTREMITIES: No edema feet - Labs CBC & Chem 7: 03/20/25 06:47 03/20/25 06:47 Labs: Abnormal Lab Results - Last 24 Hours (Table) 03/20/25 03/20/25 Range/Units 06:47 06:47 WBC 14.32 H (4.50-10.00) X 10*3/uL RBC 3.37 L (4.40-5.60) X 10*6/uL Hgb 9.5 L (13.0-17.0) g/dL Hct 29.9 L (39.6-50.0) % MCHC 31.8 L (32.0-37.0) g/dL RDW 16.5 H (11.5-14.5) % BUN/Creatinine Ratio 32.43 H (12.00-20.00) Ratio AST 106 H (14-35) U/L ALT 62 H (10-49) U/L Alkaline Phosphatase 445 H (41-126) U/L Total Protein 5.5 L (6.2-8.2) g/dL Albumin 2.8 L (3.8-4.9) g/dL Albumin/Globulin Ratio 1.04 L (1.60-3.17) Ratio Microbiology - Last 24 Hours (Table) 03/18/25 09:33 Blood Culture - Preliminary Blood Assessment and Plan (1) Fever Current Visit: Yes Status: Acute Code(s): R50.9 - FEVER, UNSPECIFIED SNOMED Code(s): 291540304 (2) Altered mental status Current Visit: Yes Status: Acute Code(s): R41.82 - ALTERED MENTAL STATUS, UNSPECIFIED SNOMED Code(s): 937440072 (3) Leukocytosis Current Visit: Yes Status: Acute Code(s): D72.829 - ELEVATED WHITE BLOOD CELL COUNT, UNSPECIFIED SNOMED Code(s): 224929744 (4) Positive blood culture Current Visit: Yes Status: Acute Code(s): R78.81 - BACTEREMIA SNOMED Code(s): 173452696 Plan: 1patient who did have low-grade fever elevated white count in this patient who did have metastatic lung cancer with mets to the liver and skeletal system presenting mostly with the abdominal pain and distention concerning for possible abdominal source for his fever and elevated white count with initial CAT scan done without any contrast that will limit the sensitivity of that testing 2patient did have CT of abdominal pelvis with contrast with evidence of multi ple metastasis and some necrosis could be responsible for this elevated white count as well as low-grade fever 3patient did have positive blood culture staph epi and micrococcus more likely skin contamination blood culture has been repeated which has been negative so far no need for vancomycin 4patient white count is slightly up today we will monitor closely for now continue continue Rocephin to 2 g daily and Flagyl and monitor clinical course closely Dictation was produced using [employer] dictation software. please excuse any grammatical, word or spelling errors. Time with Patient: Less than 30
[2025-03-21] MEDS: PROCHLORPERAZINE INJ 10 MG/2 ML VIAL IVP PRN (12:55)
--- NOTE | 2025-03-21 15:33 | P.PN ---
Subjective Progress Note Date: 03/21/25 Hospital Course: Patient is a 74-year-old male with a past medical history of stage IV metastatic lung cancer, hypertension, hyperlipidemia, BPH, and anxiety with depression. He presented to the hospital on 03/16/2025 secondary to concerns of weakness, confusion, and fever. Upon arrival per facility, patient underwent evaluation in the emergency department. Vital signs upon arrival show blood pressure 129/85, heart rate 104, respiratory rate 18, temp 97.9 F, and SpO2 of 98% on room air. Shortly after arrival temperature elevated to 100.0 F orally. EKG completed showing sinus tachycardia at 101 bpm with T wave inversion in inferior lead III otherwise no noted T wave or ST abnormality showing no signs of acute ischemia upon personal review and interpretation. CT brain completed showing an ill-defined hypodensity in the left basal ganglia and coronary radiata possibly secondary to acute ischemic change and chronic appearing periventricular white matter ischemic changes with age-related atrophy. Chest x-ray revealing fullne ss in the right suprahilar mediastinal region relates with patient's known lung cancer. Labs completed and reviewed. CBC showing leukocytosis with WBC count of 20.60 with a left shift with immature granulocytes of 0.65, neutrophils of 16.63, lymphocytes of 0.69, and monocytes of 2.38 and normocytic anemia with hemoglobin of 12.0. Coagulation profile normal findings. VBG showing pH of 7.42 with pCO2 of 37 and bicarb of 24. BMP showing hypochloremic hyponatremia with sodium 122 and chloride of 87, bicarb of 23 and elevated anion gap of 12. Blood glucose was 36. Liver profile showing hyperbilirubinemia with total bili of 1.6 and transaminitis with AST of 133, ALT of 31, and alkaline phosphatase of 287. Low total protein of 5.6 and albumin of 2.9. Urinalysis positive for protein, glucose, ketones, urine bilirubin, 19 RBCs, and [address] abdomen and pelvis showing multiple ill-defined hepatic masses with axial skeleton sclerotic lesions in the lower thoracic vertebral level and within the upper sacrum. Patient was admitted under services with consultation to neurology, nephrology, and oncology. Physical exam: Patient seen and fully evaluated at bedside this morning. He was visiting with at bedside. Patient's mentation appears to remain at baseline at this time. He continues to have difficulties with weakness and unable to get out of bed without two-person assist per RN. Discussed with patient and at bedside. Patient adamant that he does not want to go to a [facility] facility, states that she is unable to help him or lift him at home. Discussed with patient and at bedside recommendations for consideration of rehab as discharged likely within the next 24 to 48 hours. Vital signs reviewed and stable. General: Nontoxic, no distress and appears stated age. Derm: Skin warm and dry, normal coloration for ethnicity. Head: Atraumatic, normocephalic and symmetric. Eyes: EOM's intact, no lid lag, and anicteric sclera Mouth: no lip lesions, mucus membranes moist Cardiovascular: regular rate and rhythm with normal S1S2, systolic murmur, positive posterior tibial pulses bilaterally, and cap refill < 2 seconds. Lungs: Respirations even, regular, and unlabored on room air. Lungs diminished with diffuse rhonchi. No wheezes, rales, or crackles. Abdominal: soft, nontender to palpation, no guarding, no appreciable organomegaly Ext: ROM intact. No gross muscle atrophy, no edema, no contractures. Neuro: Speech clear, face symmetrical and CN II-XII grossly intact with no noted focal neuro deficits Psych: Alert and oriented to person, place, and situation. Only confused to time.. Appropriate and pleasant affect. Assessment and Plan of Care: Staphylococcus aureus bacteremia, possibly contaminant with repeat blood culture negative Acute metabolic encephalopathy, likely multifactorial secondary to sepsis and hyponatremia on arrival. Improved Hyponatremia, secondary to poor oral intake Sepsis on arrival with tachycardia, altered mental status, pyrexia, and leukocytosis -Continue IV antibiotics with Rocephin 2 g daily and Flagyl 500 mg p.o 3 times d aily. -Echocardiogram completed showing a preserved EF of 60% with mild mitral and tricuspid regurgitation no pulmonary hypertension, no pericardial effusion, and no reports of vegetative growth ruling out acute endocarditis. -Infectious disease following, reviewed documentation in chart. With repeat culture negative and increasing leukocytosis recommending continuing Rocephin and Flagyl. -Nephrology following, reviewed documentation in chart. -Continue protein supplements 3 times daily between meals and Marinol 2.5 mg twice daily to help increase appetite. -Neurology evaluated and cleared patient from their perspective for discharge. -Maintain fall precautions. -Repeat blood cultures showing no growth to date. Hypoglycemia - Hypoglycemia likely secondary to decreased oral intake and sepsis. -On arrival patient's blood glucose was 36. Patient was given dextrose resulting in improvement of hypoglycemia. Blood glucose checks were monitored closely throughout hospitalization patient has not had any further episodes of hypoglycemia at this time. Discontinued [id number] glucose checks this morning. Constipation - CT abdomen and pelvis showing moderate stool throughout colon. - Patient received one time dose of lactulose later followed by Dulcolax suppository resulting in successful bowel movements. Continue MiraLAX 17 g daily. Stage IV metastatic lung cancer Transaminitis, CT revealed multiple liver lesions Normocytic anemia -Oncology following, discussed plan of care in detail with oncology ENVIRONMENTAL HEALTH TECHNICIAN. Hypertension -Monitor vital signs and continue daily medication regimen with metoprolol 25 mg daily. Hyperlipidemia -Continue daily medication regimen with atorvastatin 80 mg nightly. BPH -Continue daily medication regimen with doxazosin 4 mg twice daily Anxiety with depression -Continue daily medication regimen with Wellbutrin 150 mg twice daily. Data and imaging reviewed: - Labs reviewed. CBC showing leukocytosis with WBC count of 14.32, hemoglobin 9.5. BMP unremarkable. Magnesium 2.1. Liver profile showing continued transaminitis with AST of 106, ALT of 62, and alkaline phosphatase of 445. - Vital signs reviewed. Blood pressure 106/56, heart rate 86, respiratory rate 18, temp 98.0 F, and SpO2 of 95% on room air. Temperature high over the past 24 hours was 98.7 F. CODE STATUS: Full code DVT prophylaxis: Lovenox Discussed with: Patient, RN, and oncology ENVIRONMENTAL HEALTH TECHNICIAN Anticipated discharge date: Pending clinical course, likely in the next [address]: home with Home care Patient was seen independently by Nurse Pracitioner. This document was prepared using [employer] dictation software. Please allow for errors in radiology transcriptionist, while rare they do occur. Rigoberto Singh NP rendered care for this patient independently, reviewed the fi ndings and plan as documented in the note above and agree with plan. I did not physically speak with or examine the patient on this date. Objective - Vital Signs Vital signs: Vital Signs Temp 98.0 F 03/21/25 07:29 Pulse 86 03/21/25 07:29 Resp 18 03/21/25 07:29 BP 106/56 03/21/25 07:29 Pulse Ox 95 03/21/25 07:29 FiO2 Intake & Output 03/20/25 03/21/25 03/21/25 18:59 06:59 18:59 Intake Total 720 240 Output Total 700 480 Balance 20 -240 Intake: Oral 720 240 Output: Urine 700 480 Other: Voiding Method Urinal Urinal Urinal Diaper Diaper Diaper # Voids 2 - Labs CBC & Chem 7: 03/20/25 06:47 03/20/25 06:47 Labs: Abnormal Lab Results - Last 24 Hours (Table) 03/20/25 03/20/25 Range/Units 06:47 06:47 WBC 14.32 H (4.50-10.00) X 10*3/uL RBC 3.37 L (4.40-5.60) X 10*6/uL Hgb 9.5 L (13.0-17.0) g/dL Hct 29.9 L (39.6-50.0) % MCHC 31.8 L (32.0-37.0) g/dL RDW 16.5 H (11.5-14.5) % BUN/Creatinine Ratio 32.43 H (12.00-20.00) Ratio AST 106 H (14-35) U/L ALT 62 H (10-49) U/L Alkaline Phosphatase 445 H (41-126) U/L Total Protein 5.5 L (6.2-8.2) g/dL Albumin 2.8 L (3.8-4.9) g/dL Albumin/Globulin Ratio 1.04 L (1.60-3.17) Ratio Microbiology - Last 24 Hours (Table) 03/18/25 09:33 Blood Culture - Preliminary Blood
--- NOTE | 2025-03-22 08:05 | P.PN ---
Subjective Progress Note Date: 03/21/25 Principal diagnosis: Reason for follow-up is fever/leukocytosis and positive blood culture Patient is a 74-year-old male with a past medical history significant for rheumatoid arthritis stage IV lung cancer BPH hypertension hyperlipidemia reflux presenting to the hospital for evaluation of mental status changes, patient did have a low-grade fever elevated white count probably this consultation. On today's evaluation that is 03/21/2025,the patient denies any fever or any chills, patient is breathing comfortably on room air, the patient denies chest pain shortness of breath and no significant cough, patient denies abdominal pain, no nausea vomiting or diarrhea. No new lab has been obtained today blood culture repeat has been negative Objective - Vital Signs Vital signs: Vital Signs Temp 98.0 F 03/21/25 07:29 Pulse 86 03/21/25 07:29 Resp 18 03/21/25 07:29 BP 106/56 03/21/25 07:29 Pulse Ox 95 03/21/25 07:29 FiO2 Intake & Output 03/20/25 03/21/25 03/21/25 18:59 06:59 18:59 Intake Total 720 240 Output Total 700 480 Balance 20 -240 Intake: Oral 720 240 Output: Urine 700 480 Other: Voiding Method Urinal Urinal Urinal Diaper Diaper Diaper # Voids 2 - Exam GENERAL DESCRIPTION: An elderly male lying in bed in no distress RESPIRATORY SYSTEM: Unlabored breathing , decreased breath sounds at bases HEART: S1 S2 regular rate and rhythm , ABDOMEN: Soft , no tenderness EXTREMITIES: No edema feet - Labs CBC & Chem 7: 03/20/25 06:47 03/20/25 06:47 Labs: Abnormal Lab Results - Last 24 Hours (Table) 03/20/25 03/20/25 Range/Units 06:47 06:47 WBC 14.32 H (4.50-10.00) X 10*3/uL RBC 3.37 L (4.40-5.60) X 10*6/uL Hgb 9.5 L (13.0-17.0) g/dL Hct 29.9 L (39.6-50.0) % MCHC 31.8 L (32.0-37.0) g/dL RDW 16.5 H (11.5-14.5) % BUN/Creatinine Ratio 32.43 H (12.00-20.00) Ratio AST 106 H (14-35) U/L ALT 62 H (10-49) U/L Alkaline Phosphatase 445 H (41-126) U/L Total Protein 5.5 L (6.2-8.2) g/dL Albumin 2.8 L (3.8-4.9) g/dL Albumin/Globulin Ratio 1.04 L (1.60-3.17) Ratio Microbiology - Last 24 Hours (Table) 03/18/25 09:33 Blood Culture - Preliminary Blood Assessment and Plan (1) Fever Current Visit: Yes Status: Acute Code(s): R50.9 - FEVER, UNSPECIFIED SNOMED Code(s): 780594598 (2) Altered mental status Current Visit: Yes Status: Acute Code(s): R41.82 - ALTERED MENTAL STATUS, UNSPECIFIED SNOMED Code(s): 778649500 (3) Leukocytosis Current Visit: Yes Status: Acute Code(s): D72.829 - ELEVATED WHITE BLOOD CELL COUNT, UNSPECIFIED SNOMED Code(s): 407633120 (4) Positive blood culture Current Visit: Yes Status: Acute Code(s): R78.81 - BACTEREMIA SNOMED Code(s): 145866240 Plan: 1patient who did have low-grade fever elevated white count in this patient who did have metastatic lung cancer with mets to the liver and skeletal system presenting mostly with the abdominal pain and distention concerning for possible abdominal source for his fever and elevated white count with initial CAT scan done without any contrast that will limit the sensitivity of that testing 2patient did have CT of abdominal pelvis with contrast with evidence of multiple metastasis and some necrosis could be responsible for this elevated white count as well as low-grade fever 3patient did have positive blood culture staph epi and micrococcus more likely skin contamination blood culture has been repeated which has been negative so far no need for vancomycin 4patient slowly feeling improvement, to continue continue Rocephin to 2 g daily and Flagyl and patient therapy with oral Ceftin and Flagyl Dictation was produced using [employer] dictation software. please excuse any grammatical, word or spelling errors. Time with Patient: Less than 30
[2025-03-22 08:35] LABS: HCT 29.6 % (39.6-50.0); HGB 9.4 g/dL (13.0-17.0); MCH 28.5 pg (27.0-32.0); MCHC 31.8 g/dL (32.0-37.0); MCV 89.7 FL (80.0-97.0); Mean Platelet Volume 10.8 FL (9.5-12.2); NRBC Per 100 WBC 0 X 10*3/uL (0.00-0.01); Platelet Count 302 X 10*3/uL (140-440); RDW 16.9 % (11.5-14.5); WBC 11.41 X 10*3/uL (4.50-10.00)
[2025-03-22 09:43] LABS: ALT 49 U/L (10-49); AST 94 U/L (14-35); Albumin 2.5 g/dL (3.8-4.9); Albumin/Globulin Ratio 0.93 Ratio (1.60-3.17); Alkaline Phosphatase 403 U/L (41-126); Blood Urea Nitrogen 24.8 mg/dL (9.0-27.0); Calcium 8.3 mg/dL (8.7-10.3); Chloride 101 mmol/L (96-109); Globulin 2.7 g/dL (1.6-3.3); Glucose 87 mg/dL (70-110); Potassium 4.8 mmol/L (3.5-5.5); Sodium 134 mmol/L (135-145); Total Bilirubin 0.4 mg/dL (0.3-1.2); Total Protein 5.2 g/dL (6.2-8.2)
--- NOTE | 2025-03-22 12:07 | P.DS ---
Providers Date of admission: 03/16/25 00:04 Expected date of discharge: 03/22/25 Attending physician: Gena Jo MD Consults: 03/16/25 08:10 Consult Physician Routine Consulting Provider: King Stephenson Consult Reason/Comments: metastatic lung cancer, weakness Do you want consulting provider notified?: Yes 03/16/25 10:26 Consult Physician Routine Consulting Provider: Dominick Dean Consult Reason/Comments: hyponatremia Do you want consulting provider notified?: Yes 03/16/25 12:21 Consult Physician Routine Consulting Provider: Ashok Britt Consult Reason/Comments: confusion, ill defined hypodensity Do you want consulting provider notified?: Yes 03/17/25 15:53 Consult Physician Routine Consulting Provider: Huseyin Johnson Consult Reason/Comments: leukocytosis, fever, unclear source Do you want consulting provider notified?: Yes Primary care physician: Reji Nina MD Hospital Course: Discharge Diagnosis: Positive blood culture, coagulase-negative staph, possibly contaminant. Repeat blood culture negative. Echocardiogram completed showing a preserved EF of 60% with mild mitral and tricuspid regurgitation no pulmonary hypertension, no pericardial effusion, and no reports of vegetative growth ruling out acute endocarditis. Secondary to persistent leukocytosis and recurrent fevers patient received IV antibiotics with Rocephin and Flagyl and per infectious diseases being discharged home on an additional 5-day course of Ceftin 500 mg twice daily and Flagyl 500 mg every 8 hours x 5 days. Acute metabolic encephalopathy, likely multifactorial secondary to sepsis and hyponatremia on arrival. Improved with mentation back at baseline. Hyponatremia, secondary to poor oral intake. Sodium 134 on discharge Sepsis on arrival with tachycardia, altered mental status, pyrexia, and leuk ocytosis Hypoglycemia upon arrival, secondary to decreased oral intake and sepsis. Resolved with no further episodes. Patient was started on Marinol 2.5 mg twice daily which successfully resulted in improvement of appetite. Constipation. CT abdomen and pelvis showing moderate stool throughout colon. Patient received one time dose of lactulose later followed by Dulcolax suppository resulting in successful bowel movements. Continue MiraLAX 17 g daily. Stage IV metastatic lung cancer. Patient to follow-up outpatient with Dr. Holly for initiation of treatment as they discussed. Transaminitis, CT revealed multiple liver lesions Normocytic anemia Hypertension. Continue daily medication regimen with metoprolol 25 mg daily. Hyperlipidemia. Continue daily medication regimen with atorvastatin 80 mg nightly. BPH. Continue daily medication regimen with doxazosin 4 mg twice daily Anxiety with depression. Continue daily medication regimen with Wellbutrin 150 mg twice daily. Hospital Course: Patient is a 74-year-old male with a past medical history of stage IV metastatic lung cancer, hypertension, hyperlipidemia, BPH, and anxiety with depression. He presented to the hospital on 03/16/2025 secondary to concerns of weakness, confusion, and fever. Upon arrival per facility, patient underwent evaluation in the emergency department. Vital signs upon arrival show blood pressure 129/85, heart rate 104, respiratory rate 18, temp 97.9 F, and SpO2 of 98% on room air. Shortly after arrival temperature elevated to 100.0 F orally. EKG completed showing sinus tachycardia at 101 bpm with T wave inversion in inferior lead III otherwise no noted T wave or ST abnormality showing no signs of acute ischemia upon personal review and interpretation. CT brain completed showing an ill-defined hypodensity in the left basal ganglia and coronary radiata possibly secondary to acute ischemic change and chronic appearing periventricular white matter ischemic changes with age-related atrophy. Chest x-ray revealing f ullness in the right suprahilar mediastinal region relates with patient's known lung cancer. Labs completed and reviewed. CBC showing leukocytosis with WBC count of 20.60 with a left shift with immature granulocytes of 0.65, neutrophils of 16.63, lymphocytes of 0.69, and monocytes of 2.38 and normocytic anemia with hemoglobin of 12.0. Coagulation profile normal findings. VBG showing pH of 7.42 with pCO2 of 37 and bicarb of 24. BMP showing hypochloremic hyponatremia with sodium 122 and chloride of 87, bicarb of 23 and elevated anion gap of 12. Blood glucose was 36. Liver profile showing hyperbilirubinemia with total bili of 1.6 and transaminitis with AST of 133, ALT of 31, and alkaline phosphatase of 287. Low total protein of 5.6 and albumin of 2.9. Urinalysis positive for protein, glucose, ketones, urine bilirubin, 19 RBCs, and [address] abdomen and pelvis showing multiple ill-defined hepatic masses with axial skeleton sclerotic lesions in the lower thoracic vertebral level and within the upper sacrum. Patient was admitted under services with consultation to neurology, nephrology, and oncology. Mentation slowly improved daily. Hyponatremia improved with sodium of 134 on discharge. Patient was started on Marinol 2.5 mg twice daily which successfully resulted in improvement of appetite and good oral intake. Positive blood culture, coagulase-negative staph, possibly contaminant. Repeat blood culture negative. Echocardiogram completed showing a preserved EF of 60% with mild mitral and tricuspid regurgitation no pulmonary hypertension, no pericardial effusion, and no reports of vegetative growth ruling out acute endocarditis. Secondary to persistent leukocytosis and recurrent fevers patient received IV antibiotics with Rocephin and Flagyl and per infectious diseases being discharged home on an additional 5-day course of Ceftin 500 mg twice daily and Flagyl 500 mg every 8 hours x 5 days. Physical exam: Vital signs reviewed and stable. General: Nontoxic, no distress and appears stated age. Derm: Skin warm and dry, normal coloration for ethnicity. Head: Atraumatic, normocephalic and symmetric. Eyes: EOM's intact, no lid lag, and anicteric sclera Mouth: no lip lesions, mucus membranes moist Cardiovascular: regular rate and rhythm with normal S1S2, systolic murmur, positive posterior tibial pulses bilaterally, and cap refill < 2 seconds. Lungs: Respirations even, regular, and unlabored on room air. Lungs diminished with diffuse rhonchi. No wheezes, rales, or crackles. Abdominal: soft, nontender to palpation, no guarding, no appreciable organomegaly Ext: ROM intact. No gross muscle atrophy, no edema, no contractures. Neuro: Speech clear, face symmetrical and CN II-XII grossly intact with no noted focal neuro deficits Psych: Alert and oriented to person, place, and situation. Only confused to time.. Appropriate and pleasant affect. A total of 37 minutes of time were spent preparing this complex discharge summary. Pt was discharged on 03/22/2025 at 11:54 AM Patient was seen independently by Nurse Practitioner. This document was prepared using [employer] dictation software. Please allow for errors in luncheonette operator while rare they do occur. Rigoberto Singh NP rendered care for this patient independently, reviewed the findings and plan as documented in the note above. I did not physically speak with or examine the patient on this date. Patient Condition at Discharge: Stable Plan - Discharge Summary Discharge Rx Participant: Yes New Discharge Prescriptions: New cefuroxime axetiL [Ceftin] 500 mg PO BID 5 Days #10 tab metroNIDAZOLE [Flagyl] 500 mg PO TID 5 Days #15 tab droNABinol [Marinol] 2.5 mg PO AC-BID 30 Days #60 cap polyethylene glycoL 3350 [Miralax] 17 gm PO DAILY 30 Days #30 packet Continue Omeprazole [PriLOSEC] 20 mg PO BID Metoprolol Succinate 25 mg PO DAILY@0730 Folic Acid 1 mg PO DAILY@0730 calcitrioL 0.25 mcg PO FONTENOT Gabapentin [Neurontin] 800 mg PO TID@0730,1500,1900 Doxazosin [Cardura] 4 mg PO BID@07,1900 Calcium Carbonate/Vitamin D3 [Calcium 600-Vit D3 5 Mcg (200 Iu)] 2 tab PO DAILY@07 predniSONE 5 mg PO BID Hydrocortisone Cream [Hydrocortisone 2.5% Cream] 1 applic TOPICAL TID PRN PRN Reason: rash/itching Atorvastatin [Lipitor] 80 mg PO HS Butalbit/Acetamin/Caff/Codeine [Fioricet-Cod 97-017-45-30 Cap] 1 cap PO BID PRN PRN Reason: Migraine Headache Magnesium Oxide [Mag-Ox] 500 mg PO DAILY@0730 Latanoprost [Latanoprost 0.005%] 1 drop BOTH EYES HS oxyCODONE-APAP 10-325MG [Percocet 10-325 mg] 1 tab PO QID@0730,13,19,23 buPROPion SR [Wellbutrin SR] 150 mg PO BID@0730,1900 Potassium Chloride ER [K-Dur 10] 10 meq PO DAILY Calcium Ascorbate 500mg 500 mg PO DAILY@0730 Aspirin EC [Ecotrin Low Dose] 81 mg PO DAILY@0730 Metoclopramide HCl [Reglan] 10 mg PO AC-TID PRN PRN Reason: Nausea Ondansetron [Zofran] 4 - 8 mg PO Q4H PRN MDD 32 mg PRN Reason: Nausea Ferrous Sulfate [Iron (65 MG Elemental)] 325 mg PO Q48H Discontinued Zolpidem Tartrate [Ambien Cr] 12.5 mg PO HS PRN PRN Reason: Insomnia Discharge Medication List Folic Acid 1 mg PO DAILY@0730 08/30/14 [History] Gabapentin [Neurontin] 800 mg PO TID@0730,1500,1900 08/30/14 [History] Metoprolol Succinate 25 mg PO DAILY@72908/30/14 [History] Omeprazole [PriLOSEC] 20 mg PO BID 08/30/14 [History] calcitrioL 0.25 mcg PO FONTENOT 08/30/14 [History] Calcium Carbonate/Vitamin D3 [Calcium 600-Vit D3 5 Mcg (200 Iu)] 2 tab PO DAILY@72906/18/16 [History] Doxazosin [Cardura] 4 mg PO BID@729,189906/18/16 [History] buPROPion SR [Wellbutrin SR] 150 mg PO BID@729,189906/05/24 [History] Potassium Chloride ER [K-Dur 10] 10 meq PO DAILY 11/28/24 [History] Hydrocortisone Cream [Hydrocortisone 2.5% Cream] 1 applic TOPICAL TID PRN 12/23/24 [History] predniSONE 5 mg PO BID 12/23/24 [History] Aspirin EC [Ecotrin Low Dose] 81 mg PO DAILY@72902/25/25 [History] Atorvastatin [Lipitor] 80 mg PO HS 02/25/25 [History] Butalbit/Acetamin/Caff/Codeine [Fioricet-Cod 11-235-88-30 Cap] 1 cap PO BID PRN 02/25/25 [History] Calcium Ascorbate 500mg 500 mg PO DAILY@72902/25/25 [History] Ferrous Sulfate [Iron (65 MG Elemental)] 325 mg PO Q48H 02/25/25 [History] Latanoprost [Latanoprost 0.005%] 1 drop BOTH EYES HS 02/25/25 [History] Magnesium Oxide [Mag-Ox] 500 mg PO DAILY@72902/25/25 [History] Metoclopramide HCl [Reglan] 10 mg PO AC-TID PRN 02/25/25 [History] Ondansetron [Zofran] 4 - 8 mg PO Q4H PRN MDD 32 mg 02/25/25 [History] oxyCODONE-APAP 10-325MG [Percocet 10-325 mg] 1 tab PO QID@30,13,19,23 02/25/25 [History] cefuroxime axetiL [Ceftin] 500 mg PO BID 5 Days #10 tab 03/22/25 [Rx] droNABinol [Marinol] 2.5 mg PO AC-BID 30 Days #60 cap 03/22/25 [Rx] metroNIDAZOLE [Flagyl] 500 mg PO TID 5 Days #15 tab 03/22/25 [Rx] polyethylene glycoL 3350 [Miralax] 17 gm PO DAILY 30 Days #30 packet 03/22/25 [Rx] Follow up Appointment(s)/Referral(s): Alesia Holly MD [STAFF PHYSICIAN] - 03/26/25 11:30 am Reji Nina MD [Primary Care Provider] - 1-2 days (The office was closed for lunch please call and make follow up appointment.) [facility], [NON-STAFF] - 1 Week Activity/Diet/Wound Care/Special Instructions: Activity: As tolerated. Take breaks as needed. Diet: Heart healthy and carb consistent diet. Avoid salts, or foods with hidden salts such as canned or boxed foods and frozen dinners. Extra salt makes your heart work harder and traps the fluid in your body for longer. Special Instructions: Take all of your medications as directed and remember to keep all of your doctor's appointments and follow-up as needed. Recommend discontinuing Ambien and avoiding use of Ambien combined with your other medications you are currently on as this can cause increased confusion. This was held throughout hospitalization and mentation has improved and back to baseline. Recommend avoiding use of this medication in the future. Thank you for allowing us to participate in your care, it was truly a pleasure having you for our patient!!! Discharge Disposition: HOME WITH HOME HEALTH SERVICES
--- NOTE | 2025-03-22 12:53 | P.PN ---
Subjective Patient is seen for follow-up for hyponatremia. Sodium is 134 today No significant complaints. Objective - Vital Signs Vital signs: Vital Signs Temp 98.5 F 03/22/25 07:43 Pulse 80 03/22/25 07:43 Resp 16 03/22/25 07:43 BP 106/65 03/22/25 07:43 Pulse Ox 95 03/22/25 07:43 FiO2 Intake & Output 03/21/25 03/22/25 03/22/25 18:59 06:59 18:59 Intake Total 480 240 Output Total 400 250 Balance 80 240 -250 Intake: Oral 480 240 Output: Urine 400 250 Other: Voiding Method Urinal Urinal Urinal Diaper Diaper Diaper # Voids 1 2 # Bowel Movements 0 - Exam Patient is awake, comfortable, no acute distress Alert oriented x 3 No edema noted lower extremities Appears euvolemic - Labs CBC & Chem 7: 03/22/25 04:05 03/22/25 04:05 Labs: Abnormal Lab Results - Last 24 Hours (Table) 03/22/25 03/22/25 Range/Units 04:05 04:05 WBC 11.41 H (4.50-10.00) X 10*3/uL RBC 3.30 L (4.40-5.60) X 10*6/uL Hgb 9.4 L (13.0-17.0) g/dL Hct 29.6 L (39.6-50.0) % MCHC 31.8 L (32.0-37.0) g/dL RDW 16.9 H (11.5-14.5) % Sodium 134 L (135-145) mmol/L Carbon Dioxide 20.0 L (21.6-31.8) mmol/L Anion Gap 13.00 H (4.00-12.00) mmol/L BUN/Creatinine Ratio 31.00 H (12.00-20.00) Ratio Calcium 8.3 L (8.7-10.3) mg/dL AST 94 H (14-35) U/L Alkaline Phosphatase 403 H (41-126) U/L Total Protein 5.2 L (6.2-8.2) g/dL Albumin 2.5 L (3.8-4.9) g/dL Albumin/Globulin Ratio 0.93 L (1.60-3.17) Ratio Microbiology - Last 24 Hours (Table) 03/18/25 09:33 Blood Culture - Preliminary Blood Assessment and Plan Assessment: 1. Hyponatremia secondary to poor solute intake and further worsened with hypotonic fluids. Sodium level 134 today. TSH normal. Urine sodium less than 20 and urine osmolality 432. 2. Stage IV lung cancer with metastatic disease. 3. Gram-positive bacteremia on antibiotics. Identification was coagulase- negative staph Plan: Encourage increase oral intake particularly protein. Maintain fluid restriction Stable for discharge from nephrology standpoint
[2025-03-22 13:53] VITALS: BP 106/64; PULSE 71; RESP 18; TEMP 98
--- NOTE | 2025-03-22 16:33 | P.PN ---
Subjective Progress Note Date: 03/22/25 Principal diagnosis: AMS, hypoglycemia, Met NSCLC recent In f/u today patient is doing well, up in chair, denies F, N, pain, he is tolerating oral intake and fluids. He is ready to go home. Objective - Vital Signs Vital signs: Vital Signs Temp 98 F 03/22/25 13:52 Pulse 71 03/22/25 13:52 Resp 18 03/22/25 13:52 BP 106/64 03/22/25 13:52 Pulse Ox 97 03/22/25 13:52 FiO2 Intake & Output 03/21/25 03/22/25 03/22/25 18:59 06:59 18:59 Intake Total 480 240 Output Total 400 250 Balance 80 240 -250 Intake: Oral 480 240 Output: Urine 400 250 Other: Voiding Method Urinal Urinal Urinal Diaper Diaper Diaper # Voids 1 2 # Bowel Movements 0 - Constitutional General appearance: Present: average body habitus, cooperative, no acute distress - EENT Eyes: Present: anicteric sclerae, EOMI ENT: Present: hearing grossly normal - Respiratory Details: resp unlabored at rest - Peripheral edema leg Peripheral Edema: bilateral: None - Neurologic Neurologic: Present: CNII-XII intact - Musculoskeletal Musculoskeletal: Present: strength equal bilaterally - Psychiatric Psychiatric: Present: A&O x's 3, appropriate affect, intact judgment & insight - Labs CBC & Chem 7: 03/22/25 04:05 03/22/25 04:05 Labs: Abnormal Lab Results - Last 24 Hours (Table) 03/22/25 03/22/25 Range/Units 04:05 04:05 WBC 11.41 H (4.50-10.00) X 10*3/uL RBC 3.30 L (4.40-5.60) X 10*6/uL Hgb 9.4 L (13.0-17.0) g/dL Hct 29.6 L (39.6-50.0) % MCHC 31.8 L (32.0-37.0) g/dL RDW 16.9 H (11.5-14.5) % Sodium 134 L (135-145) mmol/L Carbon Dioxide 20.0 L (21.6-31.8) mmol/L Anion Gap 13.00 H (4.00-12.00) mmol/L BUN/Creatinine Ratio 31.00 H (12.00-20.00) Ratio Calcium 8.3 L (8.7-10.3) mg/dL AST 94 H (14-35) U/L Alkaline Phosphatase 403 H (41-126) U/L Total Protein 5.2 L (6.2-8.2) g/dL Albumin 2.5 L (3.8-4.9) g/dL Albumin/Globulin Ratio 0.93 L (1.60-3.17) Ratio Microbiology - Last 24 Hours (Table) 03/18/25 09:33 Blood Culture - Preliminary Blood Assessment and Plan (1) Altered mental status Status: Acute Code(s): R41.82 - ALTERED MENTAL STATUS, UNSPECIFIED SNOMED Code(s): 436315542 (2) Hypoglycemia Status: Acute Code(s): E16.2 - HYPOGLYCEMIA, UNSPECIFIED SNOMED Code(s): 284876762 (3) Metastatic non-small cell lung cancer Status: Chronic Priority: Medium Code(s): C34.90 - MALIGNANT NEOPLASM OF UNSP PART OF UNSP BRONCHUS OR LUNG SNOMED Code(s): 140145633 Plan: Altered mental status and hypoglycemia-blood cultures are positive -Hypoglycemia resolved -Patient mental status remains normal. Suspect likely related to hypoglycemia. BC were positive so, infection may have played a part as well. Pt on abx, additional abx on DC to complete course per ID - MRI of the brain reported no evidence of metastatic disease. Reviewed with pt and -ID has seen and treated pt Metastatic non-small cell lung cancer - Diagnosis and treatment as documented in consult -Recent progression of disease. CORRECTION: Patient has NOT started treatment with Cyramza and Taxotere, he was on the schedule to start 03/18/25 but, he has been inpt. His current condition not related to treatment as pt has not had treatment since Dec. -CT AP findings reporting worsening of disease is known. Pt treatment was recently changed, he has not started new treatment yet. - Treatment will be delayed until patient competes abx course -Onc RNs will contact pt to sched treatment Severe hyponatremia - Likely secondary to malignancy, poor oral intake -Na+ improved to 134 today -Nephrology following patient CTAP reporting significant stool burden, pt is receiving treatment for that same-BMs documented on the and
--- NOTE | 2025-03-23 13:48 | P.PN ---
Subjective Progress Note Date: 03/22/25 Principal diagnosis: Reason for follow-up is fever/leukocytosis and positive blood culture Patient is a 74-year-old male with a past medical history significant for rheumatoid arthritis stage IV lung cancer BPH hypertension hyperlipidemia reflux presenting to the hospital for evaluation of mental status changes, patient did have a low-grade fever elevated white count probably this consultation. On today's evaluation that is 03/22/2025,the patient remains to be afebrile, patient is on room air not requiring supplemental oxygen and denies any shortness of breath no chest pain or cough.Patient denies having any nausea or vomiting, no abdominal pain and no diarrhea has been reported Patient white count down to 11.41, creatinine 0.8 Objective - Vital Signs Vital signs: Vital Signs Temp 98.5 F 03/22/25 07:43 Pulse 80 03/22/25 07:43 Resp 16 03/22/25 07:43 BP 106/65 03/22/25 07:43 Pulse Ox 95 03/22/25 07:43 FiO2 Intake & Output 03/21/25 03/22/25 03/22/25 18:59 06:59 18:59 Intake Total 480 240 Output Total 400 Balance 80 240 Intake: Oral 480 240 Output: Urine 400 Other: Voiding Method Urinal Urinal Diaper Diaper # Voids 1 2 # Bowel Movements 0 - Exam GENERAL DESCRIPTION: An elderly male lying in bed in no distress RESPIRATORY SYSTEM: Unlabored breathing , decreased breath sounds at bases HEART: S1 S2 regular rate and rhythm , ABDOMEN: Soft , no tenderness EXTREMITIES: No edema feet - Labs CBC & Chem 7: 03/22/25 04:05 03/22/25 04:05 Labs: Microbiology - Last 24 Hours (Table) 03/18/25 09:33 Blood Culture - Preliminary Blood Assessment and Plan (1) Fever Status: Acute Code(s): R50.9 - FEVER, UNSPECIFIED SNOMED Code(s): 099980986 (2) Altered mental status Status: Acute Code(s): R41.82 - ALTERED MENTAL STATUS, UNSPECIFIED SNOMED Code(s): 773769067 (3) Leukocytosis Status: Acute Code(s): D72.829 - ELEVATED WHITE BLOOD CELL COUNT, UNSPECIFIED SNOMED Code(s): 627375394 (4) Positive blood culture Status: Acute Code(s): R78.81 - BACTEREMIA SNOMED Code(s): 548261847 Plan: 1patient who did have low-grade fever elevated white count in this patient who did have metastatic lung cancer with mets to the liver and skeletal system presenting mostly with the abdominal pain and distention concerning for possible abdominal source for his fever and elevated white count with initial CAT scan done without any contrast that will limit the sensitivity of that testing 2patient did have CT of abdominal pelvis with contrast with evidence of multiple metastasis and some necrosis could be responsible for this elevated white count as well as low-grade fever 3patient did have positive blood culture staph epi and micrococcus more likely skin contamination blood culture has been repeated which has been negative so far no need for vancomycin 4patient has shown clinical provide the patient white count is down to 11,000 patient to finish therapy with 7-day course of oral Ceftin and Flagyl discussed with the nursing staff Dictation was produced using [employer] dictation software. please excuse any grammatical, word or spelling errors. Time with Patient: Less than 30
== END 2025-03-22 14:48 | disposition home health service (06) | DRG 871 ==
LOC: EC 18:22 → 5NMEDONC 03-16 00:04
PROVIDERS: ADMIT Internal Medicine; ATTEND Internal Medicine
DX: A41.9 Sepsis, unspecified organism (principal); G93.41 Metabolic encephalopathy; C78.7 Secondary malignant neoplasm of liver and intrahepatic bile duct; C79.31 Secondary malignant neoplasm of brain; C34.90 Malignant neoplasm of unspecified part of unspecified bronchus or lung; Z51.5 Encounter for palliative care; D64.9 Anemia, unspecified; E86.0 Dehydration; C79.51 Secondary malignant neoplasm of bone; M06.9 Rheumatoid arthritis, unspecified; F32.A Depression, unspecified; I10 Essential (primary) hypertension; E87.1 Hypo-osmolality and hyponatremia; R65.20 Severe sepsis without septic shock; E78.5 Hyperlipidemia, unspecified; E87.8 Other disorders of electrolyte and fluid balance, not elsewhere classified; E16.2 Hypoglycemia, unspecified; F41.9 Anxiety disorder, unspecified; K59.00 Constipation, unspecified; N40.0 Benign prostatic hyperplasia without lower urinary tract symptoms; K21.9 Gastro-esophageal reflux disease without esophagitis; R59.0 Localized enlarged lymph nodes; Z79.52 Long term (current) use of systemic steroids; Z79.82 Long term (current) use of aspirin; Z79.891 Long term (current) use of opiate analgesic; Z79.899 Other long term (current) drug therapy; Z86.73 Personal history of transient ischemic attack (TIA), and cerebral infarction without residual deficits; Z87.891 Personal history of nicotine dependence; Z98.1 Arthrodesis status
CPT/HCPCS: 36415; 70450; 70553; 71046; 74176; 74177; 80048; 80053; 81001; 82140; 82533; 82803; 83605; 83735; 83930; 83935; 84100; 84145; 84295; 84300; 84443; 85025; 85027; 85610; 85730; 86140; 87040; 87086; 93005; 93306; 96365; 96375; 99285

== ENCOUNTER 2025-03-28 09:54 | Inpatient (IN) | payer MEDICARE ==
[2025-03-28 10:29] LABS: Glucose,Whole Blood 90 mg/dL (70-110)
--- NOTE | 2025-03-28 11:04 | ED ---
Weakness HPI - General Chief complaint: Weakness Stated complaint: weakness Time Seen by Provider: 03/28/25 10:33 Source: patient, RN notes reviewed Mode of arrival: wheelchair Limitations: no limitations - History of Present Illness Initial comments: 74-year-old male presents emergency department with family for evaluation of increasing weakness. Patient had a recent hospitalization and was discharged for similar reasons. Patient was found to have bacteremia and hyponatremia. Patient had very minimal oral intake. Patient does have known lung cancer with bony metastasis and liver metastasis. Patient's last chemo was 2 months ago in which they stopped secondary to not being effective. Patient then had any increasing weakness hospitalizations unable to start new chemo. That he is post start chemo upcoming week at has been so weak that he is unable to round with his any assistance. Patient has no complaints himself other than diffuse pain - Related Data Home Medications Medication Instructions Recorded Confirmed Folic Acid 1 mg PO DAILY@0708/30/14 03/28/25 Gabapentin [Neurontin] 800 mg PO TID@0730,1500,189908/30/14 03/28/25 Metoprolol Succinate 25 mg PO DAILY@72908/30/14 03/28/25 Omeprazole [PriLOSEC] 20 mg PO BID 08/30/14 03/28/25 calcitrioL 0.25 mcg PO FONTENOT 08/30/14 03/28/25 Calcium Carbonate/Vitamin D3 2 tab PO DAILY@0730 06/18/16 03/28/25 [Calcium 600-Vit D3 5 Mcg (200 Iu)] Doxazosin [Cardura] 4 mg PO BID@07,189906/18/16 03/28/25 buPROPion SR [Wellbutrin SR] 150 mg PO BID@0730,19006/05/24 03/28/25 Potassium Chloride ER [K-Dur 10] 10 meq PO DAILY 11/28/24 03/28/25 Hydrocortisone Cream 1 applic TOPICAL TID PRN 12/23/24 03/28/25 [Hydrocortisone 2.5% Cream] predniSONE 5 mg PO BID 12/23/24 03/28/25 Aspirin EC [Ecotrin Low Dose] 81 mg PO DAILY@0730 02/25/25 03/28/25 Atorvastatin [Lipitor] 80 mg PO HS 02/25/25 03/28/25 Butalbit/Acetamin/Caff/Codeine 1 cap PO BID PRN 02/25/25 03/28/25 [Fioricet-Cod 99-750-05-30 Cap] Calcium Ascorbate 500mg 500 mg PO DAILY@0730 02/25/25 03/28/25 Ferrous Sulfate [Iron (65 MG 325 mg PO Q48H 02/25/25 03/28/25 Elemental)] Latanoprost [Latanoprost 0.005%] 1 drop BOTH EYES HS 02/25/25 03/28/25 Magnesium Oxide [Mag-Ox] 500 mg PO DAILY@0730 02/25/25 03/28/25 Metoclopramide HCl [Reglan] 10 mg PO AC-TID PRN 02/25/25 03/28/25 Ondansetron [Zofran] 4 - 8 mg PO Q4H PRN MDD 32 mg 02/25/25 03/28/25 oxyCODONE-APAP 10-325MG [Percocet 1 tab PO QID@0730,13,19,23 02/25/25 03/28/25 10-325 mg] Prochlorperazine [Compazine] 10 mg PO Q6H PRN 03/28/25 03/28/25 Previous Rx's Medication Instructions Recorded droNABinol [Marinol] 2.5 mg PO AC-BID 30 Days #60 cap 03/22/25 polyethylene glycoL 3350 [Miralax] 17 gm PO DAILY 30 Days #30 packet 03/22/25 Allergies Allergy/AdvReac Type Severity Reaction Status Date / Time adhesive Allergy Rash/Hives Verified 03/28/25 14:34 - paper tape ok Review of Systems ROS Statement: Those systems with pertinent positive or pertinent negative responses have been documented in the HPI. ROS Other: All systems not noted in ROS Statement are negative. Past Medical History Past Medical History: Cancer, CVA/TIA, GERD/Reflux, Hyperlipidemia, Hypertension, Musculoskeletal Disorder, Prostate Disorder, Rheumatoid Arthritis (RA) Additional Past Medical History / Comment(s): Degenerative Disc Disease. Enlarged prostate. lung cancer stage 4, ?TIA History of Any Multi-Drug Resistant Organisms: None Reported Past Surgical History: Back Surgery, Orthopedic Surgery Additional Past Surgical History / Comment(s): Spinal fusion X2, laminectomy, BILATERAL TENNIS ELBOW SURGERY, LEFT HAND CARPAL TUNNEL SURGERY, TRIAL PAIN STIMULATORPLACED AND LATER REMOVED, Pain Procedures, bilateral cataracts removed. ankle repair, Past Anesthesia/Blood Transfusion Reactions: No Reported Reaction Past Psychological History: Anxiety, Depression Smoking Status: Former smoker Past Alcohol Use History: None Reported Past Drug Use History: Marijuana - Past Family History Sister(s) Family Medical History: Cancer Additional Family Medical History / Comment(s): LUNG CANCER. General Exam Limitations: no limitations General appearance: alert, in no apparent distress Head exam: Present: atraumatic, normocephalic, normal inspection Eye exam: Present: normal appearance, PERRL, EOMI. Absent: scleral icterus, conjunctival injection, periorbital swelling ENT exam: Present: normal exam, normal oropharynx, mucous membranes moist Neck exam: Present: normal inspection, full ROM. Absent: tenderness, meningismus, lymphadenopathy Respiratory exam: Present: normal lung sounds bilaterally. Absent: respiratory distress, wheezes, rales, rhonchi, stridor Cardiovascular Exam: Present: normal rhythm, bradycardia, normal heart sounds. Absent: systolic murmur, diastolic murmur, rubs, gallop, clicks GI/Abdominal exam: Present: soft, normal bowel sounds. Absent: distended, tenderness, guarding, rebound, rigid Course Vital Signs 03/28/25 03/28/25 03/28/25 10:25 12:20 13:00 Temperature 97.7 F Pulse Rate 55 L 51 L 53 L Respiratory 16 18 18 Rate Blood Pressure 85/40 119/58 103/49 O2 Sat by Pulse 97 95 95 Oximetry 03/28/25 03/28/25 14:00 15:00 Temperature Pulse Rate 58 L Respiratory 18 Rate Blood Pressure 114/78 93/50 O2 Sat by Pulse 94 L Oximetry EKG Findings - EKG Comments: EKG Findings:: EKG performed at 10: 51 bradycardia with a rate of 52 QRS 98 QT/QTc 460/441 - EKG Results: EKG: interpreted by [facility] Medical Decision Making - Medical Decision Making Was pt. sent in by a medical professional or institution (, PA, REGISTERED MEDICAL ASSISTANT, urgent care, hospital, or residential...) When possible be specific @ -No Did you speak to anyone other than the patient for history (EMS, parent, family, police, friend...)? What history was obtained from this source @ -Family providing past medical history and current complaint Did you review nursing and triage notes (agree or disagree)? Why? @ -I reviewed and agree with nursing and triage notes Were old charts reviewed (outside hosp., previous admission, EMS record, old EKG, old radiological studies, urgent care reports/EKG's, residential records)? Report findings @ -No old charts were reviewed Differential Diagnosis (chest pain, altered mental status, abdominal pain women, abdominal pain men, vaginal bleeding, weakness, fever, dyspnea, syncope, headache, dizziness, GI bleed, back pain, seizure, CVA, palpatations, mental health, musculoskeletal)? @ -Differential Weakness: Hypoglycemia, shock, sepsis, hyponatremia, anemia, infection, HI, ETOH, adverse medicine reaction, overdose, stroke, this is not meant to be an all-inclusive list. EKG interpreted by me (3pts min.). @ -As above X-rays interpreted by me (1pt min.). @ -Chest x-ray shows pulmonary mass consistent with prior CT interpreted by me (1pt min.). @ -None done U/S interpreted by me (1pt. min.). @ -None done What testing was considered but not performed or refused? (CT, X-rays, U/S, labs)? Why? @ -None What meds were considered but not given or refused? Why? @ -None Did you discuss the management of the patient with other professionals (professionals i.e. , PA, REGISTERED MEDICAL ASSISTANT, lab, RT, psych nurse, social media marketing manager, thread winder automatic, teacher, commercial credit officer, medical case worker)? Give summary @ -[Sound physician for admission Was smoking cessation discussed for >3mins.? @ -No Was critical care preformed (if so, how long)? @ -No Were there social determinants of health that impacted care today? How? (Homelessness, low income, unemployed, alcoholism, drug addiction, transportation, low edu. Level, literacy, decrease access to med. care, senior care, rehab)? @ -No Was there de-escalation of care discussed even if they declined (Discuss DNR or withdrawal of care, Hospice)? DNR status @ -No What co-morbidities impacted this encounter? (DM, HTN, Smoking, COPD, CAD, Cancer, CVA, ARF, Chemo, Hep., AIDS, mental health diagnosis, sleep apnea, morbid obesity)? @ -None Was patient admitted / discharged? Hospital course, mention meds given and route, prescriptions, significant lab abnormalities, going to OR and other pertinent info. @ -Admitted patient is found to have mild hyperglycemia, hyponatremia, dehydration and increased weakness. Patient be admitted for hydration, glucose monitoring and oncology evaluation. Undiagnosed new problem with uncertain prognosis? @ -No Drug Therapy requiring intensive monitoring for toxicity (Heparin, Nitro, Insulin, Cardizem)? @ -No Were any procedures done? @ -No Diagnosis/symptom? @ -Hyponatremia, lung cancer metastatic, dehydration, hypoglycemia Acute, or Chronic, or Acute on Chronic? @ -Acute Uncomplicated (without systemic symptoms) or Complicated (systemic symptoms)? @ -Uncomplicated Side effects of treatment? @ -No Exacerbation, Progression, or Severe Exacerbation? @ -No Poses a threat to life or bodily function? How? (Chest pain, USA, HI, pneumonia, PE, COPD, DKA, ARF, appy, cholecystitis, CVA, Diverticulitis, Homicidal, Suicidal, threat to staff... and all critical care pts) @ -Yes hyponatremia - Lab Data Result diagrams: 03/28/25 11:45 03/28/25 11:45 Lab Results 03/28/25 03/28/25 03/28/25 Range/Units 10:27 11:45 11:45 WBC 9.65 (4.50-10.00) 10*3/uL RBC 4.16 L (4.40-5.60) 10*6/uL Hgb 12.1 L (13.0-17.0) g/dL Hct 35.6 L (39.6-50.0) % MCV 85.6 (80.0-97.0) fL MCH 29.1 (27.0-32.0) pg MCHC 34.0 (32.0-37.0) g/dL Plt Count 335 (140-440) 10*3/uL MPV 9.8 (9.5-12.2) fL Immature Gran % (Auto) 3.3 % Neutrophils % 78.7 % Lymphocytes % 10.1 % Monocytes % 6.8 % Eosinophils % 0.5 % Basophils % 0.6 % Immature Gran # 0.32 H (0.00-0.04) 10*3/uL Neutrophils # 7.59 (1.80-7.70) 10*3/uL Lymphocytes # 0.97 (0.90-5.00) 10*3/uL Monocytes # 0.66 (0.20-1.00) 10*3/uL Eosinophils # 0.05 (0.04-0.35) 10*3/uL Basophils # 0.06 (0.00-0.10) 10*3/uL PT 11.3 (10.0-12.5) sec INR 1.0 (<1.2) APTT 25.8 (22.0-30.0) sec Sodium (137-145) mmol/L Potassium (3.5-5.1) mmol/L Chloride (98-107) mmol/L Carbon Dioxide (22-30) mmol/L Anion Gap mmol/L BUN (9-20) mg/dL Creatinine (0.66-1.25) mg/dL Est GFR (CKD-EPI)AfAm (>60 ml/min/1.73 sqM) Est GFR (CKD-EPI)NonAf (>60 ml/min/1.73 sqM) Glucose (74-99) mg/dL POC Glucose (mg/dL) 90 (70-110) mg/dL POC Glu Store Clerk Checker ID Afsaneh Shankar Plasma Lactic Acid Deepak (0.7-2.0) mmol/L Calcium (8.4-10.2) mg/dL Magnesium (1.6-2.3) mg/dL Total Bilirubin (0.2-1.3) mg/dL AST (17-59) U/L ALT (4-49) U/L Alkaline Phosphatase (38-126) U/L Troponin I (0.000-0.034) ng/mL Total Protein (6.3-8.2) g/dL Albumin (3.5-5.0) g/dL 03/28/25 03/28/25 03/28/25 Range/Units 11:45 11:45 11:45 WBC (4.50-10.00) 10*3/uL RBC (4.40-5.60) 10*6/uL Hgb (13.0-17.0) g/dL Hct (39.6-50.0) % MCV (80.0-97.0) fL MCH (27.0-32.0) pg MCHC (32.0-37.0) g/dL Plt Count (140-440) 10*3/uL MPV (9.5-12.2) fL Immature Gran % (Auto) % Neutrophils % % Lymphocytes % % Monocytes % % Eosinophils % % Basophils % % Immature Gran # (0.00-0.04) 10*3/uL Neutrophils # (1.80-7.70) 10*3/uL Lymphocytes # (0.90-5.00) 10*3/uL Monocytes # (0.20-1.00) 10*3/uL Eosinophils # (0.04-0.35) 10*3/uL Basophils # (0.00-0.10) 10*3/uL PT (10.0-12.5) sec INR (<1.2) APTT (22.0-30.0) sec Sodium 126 L (137-145) mmol/L Potassium 4.3 (3.5-5.1) mmol/L Chloride 103 (98-107) mmol/L Carbon Dioxide 21 L (22-30) mmol/L Anion Gap 2 mmol/L BUN 52 H (9-20) mg/dL Creatinine 1.76 H (0.66-1.25) mg/dL Est GFR (CKD-EPI)AfAm 44 (>60 ml/min/1.73 sqM) Est GFR (CKD-EPI)NonAf 38 (>60 ml/min/1.73 sqM) Glucose 55 L (74-99) mg/dL POC Glucose (mg/dL) (70-110) mg/dL POC Glu Store Clerk Checker ID Plasma Lactic Acid Deepak 1.6 (0.7-2.0) mmol/L Calcium 8.9 (8.4-10.2) mg/dL Magnesium 3.7 H (1.6-2.3) mg/dL Total Bilirubin 0.9 (0.2-1.3) mg/dL AST 152 H (17-59) U/L ALT 34 (4-49) U/L Alkaline Phosphatase 675 H (38-126) U/L Troponin I 0.025 (0.000-0.034) ng/mL Total Protein 6.0 L (6.3-8.2) g/dL Albumin 2.8 L (3.5-5.0) g/dL Disposition Clinical Impression: Dehydration, Altered mental status, Hyponatremia, Hypoglycemia, Metastatic non- small cell lung cancer Disposition: ADMITTED IP TO THIS HOSP Condition: Poor Time of Disposition: 13:50
[2025-03-28] MEDS: SODIUM CHLORIDE 0.9% 1,000 ML IV ONE (11:38)
[2025-03-28 11:58] LABS: Basophils # (A) 0.06 10*3/uL (0.00-0.10); Basophils % (A) 0.6 %; Eosinophils # (A) 0.05 10*3/uL (0.04-0.35); Eosinophils % (A) 0.5 %; HCT 35.6 % (39.6-50.0); HGB 12.1 g/dL (13.0-17.0); Lymphocytes # (A) 0.97 10*3/uL (0.90-5.00); Lymphocytes % (A) 10.1 %; MCH 29.1 pg (27.0-32.0); MCV 85.6 fL (80.0-97.0); Mean Platelet Volume 9.8 fL (9.5-12.2); Monocytes # (A) 0.66 10*3/uL (0.20-1.00); Monocytes % (A) 6.8 %; Neutrophils # (A) 7.59 10*3/uL (1.80-7.70); Neutrophils % (A) 78.7 %; Platelet Count 335 10*3/uL (140-440); RBC 4.16 10*6/uL (4.40-5.60); RDW 19.2 % (11.5-14.5); WBC 9.65 10*3/uL (4.50-10.00)
[2025-03-28 12:10] LABS: Partial Thromboplastin Time 25.8 sec (22.0-30.0); Prothrombin Time 11.3 sec (10.0-12.5)
[2025-03-28 12:12] LABS: ALT 34 U/L (4-49); AST 152 U/L (17-59); African American GFR (CKD) 44 (>60 ml/min/1.73 sqM); Albumin 2.8 g/dL (3.5-5.0); Alkaline Phosphatase 675 U/L (38-126); Anion Gap 2 mmol/L; Blood Urea Nitrogen 52 mg/dL (9-20); Calcium 8.9 mg/dL (8.4-10.2); Carbon Dioxide 21 mmol/L (22-30); Chloride 103 mmol/L (98-107); Glucose 55 mg/dL (74-99); Magnesium 3.7 mg/dL (1.6-2.3); Non-African American GFR(CKD) 38 (>60 ml/min/1.73 sqM); Potassium 4.3 mmol/L (3.5-5.1); Sodium 126 mmol/L (137-145); Total Bilirubin 0.9 mg/dL (0.2-1.3)
--- NOTE | 2025-03-28 12:39 | XR ---
Chest, 2 view. CLINICAL INDICATION: Male, 74 years old with history of Weakness COMPARISON: 03/15/2025 TECHNIQUE: PA and lateral views the chest are obtained. FINDINGS: There is no change in the masslike opacity in the right upper lobe medially. It is consistent with th e patient's known lung cancer. There is persistent scattered interstitial opacity in both lungs, right greater than left. There is n o new airspace consolidation. There is no pleural effusion or pneumothorax. The heart size is normal. The osseous structures are grossly intact. IMPRESSION: Stable right upper lobe lung mass and interstitial opacities. No new abnormality seen. Findings consi stent with the patient's known lung cancer. Refer to CT chest abdomen pelvis dated 01/20/2025 [facility], , 03/28/2025 12:36 PM
[2025-03-28] MEDS: SODIUM CHLORIDE 0.9% 1,000 ML IV SCH (13:07)
[2025-03-28] MEDS ORDERED: NALOXONE 0.4 MG/ML 1 ML VIAL IV PRN (13:51)
[2025-03-28] MEDS ORDERED: ONDANSETRON 4 MG/2 ML VIAL IVP PRN (13:51)
[2025-03-28] MEDS ORDERED: DEXTROSE 50% SYRINGE 50 ML IVP PRN ×2 (14:06)
[2025-03-28 14:26] LABS: Glucose,Whole Blood 136 mg/dL (70-110)
[2025-03-28] MEDS ORDERED: METOCLOPRAMIDE 10 MG TAB PO PRN (14:41)
[2025-03-28] MEDS ORDERED: BUTA/APAP/CAF/COD 50-325-40-30 CAP PO PRN (14:41)
[2025-03-28] MEDS ORDERED: PROCHLORPERAZINE 10 MG TAB PO PRN (14:42)
[2025-03-28] MEDS ORDERED: MORPHINE SULFATE 2 MG/ML SYRINGE IVP PRN (14:45)
--- NOTE | 2025-03-28 14:47 | P.HPIM ---
History of Present Illness H&P Date: 03/28/25 Patient is a 74-year-old male with past medical history of stage IV metastatic lung cancer, HTN, HLD, BPH, anxiety, depression, recurrent hyponatremia, recently discharged from our institution on 03/22 after being admitted for acute metabolic encephalopathy, multifactorial likely secondary to sepsis with no clear source, hyponatremia secondary to poor oral intake, hyperglycemia secondary to decreased oral intake. He presented to the ER on 03/28/2025 for increased weakness Patient has not been eating or drinking since his discharge, he was pretty much bedbound, needed lots of assistance admitted to move to the wheelchair, complaining of generalized bodyaches. Last bowel movement the day of discharge. We did extensively discuss with patient's and daughter who are at bedside his current medical condition, poor prognosis, they mentioned that patient wanted to continue chemotherapy treatment this is why they did not proceed with hospice at this time. We discussed that chemo is unlikely to be started as scheduled due to his very poor functional status, oral intake. They dem onstrated understanding, agreed to have hospice consulted. Discussed CODE STATUS, patient is DNR/DNI now. On admission afebrile, heart rate in 50s, BP soft 85/40, satting well on room air 97%. Lab work significant for normal WBC count, hemoglobin 12.1, up from 9.4 previously, likely hemoconcentration, normal platelet count, coagulation panel, sodium low 126, previously 134, potassium and chloride normal, bicarb 21, creatinine elevated at 1.76 with previously normal numbers, glucose low 55, mag nesium elevated 3.7, AST elevated 152, known to have elevated liver enzymes in the past, normal ALT 34, alkaline phosphatase elevated 675, previously at 403, troponin 0.0 25 Chest x-ray independently interpreted, interstitial opacities with right upper lung mass. EKG showed supraventricular bradycardia, QTc 441, no ST elevation. Pertinent positives and negatives as discussed in HPI, a complete review of systems was performed and all other systems are negative. Patient seen and examined at bedside. Vital signs reviewed General: Lethargic, chronically ill-appearing Derm: warm, dry Head: atraumatic, normocephalic, symmetric Eyes: EOMI, no lid lag, anicteric sclera, pupils equal round reactive to light ENT: Nose and ears atraumatic Neck: No thyromegaly, supple Mouth: no lip lesion, mucus membranes moist Cardiovascular: S1S2 reg, no murmur, no edema Lungs: Decreased air movement bilaterally no rhonchi, no rales, no wheeze, no accessory muscle use Abdominal: soft, nontender to palpation, no guarding, no appreciable organomegaly Neuro: CN II-XII grossly intact Psych: Alert, oriented, flat affect Assessment/Plan: Acute recurrent hyponatremia secondary to poor solute intake versus SIADH SUZI, prerenal Hypoglycemia secondary to poor oral intake - Given 1 L of NS bolus in the ER, continue NS at 75 cc/h -Urine sodium, urine osmolality, serum osmolality ordered and pending -Hypoglycemia precautions with Accu-Cheks -Protein shakes added to the diet -Nutrition consult, PT OT -Maintain fall precautions -Strict intake output -Timed BMP ordered, followed by daily BMP Constipation - Continue MiraLAX 17 g daily, Dulcolax suppository ordered, will try lactulose 30 once Stage IV metastatic lung cancer Transaminitis, CT revealed multiple liver lesions - Consulted oncology - Hospice consulted Hypertension, now hypotensive Bradycardia -Monitor vital signs and hold daily medication regimen with metoprolol 25 mg daily. - Continue telemetry Hyperlipidemia -Continue daily medication regimen with atorvastatin 80 mg nightly. BPH - Hold e daily medication regimen with doxazosin 4 mg twice daily Anxiety with depression -Continue daily medication regimen with Wellbutrin 150 mg twice daily. The patient is admitted with an anticipated greater than 2 midnight stay as inpatient status for evaluation of acute hyponatremia. CODE STATUS: No code DVT prophylaxis: Lovenox Anticipated discharge date: TBD Anticipated discharge place: [facility] A total of [] minutes was spent on the care of this complex patient more than 50% of the time was spent in counseling and care coordination. Past Medical History Past Medical History: Cancer, CVA/TIA, GERD/Reflux, Hyperlipidemia, Hypertension, Musculoskeletal Disorder, Prostate Disorder, Rheumatoid Arthritis (RA) Additional Past Medical History / Comment(s): Degenerative Disc Disease. Enlarged prostate. lung cancer stage 4, ?TIA History of Any Multi-Drug Resistant Organisms: None Reported Past Surgical History: Back Surgery, Orthopedic Surgery Additional Past Surgical History / Comment(s): Spinal fusion X2, laminectomy, BILATERAL TENNIS ELBOW SURGERY, LEFT HAND CARPAL TUNNEL SURGERY, TRIAL PAIN STIMULATORPLACED AND LATER REMOVED, Pain Procedures, bilateral cataracts removed. ankle repair, Past Anesthesia/Blood Transfusion Reactions: No Reported Reaction Past Psychological History: Anxiety, Depression Smoking Status: Former smoker Past Alcohol Use History: None Reported Past Drug Use History: Marijuana - Past Family History Sister(s) Family Medical History: Cancer Additional Family Medical History / Comment(s): LUNG CANCER. Medications and Allergies Home Medications Medication Instructions Recorded Confirmed Type Folic Acid 1 mg PO DAILY@0730 08/30/14 03/28/25 History Gabapentin [Neurontin] 800 mg PO TID@0730,1500,189908/30/14 03/28/25 History Metoprolol Succinate 25 mg PO DAILY@0708/30/14 03/28/25 History Omeprazole [PriLOSEC] 20 mg PO BID 08/30/14 03/28/25 History calcitrioL 0.25 mcg PO FONTENOT 08/30/14 03/28/25 History Calcium Carbonate/Vitamin D3 2 tab PO DAILY@0730 06/18/16 03/28/25 History [Calcium 600-Vit D3 5 Mcg (200 Iu)] Doxazosin [Cardura] 4 mg PO BID@0730,19006/18/16 03/28/25 History buPROPion SR [Wellbutrin SR] 150 mg PO BID@0730,1900 06/05/24 03/28/25 History Potassium Chloride ER [K-Dur 10] 10 meq PO DAILY 11/28/24 03/28/25 History Hydrocortisone Cream 1 applic TOPICAL TID PRN 12/23/24 03/28/25 History [Hydrocortisone 2.5% Cream] predniSONE 5 mg PO BID 12/23/24 03/28/25 History Aspirin EC [Ecotrin Low Dose] 81 mg PO DAILY@72902/25/25 03/28/25 History Atorvastatin [Lipitor] 80 mg PO HS 02/25/25 03/28/25 History Butalbit/Acetamin/Caff/Codeine 1 cap PO BID PRN 02/25/25 03/28/25 History [Fioricet-Cod 25-113-56-30 Cap] Calcium Ascorbate 500mg 500 mg PO DAILY@30 02/25/25 03/28/25 History Ferrous Sulfate [Iron (65 MG 325 mg PO Q48H 02/25/25 03/28/25 History Elemental)] Latanoprost [Latanoprost 0.005%] 1 drop BOTH EYES HS 02/25/25 03/28/25 History Magnesium Oxide [Mag-Ox] 500 mg PO DAILY@0730 02/25/25 03/28/25 History Metoclopramide HCl [Reglan] 10 mg PO AC-TID PRN 02/25/25 03/28/25 History Ondansetron [Zofran] 4 - 8 mg PO Q4H PRN MDD 32 mg 02/25/25 03/28/25 History oxyCODONE-APAP 10-325MG [Percocet 1 tab PO QID@0730,13,19,23 02/25/25 03/28/25 History 10-325 mg] droNABinol [Marinol] 2.5 mg PO AC-BID 30 Days #60 cap 03/22/25 03/28/25 Rx polyethylene glycoL 3350 [Miralax] 17 gm PO DAILY 30 Days #30 packet 03/22/25 03/28/25 Rx Prochlorperazine [Compazine] 10 mg PO Q6H PRN 03/28/25 03/28/25 History Allergies Allergy/AdvReac Type Severity Reaction Status Date / Time adhesive Allergy Rash/Hives Verified 03/28/25 14:34 - paper tape ok Physical Exam Vitals: Vital Signs Temp Pulse Resp BP Pulse Ox 03/28/25 12:20 51 L 18 119/58 95 03/28/25 10:25 97.7 F 55 L 16 85/40 97 Intake and Output 03/27/25 03/28/25 03/28/25 22:59 06:59 14:59 Other: Weight 63.957 kg Results CBC & Chem 7: 03/28/25 11:45 03/28/25 11:45 Labs: Abnormal Lab Results - Last 24 Hours (Table) 03/28/25 03/28/25 Range/Units 11:45 11:45 RBC 4.16 L (4.40-5.60) 10*6/uL Hgb 12.1 L (13.0-17.0) g/dL Hct 35.6 L (39.6-50.0) % Immature Gran # 0.32 H (0.00-0.04) 10*3/uL Sodium 126 L (137-145) mmol/L Carbon Dioxide 21 L (22-30) mmol/L BUN 52 H (9-20) mg/dL Creatinine 1.76 H (0.66-1.25) mg/dL Glucose 55 L (74-99) mg/dL Magnesium 3.7 H (1.6-2.3) mg/dL AST 152 H (17-59) U/L Alkaline Phosphatase 675 H (38-126) U/L Total Protein 6.0 L (6.3-8.2) g/dL Albumin 2.8 L (3.5-5.0) g/dL
[2025-03-28] MEDS: LACTULOSE 20 GM/30 ML CUP PO ONE (16:02)
[2025-03-28] MEDS: bisacodyL 10 MG SUPP RECTAL SCH (16:09)
[2025-03-28] MEDS: GABAPENTIN 400 MG CAP PO SCH (16:09)
[2025-03-28 16:28] LABS: Glucose,Whole Blood 155 mg/dL (70-110)
[2025-03-28 16:55] LABS: African American GFR (CKD) 51 (>60 ml/min/1.73 sqM); Anion Gap -1 mmol/L; Blood Urea Nitrogen 50 mg/dL (9-20); Carbon Dioxide 17 mmol/L (22-30); Chloride 109 mmol/L (98-107); Glucose 89 mg/dL (74-99); Non-African American GFR(CKD) 44 (>60 ml/min/1.73 sqM); Potassium 4.1 mmol/L (3.5-5.1); Sodium 125 mmol/L (137-145)
[2025-03-28 17:24] LABS: Appearance,Urine Clear (Clear); Bilirubin,Urine Negative (Negative); Blood,Urine Negative (Negative); Color,Urine Yellow; Glucose,Urine (UA) Negative (Negative); Ketones,Urine 1+ (Negative); Leukocyte Esterase,Urine Trace (Negative); Mucus,Urine Rare /hpf; Nitrite,Urine Negative (Negative); PH, Urine 5.5 (5.0-8.0); Protein,Urine Negative (Negative); Specific Gravity,Urine 1.019 (1.001-1.035); Urobilinogen,Urine <2.0 mg/dL (<2.0); WBC,Urine 4 /hpf (0-5)
[2025-03-28] MEDS: oxyCODONE-APAP 10-325MG 1 EACH TAB PO SCH (18:38)
[2025-03-28] MEDS: buPROPion SR 150 MG TABLET.ER PO SCH (18:38)
[2025-03-28] MEDS: droNABinol 2.5 MG CAP PO SCH (18:38)
[2025-03-28] MEDS ORDERED: DOXAZOSIN 4 MG TAB PO SCH (19:00)
[2025-03-28] MEDS: LATANOPROST 0.005% OPHTH DROPS 2.5 ML BTL BOTH EYES SCH (21:25)
[2025-03-28] MEDS: ATORVASTATIN 80 MG TAB PO SCH (21:27)
[2025-03-28] MEDS: PANTOPRAZOLE 40 MG TABLET PO SCH (21:27)
[2025-03-28] MEDS: predniSONE 5 MG TAB PO SCH (21:27)
[2025-03-28 22:57] LABS: African American GFR (CKD) 46 (>60 ml/min/1.73 sqM); Anion Gap -6 mmol/L; Blood Urea Nitrogen 49 mg/dL (9-20); Carbon Dioxide 23 mmol/L (22-30); Chloride 108 mmol/L (98-107); Glucose 62 mg/dL (74-99); Non-African American GFR(CKD) 40 (>60 ml/min/1.73 sqM); Potassium 4.1 mmol/L (3.5-5.1); Sodium 125 mmol/L (137-145)
[2025-03-29 01:39] LABS: Glucose,Whole Blood 74 mg/dL (70-110)
[2025-03-29 06:35] LABS: Glucose,Whole Blood 70 mg/dL (70-110)
[2025-03-29 08:19] VITALS: BP 103/56; PULSE 65; RESP 18; TEMP 97.8
[2025-03-29 08:27] LABS: Glucose,Whole Blood 69 mg/dL (70-110)
[2025-03-29] MEDS: FOLIC ACID 1 MG TAB PO SCH (09:51)
[2025-03-29] MEDS: polyethylene glycoL 3350 17 GM POWD.PACK PO SCH (09:51)
[2025-03-29] MEDS: ASPIRIN 81 MG PO SCH (09:53)
[2025-03-29] MEDS ORDERED: ZINC OXIDE PASTE (Z-GUARD) 1 APPLIC TOPICAL PRN (10:56)
[2025-03-29 13:19] VITALS: BMI 22.7
--- NOTE | 2025-03-29 13:25 | P.DS ---
Providers Date of admission: 03/28/25 13:46 Attending physician: Therese Cooper MD Consults: 03/28/25 13:51 Consult Physician Urgent Consulting Provider: King Stephenson Consult Reason/Comments: Metastatic lung cancer Do you want consulting provider notified?: Yes Primary care physician: Reji Nina MD Hospital Course: Discharge Diagnosis: Discharge home with hospice Acute recurrent hyponatremia secondary to poor solute intake versus SIADH SUZI, prerenal Constipation Stage IV metastatic lung cancer Transaminitis Hypertension, now hypotensive Bradycardia Hyperlipidemia BPH Hospital Course: Patient is a 74-year-old male with past medical history of stage IV metastatic lung cancer, HTN, HLD, BPH, anxiety, depression, recurrent hyponatremia, recently discharged from our institution on 03/22 after being admitted for acute metabolic encephalopathy, multifactorial likely secondary to sepsis with no clear source, hyponatremia secondary to poor oral intake, hyperglycemia secondary to decreased oral intake. He presented to the ER on 03/28/2025 for increased weakness Patient has not been eating or drinking since his discharge, he was pretty much bedbound, needed lots of assistance admitted to move to the wheelchair, complaining of generalized bodyaches. Last bowel movement the day of discharge. We did extensively discuss with patient's and daughter who are at bedside his current medical condition, poor prognosis, they mentioned that patient wanted to continue chemotherapy treatment this is why they did not proceed with hospice at this time. We discussed that chemo is unlikely to be started as scheduled due to his very poor functional status, oral intake. They demonstrated understanding, agreed to have hospice consulted. Discussed CODE STATUS, patient is DNR/DNI now. On admission afebrile, heart rate in 50s, BP soft 85/40, satting well on room air 97%. Lab work significant for normal WBC count, hemoglobin 12.1, up from 9.4 previously, likely hemoconcentration, normal platelet count, coagulation panel, sodium low 126, previously 134, potassium and chloride normal, bicarb 21, creatinine elevated at 1.76 with previously normal numbers, glucose low 55, magnesium elevated 3.7, AST elevated 152, known to have elevated liver enzymes in the past, normal ALT 34, alkaline phosphatase elevated 675, previously at 403, troponin 0.0 25 Chest x-ray independently interpreted, interstitial opacities with right upper lung mass. EKG showed supraventricular bradycardia, QTc 441, no ST elevation. Hospice meeting had place with final decision to be discharged home with hospice, discussed with hospice team, order placed on 03/29/2025 Patient seen and examined at bedside Vital signs reviewed and stable. General: Lethargic, chronically ill-appearing Derm: warm, dry Head: atraumatic, normocephalic, symmetric Eyes: EOMI, no lid lag, anicteric sclera, pupils equal round reactive to light ENT: Nose and ears atraumatic Neck: No thyromegaly, supple Mouth: no lip lesion, mucus membranes moist Cardiovascular: S1S2 reg, no murmur, no edema Lungs: Decreased air movement bilaterally no rhonchi, no rales, no wheeze, no accessory muscle use Abdominal: soft, nontender to palpation, no guarding, no appreciable organomegaly Neuro: CN II-XII grossly intact Psych: Lethargic, does not participate in conversation fully today A total of 40] minutes of time were spent preparing this complex discharge summary. Patient was discharged on 03/29/2025. Patient Condition at Discharge: Poor Plan - Discharge Summary Discharge Rx Participant: Yes New Discharge Prescriptions: No Action RX: Omeprazole [PriLOSEC] 20 mg PO BID RX: Metoprolol Succinate 25 mg PO DAILY@0730 RX: Folic Acid 1 mg PO DAILY@0730 RX: calcitrioL 0.25 mcg PO FONTENOT RX: Gabapentin [Neurontin] 800 mg PO TID@0730,1500,1900 RX: Doxazosin [Cardura] 4 mg PO BID@0730,1900 RX: Calcium Carbonate/Vitamin D3 [Calcium 600-Vit D3 5 Mcg (200 Iu)] 2 tab PO DAILY@0730 RX: predniSONE 5 mg PO BID RX: Hydrocortisone Cream [Hydrocortisone 2.5% Cream] 1 applic TOPICAL TID PRN PRN Reason: rash/itching RX: Atorvastatin [Lipitor] 80 mg PO HS RX: Butalbit/Acetamin/Caff/Codeine [Fioricet-Cod 69-173-29-30 Cap] 1 cap PO BID PRN PRN Reason: Migraine Headache RX: Magnesium Oxide [Mag-Ox] 500 mg PO DAILY@0730 RX: Latanoprost [Latanoprost 0.005%] 1 drop BOTH EYES HS RX: oxyCODONE-APAP 10-325MG [Percocet 10-325 mg] 1 tab PO QID@0730,13,19,23 Prochlorperazine [Compazine] 10 mg PO Q6H PRN PRN Reason: Nausea And Vomiting RX: buPROPion SR [Wellbutrin SR] 150 mg PO BID@0730,190 RX: Potassium Chloride ER [K-Dur 10] 10 meq PO DAILY Calcium Ascorbate 500mg 500 mg PO DAILY@729 RX: Aspirin EC [Ecotrin Low Dose] 81 mg PO DAILY@729 RX: Metoclopramide HCl [Reglan] 10 mg PO AC-TID PRN PRN Reason: Nausea RX: Ondansetron [Zofran] 4 - 8 mg PO Q4H PRN MDD 32 mg PRN Reason: Nausea RX: Ferrous Sulfate [Iron (65 MG Elemental)] 325 mg PO Q48H RX: droNABinol [Marinol] 2.5 mg PO AC-BID 30 Days #60 cap RX: polyethylene glycoL 3350 [Miralax] 17 gm PO DAILY 30 Days #30 packet Discharge Medication List RX: Folic Acid 1 mg PO DAILY@72908/30/14 [History] RX: Gabapentin [Neurontin] 800 mg PO TID@07,1500,189908/30/14 [History] RX: Metoprolol Succinate 25 mg PO DAILY@72908/30/14 [History] RX: Omeprazole [PriLOSEC] 20 mg PO BID 08/30/14 [History] RX: calcitrioL 0.25 mcg PO FONTENOT 08/30/14 [History] RX: Calcium Carbonate/Vitamin D3 [Calcium 600-Vit D3 5 Mcg (200 Iu)] 2 tab PO DAILY@72906/18/16 [History] RX: Doxazosin [Cardura] 4 mg PO BID@729,189906/18/16 [History] RX: buPROPion SR [Wellbutrin SR] 150 mg PO BID@729,189906/05/24 [History] RX: Potassium Chloride ER [K-Dur 10] 10 meq PO DAILY 11/28/24 [History] RX: Hydrocortisone Cream [Hydrocortisone 2.5% Cream] 1 applic TOPICAL TID PRN 12/23/24 [History] RX: predniSONE 5 mg PO BID 12/23/24 [History] Calcium Ascorbate 500mg 500 mg PO DAILY@72902/25/25 [History] RX: Aspirin EC [Ecotrin Low Dose] 81 mg PO DAILY@72902/25/25 [History] RX: Atorvastatin [Lipitor] 80 mg PO HS 02/25/25 [History] RX: Butalbit/Acetamin/Caff/Codeine [Fioricet-Cod 71-662-52-30 Cap] 1 cap PO BID PRN 02/25/25 [History] RX: Ferrous Sulfate [Iron (65 MG Elemental)] 325 mg PO Q48H 02/25/25 [History] RX: Latanoprost [Latanoprost 0.005%] 1 drop BOTH EYES HS 02/25/25 [History] RX: Magnesium Oxide [Mag-Ox] 500 mg PO DAILY@72902/25/25 [History] RX: Metoclopramide HCl [Reglan] 10 mg PO AC-TID PRN 02/25/25 [History] RX: Ondansetron [Zofran] 4 - 8 mg PO Q4H PRN MDD 32 mg 02/25/25 [History] RX: oxyCODONE-APAP 10-325MG [Percocet 10-325 mg] 1 tab PO QID@0730,13,19,23 02/25/25 [History] RX: droNABinol [Marinol] 2.5 mg PO AC-BID 30 Days #60 cap 03/22/25 [Rx] RX: polyethylene glycoL 3350 [Miralax] 17 gm PO DAILY 30 Days #30 packet 03/22/25 [Rx] Prochlorperazine [Compazine] 10 mg PO Q6H PRN 03/28/25 [History] Follow up Appointment(s)/Referral(s): Reji Nina MD [Primary Care Provider] - 1-2 days Discharge Disposition: HOME WITH HOSPICE
[2025-03-29] MEDS: SCOPOLAMINE 1 MG/72 HR PATCH TRANSDERM SCH (14:24)
[2025-03-29] MEDS: NYSTATIN 100,000 UNIT/GM POWD 15 GM TOPICAL SCH (14:25)
--- NOTE | 2025-03-29 20:46 | P.CONS ---
History of Present Illness - Reason for Consult Consult date: 03/29/25 lung cancer Requesting physician: William Mendez - Chief Complaint weakness - History of Present Illness Mr Somers a male pt of Dr. Stephenson initially seen in consult at [facility] on 02/19/24. He presented with c/o SOB, difficulty with inspiration, as well as upper abdominal pain. The patient has a long-standing history of active rheumatoid arthritis, and apparently the pain was attributed to the same. However it had gotten significantly worse over a few weeks. CTA was neg for PE but reported 4.2 cm right upper lobe mass, bilateral lung nodules, the lateral right middle lobe due to obstruction of the proximal bronchus by mass. Mediastinal adenopathy, including subcarinal, right hilar and left intralobar. There are also numerous masses throughout the liver, largest 6 cm in the inferior right lobe. There are also low density lesion seen in the spleen concerning for metastasis. CT AP confirmed multiple hepatic and splenic lesions concerning for metastasis, along with enlarged para-aortic lymphadenopathy. MRI of the brain was negative for metastatic disease. Whole-body bone scan showed some nonspecific uptake along the sternum, and the cervical and thoracic spine felt to be degenerative. 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 Biomarker testing showed no actionable mutations. Due to history of active Rheumatoid arthritis, immunotherapy was not recommended. The patient was started on carboplatin and Alimta on 03/27/24, completing 6 cycles 08/04 and was placed on maintenance alimta. Treatment had to beb interrupted whenhe suffered a major ankle fracture on the right, requiring open reduction and internal fixation. Treatment was held, until recovery was sufficient. The patient was cleared to start back on chemo by Orthopedic surgery 10/2024. He cont on treatment until CT scans in 01/2025 raised the possibility of progression. As the findings are not definitive, it was decided to do a PET scan after a few weeks of steroid treatment for his rheumatoid arthritis to reduce any inflammation related effects. This was done in mid February, unfortunately confirming progression especially in the liver and with multiple new areas of in volvement in the skeletal system. He was scheduled to begin cycle 1 of cyramza and taxotere earlier this month but this has been delayed due to hospital admissions. He was recently discharged on 03/22 after admission for abd pain and AMS. Patient represented to the ER for for progressing weakness. Upon admit chest x-ray showed stable showing right upper lung mass and interstitial opacities with no new abnormality seen. Urinalysis negative for UTI. WBC 9.6, hemoglobin 12.1, platelets 335,000. Creatinine 1.68, GFR 40. Sodium 125, BUN 49. Bilirubin 0.9, AST 152, ALT 34, ALP 675. At today's visit patient is lethargic and easily falls asleep during visit. Review of Systems 10 point ROS is negative except as stated in the HPI Past Medical History Past Medical History: Cancer, CVA/TIA, GERD/Reflux, Hyperlipidemia, Hype rtension, Musculoskeletal Disorder, Prostate Disorder, Rheumatoid Arthritis (RA) Additional Past Medical History / Comment(s): Degenerative Disc Disease. Enlarged prostate. lung cancer stage 4, ?TIA History of Any Multi-Drug Resistant Organisms: None Reported Past Surgical History: Back Surgery, Orthopedic Surgery Additional Past Surgical History / Comment(s): Spinal fusion X2, laminectomy, BILATERAL TENNIS ELBOW SURGERY, LEFT HAND CARPAL TUNNEL SURGERY, TRIAL PAIN STIMULATORPLACED AND LATER REMOVED, Pain Procedures, bilateral cataracts removed. ankle repair, Past Anesthesia/Blood Transfusion Reactions: No Reported Reaction Past Psychological History: Anxiety, Depression Smoking Status: Former smoker Past Alcohol Use History: None Reported Past Drug Use History: Marijuana - Past Family History Sister(s) Family Medical History: Cancer Additional Family Medical History / Comment(s): LUNG CANCER. Medications and Allergies Home Medications Medication Instructions Recorded Confirmed Type Folic Acid 1 mg PO DAILY@0730 08/30/14 03/28/25 History Gabapentin [Neurontin] 800 mg PO TID@0730,1500,1900 08/30/14 03/28/25 History Metoprolol Succinate 25 mg PO DAILY@0730 08/30/14 03/28/25 History Omeprazole [PriLOSEC] 20 mg PO BID 08/30/14 03/28/25 History calcitrioL 0.25 mcg PO FONTENOT 08/30/14 03/28/25 History Calcium Carbonate/Vitamin D3 2 tab PO DAILY@0730 06/18/16 03/28/25 History [Calcium 600-Vit D3 5 Mcg (200 Iu)] Doxazosin [Cardura] 4 mg PO BID@0730,1900 06/18/16 03/28/25 History buPROPion SR [Wellbutrin SR] 150 mg PO BID@0730,1900 06/05/24 03/28/25 History Potassium Chloride ER [K-Dur 10] 10 meq PO DAILY 11/28/24 03/28/25 History Hydrocortisone Cream 1 applic TOPICAL TID PRN 12/23/24 03/28/25 History [Hydrocortisone 2.5% Cream] predniSONE 5 mg PO BID 12/23/24 03/28/25 History Aspirin EC [Ecotrin Low Dose] 81 mg PO DAILY@72902/25/25 03/28/25 History Atorvastatin [Lipitor] 80 mg PO HS 02/25/25 03/28/25 History Butalbit/Acetamin/Caff/Codeine 1 cap PO BID PRN 02/25/25 03/28/25 History [Fioricet-Cod 18-085-82-30 Cap] Calcium Ascorbate 500mg 500 mg PO DAILY@72902/25/25 03/28/25 History Ferrous Sulfate [Iron (65 MG 325 mg PO Q48H 02/25/25 03/28/25 History Elemental)] Latanoprost [Latanoprost 0.005%] 1 drop BOTH EYES HS 02/25/25 03/28/25 History Magnesium Oxide [Mag-Ox] 500 mg PO DAILY@72902/25/25 03/28/25 History Metoclopramide HCl [Reglan] 10 mg PO AC-TID PRN 02/25/25 03/28/25 History Ondansetron [Zofran] 4 - 8 mg PO Q4H PRN MDD 32 mg 02/25/25 03/28/25 History oxyCODONE-APAP 10-325MG [Percocet 1 tab PO QID@0730,,,23 02/25/25 03/28/25 History 10-325 mg] droNABinol [Marinol] 2.5 mg PO AC-BID 30 Days #60 cap 03/22/25 03/28/25 Rx polyethylene glycoL 3350 [Miralax] 17 gm PO DAILY 30 Days #30 packet 03/22/25 03/28/25 Rx Prochlorperazine [Compazine] 10 mg PO Q6H PRN 03/28/25 03/28/25 History Allergies Allergy/AdvReac Type Severity Reaction Status Date / Time adhesive Allergy Rash/Hives Verified 03/28/25 14:34 - paper tape ok Physical Exam Vitals: Vital Signs Temp Pulse Pulse Resp BP BP Pulse Ox 03/29/25 08:15 97.8 F 65 18 103/56 95 03/29/25 06:02 64 20 104/49 98 03/29/25 01:16 60 18 108/48 96 03/28/25 21:17 57 L 20 97/51 98 03/28/25 19:08 65 18 91/59 95 03/28/25 18:30 63 20 121/62 94 L 03/28/25 17:00 63 20 108/57 98 03/28/25 15:00 93/50 03/28/25 14:00 58 L 18 114/78 94 L 03/28/25 13:00 53 L 18 103/49 95 03/28/25 12:20 51 L 18 119/58 95 03/28/25 10:25 97.7 F 55 L 16 85/40 97 Intake and Output 03/28/25 03/29/25 03/29/25 22:59 06:59 14:59 Output Total 300 Balance -300 Output: Urine 300 Uretheral (Walker) 300 Other: # Bowel Movements 1 1 - Constitutional General appearance: average body habitus, no acute distress - EENT Eyes: anicteric sclerae, EOMI ENT: hearing grossly normal - Respiratory breathing is even and unlabored - Cardiovascular skin warm and dry - Integumentary Integumentary: no cyanotic, no jaundiced - Neurologic lathargic Results CBC & Chem 7: 03/28/25 11:45 03/28/25 22:20 Labs: Abnormal Lab Results - Last 24 Hours (Table) 03/28/25 03/28/25 03/28/25 Range/Units 11:45 11:45 14:24 RBC 4.16 L (4.40-5.60) 10*6/uL Hgb 12.1 L (13.0-17.0) g/dL Hct 35.6 L (39.6-50.0) % Immature Gran # 0.32 H (0.00-0.04) 10*3/uL Sodium 126 L (137-145) mmol/L Chloride (98-107) mmol/L Carbon Dioxide 21 L (22-30) mmol/L BUN 52 H (9-20) mg/dL Creatinine 1.76 H (0.66-1.25) mg/dL Glucose 55 L (74-99) mg/dL POC Glucose (mg/dL) 136 H (70-110) mg/dL Calcium (8.4-10.2) mg/dL Magnesium 3.7 H (1.6-2.3) mg/dL AST 152 H (17-59) U/L Alkaline Phosphatase 675 H (38-126) U/L Total Protein 6.0 L (6.3-8.2) g/dL Albumin 2.8 L (3.5-5.0) g/dL Urine Ketones (Negative) Ur Leukocyte Esterase (Negative) Urine Mucus (None) /hpf Urine Osmolality (400-1100) mOsm/kg Ur Random Sodium (40-220) mmol/L 03/28/25 03/28/25 03/28/25 Range/Units 16:10 16:27 17:11 RBC (4.40-5.60) 10*6/uL Hgb (13.0-17.0) g/dL Hct (39.6-50.0) % Immature Gran # (0.00-0.04) 10*3/uL Sodium 125 L (137-145) mmol/L Chloride 109 H (98-107) mmol/L Carbon Dioxide 17 L (22-30) mmol/L BUN 50 H (9-20) mg/dL Creatinine 1.56 H (0.66-1.25) mg/dL Glucose (74-99) mg/dL POC Glucose (mg/dL) 155 H (70-110) mg/dL Calcium 8.0 L (8.4-10.2) mg/dL Magnesium (1.6-2.3) mg/dL AST (17-59) U/L Alkaline Phosphatase (38-126) U/L Total Protein (6.3-8.2) g/dL Albumin (3.5-5.0) g/dL Urine Ketones 1+ H (Negative) Ur Leukocyte Esterase Trace H (Negative) Urine Mucus Rare H (None) /hpf Urine Osmolality (400-1100) mOsm/kg Ur Random Sodium (40-220) mmol/L 03/28/25 03/28/25 03/28/25 Range/Units 17:11 17:11 22:20 RBC (4.40-5.60) 10*6/uL Hgb (13.0-17.0) g/dL Hct (39.6-50.0) % Immature Gran # (0.00-0.04) 10*3/uL Sodium 125 L (137-145) mmol/L Chloride 108 H (98-107) mmol/L Carbon Dioxide (22-30) mmol/L BUN 49 H (9-20) mg/dL Creatinine 1.68 H (0.66-1.25) mg/dL Glucose 62 L (74-99) mg/dL POC Glucose (mg/dL) (70-110) mg/dL Calcium 8.0 L (8.4-10.2) mg/dL Magnesium (1.6-2.3) mg/dL AST (17-59) U/L Alkaline Phosphatase (38-126) U/L Total Protein (6.3-8.2) g/dL Albumin (3.5-5.0) g/dL Urine Ketones (Negative) Ur Leukocyte Esterase (Negative) Urine Mucus (None) /hpf Urine Osmolality 395 L (400-1100) mOsm/kg Ur Random Sodium <20 L (40-220) mmol/L 03/29/25 Range/Units 08:24 RBC (4.40-5.60) 10*6/uL Hgb (13.0-17.0) g/dL Hct (39.6-50.0) % Immature Gran # (0.00-0.04) 10*3/uL Sodium (137-145) mmol/L Chloride (98-107) mmol/L Carbon Dioxide (22-30) mmol/L BUN (9-20) mg/dL Creatinine (0.66-1.25) mg/dL Glucose (74-99) mg/dL POC Glucose (mg/dL) 69 L (70-110) mg/dL Calcium (8.4-10.2) mg/dL Magnesium (1.6-2.3) mg/dL AST (17-59) U/L Alkaline Phosphatase (38-126) U/L Total Protein (6.3-8.2) g/dL Albumin (3.5-5.0) g/dL Urine Ketones (Negative) Ur Leukocyte Esterase (Negative) Urine Mucus (None) /hpf Urine Osmolality (400-1100) mOsm/kg Ur Random Sodium (40-220) mmol/L Chest x-ray: report reviewed Assessment and Plan (1) Weakness Status: Acute Code(s): R53.1 - WEAKNESS SNOMED Code(s): 62555322 (2) Metastatic non-small cell lung cancer Status: Chronic Priority: Medium Code(s): C34.90 - MALIGNANT NEOPLASM OF UNSP PART OF UNSP BRONCHUS OR LUNG SNOMED Code(s): 592422680 Plan: Metastatic non-small cell lung cancer Presented with progressing weakness. Pt recently discharged for similar symptoms - Diagnosis and treatment as documented in consult -Recent progression of disease. Plan was to start Cyramza and Taxotere but has been delayed to recent hospital admissions. Unfortunately patient's condition has continued to decline -Had discussion with spouse today regarding goals of care. has decided on hospice care. Due to patient's progression of disease and declining condition, we agree that hospice would be appropriate. Discussed hospice philosophy. Consult to hospice has been placed. All questions and concerns were answered, We will remain available for any further questions/concerns Doctor attests: I performed a history and physical examination of this patient, developed impression and plan of care. Discussed with dictator. I agree with dictators note, documented as a scribe.
== END 2025-03-29 19:02 | disposition hospice, home (50) | DRG 644 ==
LOC: EC 09:54 → 5NMEDONC 13:45 → OBSVTOIN 13:46 → 5NMEDONC 19:58
PROVIDERS: ADMIT Student in an Organized Health Care Education/Training Program; ATTEND Student in an Organized Health Care Education/Training Program
DX: E22.2 Syndrome of inappropriate secretion of antidiuretic hormone (principal); C34.90 Malignant neoplasm of unspecified part of unspecified bronchus or lung; C78.7 Secondary malignant neoplasm of liver and intrahepatic bile duct; C79.51 Secondary malignant neoplasm of bone; C78.89 Secondary malignant neoplasm of other digestive organs; C77.1 Secondary and unspecified malignant neoplasm of intrathoracic lymph nodes; R78.81 Bacteremia; Z51.5 Encounter for palliative care; E86.0 Dehydration; M06.9 Rheumatoid arthritis, unspecified; F32.A Depression, unspecified; I10 Essential (primary) hypertension; Z66 Do not resuscitate; G89.3 Neoplasm related pain (acute) (chronic); R00.1 Bradycardia, unspecified; R74.01 Elevation of levels of liver transaminase levels; E78.5 Hyperlipidemia, unspecified; F41.9 Anxiety disorder, unspecified; K59.00 Constipation, unspecified; N40.0 Benign prostatic hyperplasia without lower urinary tract symptoms; Z79.82 Long term (current) use of aspirin; Z79.899 Other long term (current) drug therapy; Z86.73 Personal history of transient ischemic attack (TIA), and cerebral infarction without residual deficits; Z98.1 Arthrodesis status; Z87.891 Personal history of nicotine dependence
CPT/HCPCS: 36415; 51702; 71046; 80048; 80053; 81001; 83605; 83735; 83935; 84300; 84484; 85025; 85610; 85730; 87040; 93005; 96360; 96361; 99285